=== PATIENT | female | born 1940 | race Caucasian/White ===

== ENCOUNTER 2023-03-11 12:50 | Outpatient (OUT) | payer MEDICARE, OTHER, SELFPAY ==
--- NOTE | 2023-03-11 12:54 | US_ITS ---
Patient: ERNESTINA HAYWOOD Exam Date: 03/11/2023 : 1940 Gender:F Ordering : DR SMITH ZHANG M.D. Admission #: [id number] Family : DR RAFA RAM M.D. Order #: [id number] CLICK HERE TO VIEW EXAM RADIOLOGY REPORT PROCEDURE: MM TOMOSYNTHESIS DIAGNOSTIC RT, 03/11/2023, 13:43 US BREAST RT LIMITED, 03/11/2023, 13:01 COMPARISON: [facility] MAMM DIAGNOSTIC 3D SHREE CAD, 07/29/2022. [facility] MAMM DIAGNOSTIC 3D SHREE CAD, 07/29/2021. INDICATIONS: Palpable lump in right breast Calculator Name NCI Breast Cancer Risk Assessment Tool 5 Year Breast Cancer Risk n/a% Lifetime Breast Cancer Risk n/a% Personal Breast Cancer Yes, invasive ductal carcinoma, age 78 Personal Ovarian Cancer No Treatments None Family Cancers None LOCATION: [facility] BREAST COMPOSITION: Extremely dense, which lowers the sensitivity of mammography. FINDINGS: DIAGNOSTIC CATEGORY 2--BENIGN FINDING: RIGHT BREAST: Scattered benign-appearing calcifications are present. Chronic calcified nodules/scarring within axillary tail with overlying skin surface marker and skin retraction at site of prior lumpectomy No significant change has occurred. Ultrasound evaluation demonstrates a calcified mass within the axillary tail corresponding to patient's palpable lump, 2.1 x 0.9 x 1.1 cm. No appreciable significant internal blood flow. Annual screening mammography is recommended. RECOMMENDATIONS: ROUTINE MAMMOGRAM AND CLINICAL EVALUATION IN 12 MONTHS. PLEASE NOTE: A NORMAL MAMMOGRAM DOES NOT EXCLUDE THE POSSIBILITY OF BREAST CANCER. A CLINICALLY SUSPICIOUS PALPABLE LUMP SHOULD BE BIOPSIED. Dictated by: Mac Moss M.D. on 03/11/2023 at 14:34 Approved by: Mac Moss M.D. on 03/11/2023 at 14:59
--- NOTE | 2023-03-11 13:54 | MM_ITS ---
Patient: ERNESTINA HAYWOOD Exam Date: 03/11/2023 : 1940 Gender:F Ordering : DR SMITH ZHANG M.D. Admission #: [id number] Family : DR RAFA RAM M.D. Order #: [id number] CLICK HERE TO VIEW EXAM RADIOLOGY REPORT PROCEDURE: MM TOMOSYNTHESIS DIAGNOSTIC RT, 03/11/2023, 13:43 US BREAST RT LIMITED, 03/11/2023, 13:01 COMPARISON: [facility] MAMM DIAGNOSTIC 3D SHREE CAD, 07/29/2022. MG MAMM DIAGNOSTIC 3D SHREE CAD, 07/29/2021. INDICATIONS: Palpable lump in right breast Calculator Name NCI Breast Cancer Risk Assessment Tool 5 Year Breast Cancer Risk n/a% Lifetime Breast Cancer Risk n/a% Personal Breast Cancer Yes, invasive ductal carcinoma, age 78 Personal Ovarian Cancer No Treatments None Family Cancers None LOCATION: [facility] BREAST COMPOSITION: Extremely dense, which lowers the sensitivity of mammography. FINDINGS: DIAGNOSTIC CATEGORY 2--BENIGN FINDING: RIGHT BREAST: Scattered benign-appearing calcifications are present. Chronic calcified nodules/scarring within axillary tail with overlying skin surface marker and skin retraction at site of prior lumpectomy No significant change has occurred. Ultrasound evaluation demonstrates a calcified mass within the axillary tail corresponding to patient's palpable lump, 2.1 x 0.9 x 1.1 cm. No appreciable significant internal blood flow. Annual screening mammography is recommended. RECOMMENDATIONS: ROUTINE MAMMOGRAM AND CLINICAL EVALUATION IN 12 MONTHS. PLEASE NOTE: A NORMAL MAMMOGRAM DOES NOT EXCLUDE THE POSSIBILITY OF BREAST CANCER. A CLINICALLY SUSPICIOUS PALPABLE LUMP SHOULD BE BIOPSIED. Dictated by: Mac Moss M.D. on 03/11/2023 at 14:34 Approved by: Mac Moss M.D. on 03/11/2023 at 14:59
== END 2023-03-11 12:51 ==
LOC: US 12:50
PROVIDERS: PCP Internal Medicine; Visit Provider Internal Medicine Hematology & Oncology
DX: C50.811 Malignant neoplasm of overlapping sites of right female breast (principal); Z17.0 Estrogen receptor positive status [ER+]
CPT/HCPCS: 76642; 77065; G0279

== ENCOUNTER 2023-07-30 13:55 | Outpatient (OUT) | payer MEDICARE, OTHER, SELFPAY ==
--- NOTE | 2023-07-30 14:06 | MM_ITS ---
Patient Name: ERNESTINA HAYWOOD MR#: [id number] : 1940 Exam Date: 07/30/2023 Ordering Doctor: DR SMITH ZHANG M.D. RADIOLOGY REPORT PROCEDURE: MM TOMOSYNTHESIS SCREENING BI COMPARISON: MM TOMOSYNTHESIS DIAGNOSTIC RT, 03/11/2023. MG MAMM DIAGNOSTIC 3D SHREE CAD, 07/29/2022. MG MAMM DIAGNOSTIC 3D SHREE CAD, 07/29/2021. MG MAMM SHREE DIAG W CAD DIG, 02/14/2013. INDICATIONS: Screening Calculator Name NCI Breast Cancer Risk Assessment Tool 5 Year Breast Cancer Risk n/a% Lifetime Breast Cancer Risk n/a% Personal Breast Cancer Yes, invasive ductal carcinoma, age 78 Personal Ovarian Cancer No Treatments None Family Cancers None LOCATION: [facility] BREAST COMPOSITION: Extremely dense, which lowers the sensitivity of mammography. FINDINGS: DIAGNOSTIC CATEGORY 2--BENIGN FINDING: RIGHT BREAST: No significant suspicious finding. Scattered benign-appearing calcifications are present. No significant change has occurred. LEFT BREAST: No significant suspicious finding. Scattered benign-appearing calcifications are present. No significant change has occurred. RECOMMENDATIONS: ROUTINE MAMMOGRAM AND CLINICAL EVALUATION IN 12 MONTHS. PLEASE NOTE: A NORMAL MAMMOGRAM DOES NOT EXCLUDE THE POSSIBILITY OF BREAST CANCER. A CLINICALLY SUSPICIOUS PALPABLE LUMP SHOULD BE BIOPSIED. Dictated by: Mac Moss M.D. on 07/30/2023 at 14:56 Approved by: Mac Moss M.D. on 07/30/2023 at 14:58
== END 2023-07-30 13:56 | disposition home or self-care (01) ==
LOC: MAMMO 13:55
PROVIDERS: PCP Internal Medicine; Visit Provider Internal Medicine Hematology & Oncology
DX: Z12.31 Encounter for screening mammogram for malignant neoplasm of breast (principal)
CPT/HCPCS: 77063; 77067

== ENCOUNTER 2024-04-06 08:09 | Outpatient (OUT) | payer MEDICARE, OTHER, SELFPAY ==
--- OUTSIDE RECORDS SUMMARY | 2024-04-06 08:15 | XMS_ITS | CCD ---
Author Organization [facility] Care Team Providers Care Md Urologist Name Role Phone Wilver Disla MD Unavailable Prashanth CANDY SEPARATOR ENROBING.ANUJA Hannah Unavailable Kade Huynh II Primary Care Provider JAYNE KEITH Admitting Unavailable LINO, DR CRAIG Primary Care Unavailable ELANA, DR ERASMO Singh Consulting Unavailable JAYNE KEITH Attending Unavailable JAYNE KEITH Consulting Unavailable LINO, DR CRAIG Primary Care Unavailable LEATHA, DR MTZ Attending Unavailable LEATHA, DR MTZ Consulting Unavailable LEATHA, DR MTZ Admitting Unavailable DASHAWN, DR GRACE Tovar Consulting Unavailable GURWINDER POWELL Attending Unavailable GURWINDER POWELL Admitting Unavailable LINO, DR CRAIG Primary Care Unavailable DASHAWN, DR GRACE Tovar Consulting Unavailable GURWINDER POWELL Consulting Unavailable LINO, DR CRAIG Consulting Unavailable LINO, DR CRAIG Primary Care Unavailable LINO, DR CRAIG Admitting Unavailable LINO, DR CRAIG Attending Unavailable ELANA, DR ERASMO Singh Consulting Unavailable Wilver Disla MD Unavailable [phone] Prashanth CANDY SEPARATOR ENROBING.ANUJA Hannah Unavailable Kade Huynh II Primary Care Provider Kade Huynh II Primary Care Provider [phone] Lino LOW MD, Daniel B Primary Care Provider [phone] KADE HUYNH II Primary Care Unavailable WILVER DISLA Attending Unavailable WILVER DISLA Referring Unavailable KADE HUYNH II Primary Care Unavailable KADE HUYNH II Primary Care Unavailable ROSALINA LANDRY Attending Unavailable WILVER DISLA Referring Unavailable KADE HUYNH II Primary Care Unavailable WILVER DISLA Referring Unavailable KADE HUYNH II Primary Care Unavailable WILVER DISLA Attending Unavailable WILVER DISLA Referring Unavailable KADE HUYNH II Primary Care Unavailable Medications Current Medications Medication Drug Class(es) Dates Sig (Normalized) Sig (Original) anastrozole 1 mg oral tablet (9 sources) Aromatase Inhibitor Start: 04-19-2023 End: 03-28-2024 take 1 tablet by mouth once daily anastrozole (ARIMIDEX) 1 mg tablet Take 1 tablet by mouth once daily. 90 tablet 3 03/28/2024 Active Start: 03-19-2022 take 1 tablet by krysta th once daily anastrozole (ARIMIDEX) 1 mg tablet Take 1 tablet by mouth once daily. 90 tablet 3 03/19/2022 Active Start: 08-12-2021 take 1 tablet by krysta th once daily anastrozole (ARIMIDEX) 1 mg tablet Take 1 tablet by mouth once daily. 90 tablet 3 08/12/2021 Active Comment on above: Take 1 tablet by krysta th once daily. cholecalciferol 0.05 mg oral tablet (8 sources) Vitamin D Start: 020 take 1 tablet by mouth once daily cholecalciferol (VITAMIN D3) 50 mcg (2,000 unit) tablet Take 1 tablet by mouth once daily. 0 02/05/2020 Active Comment on above: Take 1 tablet by krysta th once daily. hydrocortisone acetate 25 mg rectal suppository (8 sources) Corticosteroid Start: 020 hydrocortisone (HEMORRHOIDAL HC) 25 mg suppository INSERT 1 SUPPOSITORY RECTALLY 3 TIMES A DAY 0 06/05/2020 Active Comment on above: INSERT 1 SUPPOSITORY RECTALLY 3 TIMES A DAY Lactose (8 sources) LACTOSE ORAL Jim e by mouth. 0 Active Comment on above: Take by mouth. Loratadine (8 sources) loratadine (CLAR ITIN ORAL) Take by mouth. 0 Active Comment on above: Take by mouth. montelukast 10 mg oral tablet (8 sources) Leukotriene Receptor Antagonist Start: 020 take 1 tablet by mouth once daily montelukast (SINGULAIR) 10 mg tablet Take 10 mg by mouth once daily. 0 05/08/2020 Active Comment on above: Take 10 mg by mouth once daily. omeprazole 20 mg delayed release oral capsule (8 sources) Proton Pump Inhibitor take 1 capsule by mouth once daily omeprazole (PRILOSEC) 20 mg capsule Take 20 mg by mouth once daily. 0 Active Comment on above: Take 20 mg by mouth once daily. SUMMER'S WORT ORAL (8 sources) SUMMER'S WORT ORAL Take by mouth. 0 Active Comment on above: Take by mouth. Zinc Sulfate (8 sources) zinc sulfate (ZI NC-15 ORAL) Take by mouth. 0 Active Comment on above: Take by mouth. Problems Active Problems Problem Classification Problem Date Documented Da te Episodic/Chronic Cancer of breast (19 sources) Overlapping malignant neoplasm of female breast; Translations: [Malignant neoplasm of overlapping sites of right female breast] Onset: 09-28-2019 Chronic Other connective tissue disease (4 sources) Pain in left foot; Translations: [PAIN IN LEFT FOOT] Onset: 07-15-2022 Episodic Other screening for suspected conditions (not mental disorders or infectious disease) (2 sources) Encounter for screening for osteoporosis; Translations: [Patient encounter status] Onset: 08-03-2022 03-28-2024 Episodic Residual codes; unclassified (1 source) Asymptomatic menopausal state; Translations: [ASYMPTOMATIC MENOPAUSAL STATE] Onset: 08-03-2022 Episodic Residual codes; unclassified (1 source) Estrogen receptor positive tumor; Translations: [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+]] 04-05-2023 Episodic Unclassified (3 sources) COUGH, UNSPECIFIED; Translations: [COUGH, UNSPECIFIED] Onset: 05-18-2022 Past or Other Problems Problem Classification Problem Date Documented Da te Episodic/Chronic Residual codes; unclassified (2 sources) 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+]; Translations: [ESTROGEN RECEPTOR POSITIVE STATUS] Onset: 09-28-2019 Episodic Unclassified (1 source) COUGH, UNSPECIFIED; Translations: [COUGH, UNSPECIFIED] Onset: 05-16-2022 Results Test Name Value Interpretation Reference Range Facility CBC W Auto Differential pane l (Bld)on 03-28-2024 Basophils (Bld) [#/Vol] 0.07 10*3/uL Normal <0.11 [facility] Comment on above: Order Comment: Speci men Type: BLOOD SPECIMEN Ordering Facility: [facility] Address: [address] [place] [address] Performed By: #### 5 7021-8 #### [facility] CLIA [id number] [address] [place] [address] 55004 Basophils/100 WBC (Bld) 1.0 % Normal [facility] Comment on above: Order Comment: Speci men Type: BLOOD SPECIMEN Ordering Facility: [facility] Address: [address] [place], [place] [address] Performed By: #### 5 7021-8 #### [facility] CLIA [id number] [address] [place] [address] 79495 Differential cell count method Nom (Bld) Auto Normal [facility] Comment on above: Order Comment: Speci men Type: BLOOD SPECIMEN Ordering Facility: [facility] Address: [address] [place] [address] Performed By: #### 5 7021-8 #### [facility] CLIA [id number] [address] [place] [address] 76936 Eosinophils (Bld) [#/Vol] 0.10 10*3/uL Normal <0.46 [facility] Comment on above: Order Comment: Speci men Type: BLOOD SPECIMEN Ordering Facility: [facility] Address: [address] [place] [address] Performed By: #### 5 7021-8 #### [facility] CLIA [id number] [address] [place] [address] 88240 Eosinophils/100 WBC (Bld) 1.4 % Normal [facility] Comment on above: Order Comment: Speci men Type: BLOOD SPECIMEN Ordering Facility: [facility] Address: [address] [place] [address] Performed By: #### 5 7021-8 #### [facility] CLIA [id number] [address] [place] [address] 05337 Erythrocyte distribution width (RBC) [Ratio] 14.1 % Normal 11.5-15.0 [facility] Comment on above: Order Comment: Speci men Type: BLOOD SPECIMEN Ordering Facility: [facility] Address: [address] [place] [address] Performed By: #### 5 7021-8 #### [facility] CLIA [id number] [address] [place] [address] Hematocrit (Bld) [Volume fraction] 40.2 % Normal 36.0-46.0 [facility] Comment on above: Order Comment: Speci men Type: BLOOD SPECIMEN Ordering Facility: [facility] Address: [address] [place] [address] Performed By: #### 5 7021-8 #### [facility] CLIA [id number] [address] [place] [address] 19798 Hemoglobin (Bld) [Mass/Vol] 13.2 g/dL Normal 11.5-15.5 [facility] Comment on above: Order Comment: Speci men Type: BLOOD SPECIMEN Ordering Facility: [facility] Address: [address] [place] [address] Performed By: #### 5 7021-8 #### [facility] CLIA [id number] [address] [place] [address] 85621 Immature granulocytes (Bld) [#/Vol] 0.03 10*3/uL Normal <0.10 [facility] Comment on above: Order Comment: Speci men Type: BLOOD SPECIMEN Ordering Facility: [facility] Address: [address] [place] [address] Performed By: #### 5 7021-8 #### [facility] CLIA [id number] [address] [place] [address] 25652 Immature granulocytes/100 WBC (Bld) 0.4 % Normal [facility] Comment on above: Order Comment: Speci men Type: BLOOD SPECIMEN Ordering Facility: [facility] Address: [address] [place] [address] Performed By: #### 5 7021-8 #### [facility] CLIA [id number] [address] [place] [address] 25018 Lymphocytes (Bld) [#/Vol] 1.51 10*3/uL Normal 1.00-4.00 [facility] Comment on above: Order Comment: Speci men Type: BLOOD SPECIMEN Ordering Facility: [facility] Address: [address] [place] [address] Performed By: #### 5 7021-8 #### [facility] CLIA [id number] [address] [place] [address] 12187 Lymphocytes/100 WBC (Bld) 20.9 % Normal [facility] Comment on above: Order Comment: Speci men Type: BLOOD SPECIMEN Ordering Facility: [facility] Address: [address] [place] [address] Performed By: #### 5 7021-8 #### [facility] CLIA [id number] [address] [place] [address] 37440 MCH (RBC) [Entitic mass] 32.8 pg Normal 26.0-34.0 [facility] Comment on above: Order Comment: Speci men Type: BLOOD SPECIMEN Ordering Facility: [facility] Address: [address] [place] [address] Performed By: #### 5 7021-8 #### [facility] CLIA [id number] [address] [place] [address] 81863 MCHC (RBC) [Mass/Vol] 32.8 g/dL Normal 30.5-36.0 [facility] Comment on above: Order Comment: Speci men Type: BLOOD SPECIMEN Ordering Facility: [facility] Address: [address] [place] [address] Performed By: #### 5 7021-8 #### [facility] CLIA [id number] [address] [place] [address] 07950 MCV (RBC) [Entitic vol] 99.8 fL Normal 80.0-100.0 [facility] Comment on above: Order Comment: Speci men Type: BLOOD SPECIMEN Ordering Facility: [facility] Address: [address] [place] [address] Performed By: #### 5 7021-8 #### [facility] CLIA [id number] [address] [place] [address] 16932 Monocytes (Bld) [#/Vol] 0.47 10*3/uL Normal <0.87 [facility] Comment on above: Order Comment: Speci men Type: BLOOD SPECIMEN Ordering Facility: [facility] Address: [address] [place] [address] Performed By: #### 5 7021-8 #### [facility] CLIA [id number] [address] [place] [address] 84902 Monocytes/100 WBC (Bld) 6.5 % Normal [facility] Comment on above: Order Comment: Speci men Type: BLOOD SPECIMEN Ordering Facility: [facility] Address: [address] [place] [address] Performed By: #### 5 7021-8 #### [facility] CLIA [id number] [address] [place] [address] 51030 Neutrophils (Bld) [#/Vol] 5.04 10*3/uL Normal 1.45-7.50 [facility] Comment on above: Order Comment: Speci men Type: BLOOD SPECIMEN Ordering Facility: [facility] Address: [address] [place] [address] Performed By: #### 5 7021-8 #### [facility] CLIA [id number] [address] [place] [address] 15622 Neutrophils/100 WBC (Bld) 69.8 % Normal [facility] Comment on above: Order Comment: Speci men Type: BLOOD SPECIMEN Ordering Facility: [facility] Address: [address] [place] [address] 8[address]60 Performed By: #### 5 7021-8 #### [facility] CLIA [id number] [address] [place] [address] 88536 Nucleated RBC (Bld) [#/Vol] 10*3/uL Normal <0.01 [facility] Comment on above: Order Comment: Speci men Type: BLOOD SPECIMEN Ordering Facility: [facility] Address: [address] [place] [address] Performed By: #### 5 7021-8 #### [facility] CLIA [id number] [address] [place] [address] Nucleated RBC/100 WBC (Bld) [Ratio] 0.0 /100 WBC Normal [facility] Comment on above: Order Comment: Speci men Type: BLOOD SPECIMEN Ordering Facility: [facility] Address: [address] [place] [address] 73729 Performed By: #### 5 7021-8 #### [facility] CLIA [id number] [address] [place] [address] 79441 Platelet mean volume (Bld) [Entitic vol] 9.7 fL Normal 9.0-12.7 [facility] Comment on above: Order Comment: Speci men Type: BLOOD SPECIMEN Ordering Facility: [facility] Address: [address] [place] [address] 14849 Performed By: #### 5 7021-8 #### [facility] CLIA [id number] [address] [place] [address] 60694 Platelets (Bld) [#/Vol] 242 10*3/uL Normal 150-400 [facility] Comment on above: Order Comment: Speci men Type: BLOOD SPECIMEN Ordering Facility: [facility] Address: [address] [place] [address]97 Performed By: #### 5 7021-8 #### [facility] CLIA [id number] [address] [place] [address] 81673 RBC (Bld) [#/Vol] 4.03 10*6/uL Normal 3.90-5.20 [facility] Comment on above: Order Comment: Speci men Type: BLOOD SPECIMEN Ordering Facility: [facility] Address: [address] [place] [address] 24298 Performed By: #### 5 7021-8 #### [facility] CLIA [id number] [address] [place] [address] 41780 WBC (Bld) [#/Vol] 7.22 10*3/uL Normal 3.70-11.00 [facility] Comment on above: Order Comment: Speci men Type: BLOOD SPECIMEN Ordering Facility: [facility] Address: [address] [place] [address] Performed By: #### 5 7021-8 #### [facility] CLIA [id number] [address] [place] [address] 02236 CNOVSPon 03-28-2024 CNOVSP Visit (SP) Office ([facility]) ERNESTINA COSTA ([id number]) 1940 F Date Time Provider Department 03/28/24 2:30 PM ROSALINA LANDRY During your visit today, we recorded the following information about you: Temperature Pulse Respiration Blood pressure 98.1 degrees 82/minute 16/minute 130/84 Weight Height 89.6 kg 1.581 Rosalina Nunez PA-C 03/28/2024 4:06 PM Signed PATIENT NAME: Ernestina Costa DATE: 03/28/2024 PRIMARY CARE PHYSICIAN: Dr. Kade Huynh OTHER PHYSICIANS: Dr. Chambers, Dr. Bhakti Glaser (Med [facility]) (Elements copied from Dr. Disla's note dated August 09, 2023, have been reviewed and updated where appropriate, and all reflect current assessment and medical decision making during today's encounter, March 28, 2024) CC: This is an 83 year old female with a history of right-sided breast cancer, seen for scheduled follow-up. INTERIM HISTORY: Ernestina returns for follow up. She just got back from [place]. Remains on anastrazole without issues. She has been having gait issues and some tremors and she will be seeing her PCP for this next week. No breast changes. She still has occasional tenderness in her right breast, but that has been for a long time. She also has a nodule in her right axilla that hasn't changed. This has been imaged previously No recent hospitalizations or illness. MEDICATIONS: anastrozole (ARIMIDEX) 1 mg tablet TAKE 1 TABLET ONCE DAILY SUMMER'S WORT ORAL Take by mouth. loratadine (CLARITIN ORAL) Take by mouth. montelukast (SINGULAIR) 10 mg tablet Take 10 mg by mouth once daily. hydrocortisone (HEMORRHOIDAL HC) 25 mg suppository INSERT 1 SUPPOSITORY RECTALLY 3 TIMES A DAY cholecalciferol (VITAMIN D3) 50 mcg (2,000 unit) tablet Take 1 tablet by mouth once daily. omeprazole (PRILOSEC) 20 mg capsule Take 20 mg by mouth once daily. zinc sulfate (ZINC-15 ORAL) Take by mouth. LACTOSE ORAL Take by mouth. ALLERGIES: Patient has no known allergies. PAST MEDICAL HISTORY: PAST MEDICAL HISTORY Diagnosis Date Breast cancer (HCC) PAST SURGICAL HISTORY: PAST SURGICAL HISTORY Procedure Laterality Date BREAST BIOPSY CATARACT EXTRACTION HX PAST SURGICAL HISTORY OF Left 06/2021 Left foot TONSILLECTOMY HX REVIEW OF SYSTEMS: GENERAL: No weight loss, malaise or fevers. HEENT: Negative for frequent or significant headaches, No changes in hearing or vision, no nose bleeds or other nasal problems RESPIRATORY: Negative for cough, wheezing or shortness of breath. CARDIOVASCULAR: Negative for chest pain, leg swelling or palpitations. GI: Negative for abdominal discomfort, blood in stools or black stools Positive for chronic constipation and hemorrhoids : No history of dysuria, frequency or incontinence MUSCULOSKELETAL: Negative for: joint pain or swelling, back pain and muscle pain SKIN: Negative for lesions, rash, and itching. HEMATOLOGY/LYMPHOLOGY: Negative for prolonged bleeding, bruising easily or swollen nodes. NEURO: No history of headaches, syncope, paralysis, seizures or tremors BREAST: right breast and axilla tenderness PHYSICAL EXAM: Vitals: BP 130/84 Pulse 82 Temp 36.7 ?C (98.1 ?F) (Temporal) Resp 16 Ht 158.1 cm (5' 2.24 ) Wt 89.6 kg (197 lb 8.5 oz) SpO2 97% BMI 35.85 kg/m? ECOG 0 General: Alert and oriented, no distress, pleasant and cooperative. Heart: Regular, normal S1 and S2, no murmurs, rubs, or gallops Lungs: Clear to auscultation bilaterally Abdomen: Benign Extremities: Feet/ankles without edema, posterior tibial pulses full and symmetrical Lymph Nodes: No Submandibular, cervical, supraclavicular, axillary, or inguinal lymphadenopathy present Breast: Postop changes in the right breast with thickening consistent with scar tissue in the right outer quadrant. Left breast normal. Right axillary area demonstrates a 1 x 1 cm hardened area most consistent with scar tissue. 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 The invasive carcinoma measures 1.5 cm in greatest dimension. It focally involved the inferior margin. The remaining margins are free of neoplasm. One sentinel lymph node biopsied, with evidence of metastasis measuring 4 mm in greatest dimension. Minute focus of extranodal extension measuring approximately 0.1 mm is identified. LABORATORY DATA: Hemoglobin (g/dL) Date Value 03/28/2024 13.2 08/12/2021 13.7 Hematocrit (%) Date Value 03/28/2024 40.2 08/12/2021 42.2 WBC (k/uL) Date Value 03/28/2024 7.22 08/12/2021 6.69 Platelet Count (k/uL) Date Value 03/28/2024 242 08/12/2021 266 RADIOLOGIC DATA: 07/30/2023 Bilateral diagnostic mammogram ([facility]) Benign finding. Recommend routine mammogram in 12 months. 03/11/2023 Right diagnostic mammog (more content not included)... Normal [facility] 03-28-2024 [facility] Tele[facility] ([facility]) ERNESTINA COSTA ([id number]) 1940 F Date Time Provider Department 03/28/24 WILVER DISLA During your visit today, we recorded the following information about you: Heather Thompson 03/28/2024 3:17 PM Signed Hi Rosalina, Could you please place a new Mammogram order for her? The one in her chart was ordered by Dr. Disla and will no longer be valid for July 2024. Thank you! Rosalina Belcher PA-C 03/28/2024 4:35 PM Signed Order placed Heather Thompson 03/30/2024 8:25 AM Signed Faxed order to [facility] - they will contact patient closer to time for scheduling. Mailed order w/ patients follow up. Heather Thompson Allergies As of Date: 03/28/2024 (No Known Allergies) Date Reviewed: 03/28/2024 Reviewed by: Rosalina Landry PA-C - Fully Assessed Reason for Visit: Orders [681] Primary Visit Diagnosis:Malignant neoplasm of overlapping sites of right breast in female, estrogen receptor positive (HCC) [C50.811, Z17.0] Other Visit Diagnosis:Encounter for screening mammogram for malignant neoplasm of breast [Z12.31] Order(s):CIRO SCREENING W CHELSIE [[id number]] Order #: [id number] FUTURE Prescriptions as of 03/30/2024 - anastrozole (ARIMIDEX) 1 mg tablet Take 1 tablet by mouth once daily. - SUMMER'S WORT ORAL Take by mouth. - loratadine (CLARITIN ORAL) Take by mouth. - montelukast (SINGULAIR) 10 mg tablet Take 10 mg by mouth once daily. - hydrocortisone (HEMORRHOIDAL HC) 25 mg suppository INSERT 1 SUPPOSITORY RECTALLY 3 TIMES A DAY - cholecalciferol (VITAMIN D3) 50 mcg (2,000 unit) tablet Take 1 tablet by mouth once daily. - omeprazole (PRILOSEC) 20 mg capsule Take 20 mg by mouth once daily. - zinc sulfate (ZINC-15 ORAL) Take by mouth. - LACTOSE ORAL Take by mouth. Problem List As Of Date 03/28/2024 Noted Resolved Malignant neoplasm of overlapping sites of righ*09/28/2019 Encounter Status:Closed by HEATHER THOMPSON on 03/30/24 Normal [facility] Cancer Ag27-29 SerPl-aCncon 03-28-2024 Cancer Ag 27-29 Qn 20.6 [arb'U]/mL Normal <38.6 C [facility] Comment on above: Order Comment: Speci men Type: BLOOD SPECIMEN Ordering Facility: [facility] Address: [address] [place] [address] Result Comment: The CA27.29 test was performed using the Siemens Centaur XP chemiluminometric immunoassay method. Results obtained with different assay methods or kits cannot be used interchangeably. Performed By: #### 2 4323-8 #### [facility] CLIA [id number] [address] [place] [address] 81367 Comprehensive metabolic 2000 panelon 03-28-2024 Albumin [Mass/Vol] 3.9 g/dL Normal 3.9-4.9 [facility] Comment on above: Order Comment: Speci men Type: BLOOD SPECIMEN Ordering Facility: [facility] Address: [address] [place] [address] Performed By: #### 2 4323-8 #### [facility] CLIA [id number] [address] [place] [address] 45576 ALP [Catalytic activity/Vol] 114 U/L Normal 34-123 [facility] Comment on above: Order Comment: Speci men Type: BLOOD SPECIMEN Ordering Facility: [facility] Address: [address] [place] [address] Performed By: #### 2 4323-8 #### [facility] CLIA [id number] [address] [place] [address] 56700 ALT [Catalytic activity/Vol] 16 U/L Normal 7-38 [facility] Comment on above: Order Comment: Speci men Type: BLOOD SPECIMEN Ordering Facility: [facility] Address: [address] [place] [address] Performed By: #### 2 4323-8 #### [facility] CLIA [id number] [address] [place] [address] 52851 Anion gap [Moles/Vol] 7 mmol/L Low 8-15 [facility] Comment on above: Order Comment: Speci men Type: BLOOD SPECIMEN Ordering Facility: [facility] Address: [address] [place] [address] Performed By: #### 2 4323-8 #### [facility] CLIA [id number] [address] [place] [address] AST [Catalytic activity/Vol] 14 U/L Normal 13-35 [facility] Comment on above: Order Comment: Speci men Type: BLOOD SPECIMEN Ordering Facility: [facility] Address: [address] [place], [place] [address] Performed By: #### 2 4323-8 #### [facility] CLIA [id number] [address] [place] [address] 14812 Bilirubin [Mass/Vol] 0.5 mg/dL Normal 0.2-1.3 [facility] Comment on above: Order Comment: Speci men Type: BLOOD SPECIMEN Ordering Facility: [facility] Address: [address] [place] [address] Performed By: #### 2 4323-8 #### [facility] CLIA [id number] [address] [place] [address] 93189 Calcium [Mass/Vol] 10.1 mg/dL Normal 8.5-10.2 [facility] Comment on above: Order Comment: Speci men Type: BLOOD SPECIMEN Ordering Facility: [facility] Address: [address] [place] [address] Performed By: #### 2 4323-8 #### [facility] CLIA [id number] [address] [place] [address] 55564 Chloride [Moles/Vol] 105 mmol/L Normal 98-107 [facility] Comment on above: Order Comment: Speci men Type: BLOOD SPECIMEN Ordering Facility: [facility] Address: [address] [place] [address] Performed By: #### 2 4323-8 #### [facility] CLIA [id number] [address] [place] [address] 50600 CO2 [Moles/Vol] 26 mmol/L Normal 22-30 [facility] Comment on above: Order Comment: Speci men Type: BLOOD SPECIMEN Ordering Facility: [facility] Address: [address] [place], [place] [address] Performed By: #### 2 4323-8 #### [facility] CLIA [id number] [address] [place] [address] Creatinine [Mass/Vol] 0.93 mg/dL Normal 0.58-0.96 [facility] Comment on above: Order Comment: Kim flores Type: BLOOD SPECIMEN Ordering Facility: [facility] Address: [address] [place] [address] Performed By: #### 2 4323-8 #### [facility] CLIA [id number] [address] [place] [address] Creatinine and Glomerular filtration rate.predicted panel (S/P/Bld) 61 mL/min/1.73m??? Normal >=60 [facility] Comment on above: Order Comment: Kim flores Type: BLOOD SPECIMEN Ordering Facility: [facility] Address: [address] [place] [address] Result Comment: Isabella mated Glomerular Filtration Rate (eGFR) is calculated using the 2020 CKD-EPI creatinine equation. This equation utilizes serum creatinine, sex, and age as parameters. The creatinine assay has traceable calibration to isotope dilution-mass spectrometry. Refer to KDIGO guidelines for clinical interpretation. In patients with unstable renal function, e.g. those with acute kidney injury, the eGFR may not accurately reflect actual GFR. Performed By: #### 2 4323-8 #### [facility] CLIA [id number] [address] [place] [address] 74414 Glucose [Mass/Vol] 121 mg/dL High 74-99 [facility] Comment on above: Order Comment: Kim flores Type: BLOOD SPECIMEN Ordering Facility: [facility] Address: [address] [id number] Result Comment: The [place] [employer] (ADA) provides guidance for cutoff values for fasting glucose and random glucose. The ADA defines fasting as no caloric intake for at least 8 hours. Fasting plasma glucose results between 100 to 125 mg/dL indicate increased risk for diabetes (prediabetes). Fasting plasma glucose results greater than or equal to 126 mg/dL meet the criteria for diagnosis of diabetes. In the absence of unequivocal hyperglycemia, results should be confirmed by repeat testing. In a patient with classic symptoms of hyperglycemia or hyperglycemic crisis, random plasma glucose results greater than or equal to 200 mg/dL meet the criteria for diagnosis of diabetes. Reference: Standards of Medical Care in Diabetes 2016, [place] [employer]. Diabetes Care. 2016.39(Suppl 1). Performed By: #### 2 4323-8 #### [facility] CLIA [id number] [address] [place] [address] Potassium [Moles/Vol] 4.2 mmol/L Normal 3.7-5.1 [facility] Comment on above: Order Comment: Speci men Type: BLOOD SPECIMEN Ordering Facility: [facility] Address: [address] [place] [address] Performed By: #### 2 432-8 #### [facility] CLIA [id number] [address] [place] [address] 83343 Protein [Mass/Vol] 8.4 g/dL High 6.3-8.0 [facility] Comment on above: Order Comment: Speci men Type: BLOOD SPECIMEN Ordering Facility: [facility] Address: [address] [id number] Performed By: #### 2 432-8 #### [facility] CLIA [id number] [address] [place] [address]235 Sodium [Moles/Vol] 138 mmol/L Normal 136-144 [facility] Comment on above: Order Comment: Speci men Type: BLOOD SPECIMEN Ordering Facility: [facility] Address: [address] [place] [address] Performed By: #### 2 432-8 #### [facility] CLIA [id number] [address] [place] [address] 00197 Urea nitrogen [Mass/Vol] 19 mg/dL Normal 7-21 [facility] Comment on above: Order Comment: Speci men Type: BLOOD SPECIMEN Ordering Facility: [facility] Address: [address] [place] [address] Performed By: #### 2 4323-8 #### [facility] CLIA [id number] [address] [place] [address] 18163 Alfie 03-27-2024 CNPN Telephone (HEMASA) ERNESTINA COSTA ([id number]) 1940 F Date Time Provider Department 03/27/24 ROSALINA LANDRY HEMASA During your visit today, we recorded the following information about you: Louise Stout MA 03/27/2024 2:34 PM Signed Patient coming in Wednesday03/27/24 for follow up. Do you want labs? If so, please put in lab orders. Louise Stout MA Allergies As of Date: 03/27/2024 (No Known Allergies) Date Reviewed: 03/27/2024 Reviewed by: Rsoalina Landry PAGilsonC - Fully Assessed Reason for Visit: Lab Orders [1688] Primary Visit Diagnosis:Malignant neoplasm of overlapping sites of right breast in female, estrogen receptor positive (HCC) [C50.811, Z17.0] Order(s):CA 27.29 BLOOD [[id number]] Order #: [id number] FUTURE COMPREHENSIVE METABOLIC PANEL [SQCMP] Order #: [id number] FUTURE COMPLETE BLOOD COUNT AND DIFFERENTIAL [SQCBCDIF] Order #: [id number] FUTURE Prescriptions as of 03/27/2024 - anastrozole (ARIMIDEX) 1 mg tablet TAKE 1 TABLET ONCE DAILY - SUMMER'S WORT ORAL Take by mouth. - loratadine (CLARITIN ORAL) Take by mouth. - montelukast (SINGULAIR) 10 mg tablet Take 10 mg by mouth once daily. - hydrocortisone (HEMORRHOIDAL HC) 25 mg suppository INSERT 1 SUPPOSITORY RECTALLY 3 TIMES A DAY - cholecalciferol (VITAMIN D3) 50 mcg (2,000 unit) tablet Take 1 tablet by mouth once daily. - omeprazole (PRILOSEC) 20 mg capsule Take 20 mg by mouth once daily. - zinc sulfate (ZINC-15 ORAL) Take by mouth. - LACTOSE ORAL Take by mouth. Problem List As Of Date 03/27/2024 Noted Resolved Malignant neoplasm of overlapping sites of righ*09/28/2019 Encounter Status:Closed by WILVER DISLA on 03/27/24 Normal [facility] CBC W Auto Differential pane l (Bld)on 08-09-2023 Basophils (Bld) [#/Vol] 0.07 10*3/uL Normal <0.11 [facility] Comment on above: Order Comment: Speci men Type: BLOOD SPECIMEN Ordering Facility: [facility] Address: [address] [place] [address] Performed By: #### 2 432-8 #### [facility] CLIA [id number] [address] [place] [address]17 Basophils/100 WBC (Bld) 1.1 % Normal [facility] Comment on above: Order Comment: Speci men Type: BLOOD SPECIMEN Ordering Facility: [facility] Address: [address] [place] [address] Performed By: #### 2 432-8 #### [facility] CLIA [id number] [address] [place] [address] 21742 Differential cell count method Nom (Bld) Auto Normal [facility] Comment on above: Order Comment: Speci men Type: BLOOD SPECIMEN Ordering Facility: [facility] Address: [address] [place] [address] Performed By: #### 2 432-8 #### [facility] CLIA [id number] [address] [place] [address] 68082 Eosinophils (Bld) [#/Vol] 0.10 10*3/uL Normal <0.46 [facility] Comment on above: Order Comment: Speci men Type: BLOOD SPECIMEN Ordering Facility: [facility] Address: [address] [place] [address] Performed By: #### 2 4323-8 #### [facility] CLIA [id number] [address] [place] [address] 83560 Eosinophils/100 WBC (Bld) 1.5 % Normal [facility] Comment on above: Order Comment: Speci men Type: BLOOD SPECIMEN Ordering Facility: [facility] Address: [address] [id number] Performed By: #### 2 4323-8 #### [facility] CLIA [id number] [address] [place] [address] 75740 Erythrocyte distribution width (RBC) [Ratio] 14.4 % Normal 11.5-15.0 [facility] Comment on above: Order Comment: Speci men Type: BLOOD SPECIMEN Ordering Facility: [facility] Address: [address] [place] [address] Performed By: #### 2 4323-8 #### [facility] CLIA [id number] [address] [place] [address] 29298 Hematocrit (Bld) [Volume fraction] 40.0 % Normal 36.0-46.0 [facility] Comment on above: Order Comment: Speci men Type: BLOOD SPECIMEN Ordering Facility: [facility] Address: [address] [place] [address] Performed By: #### 2 4323-8 #### [facility] CLIA [id number] [address] [place] [address] 37369 Hemoglobin (Bld) [Mass/Vol] 13.1 g/dL Normal 11.5-15.5 [facility] Comment on above: Order Comment: Speci men Type: BLOOD SPECIMEN Ordering Facility: [facility] Address: [address] [place] [address] Performed By: #### 2 4323-8 #### [facility] CLIA [id number] [address] [place] [address] 78705 Immature granulocytes (Bld) [#/Vol] 10*3/uL Normal <0.10 [facility] Comment on above: Order Comment: Speci men Type: BLOOD SPECIMEN Ordering Facility: [facility] Address: [address] [place] [address] Performed By: #### 2 4323-8 #### [facility] CLIA [id number] [address] [place] [address] Immature granulocytes/100 WBC (Bld) 0.3 % Normal [facility] Comment on above: Order Comment: Speci men Type: BLOOD SPECIMEN Ordering Facility: [facility] Address: [address] [place] [address] Performed By: #### 2 4323-8 #### [facility] CLIA [id number] [address] [place] [address]6022 Lymphocytes (Bld) [#/Vol] 1.38 10*3/uL Normal 1.00-4.00 [facility] Comment on above: Order Comment: Speci men Type: BLOOD SPECIMEN Ordering Facility: [facility] Address: [address] [place] [address] Performed By: #### 2 4323-8 #### [facility] CLIA [id number] [address] [place] [address] 98782 Lymphocytes/100 WBC (Bld) 20.8 % Normal [facility] Comment on above: Order Comment: Speci men Type: BLOOD SPECIMEN Ordering Facility: [facility] Address: [address] [place] [address] Performed By: #### 2 4323-8 #### [facility] CLIA [id number] [address] [place] [address] 65654 MCH (RBC) [Entitic mass] 32.3 pg Normal 26.0-34.0 [facility] Comment on above: Order Comment: Speci men Type: BLOOD SPECIMEN Ordering Facility: [facility] Address: [address] [place] [address] Performed By: #### 2 4323-8 #### [facility] CLIA [id number] [address] [place] [address] 47301 MCHC (RBC) [Mass/Vol] 32.8 g/dL Normal 30.5-36.0 [facility] Comment on above: Order Comment: Speci men Type: BLOOD SPECIMEN Ordering Facility: [facility] Address: [address] [place] [address] Performed By: #### 2 4323-8 #### [facility] CLIA [id number] [address] [place] [address] 09507 MCV (RBC) [Entitic vol] 98.5 fL Normal 80.0-100.0 [facility] Comment on above: Order Comment: Speci men Type: BLOOD SPECIMEN Ordering Facility: [facility] Address: [address] [place] [address] Performed By: #### 2 4323-8 #### [facility] CLIA [id number] [address] [place] [address] 43788 Monocytes (Bld) [#/Vol] 0.48 10*3/uL Normal <0.87 [facility] Comment on above: Order Comment: Speci men Type: BLOOD SPECIMEN Ordering Facility: [facility] Address: [address] [place] [address] Performed By: #### 2 4323-8 #### [facility] CLIA [id number] [address] [place] [address] 19252 Monocytes/100 WBC (Bld) 7.2 % Normal [facility] Comment on above: Order Comment: Speci men Type: BLOOD SPECIMEN Ordering Facility: [facility] Address: [address] [place] [address] Performed By: #### 2 4323-8 #### [facility] CLIA [id number] [address] [place] [address] 20264 Neutrophils (Bld) [#/Vol] 4.58 10*3/uL Normal 1.45-7.50 [facility] Comment on above: Order Comment: Speci men Type: BLOOD SPECIMEN Ordering Facility: [facility] Address: [address] [place] [address] Performed By: #### 2 4323-8 #### [facility] CLIA [id number] [address] [place] [address] 20262 Neutrophils/100 WBC (Bld) 69.1 % Normal [facility] Comment on above: Order Comment: Speci men Type: BLOOD SPECIMEN Ordering Facility: [facility] Address: [address] [place] [address] Performed By: #### 2 4323-8 #### [facility] CLIA [id number] [address] [place] [address] 09303 Nucleated RBC (Bld) [#/Vol] 10*3/uL Normal <0.01 [facility] Comment on above: Order Comment: Speci men Type: BLOOD SPECIMEN Ordering Facility: [facility] Address: [address] [place] [address] Performed By: #### 2 4323-8 #### [facility] CLIA [id number] [address] [place] [address] 46045 Nucleated RBC/100 WBC (Bld) [Ratio] 0.0 /100 WBC Normal [facility] Comment on above: Order Comment: Speci men Type: BLOOD SPECIMEN Ordering Facility: [facility] Address: [address] [place] [address] Performed By: #### 2 4323-8 #### [facility] CLIA [id number] [address] [place] [address] 71464 Platelet mean volume (Bld) [Entitic vol] 9.5 fL Normal 9.0-12.7 [facility] Comment on above: Order Comment: Speci men Type: BLOOD SPECIMEN Ordering Facility: [facility] Address: [address] [place] [address] Performed By: #### 2 4323-8 #### [facility] CLIA [id number] [address] [place] [address] 79263 Platelets (Bld) [#/Vol] 253 10*3/uL Normal 150-400 [facility] Comment on above: Order Comment: Speci men Type: BLOOD SPECIMEN Ordering Facility: [facility] Address: [address] [place] [address] Performed By: #### 2 4323-8 #### [facility] CLIA [id number] [address] [place] [address] 62576 RBC (Bld) [#/Vol] 4.06 10*6/uL Normal 3.90-5.20 [facility] Comment on above: Order Comment: Speci men Type: BLOOD SPECIMEN Ordering Facility: [facility] Address: [address] [phone] Performed By: #### 2 4323-8 #### [facility] CLIA [id number] [address] [place] [address] 72641 WBC (Bld) [#/Vol] 6.63 10*3/uL Normal 3.70-11.00 [facility] Comment on above: Order Comment: Speci men Type: BLOOD SPECIMEN Ordering Facility: [facility] Address: [address] [place] [phone] Performed By: #### 2 4323-8 #### [facility] CLIA [id number] [address] [place] [address] CNOVSPon 08-09-2023 CNOVSP Visit (SP) Office ([place]) ERNESTINA COSTA ([id number]) 1940 F Date Time Provider Department 08/09/23 2:30 PM WILVER DISLA During your visit today, we recorded the following information about you: Temperature Pulse Respiration Blood pressure 97.8 degrees 77/minute 18/minute 144/75 Weight 93.3 kg Wilver Disla MD 08/09/2023 9:15 PM Signed PATIENT NAME: Ernestina Costa DATE: 08/09/2023 PRIMARY CARE PHYSICIAN: Dr. Kade Huynh OTHER PHYSICIANS: Dr. Chambers, Dr. Bhakti Glaser ([facility]) Portions of this encounter note have been copied from my note from 04/05/2023 and has been updated where appropriate, and reflect my current medical decision making from today. CC: This is an 82 year old female with a history of right-sided breast cancer, seen for scheduled follow-up. INTERIM HISTORY: Since the patient's last visit here she has had no significant medical changes. The fullness in her right axilla is unchanged. Otherwise no changes in her breasts. No unusual pain or other systemic symptoms. MEDICATIONS: anastrozole (ARIMIDEX) 1 mg tablet TAKE 1 TABLET ONCE DAILY SUMMER'S WORT ORAL Take by mouth. loratadine (CLARITIN ORAL) Take by mouth. montelukast (SINGULAIR) 10 mg tablet Take 10 mg by mouth once daily. hydrocortisone (HEMORRHOIDAL HC) 25 mg suppository INSERT 1 SUPPOSITORY RECTALLY 3 TIMES A DAY cholecalciferol (VITAMIN D3) 50 mcg (2,000 unit) tablet Take 1 tablet by mouth once daily. omeprazole (PRILOSEC) 20 mg capsule Take 20 mg by mouth once daily. zinc sulfate (ZINC-15 ORAL) Take by mouth. LACTOSE ORAL Take by mouth. ALLERGIES: Patient has no known allergies. PAST MEDICAL HISTORY: PAST MEDICAL HISTORY Diagnosis Date Breast cancer (HCC) PAST SURGICAL HISTORY: PAST SURGICAL HISTORY Procedure Laterality Date BREAST BIOPSY CATARACT EXTRACTION HX PAST SURGICAL HISTORY OF Left 06/2021 Left foot TONSILLECTOMY HX REVIEW OF SYSTEMS: GENERAL: No weight loss, malaise or fevers. HEENT: Negative for frequent or significant headaches, No changes in hearing or vision, no nose bleeds or other nasal problems RESPIRATORY: Negative for cough, wheezing or shortness of breath. CARDIOVASCULAR: Negative for chest pain, leg swelling or palpitations. GI: Negative for abdominal discomfort, blood in stools or black stools Positive for chronic constipation and hemorrhoids : No history of dysuria, frequency or incontinence MUSCULOSKELETAL: Negative for: joint pain or swelling, back pain and muscle pain SKIN: Negative for lesions, rash, and itching. HEMATOLOGY/LYMPHOLOGY: Negative for prolonged bleeding, bruising easily or swollen nodes. NEURO: No history of headaches, syncope, paralysis, seizures or tremors BREAST: right breast and axilla incision healing PHYSICAL EXAM: Vitals: BP 144/75 Pulse 77 Temp 36.6 ?C (97.8 ?F) (Temporal) Resp 18 Wt 93.3 kg (205 lb 9.6 oz) SpO2 98% BMI 37.31 kg/m? ECOG 0 General appearance: well appearing, alert, in no acute distress, well-hydrated, well nourished Skin: skin color, texture, turgor normal, no suspicious rashes or lesions Head: normal Eyes: Anicteric sclera. Pupils are equally round and reactive to light. Extraocular movements are intact. Ears: negative findings: external ears normal to inspection and palpation Oropharynx: negative Neck: Supple, no adenopathy; thyroid symmetric, normal size Lymph Nodes: No Submandibular, cervical, supraclavicular, axillary, or inguinal lymphadenopathy present Breast: Postop changes in the right breast with thickening consistent with scar tissue in the right outer quadrant. Left breast normal. Right axillary area demonstrates a 1 x 1 cm hardened area most consistent with scar tissue. Lymphadenopathy cannot be ruled out. Back: no tenderness to palpation Lungs: clear to auscultation, no wheezing or rhonchi Heart: Negative. RRR without murmur, gallop, or rubs. No ectopy. Abdomen: Normal abdominal exam, Abdomen soft, non-tender. Bowel sounds normal. No masses, organomegaly Rectal: Not done Extremities: Extremities normal. No deformities, edema, or skin discoloration. Good capillary refill. Musculoskeletal: No joint swelling, deformity, or tenderness. 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 The invasive carcinoma measures 1.5 cm in greatest dimension. It focally involved the inferior margin. The remaining margins are free of neoplasm. One sentinel lymph node biopsied, with evidence of metastasis measuring 4 mm in greatest dimension. Minute focus of extranodal extension measuring approximately 0.1 mm is identified. LABORATORY DATA: Hemoglobin (g/dL) Date Value 08/09/2023 13.1 08/12/2021 13.7 (more content not included)... Normal [facility] Cancer Ag27-29 SerPl-aCncon 08-09-2023 Cancer Ag 27-29 Qn 19.0 [arb'U]/mL Normal <38.6 C [facility] Comment on above: Order Comment: Speci men Type: BLOOD SPECIMEN Ordering Facility: [facility] Address: [address] [place] [address] 11659 Result Comment: The CA27.29 test was performed using the [employer] XP chemiluminometric immunoassay method. Results obtained with different assay methods or kits cannot be used interchangeably. Performed By: #### 2 4323-8 #### [facility] CLIA [id number] [address] [place] [address] 59336 Comprehensive metabolic 2000 panelon 08-09-2023 Albumin [Mass/Vol] 3.8 g/dL Low 3.9-4.9 [facility] Comment on above: Order Comment: Speci men Type: BLOOD SPECIMEN Ordering Facility: [facility] Address: [address] [place] [address] Performed By: #### 2 4323-8 #### [facility] CLIA [id number] [address] [place] [address] 99125 ALP [Catalytic activity/Vol] 107 U/L Normal 34-123 [facility] Comment on above: Order Comment: Speci men Type: BLOOD SPECIMEN Ordering Facility: [facility] Address: [address] [place] [address] Performed By: #### 2 4323-8 #### [facility] CLIA [id number] [address] [place] [address] 83251 ALT [Catalytic activity/Vol] 11 U/L Normal 7-38 [facility] Comment on above: Order Comment: Speci men Type: BLOOD SPECIMEN Ordering Facility: [facility] Address: [address] [place] [address] Performed By: #### 2 4323-8 #### [facility] CLIA [id number] [address] [place] [address] 72671 Anion gap [Moles/Vol] 9 mmol/L Normal 9-18 [facility] Comment on above: Order Comment: Speci men Type: BLOOD SPECIMEN Ordering Facility: [facility] Address: [address] [place] [address] Performed By: #### 2 4323-8 #### [facility] CLIA [id number] [address] [place] [address] 52431 AST [Catalytic activity/Vol] 11 U/L Low 13-35 [facility] Comment on above: Order Comment: Speci men Type: BLOOD SPECIMEN Ordering Facility: [facility] Address: [address] [place] [address] Performed By: #### 2 4323-8 #### [facility] CLIA [id number] [address] [place] [address] 33912 Bilirubin [Mass/Vol] 0.4 mg/dL Normal 0.2-1.3 [facility] Comment on above: Order Comment: Speci men Type: BLOOD SPECIMEN Ordering Facility: [facility] Address: [address] [place] [address] Performed By: #### 2 4323-8 #### [facility] CLIA [id number] [address] [place] [address] 54236 Calcium [Mass/Vol] 10.1 mg/dL Normal 8.5-10.2 [facility] Comment on above: Order Comment: Speci men Type: BLOOD SPECIMEN Ordering Facility: [facility] Address: [address] [place] [address] Performed By: #### 2 4323-8 #### [facility] CLIA [id number] [address] [place] [address] 42304 Chloride [Moles/Vol] 104 mmol/L Normal 97-105 [facility] Comment on above: Order Comment: Speci men Type: BLOOD SPECIMEN Ordering Facility: [facility] Address: [address] [place] [address] Performed By: #### 2 4323-8 #### [facility] CLIA [id number] [address] [place] [address] 54837 CO2 [Moles/Vol] 26 mmol/L Normal 22-30 [facility] Comment on above: Order Comment: Speci men Type: BLOOD SPECIMEN Ordering Facility: [facility] Address: [address] [place] [address] Performed By: #### 2 4323-8 #### [facility] CLIA [id number] [address] [place] [address] 48447 Creatinine [Mass/Vol] 0.84 mg/dL Normal 0.58-0.96 [facility] Comment on above: Order Comment: Kim flores Type: BLOOD SPECIMEN Ordering Facility: [facility] Address: [address] [id number] Performed By: #### 2 4323-8 #### [facility] CLIA [id number] [address] [place] [address] 65053 Creatinine and Glomerular filtration rate.predicted panel (S/P/Bld) 69 mL/min/1.73m??? Normal >=60 [facility] Comment on above: Order Comment: Kim flores Type: BLOOD SPECIMEN Ordering Facility: [facility] Address: [address] [place] [address] Result Comment: Isabella mated Glomerular Filtration Rate (eGFR) is calculated using the 2020 CKD-EPI creatinine equation. This equation utilizes serum creatinine, sex, and age as parameters. The creatinine assay has traceable calibration to isotope dilution-mass spectrometry. Refer to KDIGO guidelines for clinical interpretation. In patients with unstable renal function, e.g. those with acute kidney injury, the eGFR may not accurately reflect actual GFR. Performed By: #### 2 4323-8 #### [facility] CLIA [id number] [address] [place] [address] Glucose [Mass/Vol] 116 mg/dL High 74-99 [facility] Comment on above: Order Comment: Kim flores Type: BLOOD SPECIMEN Ordering Facility: [facility] Address: [address] [place], [place] [address] Result Comment: The [place] Diabetes Association (ADA) provides guidance for cutoff values for fasting glucose and random glucose. The ADA defines fasting as no caloric intake for at least 8 hours. Fasting plasma glucose results between 100 to 125 mg/dL indicate increased risk for diabetes (prediabetes). Fasting plasma glucose results greater than or equal to 126 mg/dL meet the criteria for diagnosis of diabetes. In the absence of unequivocal hyperglycemia, results should be confirmed by repeat testing. In a patient with classic symptoms of hyperglycemia or hyperglycemic crisis, random plasma glucose results greater than or equal to 200 mg/dL meet the criteria for diagnosis of diabetes. Reference: Standards of Medical Care in Diabetes 2016, [place] [employer] Association. Diabetes Care. 2016.39(Suppl 1). Performed By: #### 2 4323-8 #### [facility] CLIA [id number] [address] [place] [address] Potassium [Moles/Vol] 4.3 mmol/L Normal 3.7-5.1 [facility] Comment on above: Order Comment: Speci men Type: BLOOD SPECIMEN Ordering Facility: [facility] Address: [address] [place] [address] Performed By: #### 2 4323-8 #### [facility] CLIA [id number] [address] [place] [address] Protein [Mass/Vol] 8.1 g/dL High 6.3-8.0 [facility] Comment on above: Order Comment: Speci men Type: BLOOD SPECIMEN Ordering Facility: [facility] Address: [address] [place] [address] Performed By: #### 2 4323-8 #### [facility] CLIA [id number] [address] [place] [address] Sodium [Moles/Vol] 139 mmol/L Normal 136-144 [facility] Comment on above: Order Comment: Speci men Type: BLOOD SPECIMEN Ordering Facility: [facility] Address: [address] [place] [address] Performed By: #### 2 4323-8 #### [facility] CLIA [id number] [address] [place] [address] Urea nitrogen [Mass/Vol] 16 mg/dL Normal 7-21 [facility] Comment on above: Order Comment: Speci men Type: BLOOD SPECIMEN Ordering Facility: [facility] Address: [address] [place] [address] Performed By: #### 2 4323-8 #### [facility] CLIA [id number] [address] [place] [address] CNOVSPon 04-05-2023 CNOVSP Visit (SP) Office ([place]) ERNESTINA COSTA ([id number]) 1940 F Date Time Provider Department 04/05/23 1:45 PM WILVER DISLA During your visit today, we recorded the following information about you: Temperature Pulse Respiration Blood pressure 97.5 degrees 65/minute 16/minute 151/74 Weight Height 94.8 kg 1.581 m Wilver Disla MD 04/07/2023 9:10 AM Signed PATIENT NAME: Ernestina Costa DATE: 04/05/2023 PRIMARY CARE PHYSICIAN: Dr. Kade Huynh OTHER PHYSICIANS: Dr. Chambers, Dr. Bhakti Glaser (Med Onc [place]) Portions of this encounter note have been copied from my note from 03/04/2023 and has been updated where appropriate, and reflect my current medical decision making from today. CC: This is an 82 year old female with a history of right-sided breast cancer, seen for scheduled follow-up. INTERIM HISTORY: At the patient's last visit here she complained of a lump in her right axilla. She underwent a diagnostic mammogram and right axillary ultrasound, and it was felt the abnormality was a benign calcified mass (most likely scar tissue). The patient believes the lesion has decreased in size. No new problems. MEDICATIONS: anastrozole (ARIMIDEX) 1 mg tablet Take 1 tablet by mouth once daily. SUMMER'S WORT ORAL Take by mouth. loratadine (CLARITIN ORAL) Take by mouth. montelukast (SINGULAIR) 10 mg tablet Take 10 mg by mouth once daily. hydrocortisone (HEMORRHOIDAL HC) 25 mg suppository INSERT 1 SUPPOSITORY RECTALLY 3 TIMES A DAY cholecalciferol (VITAMIN D3) 50 mcg (2,000 unit) tablet Take 1 tablet by mouth once daily. omeprazole (PRILOSEC) 20 mg capsule Take 20 mg by mouth once daily. zinc sulfate (ZINC-15 ORAL) Take by mouth. LACTOSE ORAL Take by mouth. ALLERGIES: Patient has no known allergies. PAST MEDICAL HISTORY: PAST MEDICAL HISTORY Diagnosis Date Breast cancer (HCC) PAST SURGICAL HISTORY: PAST SURGICAL HISTORY Procedure Laterality Date BREAST BIOPSY CATARACT EXTRACTION HX PAST SURGICAL HISTORY OF Left 06/2021 Left foot TONSILLECTOMY HX REVIEW OF SYSTEMS: GENERAL: No weight loss, malaise or fevers. HEENT: Negative for frequent or significant headaches, No changes in hearing or vision, no nose bleeds or other nasal problems RESPIRATORY: Negative for cough, wheezing or shortness of breath. CARDIOVASCULAR: Negative for chest pain, leg swelling or palpitations. GI: Negative for abdominal discomfort, blood in stools or black stools Positive for chronic constipation and hemorrhoids : No history of dysuria, frequency or incontinence MUSCULOSKELETAL: Negative for: joint pain or swelling, back pain and muscle pain SKIN: Negative for lesions, rash, and itching. HEMATOLOGY/LYMPHOLOGY: Negative for prolonged bleeding, bruising easily or swollen nodes. NEURO: No history of headaches, syncope, paralysis, seizures or tremors BREAST: right breast and axilla incision healing PHYSICAL EXAM: Vitals: BP 151/74 Pulse 65 Temp 36.4 ?C (97.5 ?F) (Temporal) Resp 16 Ht 158.1 cm (5' 2.24 ) Wt 94.8 kg (209 lb) SpO2 99% BMI 37.93 kg/m? ECOG 0 General appearance: well appearing, alert, in no acute distress, well-hydrated, well nourished Skin: skin color, texture, turgor normal, no suspicious rashes or lesions Head: normal Eyes: Anicteric sclera. Pupils are equally round and reactive to light. Extraocular movements are intact. Ears: negative findings: external ears normal to inspection and palpation Oropharynx: negative Neck: Supple, no adenopathy; thyroid symmetric, normal size Lymph Nodes: No Submandibular, cervical, supraclavicular, axillary, or inguinal lymphadenopathy present Breast: Postop changes in the right breast with thickening consistent with scar tissue in the right outer quadrant. Left breast normal. Right axillary area demonstrates a 1 x 1 cm hardened area most consistent with scar tissue. Lymphadenopathy cannot be ruled out. Back: no tenderness to palpation Lungs: clear to auscultation, no wheezing or rhonchi Heart: Negative. RRR without murmur, gallop, or rubs. No ectopy. Abdomen: Normal abdominal exam, Abdomen soft, non-tender. Bowel sounds normal. No masses, organomegaly Rectal: Not done Extremities: Extremities normal. No deformities, edema, or skin discoloration. Good capillary refill. Musculoskeletal: No joint swelling, deformity, or tenderness. 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 The invasive carcinoma measures 1.5 cm in greatest dimension. It focally involved the inferior margin. The remaining margins are free of neoplasm. One sentinel lymph node biopsied, with evidence of metastasis measuring 4 mm in greatest dimension. Minute focus of extranodal ext (more content not included)... [facility] YOBANYERNESTINA Maggie ([id number]) 1940 F Date Time Provider Department 04/05/23 WILVER DISLA During your visit today, we recorded the following information about you: Mary Anne Parks Sec 04/05/2023 2:[address] Mammogram Hardik . Ernestina wants to schedule her appt at [facility]. Mail order and phone # to her home. Porfirio Rucker RN 04/05/2023 2:13 PM Signed ESE: Order pended, please review and sign ALDA Andrew RN 04/05/2023 3:21 PM Signed Order faxed to [facility]. VM left on pt's home phone. Encouraged to call with any questions or concerns. Porfirio Rucker RN Allergies As of Date: 04/05/2023 (No Known Allergies) Date Reviewed: 04/05/2023 Reviewed by: Maria M Leija - Fully Assessed Reason for Visit: Orders [681] Primary Visit Diagnosis:Malignant neoplasm of overlapping sites of right breast in female, estrogen receptor positive (HCC) [C50.811, Z17.0] Other Visit Diagnoses:Malignant neoplasm of overlapping sites of right female breast, unspecified estrogen receptor status (HCC) [C50.811] Estrogen receptor positive status (ER+) [Z17.0] Order(s):CIRO DIAGNOSTIC BILATERAL [[id number]] Order #: [id number] FUTURE Prescriptions as of 04/05/2023 - anastrozole (ARIMIDEX) 1 mg tablet Take 1 tablet by mouth once daily. - SUMMER'S WORT ORAL Take by mouth. - loratadine (CLARITIN ORAL) Take by mouth. - montelukast (SINGULAIR) 10 mg tablet Take 10 mg by mouth once daily. - hydrocortisone (HEMORRHOIDAL HC) 25 mg suppository INSERT 1 SUPPOSITORY RECTALLY 3 TIMES A DAY - cholecalciferol (VITAMIN D3) 50 mcg (2,000 unit) tablet Take 1 tablet by mouth once daily. - omeprazole (PRILOSEC) 20 mg capsule Take 20 mg by mouth once daily. - zinc sulfate (ZINC-15 ORAL) Take by mouth. - LACTOSE ORAL Take by mouth. Problem List As Of Date 04/05/2023 Noted Resolved Malignant neoplasm of overlapping sites of righ*09/28/2019 Encounter Status:Closed by PORFIRIO RUCKER on 04/05/23 Normal [facility] CBC W Auto Differential pane l (Bld)on 08-20-2022 Basophils (Bld) [#/Vol] 0.06 10*3/uL <0.11 k/uL [facility] Basophils/100 WBC (Bld) 0.7 % [facility] Differential cell count method Nom (Bld) Auto [facility] Eosinophils (Bld) [#/Vol] 0.15 10*3/uL <0.46 k/uL [facility] Eosinophils/100 WBC (Bld) 1.8 % [facility] Erythrocyte distribution width (RBC) [Ratio] 14.6 % 11.5 - 15.0 % [facility] Hematocrit (Bld) [Volume fraction] 40.4 % 36.0 - 46.0 % [facility] Hemoglobin (Bld) [Mass/Vol] 13.2 g/dL 11.5 - 15.5 g/dL [facility] Immature granulocytes (Bld) [#/Vol] <0.10 k/uL [facility] Immature granulocytes/100 WBC (Bld) 0.2 % [facility] Lymphocytes (Bld) [#/Vol] 1.58 10*3/uL 1.00 - 4.00 k/uL [facility] Lymphocytes/100 WBC (Bld) 18.6 % [facility] MCH (RBC) [Entitic mass] 32.8 pg 26.0 - 34.0 pg [facility] MCHC (RBC) [Mass/Vol] 32.7 g/dL 30.5 - 36.0 g/dL [facility] MCV (RBC) [Entitic vol] 100.5 fL High 80.0 - 100.0 fL [facility] Monocytes (Bld) [#/Vol] 0.65 10*3/uL <0.87 k/uL [facility] Monocytes/100 WBC (Bld) 7.7 % [facility] Neutrophils (Bld) [#/Vol] 6.03 10*3/uL 1.45 - 7.50 k/uL [facility] Neutrophils/100 WBC (Bld) 71.0 % [facility] Nucleated RBC (Bld) [#/Vol] <0.01 k/uL [facility] Nucleated RBC/100 WBC (Bld) [Ratio] 0.0 /100 WBC [facility] Platelet mean volume (Bld) [Entitic vol] 9.3 fL 9.0 - 12.7 fL [facility] Platelets (Bld) [#/Vol] 259 10*3/uL 150 - 400 k/uL [facility] RBC (Bld) [#/Vol] 4.02 10*6/uL 3.90 - 5.2 0 m/uL [facility] WBC (Bld) [#/Vol] 8.49 10*3/uL 3.70 - 11. 00 k/uL [facility] Comprehensive metabolic 2000 panelon 08-20-2022 Albumin [Mass/Vol] 3.6 g/dL Low 3.9 - 4.9 g/dL [facility] ALP [Catalytic activity/Vol] 90 U/L 34 - 123 U/L [facility] ALT [Catalytic activity/Vol] 12 U/L 7 - 38 U/L [facility] Anion gap [Moles/Vol] 7 mmol/L Low 9 - 18 mmol/L [facility] AST [Catalytic activity/Vol] 12 U/L Low 13 - 35 U/L [facility] Bilirubin [Mass/Vol] 0.3 mg/dL 0.2 - 1 .3 mg/dL [facility] Calcium [Mass/Vol] 9.5 mg/dL 8.5 - 10. 2 mg/dL [facility] Chloride [Moles/Vol] 103 mmol/L 97 - 10 5 mmol/L [facility] CO2 [Moles/Vol] 28 mmol/L 22 - 30 mmol/L [facility] Creatinine [Mass/Vol] 0.87 mg/dL 0.58 - 0.96 mg/dL [facility] Estimated Glomerular Filtration Rate 67 mL/min/1.73m >=60 mL/min/1.73m [facility] Glucose [Mass/Vol] 106 mg/dL High 74 - 99 mg/dL [facility] Potassium [Moles/Vol] 4.2 mmol/L 3.7 - 5.1 mmol/L [facility] Protein [Mass/Vol] 7.6 g/dL 6.3 - 8.0 g/dL [facility] Sodium [Moles/Vol] 138 mmol/L 136 - 144 mmol/L [facility] Urea nitrogen [Mass/Vol] 14 mg/dL 7 - 21 mg/dL [facility] MG MAMM DIAGNOSTIC 3D HARDIK CA Don 07-29-2022 MG MAMM DIAGNOSTIC 3D HARDIK CAD Patient: ERNESTINA COSTA Exam Date: 07/29/2022 : 1940 Gender:F Ordering : DR WILVER DISLA M.D. Admission #: [id number] Family : Order #: [id number] CLICK HERE TO VIEW EXAM RADIOLOGY REPORT PROCEDURE: MAMMOGRAM DIAGNOSTIC 3D BILATERAL CAD COMPARISON: MG MAMM DIAGNOSTIC 3D HARDIK CAD, 07/29/2021. INDICATIONS: Estrogen receptor positive tumor Calculator Name NCI Breast Cancer Risk Assessment Tool 5 Year Breast Cancer Risk n/a% Lifetime Breast Cancer Risk n/a% Personal Breast Cancer Yes, invasive ductal carcinoma, age 78 Personal Ovarian Cancer No Treatments None Family Cancers None LOCATION: [facility] BREAST COMPOSITION: Extremely dense, which lowers the sensitivity of mammography. FINDINGS: DIAGNOSTIC CATEGORY 2--BENIGN FINDING: RIGHT BREAST: No significant suspicious finding. Scattered benign-appearing calcifications are present. No significant change has occurred. LEFT BREAST: No significant suspicious finding. Scattered benign-appearing calcifications are present. No significant change has occurred. RECOMMENDATIONS: ROUTINE MAMMOGRAM AND CLINICAL EVALUATION IN 12 MONTHS. PLEASE NOTE: A NORMAL MAMMOGRAM DOES NOT EXCLUDE THE POSSIBILITY OF BREAST CANCER. A CLINICALLY SUSPICIOUS PALPABLE LUMP SHOULD BE BIOPSIED. Dictated by: Grace Moss M.D. on 07/29/2022 at 14:36 Approved by: Grace Moss M.D. on 07/29/2022 at 14:[address] [facility] XR CHEST 2 Von 05-18-2022 XR CHEST 2 V EXAMINATION: XR CHES T 2 V HISTORY: Cough COMPARISON: No relevant comparison available. TECHNIQUE: PA and lateral FINDINGS: LUNGS: No significant pulmonary parenchymal abnormalities. VASCULATURE: No increased pulmonary vasculature. PLEURA: No pneumothorax, effusion, or pleural thickening. CARDIAC: No cardiomegaly or cardiac silhouette abnormality. MEDIASTINUM: Calcified right hilar lymph nodes. Aortic atherosclerosis BONES: No fracture or visible bone lesion. OTHER: Negative. IMPRESSION: Clear lungs Electronically authenticated by: ERASMO HUITRON Date: 2022-05-18 07:[address] [facility] Coding Summary.on 08-09-2019 Coding Summary. CODING DATE: 08/09/2019 FINAL [facility] STATUS: Home (Routine DC) PAYOR: Medicare APC DESCRIPTION 5372 Level 2 Urology and Related Services ADMIT DX: REASON FOR VISIT DX: R31.29 Other microscopic hematuria FINAL DX: PRINCIPAL: R31.29 Other microscopic hematuria SECONDARY: N39.3 Stress incontinence (female) (male) F17.210 Nicotine dependence, cigarettes, uncomplicated PYMT PROC APC STAT DESCRIPTION DOCTOR NAME DATE NOTE: The code number assigned matches the documented diagnosis and / or procedure in the patient's chart. However, the narrative phrase printed from the coding software may appear abbreviated, or result in slightly different terminology. Coded By: Silvana Guido Date Saved: 08/09/2019 10:08 am Normal [facility] Inpatient Patient Summaryon 08-08-2019 Inpatient Patient Summary [place] [id number] Clinical Summary Person Information Name: ERNESTINA COSTA Age: 78 Years : 1940 12:00 AM Sex: Female PCP: KADE HUYNH MD Marital Status: Race: White Ethnicity: Non- or Language: Kittitian Visit Id: Visit Reason: STRESS INCONTINENCE , URGE INCONTINENCE , MICRO HEMATURIA Speciality: Acuity: Enc Type: Outpatient Med Service: Surgery Arrival: 08/08/2019 10:03 AM Discharge: Dispo Type: Address: [address] [place] [id number] Provider Notes: Diagnosis: Granuloma of liver; Microhematuria Problems Active Porcelain gallbladder Possible urinary tract infection Cigarette smoker Urge incontinence Microscopic hematuria ESPINOZA (stress urinary incontinence, female) Smoking Status: Functional Status: Sensory Deficits: History of Falls: Mobility Assistance Prior to Admission: ADLs: Current Level of Assistance for Self-Care/Mobility: Cognitive Status: Allergies No Known Medication Allergies Laboratory or Other Results This Visit (last charted value for your 08/08/2019 visit) No Laboratory or Other Results This Visit Measurements: Height: 157.48 cm Weight: Blood Pressure: Not Valued / Not Valued BMI: Procedures No Procedures Documented Immunizations No Immunizations Documented This Visit Final Med List: ciprofloxacin (Cipro 500 mg Tab) 1 Tabs By Mouth As Directed. take 1st pill the day before and the 2nd the day of the procedure after it is done. Refills: 0. lactulose Care Team Members: Attending Physician: Kade Montemayor MD Consulting Physician: Referring Physician: Kade Montemayor MD Follow up: With: Address: When: Kade Montemayor [address] [place], [place] [address]dict [place], [place] [id number], [place] [phone] Business (1) , only if needed Patient Education Information: Hematuria, Adult Normal [facility] Main OR Intraoperative Recor don 08-08-2019 Main OR Intraoperative Record IntraOp Document Type FTURO Summary Primary Physician: Kade Montemayor MD Finalized Date/Time: 08/08/19 10:44:34 Pt. Name: YOBANY ERNESTINA Melissa/Sex: 1940 Female Med Rec #: [id number] Physician: Kade Montemayor MD Financial #: [id number] Pt. Type: O Room/Bed: / Admit/Disch: 08/08/19 10:03:13 - Institution: Case Times FTURO Entry 1 Patient Times In Room 08/08/19 10:29:00 Out Room 08/08/19 10:47:00 Procedure Times Start 08/08/19 10:38:00 Stop 08/08/19 10:41:00 Anesthesia Times Last Modified By: Yeimy DIAZ, RN, Sofía 08/08/19 10:44:19 Case Attendance FTURO Entry 1 Entry 2 Entry 3 Case Attendee Albina RODRIGUEZ, aKde DIAZ, RN, Katie LANG, Emma Gore Role Performed Surgeon - Primary Ash Handler - Primary Scrub - Primary Time In 08/08/19 10:36:00 08/08/19 10:29:00 08/08/19 10:29:00 Time Out 08/08/19 10:47:00 08/08/19 10:47:00 08/08/19 10:47:00 Procedure CYSTOSCOPY LOCAL(.) CYSTOSCOPY LOCAL(.) CYSTOSCOPY LOCAL(.) Comments Last Modified By: Yeimy DIAZ, RN, Yeimy DIAZ, RN, Yeimy DIAZ, RN, Sofía 08/08/19 10:44:20 Sofía 08/08/19 10:44:20 Sofía 08/08/19 10:44:20 Surgical Procedures FTURO Entry 1 Procedure Description Procedure CYSTOSCOPY LOCAL Modifiers . Surgeon Description CYSTO Primary Procedure Yes Primary Surgeon Kade Montemayor MD Start 08/08/19 10:38:00 Stop 08/08/19 10:41:00 Anesthesia Type Local Surgical Service Urology Wound Class 2 - Clean-Contaminated Last Modified By: Yeimy DIAZ, RN, Sofía 08/08/19 10:44:22 General Case Data FTURO Pre-Care Text: Classifies surgical wound, implements aseptic technique, initiates traffic control Entry 1 Case Information OR URO 1 FT Case Level None Wound Class 2 - Clean-Contaminated Specialty Urology Preop Diagnosis STRESS INCONTINENCE , Postop Same As Preop Yes URGE INCONTINENCE , MICRO HEMATURIA Postop Diagnosis STRESS INCONTINENCE , Outcomes Met? Yes URGE INCONTINENCE , MICRO HEMATURIA Last Modified By: Yeimy DIAZ RN, Kelly 08/08/19 10:31:56 Post-Care Text: The patient is free from signs and symptoms of infection EU IntraOp - FTURO Pre-Care Text: Implements protective measures prior to operative or invasive procedure, confirms identity before the operative or invasive procedure, verifies operative procedure, surgical site, and laterality Entry 1 EU Perioperative Protocols Procedure(s) CYSTOSCOPY LOCAL(.) Patient Identity Birthday, ID Band Verified (select at Check, Patient least 2): Participation Consents / H and P HandP, Surgery/Procedure Operative Site N/A Verified Consent Marking Verified Surgical Site Yes Laterality Verified n/a Verified Procedure Verified Yes Correct Patient Yes Position Verified Availability Equipment, Medication Time Out Kade Montemayor MD, Verified (If Participants Yeimy DIAZ RN, Applicable) Katie Gore BRIDGE EXPERT, Emma Time Out Complete 08/08/19 10:36:00 Allergies Reviewed? Yes Allergies Reviewed Self/Patient With Body Position Low Lithotomy Prep Area perinium Prep Agents Betadine Solution Skin. Condition Unable to Visualize Additional None Specimens Collected Vitals - EU Blood Pressure 124/72 Pulse 62 bpm Respirations 20 br/min SPO2 94 % EBL 0 IandO - EU Total Intake 0 mL Total Output 0 mL Outcomes Met? Yes Last Modified By: Yeimy DIAZ RN, Kelly 08/08/19 10:44:11 Post-Care Text: The patient is free from signs and symptoms of injury caused by extraneous objects Case Comments Finalized By: Yeimy DIAZ RN, Kelly Document Signatures Signed By: Yeimy DIAZ RN, Kelly 08/08/19 10:44 Normal [facility] Main OR Preoperative Recordo n 08-08-2019 Main OR Preoperative Record Holding Area Document Type FTURO Summary Primary Physician: Kade Montemayor MD Finalized Date/Time: 08/08/19 10:33:38 Pt. Name: ERNESTINA COSTA D.O.B./Sex: 1940 Female Med Rec #: [id number] Physician: Kade Montemayor MD Financial #: [id number] Pt. Type: O Room/Bed: / Admit/Disch: 08/08/19 10:03:13 - Institution: Case Times Holding FTURO Pre-Care Text: Verifies consent for planned procedure, identifies individual values and wishes concerning care, includes family members in perioperative teaching Secures patient's records' belongings, and valuables, maintains patient's dignity and privacy, and maintains patient confidentiality Entry 1 In Holding 08/08/19 10:08:00 Outcomes Met? Yes Last Modified By: Tammi Bee LPN 08/08/19 10:08:58 Post-Care Text: The patient participates in decisions affecting his or her perioperative plan of care The patient's right to privacy is maintained Surgery Checklist FTURO Entry 1 Patient Birthday, ID Band Procedure History and Physical, Identification: Check, Patient Verification: Surgical Consent, With Participation Patient NPO after Midnight: n/a Personal Items: Cataract Lens Implant, Glasses, Jewelry Personal Items ring, watch Complaints of Pain: No Comment: Skin Integrity Unable to Visualize Vitals - EU Blood Pressure 121/77 Pulse 74 bpm Respirations 18 br/min SPO2 RN Reviewed Yes Last Modified By: Yeimy DIAZ RN, Kelly 08/08/19 10:15:32 Finalized By: Yeimy DIAZ RN, Kelly Document Signatures Signed By: Yeimy DIAZ RN, Kelly 08/08/19 10:15 Tammi Bee LPN 08/08/19 10:11 Yeimy DIAZ RN, Kelly 08/08/19 10:26 Yeimy DIAZ RN, Kelly 08/08/19 10:33 Normal [facility] Operative Reporton 9 Operative Report Patient: MARNI COSTA Age: 78 years Sex: Female : 1940 Associated Diagnoses: None Author: Albina RODRGIUEZ, Kade Rowe Procedure Operative Information Pre-Op Dx: Micro Hematuria - With Symptoms - R31.29. Post-Op Dx: Same. Anesthesia Type: Local. Procedure: Local Cystoscopy. Risks/Benefits/Informe d Consent: Surgical risks, benefits, details of the procedure have been explained to the patient. Intraoperative Information Prepped: Patient is brought back to the endoscopy suite, Patient is placed in modified dorso/lithotomy position, Patient prepped in the usual fashion with Betadine solution, 2% Xylocaine Jelly is placed per Urethra, After waiting several minutes the Cystoscope is introduced. The Urethra is: Normal. The Bladder is: Trabeculated Mild (1), was slightly increased in its capacity. There was a mild amount of broad based central and more so lateral cystocele better visualized cystoscopically than vaginally as the patient did not tolerate the lithotomy position and had trouble relaxing during the procedure.. The ureteral orifices: Show efflux of clear urine. Devices Implanted: None. Removal: Cystoscope is removed. 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 She denied known hx of malignancy like hodgkins' lymphoma or sarcoidosis to me. She denied prior TB. I recommended she see a GI doctor and or a general surgeral surgeon. At first she declined this and I indicated I would need to put in she refused and then she aquiesced to seeing them and since I had for gotten you have to type ambulatory referral in [facility] I gave her a Rx to be seen in [place] if she wishes for E/M of this. I explained her hematuria workup was negative and reassured her. I spent 10 minutes with [facility] patient over 50% of which was spent counseling and coordinating care. Normal [facility] Comment on above: Result Comment: Elec tronically Signed By: Kade Montemayor MD\.br\Date and Time Signed: 08/08/19 11:34 EST Vital Signs Date Time Vital Sign Value Performing Clinician John winston 03-28-2024 14:37-0400 Body height 158.1 cm Rosalina Landry PA-C Work Phone: [facility] 03-28-2024 14:37-0400 Body mass index (BMI) [Ratio] 35.85 kg/m2 Rosalina Gris PA-C Work Phone: [facility] 03-28-2024 14:37-0400 Body temperature 98.1 [degF] Rosalina Gris PA-C Work Phone: [facility] 03-28-2024 14:37-0400 Body weight 89.6 kg Rosalina Gris PA-C Work Phone: [facility] 03-28-2024 14:37-0400 Diastolic blood pressure 84 mm[Hg] Rosalina Gris PA-C Work Phone: [facility] 03-28-2024 14:37-0400 Heart rate 82 /min Rosalina Gris PA-C Work Phone: [facility] 03-28-2024 14:37-0400 Respiratory rate 16 /min Rosalina Gris PA-C Work Phone: [facility] 03-28-2024 14:37-0400 SaO2% (BldA) [Mass fraction] 97 % Rosalina Gris PA-C Work Phone: [facility] 03-28-2024 14:37-0400 Systolic blood pressure 130 mm[Hg] Rosalina Gris PA-C Work Phone: [facility] 08-20-2022 14:48-0500 Body height 158.1 cm Wilver Disla MD Work Phone: [facility] 08-20-2022 14:48-0500 Body temperature 97.2 [degF] Wilver Disla MD Work Phone: [facility] 08-20-2022 14:48-0500 Body weight 98.34 kg Wilver Disla MD Work Phone: [facility] 08-20-2022 14:48-0500 Diastolic blood pressure 97 mm[Hg] Wilver Disla MD Work Phone: [facility] 08-20-2022 14:48-0500 Heart rate 81 /min Wilver Disla MD Work Phone: [facility] 08-20-2022 14:48-0500 Respiratory rate 16 /min Wilver Disla MD Work Phone: [facility] 08-20-2022 14:48-0500 Systolic blood pressure 159 mm[Hg] Wilver Disla MD Work Phone: [facility] Encounters Encounter Date Encounter Type Care Provider Facility Start: 04-03-2024 Refill [facility] Work Phone: [facility] Comment on above: Refill Request Start: 03-28-2024 End: 03-28-2024 Office outpatient visit 15 minutes Rosalina Landry PA-C Work Phone: Hematology/Oncology Comment on above: Malignant neoplasm o f overlapping sites of right breast in female, estrogen receptor positive (HCC) (Primary Dx) Start: 03-28-2024 End: 03-28-2024 ambulatory ROSALINA LANDRY Facility:[facility] Start: 03-28-2024 Telephone encounter Wilver love MD Work Phone: [facility] Comment on above: Orders Start: 03-27-2024 Telephone encounter Rosalina paiz PA-C Work Phone: Hematology/Oncology Comment on above: Lab Orders Start: 08-09-2023 End: 08-09-2023 ambulatory KADE HUYNH II Facility:[facility] Start: 04-05-2023 Telephone encounter [facility] love MD [facility] Comment on above: Orders Start: 04-05-2023 End: 04-05-2023 ambulatory WILVER DISLA Facility:[facility] Start: 08-21-2022 Telephone encounter Teresita Tsai RN Hematology/Oncology Comment on above: Results Start: 08-20-2022 End: 08-20-2022 ambulatory Wilver Disla MD Work Phone: Hematology/Oncology Comment on above: Malignant neoplasm o f overlapping sites of right breast in female, estrogen receptor positive (HCC) (Primary Dx) Start: 08-20-2022 End: 08-20-2022 Patient encounter procedure Wilver Disla MD Work Phone: [facility] Start: 07-29-2022 End: 07-30-[address] KADE HUYNH Facility:[facility] Start: 07-15-2022 End: 07-16-2022 ambulatory GURWINDER POWELL Facility:[facility] Start: 05-16-2022 End: 05-17-[address] KADE HUYNH Facility:[facility] Start: 03-11-2022 Telephone encounter Wilver love MD Work Phone: Hematology/Oncology Comment on above: Lab Orders Start: 08-06-2021 End: 08-07-2021 ambulatory JAYNE KEITH Facility:[facility] Plan of Treatment Date Care Activity Detail Author Start: 03-28-2027 [facility] Start: 08-09-2026 [facility] Start: 03-04-2026 DIABETES SCREEN DIABETES SCREEN [facility] Start: 08-20-2025 DIABETES SCREEN DIABETES SCREEN [facility] Start: 09-28-2024 End: 12-28-2024 CBC W Auto Differential panel - Blood COMPLETE BLOOD COUNT AND DIFFERENTIAL Lab Routine Malignant neoplasm of overlapping sites of right breast in female, estrogen receptor positive (HCC) Expected: 09/28/2024 (Approximate), Expires: 12/28/2024 [facility] Comment on above: Expected: 09/28/2024 (Approximate), Expires: 12/28/2024 Start: 09-28-2024 End: 12-28-2024 Comprehensive metabolic 2000 panel - Serum or Plasma COMPREHENSIVE METABOLIC PANEL Lab Routine Malignant neoplasm of overlapping sites of right breast in female, estrogen receptor positive (HCC) Expected: 09/28/2024 (Approximate), Expires: 12/28/2024 [facility] Work Phone: Comment on above: Expected: 09/28/2024 (Approximate), Expires: 12/28/2024 Start: 08-29-2024 End: 08-29-2024 ambulatory 08/29/2024 2:15 PM EST Visit (SP) Office Hematology/Oncology [address] [place] [address] [place] [address] Wilver Disla MD [address] [place] [address] [place] [address] 5mth f/u Hematology/Oncology Comment on above: 5mth f/u Start: 08-29-2024 End: 08-29-2024 Patient encounter procedure 08/29/2024 2:00 PM EST Office Visit [facility] [address] [place] [address] 7 month follow up labsmoved out to March per [facility] Comment on above: 7 month follow up la bsmoved out to March per [facility] Start: 08-12-2024 DIABETES SCREEN DIABETES SCREEN [facility] Start: 05-21-2024 Influenza vaccination Influenza Vacc ine (#1) [facility] Start: 04-05-2024 End: 05-04-2024 CIRO DIAGNOSTIC BILATERAL CIRO DIAGNOSTIC BILATERAL Radiology Routine Malignant neoplasm of overlapping sites of right breast in female, estrogen receptor positive (HCC) Malignant neoplasm of overlapping sites of right female breast, unspecified estrogen receptor status (HCC) Estrogen receptor positive status (ER+) Expected: 04/05/2024, Expires: 05/04/2024 [facility] Work Phone: Comment on above: Expected: 04/05/2024 , Expires: 05/04/2024 Start: 03-28-2024 End: 03-28-2024 Follow-up encounter 03/28/2024 2:30 PM EDT Visit (SP) Office Hematology/Oncology [address] [place] [address] Rosalina Landry PA-C [address] [place] [address] 7 month follow up labsmoved out to March per [facility] Hematology/Oncology Comment on above: 7 month follow up la bsmoved out to March per [facility] Start: 03-28-2024 End: 03-28-2024 Patient encounter procedure 03/28/2024 2:15 PM EDT Office Visit [facility] [address] [place] [address] [place] [address] 7 month follow up labsmoved out to March per [facility] Comment on above: 7 month follow up la bsmoved out to March per [facility] Start: 03-27-2024 End: 06-26-2024 Cancer Ag 27-29 [Units/volume] in Serum or Plasma CA 27.29 BLOOD Lab Routine Malignant neoplasm of overlapping sites of right breast in female, estrogen receptor positive (HCC) Expected: 03/27/2024, Expires: 06/26/2024 [facility] Work Phone: Comment on above: Expected: 03/27/2024 , Expires: 06/26/2024 Start: 03-27-2024 End: 06-26-2024 CBC W Auto Differential panel - Blood COMPLETE BLOOD COUNT AND DIFFERENTIAL Lab Routine Malignant neoplasm of overlapping sites of right breast in female, estrogen receptor positive (HCC) Expected: 03/27/2024, Expires: 06/26/2024 [facility] Comment on above: Expected: 03/27/2024 , Expires: 06/26/2024 Start: 03-27-2024 End: 06-26-2024 Comprehensive metabolic 2000 panel - Serum or Plasma COMPREHENSIVE METABOLIC PANEL Lab Routine Malignant neoplasm of overlapping sites of right breast in female, estrogen receptor positive (HCC) Expected: 03/27/2024, Expires: 06/26/2024 [facility] Comment on above: Expected: 03/27/2024 , Expires: 06/26/2024 Start: 11-26-2023 Covid-19 Vaccine ( season) Covid-19 Vaccine ( season) [facility] Start: 09-20-2023 Advance Directive Discussion Advance Directive Discussion [facility] Start: 09-20-2023 Behavioral Health Screening Behavioral Health Screening [facility] Start: 05-21-2023 Influenza vaccination INFLUENZA (#1) [facility] Start: 11-26-2022 COVID-19 VACCINE (4 - Moderna series) COVID-19 VACCINE (4 - Moderna series) [facility] Start: 09-20-2022 ADVANCE DIRECTIVE DISCUSSION ADVANCE DIRECTIVE DISCUSSION [facility] Start: 09-20-2022 DEPRESSION ASSESSMENT DEPRESSION ASS ESSMENT [facility] Start: 08-20-2022 End: 10-20-2022 Cancer Ag 27-29 [Units/volume] in Serum or Plasma [facility] Work Phone: Comment on above: Expected: 08/20/2022 , Expires: 10/20/2022 Start: 05-21-2022 Influenza vaccination INFLUENZ A (Season Ended) [facility] Start: 03-12-2022 End: 05-12-2022 Cancer Ag 27-29 [Units/volume] in Serum or Plasma CA 27.29 BLOOD Lab Routine Malignant neoplasm of overlapping sites of right breast in female, estrogen receptor positive (HCC) Expected: 03/12/2022, Expires: 05/12/2022 [facility] Work Phone: Comment on above: Expected: 03/12/2022 , Expires: 05/12/2022 Start: 03-12-2022 End: 05-12-2022 CBC W Auto Differential panel - Blood CBC + DIFF Lab Routine Malignant neoplasm of overlapping sites of right breast in female, estrogen receptor positive (HCC) Expected: 03/12/2022, Expires: 05/12/2022 [facility] Work Phone: Comment on above: Expected: 03/12/2022 , Expires: 05/12/2022 Start: 03-12-2022 End: 05-12-2022 Comprehensive metabolic 2000 panel - Serum or Plasma COMP METABOLIC PANEL Lab Routine Malignant neoplasm of overlapping sites of right breast in female, estrogen receptor positive (HCC) Expected: 03/12/2022, Expires: 05/12/2022 [facility] Work Phone: Comment on above: Expected: 03/12/2022 , Expires: 05/12/2022 Start: 09-20-2021 ADVANCE DIRECTIVE DISCUSSION ADVANCE DIRECTIVE DISCUSSION [facility] Start: 09-20-2021 DEPRESSION ASSESSMENT DEPRESSION ASS ESSMENT [facility] Start: 02-10-2021 COVID-19 VACCINE (3 - Mixed Product risk series) COVID-19 VACCINE (3 - Mixed Product risk series) [facility] Start: 2004 BONE DENSITY BONE DENSITY [facility] Start: 2004 Screening for osteoporosis Bone Density Screening [facility] Start: 1999 RSV Vaccine (1 - 1-d ose 60+ series) RSV Vaccine (1 - 1-dose 60+ series) [facility] Start: 1958 Urine microalbumin profile [facility] End: 04-27-2025 DBT Breast - bilateral screening CIRO SCREENING W CHELSIE Radiology Routine Malignant neoplasm of overlapping sites of right breast in female, estrogen receptor positive (HCC) Encounter for screening mammogram for malignant neoplasm of breast 1 Occurrences starting 03/28/2024 until 04/27/2025 [facility] Work Phone: Comment on above: 1 Occurrences starti ng 03/28/2024 until 04/27/2025 [facility] Immunizations Immunization Date Immunization Notes Care Provider Fa [facility] 07-28-2023 influenza virus vacc ine, unspecified formulation Rosalina Landry PA-C Work Phone: [facility] 01-13-2021 COVID-19 vaccine, fu ll dose (MODERNA) Wilver Disla MD Work Phone: [facility] 12-23-2020 COVID-19 vaccine, fu ll dose (MODERNA) Wilver Disla MD Work Phone: [facility] 08-08-2020 zoster vaccine recombinant Wilver Disla MD Work Phone: [facility] 06-24-2020 influenza, high dose seasonal, preservative-free Wilver Disla MD Work Phone: [facility] 06-08-2020 influenza (aIIV4) vaccine, age 65+ yr, quadrivalent, PF (FLUAD QUADRIVALENT) Wilver Disla MD Work Phone: [facility] 06-07-2020 influenza, high dose seasonal, preservative-free Wilver Disla MD Work Phone: [facility] 06-05-2020 zoster vaccine recombinant Wilver Disla MD Work Phone: [facility] 06-26-2019 influenza, high dose seasonal, preservative-free Wilver Disla MD Work Phone: [facility] 06-26-2019 pneumococcal polysaccharide vaccine, 23 valent Wilver Disla MD Work Phone: [facility] 08-02-2018 influenza, high dose seasonal, preservative-free Wilver Disla MD Work Phone: [facility] 07-17-2016 pneumococcal conjuga te vaccine, 13 valent Wilver Disla MD Work Phone: [facility] 07-14-2016 influenza, injectabl e, quadrivalent, contains preservative Wilver Disla MD Work Phone: [facility] Payers Date Payer Category Payer Unknown MMO MMO MEDICARE SUPPLEMENT [id number] 2020-Present [phone] [address] [place] [address] Indemnity [id number] 2020 Unknown MMO MMO MEDICARE SUPPLEMENT [id number] 2020-Present [phone] [address] [place] [address] Indemnity [id number] 2004 Medicare MEDICARE RAGAROA D MEDICARE [place] ONLY [id number] 2004-Present [phone] [address] [address] [place] [address] Medicare [id number] 2004 Medicare [id number] 1959 Medicare [id number] 1960 Unknown [id number] 1940 Unknown [id number] 1940 Unknown [id number] 1940 Unknown [id number] 1940 Unknown [id number] Social History Date Type Detail Facility Start: 09-07-2019 End: 04-05-2023 Tobacco smoking status NHIS Smokes tobacco daily [facility] Start: 09-07-2019 End: 04-05-2023 Tobacco use and exposure Smokeless tobacco non-user [facility] Start: 08-12-2021 End: 08-09-2023 Alcohol intake Ex-drinker (finding) [facility] Start: 1940 Sex Assigned At Not on file [facility] Start: 08-10-2022 End: 08-20-2022 Exposure to SARS-CoV-2 (event) Not sure [facility] History of tobacco use Cigarette Smoker [facility] Start: 03-04-2023 End: 04-05-2023 Cigarettes smoked current (pack per day) - Reported 0.3 [facility] Start: 03-04-2023 End: 04-05-2023 Tobacco use panel [facility] Adult Depression Scr eening Assessment 0 [facility] Clinical Notes 08-06-2021 to 03-30-2024 Telephone Encounter - Heather Thompson - 03/30/2024 8:24 AM EDTTelephone Encounter - Heather Thompson - 03/30/2024 8:24 AM EDTTelephone Encounter - Rosalina Landry PA-C - 03/28/2024 4:35 PM EDT Note Date & Type Note Facility 03-30-2024 Telephone encounter Note Faxed order to [facility] - they will contact patient closer to time for scheduling. Mailed order w/ patients follow up. Heather Thompson [facility] 03-30-2024 Miscellaneous Notes Faxed order to [facility] - they will contact patient closer to time for scheduling. Mailed order w/ patients follow up. Heather Thompson Order placed Alexis Romano, Could you please place a new Mammogram order for her? The one in her chart was ordered by Dr. Disla and will no longer be valid for July 2024. Thank you! Heatherpenny Thompson documented in this encounter [facility] 03-28-2024 Telephone encounter Note Order placed [facility] 03-28-2024 Telephone encounter Note Alexis Romano, Could you please place a new Mammogram order for her? The one in her chart was ordered by Dr. Disla and will no longer be valid for July 2024. Thank you! Heather Thompson [facility] 03-28-2024 History of Present illness Narrative PATIENT NAME: Ernestina Costa DATE: 03/28/2024 PRIMARY CARE PHYSICIAN: Dr. Kade Huynh OTHER PHYSICIANS: Dr. Chambers, Dr. Bhakti Glaser (Med [facility]c [place]) (Elements copied from Dr. Disla's note dated August 09, 2023, have been reviewed and updated where appropriate, and all reflect current assessment and medical decision making during today's encounter, March 28, 2024) CC: This is an 83 year old female with a history of right-sided breast cancer, seen for scheduled follow-up. INTERIM HISTORY: Ernestina returns for follow up. She just got back from [place]. Remains on anastrazole without issues. She has been having gait issues and some tremors and she will be seeing her PCP for this next week. No breast changes. She still has occasional tenderness in her right breast, but that has been for a long time. She also has a nodule in her right axilla that hasn't changed. This has been imaged previously No recent hospitalizations or illness. MEDICATIONS: anastrozole (ARIMIDEX) 1 mg tablet TAKE 1 TABLET ONCE DAILY SUMMER'S WORT ORAL Take by mouth. loratadine (CLARITIN ORAL) Take by mouth. montelukast (SINGULAIR) 10 mg tablet Take 10 mg by mouth once daily. hydrocortisone (HEMORRHOIDAL HC) 25 mg suppository INSERT 1 SUPPOSITORY RECTALLY 3 TIMES A DAY cholecalciferol (VITAMIN D3) 50 mcg (2,000 unit) tablet Take 1 tablet by mouth once daily. omeprazole (PRILOSEC) 20 mg capsule Take 20 mg by mouth once daily. zinc sulfate (ZINC-15 ORAL) Take by mouth. LACTOSE ORAL Take by mouth. ALLERGIES: Patient has no known allergies. PAST MEDICAL HISTORY: PAST MEDICAL HISTORY Diagnosis Date Breast cancer (HCC) PAST SURGICAL HISTORY: PAST SURGICAL HISTORY Procedure Laterality Date BREAST BIOPSY CATARACT EXTRACTION HX PAST SURGICAL HISTORY OF Left 06/2021 Left foot TONSILLECTOMY HX REVIEW OF SYSTEMS: GENERAL: No weight loss, malaise or fevers. HEENT: Negative for frequent or significant headaches, No changes in hearing or vision, no nose bleeds or other nasal problems RESPIRATORY: Negative for cough, wheezing or shortness of breath. CARDIOVASCULAR: Negative for chest pain, leg swelling or palpitations. GI: Negative for abdominal discomfort, blood in stools or black stools Positive for chronic constipation and hemorrhoids : No history of dysuria, frequency or incontinence MUSCULOSKELETAL: Negative for: joint pain or swelling, back pain and muscle pain SKIN: Negative for lesions, rash, and itching. HEMATOLOGY/LYMPHOLOGY: Negative for prolonged bleeding, bruising easily or swollen nodes. NEURO: No history of headaches, syncope, paralysis, seizures or tremors BREAST: right breast and axilla tenderness PHYSICAL EXAM: Vitals: BP 130/84 Pulse 82 Temp 36.7 C (98.1 F) (Temporal) Resp 16 Ht 158.1 cm (5' 2.24 ) Wt 89.6 kg (197 lb 8.5 oz) SpO2 97% BMI 35.85 kg/m ECOG 0 General: Alert and oriented, no distress, pleasant and cooperative. Heart: Regular, normal S1 and S2, no murmurs, rubs, or gallops Lungs: Clear to auscultation bilaterally Abdomen: Benign Extremities: Feet/ankles without edema, posterior tibial pulses full and symmetrical Lymph Nodes: No Submandibular, cervical, supraclavicular, axillary, or inguinal lymphadenopathy present Breast: Postop changes in the right breast with thickening consistent with scar tissue in the right outer quadrant. Left breast normal. Right axillary area demonstrates a 1 x 1 cm hardened area most consistent with scar tissue. 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 The invasive carcinoma measures 1.5 cm in greatest dimension. It focally involved the inferior margin. The remaining margins are free of neoplasm. One sentinel lymph node biopsied, with evidence of metastasis measuring 4 mm in greatest dimension. Minute focus of extranodal extension measuring approximately 0.1 mm is identified. LABORATORY DATA: Hemoglobin (g/dL) Date Value 03/28/2024 13.2 08/12/2021 13.7 Hematocrit (%) Date Value 03/28/2024 40.2 08/12/2021 42.2 WBC (k/uL) Date Value 03/28/2024 7.22 08/12/2021 6.69 Platelet Count (k/uL) Date Value 03/28/2024 242 08/12/2021 266 RADIOLOGIC DATA: 07/30/2023 Bilateral diagnostic mammogram ([facility]) Benign finding. Recommend routine mammogram in 12 months. 03/11/2023 Right diagnostic mammogram and ultrasound ([facility]) Ultrasound evaluation demonstrates a calcified mass within the axillary tail corresponding to the patient's palpable lump, 2.1 x 0.9 x 1.1 cm. No appreciable significant internal blood flow. Benign finding. ASSESSMENT/PLAN: 1. Malignant neoplasm of lower-inner quadrant of right breast of female, estrogen receptor positive Stage IIA (T1c, N1a, M0) Infiltrating ductal carcinoma of the right breast, ER/AZ positive, HER2 negative diagnosed August 2019. Ultrasound guided biopsy 08/22/2019 revealed a low-grade ductal carcinoma, ER 95%, AZ 80%, HER-2 negative. Lumpectomy and SNB completed 09/19/2019 revealed 1.5 cm grade I invasive ductal carcinoma, focally involving the inferior margin. Right sentinel lymph node biopsy revealed metastatic carcinoma involving one lymph node with a minute focus of extracapsular invasion. Oncotype recurrence score 12, indicating a good prognosis and no apparent benefit from adjuvant chemotherapy. Postop the patient received adjuvant radiation therapy to the right breast completed December 2019 (given in [place]). Adjuvant hormonal therapy with Arimidex started November 2019. February 2023 the patient presented a palpable nodule in her right axilla. Mammogram/right axillary ultrasound 03/11/2023 revealed a calcified mass, most likely scar tissue. Most recent follow-up mammogram 07/30/2023 stable. Currently the patient has no evidence of disease. I would recommend she continue her Arimidex for a total of 5 years (November 2024). Her next mammogram will be in July 2025 and we will see her back at that time as well (before she leaves for [place]). Rosalina Landry PA-C CC: Dr. Chambers I spent a total of 22 minutes on the date of the service which included preparing to see the patient, [id number] patient care, completing clinical documentation, obtaining and/or reviewing separately obtained history, performing a medically appropriate examination, counseling and educating the patient/family/caregiver, ordering medications, tests, or procedures, communicating with other HCPs (not separately reported), independently interpreting results (not separately reported), communicating results to the patient/family/caregiver, and care coordination (not separately reported). documented in this encounter [facility] 03-28-2024 Note HNO ID: [id number] Author: ROSALINA LANDRY PA-C Service: ? Author Type: Physician Academic Support Coordinator Type: Progress Notes Filed: 03/28/2024 16:06 Note Text: PATIENT NAME: Ernestina Costa DATE: 03/28/2024 PRIMARY CARE PHYSICIAN: Dr. Kade Huynh OTHER PHYSICIANS: Dr. Chambers, Dr. Bhakti Glaser ([facility] [place]) (Elements copied from Dr. Disla's note dated August 09, 2023, have been reviewed and updated where appropriate, and all reflect current assessment and medical decision making during today's encounter, March 28, 2024) CC: This is an 83 year old female with a history of right-sided breast cancer, seen for scheduled follow-up. INTERIM HISTORY: Ernestina returns for follow up. She just got back from [place]. Remains on anastrazole without issues. She has been having gait issues and some tremors and she will be seeing her PCP for this next week. No breast changes. She still has occasional tenderness in her right breast, but that has been for a long time. She also has a nodule in her right axilla that hasn't changed. This has been imaged previously No recent hospitalizations or illness. MEDICATIONS: anastrozole (ARIMIDEX) 1 mg tablet TAKE 1 TABLET ONCE DAILY SUMMER'S WORT ORAL Take by mouth. loratadine (CLARITIN ORAL) Take by mouth. montelukast (SINGULAIR) 10 mg tablet Take 10 mg by mouth once daily. hydrocortisone (HEMORRHOIDAL HC) 25 mg suppository INSERT 1 SUPPOSITORY RECTALLY 3 TIMES A DAY cholecalciferol (VITAMIN D3) 50 mcg (2,000 unit) tablet Take 1 tablet by mouth once daily. omeprazole (PRILOSEC) 20 mg capsule Take 20 mg by mouth once daily. zinc sulfate (ZINC-15 ORAL) Take by mouth. LACTOSE ORAL Take by mouth. ALLERGIES: Patient has no known allergies. PAST MEDICAL HISTORY: PAST MEDICAL HISTORY Diagnosis Date Breast cancer (HCC) PAST SURGICAL HISTORY: PAST SURGICAL HISTORY Procedure Laterality Date BREAST BIOPSY CATARACT EXTRACTION HX PAST SURGICAL HISTORY OF Left 06/2021 Left foot TONSILLECTOMY HX REVIEW OF SYSTEMS: GENERAL: No weight loss, malaise or fevers. HEENT: Negative for frequent or significant headaches, No changes in hearing or vision, no nose bleeds or other nasal problems RESPIRATORY: Negative for cough, wheezing or shortness of breath. CARDIOVASCULAR: Negative for chest pain, leg swelling or palpitations. GI: Negative for abdominal discomfort, blood in stools or black stools Positive for chronic constipation and hemorrhoids : No history of dysuria, frequency or incontinence MUSCULOSKELETAL: Negative for: joint pain or swelling, back pain and muscle pain SKIN: Negative for lesions, rash, and itching. HEMATOLOGY/LYMPHOLOGY: Negative for prolonged bleeding, bruising easily or swollen nodes. NEURO: No history of headaches, syncope, paralysis, seizures or tremors BREAST: right breast and axilla tenderness PHYSICAL EXAM: Vitals: BP 130/84 Pulse 82 Temp 36.7 ?C (98.1 ?F) (Temporal) Resp 16 Ht 158.1 cm (5' 2.24 ) Wt 89.6 kg (197 lb 8.5 oz) SpO2 97% BMI 35.85 kg/m? ECOG 0 General: Alert and oriented, no distress, pleasant and cooperative. Heart: Regular, normal S1 and S2, no murmurs, rubs, or gallops Lungs: Clear to auscultation bilaterally Abdomen: Benign Extremities: Feet/ankles without edema, posterior tibial pulses full and symmetrical Lymph Nodes: No Submandibular, cervical, supraclavicular, axillary, or inguinal lymphadenopathy present Breast: Postop changes in the right breast with thickening consistent with scar tissue in the right outer quadrant. Left breast normal. Right axillary area demonstrates a 1 x 1 cm hardened area most consistent with scar tissue. 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 The invasive carcinoma measures 1.5 cm in greatest dimension. It focally involved the inferior margin. The remaining margins are free of neoplasm. One sentinel lymph node biopsied, with evidence of metastasis measuring 4 mm in greatest dimension. Minute focus of extranodal extension measuring approximately 0.1 mm is identified. LABORATORY DATA: Hemoglobin (g/dL) Date Value 03/28/2024 13.2 08/12/2021 13.7 Hematocrit (%) Date Value 03/28/2024 40.2 08/12/2021 42.2 WBC (k/uL) Date Value 03/28/2024 7.22 08/12/2021 6.69 Platelet Count (k/uL) Date Value 03/28/2024 242 08/12/2021 266 RADIOLOGIC DATA: 07/30/2023 Bilateral diagnostic mammogram ([facility]) Benign finding. Recommend routine mammogram in 12 months. 03/11/2023 Right diagnostic mammogram and ultrasound ([facility]) Ultrasound evaluation demonstrates a calcified mass within the axillary tail corresponding to the patient's palpable lump, 2.1 x 0.9 x 1.1 cm. No appreciable significant internal blood flow. Benign finding. ASSESSMENT/PLAN: 1. Malignant neoplasm of lower-inner (more content not included)... [facility] 03-27-2024 Telephone encounter Note Patient coming in Wednesday03/27/24 for follow up. Do you want labs? If so, please put in lab orders. Louise Stout MA [facility] 12-20-2023 Miscellaneous Notes Patient coming in Wednesday03/27/24 for follow up. Do you want labs? If so, please put in lab orders. Louise Stout MA documented in this encounter [facility] 08-09-2023 Note HNO ID: [id number] Author: Wilver Disla MD Service: ? Author Type: Physician Type: Progress Notes Filed: 08/09/2023 9:15 PM Note Text: PATIENT NAME: Ernetsina Costa DATE: 08/09/2023 PRIMARY CARE PHYSICIAN: Dr. Kade Huynh OTHER PHYSICIANS: Dr. Chambers, Dr. Bhakti Glaser ([facility] [place]) Portions of this encounter note have been copied from my note from 04/05/2023 and has been updated where appropriate, and reflect my current medical decision making from today. CC: This is an 82 year old female with a history of right-sided breast cancer, seen for scheduled follow-up. INTERIM HISTORY: Since the patient's last visit here she has had no significant medical changes. The fullness in her right axilla is unchanged. Otherwise no changes in her breasts. No unusual pain or other systemic symptoms. MEDICATIONS: anastrozole (ARIMIDEX) 1 mg tablet TAKE 1 TABLET ONCE DAILY SUMMER'S WORT ORAL Take by mouth. loratadine (CLARITIN ORAL) Take by mouth. montelukast (SINGULAIR) 10 mg tablet Take 10 mg by mouth once daily. hydrocortisone (HEMORRHOIDAL HC) 25 mg suppository INSERT 1 SUPPOSITORY RECTALLY 3 TIMES A DAY cholecalciferol (VITAMIN D3) 50 mcg (2,000 unit) tablet Take 1 tablet by mouth once daily. omeprazole (PRILOSEC) 20 mg capsule Take 20 mg by mouth once daily. zinc sulfate (ZINC-15 ORAL) Take by mouth. LACTOSE ORAL Take by mouth. ALLERGIES: Patient has no known allergies. PAST MEDICAL HISTORY: PAST MEDICAL HISTORY Diagnosis Date Breast cancer (HCC) PAST SURGICAL HISTORY: PAST SURGICAL HISTORY Procedure Laterality Date BREAST BIOPSY CATARACT EXTRACTION HX PAST SURGICAL HISTORY OF Left 06/2021 Left foot TONSILLECTOMY HX REVIEW OF SYSTEMS: GENERAL: No weight loss, malaise or fevers. HEENT: Negative for frequent or significant headaches, No changes in hearing or vision, no nose bleeds or other nasal problems RESPIRATORY: Negative for cough, wheezing or shortness of breath. CARDIOVASCULAR: Negative for chest pain, leg swelling or palpitations. GI: Negative for abdominal discomfort, blood in stools or black stools Positive for chronic constipation and hemorrhoids : No history of dysuria, frequency or incontinence MUSCULOSKELETAL: Negative for: joint pain or swelling, back pain and muscle pain SKIN: Negative for lesions, rash, and itching. HEMATOLOGY/LYMPHOLOGY: Negative for prolonged bleeding, bruising easily or swollen nodes. NEURO: No history of headaches, syncope, paralysis, seizures or tremors BREAST: right breast and axilla incision healing PHYSICAL EXAM: Vitals: BP 144/75 Pulse 77 Temp 36.6 ?C (97.8 ?F) (Temporal) Resp 18 Wt 93.3 kg (205 lb 9.6 oz) SpO2 98% BMI 37.31 kg/m? ECOG 0 General appearance: well appearing, alert, in no acute distress, well-hydrated, well nourished Skin: skin color, texture, turgor normal, no suspicious rashes or lesions Head: normal Eyes: Anicteric sclera. Pupils are equally round and reactive to light. Extraocular movements are intact. Ears: negative findings: external ears normal to inspection and palpation Oropharynx: negative Neck: Supple, no adenopathy; thyroid symmetric, normal size Lymph Nodes: No Submandibular, cervical, supraclavicular, axillary, or inguinal lymphadenopathy present Breast: Postop changes in the right breast with thickening consistent with scar tissue in the right outer quadrant. Left breast normal. Right axillary area demonstrates a 1 x 1 cm hardened area most consistent with scar tissue. Lymphadenopathy cannot be ruled out. Back: no tenderness to palpation Lungs: clear to auscultation, no wheezing or rhonchi Heart: Negative. RRR without murmur, gallop, or rubs. No ectopy. Abdomen: Normal abdominal exam, Abdomen soft, non-tender. Bowel sounds normal. No masses, organomegaly Rectal: Not done Extremities: Extremities normal. No deformities, edema, or skin discoloration. Good capillary refill. Musculoskeletal: No joint swelling, deformity, or tenderness. 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 The invasive carcinoma measures 1.5 cm in greatest dimension. It focally involved the inferior margin. The remaining margins are free of neoplasm. One sentinel lymph node biopsied, with evidence of metastasis measuring 4 mm in greatest dimension. Minute focus of extranodal extension measuring approximately 0.1 mm is identified. LABORATORY DATA: Hemoglobin (g/dL) Date Value 08/09/2023 13.1 08/12/2021 13.7 Hematocrit (%) Date Value 08/09/2023 40.0 08/12/2021 42.2 WBC (k/uL) Date Value 08/09/2023 6.63 08/12/2021 6.69 Platelet Count (k/uL) Date Value 08/09/2023 253 08/12/2021 266 RADIOLOGIC DATA: 07/30/2023 Bilateral diagnostic mammogram ([facility]) Benign finding. (more content not included)... [facility] 04-05-2023 Miscellaneous Notes Order faxed to [facility]. VM left on pt's home phone. Encouraged to call with any questions or concerns. Porfirio Rucker RN BRM: Order pended, please review and sign Porfirio Rucker RN Please place Mammogram Hardik . Ernestina wants to schedule her appt at [facility]. Mail order and phone # to her home. documented in this encounter [facility] 04-05-2023 Note HNO ID: [id number] Author: Wilver Disla MD Service: ? Author Type: Physician Type: Progress Notes Filed: 04/07/2023 9:10 AM Note Text: PATIENT NAME: Ernestina Costa DATE: 04/05/2023 PRIMARY CARE PHYSICIAN: Dr. Kade Huynh OTHER PHYSICIANS: Dr. Chambers, Dr. Bhakti Glaser ([facility]) Portions of this encounter note have been copied from my note from 03/04/2023 and has been updated where appropriate, and reflect my current medical decision making from today. CC: This is an 82 year old female with a history of right-sided breast cancer, seen for scheduled follow-up. INTERIM HISTORY: At the patient's last visit here she complained of a lump in her right axilla. She underwent a diagnostic mammogram and right axillary ultrasound, and it was felt the abnormality was a benign calcified mass (most likely scar tissue). The patient believes the lesion has decreased in size. No new problems. MEDICATIONS: anastrozole (ARIMIDEX) 1 mg tablet Take 1 tablet by mouth once daily. SUMMER'S WORT ORAL Take by mouth. loratadine (CLARITIN ORAL) Take by mouth. montelukast (SINGULAIR) 10 mg tablet Take 10 mg by mouth once daily. hydrocortisone (HEMORRHOIDAL HC) 25 mg suppository INSERT 1 SUPPOSITORY RECTALLY 3 TIMES A DAY cholecalciferol (VITAMIN D3) 50 mcg (2,000 unit) tablet Take 1 tablet by mouth once daily. omeprazole (PRILOSEC) 20 mg capsule Take 20 mg by mouth once daily. zinc sulfate (ZINC-15 ORAL) Take by mouth. LACTOSE ORAL Take by mouth. ALLERGIES: Patient has no known allergies. PAST MEDICAL HISTORY: PAST MEDICAL HISTORY Diagnosis Date Breast cancer (HCC) PAST SURGICAL HISTORY: PAST SURGICAL HISTORY Procedure Laterality Date BREAST BIOPSY CATARACT EXTRACTION HX PAST SURGICAL HISTORY OF Left 06/2021 Left foot TONSILLECTOMY HX REVIEW OF SYSTEMS: GENERAL: No weight loss, malaise or fevers. HEENT: Negative for frequent or significant headaches, No changes in hearing or vision, no nose bleeds or other nasal problems RESPIRATORY: Negative for cough, wheezing or shortness of breath. CARDIOVASCULAR: Negative for chest pain, leg swelling or palpitations. GI: Negative for abdominal discomfort, blood in stools or black stools Positive for chronic constipation and hemorrhoids : No history of dysuria, frequency or incontinence MUSCULOSKELETAL: Negative for: joint pain or swelling, back pain and muscle pain SKIN: Negative for lesions, rash, and itching. HEMATOLOGY/LYMPHOLOGY: Negative for prolonged bleeding, bruising easily or swollen nodes. NEURO: No history of headaches, syncope, paralysis, seizures or tremors BREAST: right breast and axilla incision healing PHYSICAL EXAM: Vitals: BP 151/74 Pulse 65 Temp 36.4 ?C (97.5 ?F) (Temporal) Resp 16 Ht 158.1 cm (5' 2.24 ) Wt 94.8 kg (209 lb) SpO2 99% BMI 37.93 kg/m? ECOG 0 General appearance: well appearing, alert, in no acute distress, well-hydrated, well nourished Skin: skin color, texture, turgor normal, no suspicious rashes or lesions Head: normal Eyes: Anicteric sclera. Pupils are equally round and reactive to light. Extraocular movements are intact. Ears: negative findings: external ears normal to inspection and palpation Oropharynx: negative Neck: Supple, no adenopathy; thyroid symmetric, normal size Lymph Nodes: No Submandibular, cervical, supraclavicular, axillary, or inguinal lymphadenopathy present Breast: Postop changes in the right breast with thickening consistent with scar tissue in the right outer quadrant. Left breast normal. Right axillary area demonstrates a 1 x 1 cm hardened area most consistent with scar tissue. Lymphadenopathy cannot be ruled out. Back: no tenderness to palpation Lungs: clear to auscultation, no wheezing or rhonchi Heart: Negative. RRR without murmur, gallop, or rubs. No ectopy. Abdomen: Normal abdominal exam, Abdomen soft, non-tender. Bowel sounds normal. No masses, organomegaly Rectal: Not done Extremities: Extremities normal. No deformities, edema, or skin discoloration. Good capillary refill. Musculoskeletal: No joint swelling, deformity, or tenderness. 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 The invasive carcinoma measures 1.5 cm in greatest dimension. It focally involved the inferior margin. The remaining margins are free of neoplasm. One sentinel lymph node biopsied, with evidence of metastasis measuring 4 mm in greatest dimension. Minute focus of extranodal extension measuring approximately 0.1 mm is identified. LABORATORY DATA: Hemoglobin (g/dL) Date Value 03/04/2023 13.6 08/12/2021 13.7 Hematocrit (%) Date Value 03/04/2023 41.1 08/12/2021 42.2 WBC (k/uL) Date Value 03/04/2023 7.96 08/12/2021 6.69 Platelet Count (k/uL) Date Value 06 (more content not included)... [facility] 08-21-2022 Miscellaneous Notes Informed pt of Dr Disla's message. Pt verbalized understanding and denies further needs at this time. Teresita Tsai RN ----- Message from Wilver Disla MD sent at 08/21/2022 3:21 PM EST ----- Please inform the patient that her labs are stable. We will continue as planned. ESE Solo documented in this encounter [facility] 08-20-2022 History of Present illness Narrative PATIENT NAME: Ernestina Costa DATE: 08/20/2022 PRIMARY CARE PHYSICIAN: Dr. Kade Huynh OTHER PHYSICIANS: Dr. Chambers, Dr. Bhakti Glaser ([facility] [place]) Portions of this encounter note have been copied from my note from 03/19/2022 and has been updated where appropriate, and reflect my current medical decision making from today. CC: This is an 81 year old female with a history of right-sided breast cancer, seen for scheduled follow-up. INTERIM HISTORY: Since the patient's last visit here she has remained on Arimidex, and appears to be tolerating it well. She has had no significant medical changes since her last visit. She denies any significant joint pain or other systemic symptoms. She has noticed no changes in her breasts. Overall the patient feels well today with no particular complaints. She plans to go to [place] next week, and will return to [place] in early February 2023. MEDICATIONS: anastrozole (ARIMIDEX) 1 mg tablet Take 1 tablet by mouth once daily. SUMMER'S WORT ORAL Take by mouth. loratadine (CLARITIN ORAL) Take by mouth. montelukast (SINGULAIR) 10 mg tablet Take 10 mg by mouth once daily. hydrocortisone (HEMORRHOIDAL HC) 25 mg suppository INSERT 1 SUPPOSITORY RECTALLY 3 TIMES A DAY cholecalciferol (VITAMIN D3) 50 mcg (2,000 unit) tablet Take 1 tablet by mouth once daily. omeprazole (PRILOSEC) 20 mg capsule Take 20 mg by mouth once daily. zinc sulfate (ZINC-15 ORAL) Take by mouth. LACTOSE ORAL Take by mouth. ALLERGIES: Patient has no known allergies. PAST MEDICAL HISTORY: PAST MEDICAL HISTORY Diagnosis Date Breast cancer (HCC) PAST SURGICAL HISTORY: PAST SURGICAL HISTORY Procedure Laterality Date BREAST BIOPSY CATARACT EXTRACTION HX PAST SURGICAL HISTORY OF Left 06/2021 Left foot TONSILLECTOMY HX REVIEW OF SYSTEMS: GENERAL: No weight loss, malaise or fevers. HEENT: Negative for frequent or significant headaches, No changes in hearing or vision, no nose bleeds or other nasal problems RESPIRATORY: Negative for cough, wheezing or shortness of breath. CARDIOVASCULAR: Negative for chest pain, leg swelling or palpitations. GI: Negative for abdominal discomfort, blood in stools or black stools Positive for chronic constipation and hemorrhoids : No history of dysuria, frequency or incontinence MUSCULOSKELETAL: Negative for: joint pain or swelling, back pain and muscle pain SKIN: Negative for lesions, rash, and itching. HEMATOLOGY/LYMPHOLOGY: Negative for prolonged bleeding, bruising easily or swollen nodes. NEURO: No history of headaches, syncope, paralysis, seizures or tremors BREAST: right breast and axilla incision healing PHYSICAL EXAM: Vitals: BP 159/97 Pulse 81 Temp 36.2 C (97.2 F) (Temporal) Resp 16 Ht 158.1 cm (5' 2.24 ) Wt 98.3 kg (216 lb 12.8 oz) BMI 39.34 kg/m ECOG 0 General appearance: well appearing, alert, in no acute distress, well-hydrated, well nourished Skin: skin color, texture, turgor normal, no suspicious rashes or lesions Head: normal Eyes: Anicteric sclera. Pupils are equally round and reactive to light. Extraocular movements are intact. Ears: negative findings: external ears normal to inspection and palpation Oropharynx: negative Neck: Supple, no adenopathy; thyroid symmetric, normal size Lymph Nodes: No Submandibular, cervical, supraclavicular, axillary, or inguinal lymphadenopathy present Breast: Breast exam deferred today. Back: no tenderness to palpation Lungs: clear to auscultation, no wheezing or rhonchi Heart: Negative. RRR without murmur, gallop, or rubs. No ectopy. Abdomen: Normal abdominal exam, Abdomen soft, non-tender. Bowel sounds normal. No masses, organomegaly Rectal: Not done Extremities: Extremities normal. No deformities, edema, or skin discoloration. Good capillary refill. Musculoskeletal: No joint swelling, deformity, or tenderness. 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 The invasive carcinoma measures 1.5 cm in greatest dimension. It focally involved the inferior margin. The remaining margins are free of neoplasm. One sentinel lymph node biopsied, with evidence of metastasis measuring 4 mm in greatest dimension. Minute focus of extranodal extension measuring approximately 0.1 mm is identified. LABORATORY DATA: Hemoglobin (g/dL) Date Value 08/20/2022 13.2 08/12/2021 13.7 Hematocrit (%) Date Value 08/20/2022 40.4 08/12/2021 42.2 WBC (k/uL) Date Value 08/20/2022 8.49 08/12/2021 6.69 Platelet Count (k/uL) Date Value 08/20/2022 259 08/12/2021 266 RADIOLOGIC DATA: 07/29/2022 Bilateral diagnostic mammogram ([facility]) Benign finding. Recommend routine mammogram in 12 months. ASSESSMENT/PLAN: 1. Malignant neoplasm of lower-inner quadrant of right breast of female, estrogen receptor positive Stage IIA (T1c, N1a, M0) Infiltrating ductal carcinoma of the right breast, ER/AZ positive, HER2 negative diagnosed August 2019. Ultrasound guided biopsy 08/22/2019 revealed a low-grade ductal carcinoma, ER 95%, AZ 80%, HER-2 negative. Lumpectomy and SNB completed 09/19/2019 revealed 1.5 cm grade I invasive ductal carcinoma, focally involving the inferior margin. Right sentinel lymph node biopsy revealed metastatic carcinoma involving one lymph node with a minute focus of extracapsular invasion. Oncotype recurrence score 12, indicating a good prognosis and no apparent benefit from adjuvant chemotherapy. Postop the patient received adjuvant radiation therapy to the right breast completed December 2019 (given in [place]). Adjuvant hormonal therapy with Arimidex started November 2019. Currently the patient has no evidence of disease. At this time the patient will continue as is with Arimidex 1 mg daily, with plans to take for 5 years total (November 2024). We will see her back in 6 months (after she returns from [place]). We will arrange for her next surveillance mammogram to be done July 2023. We will also obtain a bone density exam at that time. Wilver Disla MD CC: Dr. Chambers documented in this encounter [facility] 07-16-2022 Note PROCEDURE: XR FOOT L T MIN 3 VIEWS HISTORY: Pain in left foot ; follow-up fusion COMPARISON: XR foot left 08/06/2021 FINDINGS: BONES:Mechanical fusion of first metatarsophalangeal joint via dorsal plate and screws; no evidence of hardware fracture or loosening. No bone fracture or dislocation. Mild flattening of plantar arch. SOFT TISSUES:No visible soft tissue swelling. EFFUSION:None visible. OTHER: Negative. IMPRESSION: 1. Stable surgical changes without evidence of hardware failure or change in alignment. 2. Pes planus. Electronically authenticated by: GRACE MOSS Date: 2022-07-16 06:31 [facility] 03-11-[address] Please [address] labs if needed for appt on 03/19. Jessika Mack documented in this encounter [facility] 08-06-2021 Note PROCEDURE: XR FOOT L T MIN 3 VIEWS COMPARISON: 07/09/2021 HISTORY: Pain in left foot FINDINGS: BONES:No acute fracture or dislocation. Stable fusion first metatarsal-phalangeal joint with a plate and multiple screws. Remote resection head of the third, fourth and fifth proximal phalanges. Permeative pattern of the bones with cortical thinning consistent with osteopenia. Degenerative changes with joint space narrowing marginal osteophyte relation. Moderate enthesopathic spurring of the calcaneus. Flattening of the plantar arch. SOFT TISSUES:Negative. No visible soft tissue swelling. EFFUSION:None visible. OTHER: Negative. IMPRESSION: Stable postsurgical changes Osteopenia Electronically authenticated by: ERASMO HUITRON Date: 2021-08-06 13:38 [facility] Evaluation note Diagnosis Malignant neoplasm of overlapping sites of right breast in female, estrogen receptor positive (HCC)- Primary [facility] Diagnosis Malignant neoplasm of overlapping sites of right female breast, unspecified estrogen receptor status (HCC) Estrogen receptor positive status (ER+) 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+] documented in [facility] [place] [facility]* Diagnosis Malignant neoplasm of overlapping sites of right breast in female, estrogen receptor positive (HCC)- Primary documented in this encounter [facility] note* Diagnosis Malignant neoplasm of overlapping sites of right breast in female, estrogen receptor positive (HCC)- Primary [facility] Diagnosis Malignant neoplasm of overlapping sites of right breast in female, estrogen receptor positive (HCC)- Primary Encounter for screening mammogram for malignant neoplasm of breast Other screening mammogram documented in this encounter [facility] for referral (narrative)* Diagnostic Procedure Only (Routine) - Pending Review Specialty Diagnoses / Procedures Referred By Jose Raul parsons Referred To Contact [facility] Diagnoses Malignant neoplasm of overlapping sites of right breast in female, estrogen receptor positive (HCC) Malignant neoplasm of overlapping sites of right female breast, unspecified estrogen receptor status (HCC) Estrogen receptor positive status (ER+) Procedures CIRO DIAGNOSTIC BILATERAL DIAGNOSTIC MAMMOGRAPHY COMPUTER-AIDED DETCJ Wilver Estes MD [address] [place] [address] [place] [address] [facility] [address] [place] [address] Referral ID Status Reason Start Date Expiration Date Visits Requested Visits Authorized [id number] Pending Review Auto-Generat ed Referral 04/05/2024 05/04/2024 1 1 [facility] Diagnostic Procedure Only (Routine) - Pending Review Specialty Diagnoses / Procedures Referred By Sakshiac t Referred To Contact [facility] Diagnoses Malignant neoplasm of overlapping sites of right breast in female, estrogen receptor positive (HCC) Encounter for screening mammogram for malignant neoplasm of breast Procedures CIRO SCREENING W CHELSIE SCREENING DIGITAL BREAST TOMOSYNTHESIS BI SCREENING MAMMOGRAPHY BI 2-VIEW BREAST INC CAD Rosalina Landry PA-C [address] [place] [address] [place] [address] [facility] [address] [place] [address] Referral ID Status Reason Start Date Expiration Date Visits Requested Visits Authorized [id number] Pending Review Auto-Generat ed Referral 03/28/2024 04/27/2025 1 1 [facility] Summary Purpose Family History No Family History Records FoundNo Family History Records FoundNo Family History Records Found Advance Directives No Advanced Directives Records FoundNo Advanced Directives Records FoundNo Advanced Directives Records Found Additional Source Comments INFORMATION SOURCE (unrecogn ized section and content) DATE CREATED AUTHOR 04/11/2020 [facility] DATE CREATED AUTHOR AUTHOR'S ORGANIZ ATION 08/03/2022 [facility] DATE CREATED AUTHOR AUTHOR'S ORGANIZ ATION 04/04/2024 [facility] Source Comments (unrecognize d section and content) In the event this informatio n is protected by the Federal Confidentiality of Alcohol and Drug Abuse Patient Records regulations: The Federal rules restrict any use of the information to criminally investigate or prosecute any alcohol or drug abuse patient.[facility] the event this information is protected by the Federal Confidentiality of Alcohol and Drug Abuse Patient Records regulations: The Federal rules restrict any use of the information to criminally investigate or prosecute any alcohol or drug abuse patient.[facility] the event this information is protected by the Federal Confidentiality of Alcohol and Drug Abuse Patient Records regulations: The Federal rules restrict any use of the information to criminally investigate or prosecute any alcohol or drug abuse patient.[facility] the event this information is protected by the Federal Confidentiality of Alcohol and Drug Abuse Patient Records regulations: The Federal rules restrict any use of the information to criminally investigate or prosecute any alcohol or drug abuse patient.[facility] the event this information is protected by the Federal Confidentiality of Alcohol and Drug Abuse Patient Records regulations: The Federal rules restrict any use of the information to criminally investigate or prosecute any alcohol or drug abuse patient.[facility] the event this information is protected by the Federal Confidentiality of Alcohol and Drug Abuse Patient Records regulations: The Federal rules restrict any use of the information to criminally investigate or prosecute any alcohol or drug abuse patient.[facility] the event this information is protected by the Federal Confidentiality of Alcohol and Drug Abuse Patient Records regulations: The Federal rules restrict any use of the information to criminally investigate or prosecute any alcohol or drug abuse patient.[facility] the event this information is protected by the Federal Confidentiality of Alcohol and Drug Abuse Patient Records regulations: The Federal rules restrict any use of the information to criminally investigate or prosecute any alcohol or drug abuse patient.[facility] Reason for Visit (unrecogniz ed section and content) Reason Comments Lab Orders Reason Comments Breast Cancer 5 month follow up Reason Comments Results Reason Comments Orders Reason Onset Date Comments Refill Request 04/03/2024 Care Teams (unrecognized sec tion and content) Md Urologist Relationship Specialty Start Date End Date Lino Kaderei De La Rosa II [address] [facility] [address] [place] [address] PCP - General Internal Medicine 07/09/20 Wilver Disla MD [address] [place] [address] Physician Hematology/Oncology 10/11/19 Hannah Alford, CANDY SEPARATOR ENROBING.AIRCRAFT INSPECTOR [address] [place] [address] Nurse Practitioner Hematology/Oncology 10/11/19 Md Urologist Relationship Specialty Start Date End Date Lino Kaedrei De La Rosa II [address] [facility] [address] [place] [address] PCP - General Internal Medicine 07/09/20 Wilver Disla MD [address] [place] [address] Physician Hematology/Oncology 10/11/19 Hannah Alford, CANDY SEPARATOR ENROBING.AIRCRAFT INSPECTOR [address] [place] [address] Nurse Practitioner Hematology/Oncology 10/11/19 Md Urologist Relationship Specialty Start Date End Date Kade Huynh II [address] [facility] [address] [place] [address] PCP - General Internal Medicine 07/09/20 Wilver Disla MD [address] [place] [address] Physician Hematology/Oncology 10/11/19 Hannah Alford, CANDY SEPARATOR ENROBING.AIRCRAFT INSPECTOR [address] [place] [address] Nurse Practitioner Hematology/Oncology 10/11/19 Md Urologist Relationship Specialty Start Date End Date Kade Huynh II, MD [address] [facility] [address] [place] [address] PCP - General Internal Medicine 07/09/20 Wilver Disla MD [address] [facility] [place] [address] Physician Hematology/Oncology 10/11/19 Hannah Alford, CANDY SEPARATOR ENROBING.AIRCRAFT INSPECTOR [address] [facility] [place] [address] Nurse Practitioner Hematology/Oncology 10/11/19 Md Urologist Relationship Specialty Start Date End Date Kade Huynh II, MD [address] [facility] [address] [place] [address] PCP - General Internal Medicine 07/09/20 Wilver Disla MD [address] [facility] [place] [address] Physician Hematology/Oncology 10/11/19 Hannah Alford, CANDY SEPARATOR ENROBING.AIRCRAFT INSPECTOR [address] [facility] [place] [address] Nurse Practitioner Hematology/Oncology 10/11/19 Md Urologist Relationship Specialty Start Date End Date Kade Huynh II, MD [address] [facility] [address] [place] [address] PCP - General Internal Medicine 07/09/20 Wilver Disla MD [address] [facility] [place] [address] Physician Hematology/Oncology 10/11/19 Hannah Alford, CANDY SEPARATOR ENROBING.AIRCRAFT INSPECTOR [address] [place] [address] Nurse Practitioner Hematology/Oncology 10/11/19 Md Urologist Relationship Specialty Start Date End Date Kade Huynh II, MD [address] [facility] [address] [place] [address] PCP - General Internal Medicine 07/09/20 Wilver Disla MD [address] [place] [address] Physician Hematology/Oncology 10/11/19 Hannah Alford APRN.AIRCRAFT INSPECTOR [address] [place] [address] Nurse Practitioner Hematology/Oncology 10/11/19 FOR RECORDS PERTAINING TO PATIENTS WHO ARE OR HAVE BEEN ENROLLED IN A CHEMICAL DEPENDENCY/SUBSTANCEABUSE PROGRAM, SOME INFORMATION MAY BE OMITTED. This clinical summary was aggregated from multiple sources. Caution should be exercised in using it in the provision of clinical care. This summary normalizes information from multiple sources, and as a consequence, information in this document may materially change the coding, format and clinical context of patient data. In addition, data may be omitted in some cases. CLINICAL DECISIONS SHOULD BE BASED ON THE PRIMARY CLINICAL RECORDS. [facility] [employer] [facility]. provides no warranty or guarantee of the accuracy or completeness of information in this document.
[2024-04-06 08:25] LABS: Basophils Absolute Auto 0.1 10^3/uL (0.0-0.1); Basophils Percent Auto 0.9 % (0.2-2.0); Eosinophils Absolute Auto 0.2 10^3/uL (0.0-0.7); Eosinophils Percent Auto 2.9 % (0.9-7.0); Hematocrit 41.5 % (36.0-48.0); Hemoglobin 13.6 g/dL (12.0-16.0); Immature Granulocytes Abs Auto 0.04 10^3/uL (0.00-0.03); Immature Granulocytes Pct Auto 0.6 % (0.0-0.5); Lymphocytes Absolute Auto 1.6 10^3/uL (1.2-3.8); Lymphocytes Percent Auto 23.1 % (20.5-60.0); Mean Corpuscular HGB Conc 32.8 g/dL (29.9-35.2); Mean Corpuscular Hemoglobin 33.5 pg (26.7-34.0); Mean Corpuscular Volume 102.2 fL (81.0-99.0); Mean Platelet Volume 9.6 fL (9.5-13.5); Monocytes Absolute Auto 0.5 10^3/uL (0.3-0.8); Monocytes Percent Auto 6.7 % (1.7-12.0); Neutrophils Absolute Auto 4.6 10^3/uL (1.4-6.5); Neutrophils Percent Auto 65.8 % (43.0-75.0); Platelet Count 259 10^3/uL (150-450); Red Blood Count 4.06 10^6/uL (4.20-5.40); Red Cell Distribution Width 13.9 % (11.0-15.0)
[2024-04-06 09:42] LABS: Alanine Aminotransferase 20 U/L (14-59); Albumin Globulin Ratio 0.6; Alkaline Phosphatase 106 U/L (46-116); Anion Gap 10.6; Aspartate Amino Transferase 11 U/L (15-37); BUN Creatinine Ratio 18.1; Bilirubin Total 0.6 mg/dL (0.2-1.0); Calcium 9.1 mg/dL (8.5-10.1); Carbon Dioxide 28.8 mmol/L (21.0-32.0); Chloride 103 mmol/L (98-107); Estimated GFR (African America >60 (>=60); Estimated GFR (Non-African Ame 57 (>=60); Globulin 5.1 g/dL; Glucose 104 mg/dL (74-106); Potassium 4.4 mmol/L (3.5-5.1); Sodium 138 mmol/L (136-145); TSH W/ REFLEX FT4 2.009 uIU/mL (0.358-3.740); Total Protein 8.1 g/dL (6.4-8.2)
== END 2024-04-06 08:10 | disposition home or self-care (01) ==
LOC: LAB 08:09
PROVIDERS: PCP Internal Medicine; Visit Provider Internal Medicine
DX: I89.8 Other specified noninfective disorders of lymphatic vessels and lymph nodes (principal); G62.9 Polyneuropathy, unspecified; M54.16 Radiculopathy, lumbar region; R26.0 Ataxic gait
CPT/HCPCS: 36415; 80053; 84443; 85025

== ENCOUNTER 2024-06-05 14:21 | Outpatient (OUT) | payer MEDICARE, OTHER, SELFPAY ==
--- NOTE | 2024-06-05 | XR_ITS ---
The [place] [id number] Patient Name: ERNESTINA HAYWOOD MRN: [id number] date: 1940 Sex: F Assigned Patient Location: [facility] Current Patient Location: [facility] Accession/Order Number: [id number] Exam Date: 06/05/2024 14:40 Report Date: 06/07/2024 07:20 At the request of: CAESAR MAYS Procedure: XR lumbar spine 6V w bending EXAMINATION: XR lumbar spine 6V w bending HISTORY: Low back pain COMPARISON: No relevant comparison available. FINDINGS: BONES: Neutral projection demonstrates 3 mm anterolisthesis of L4 in relation L5. Mild to moderate spondylosis and facet osteoarthropathy. DISC SPACES: Multilevel disc space narrowing, mild PARASPINOUS: Negative. No paraspinous abnormality is seen. OTHER: No transient spondylolisthesis with flexion and extension . Right upper quadrant coarse calcification, nonspecific XR/XR lumbar spine 6V w bending IMPRESSION: [id number] degenerative changes with no dynamic instability Electronically authenticated by: ERASMO HUITRON Date: 06/07/2024 07:20
--- NOTE | 2024-06-05 14:25 | XR_ITS ---
The [address] [address] Patient Name: ERNESTINA HAYWOOD MRN: [id number] date: 1940 Sex: F Assigned Patient Location: [facility] Current Patient Location: Accession/Order Number: [id number] Exam Date: 06/05/2024 14:40 Report Date: 06/07/2024 07:16 At the request of: CAESAR MAYS Procedure: XR cervical spine 5V EXAMINATION: XR cervical spine 5V HISTORY: cervical radiculopathy COMPARISON: No relevant comparison available. FINDINGS: BONES: Neutral projection demonstrates 3 mm anterolisthesis of C4 on C5 and 5 mm anterolisthesis of C5 on C6. Mild to moderate spondylosis. Moderate to severe facet osteoarthropathy DISC SPACES: Normal. No significant disc height narrowing, subluxation, or endplate abnormality. PARASPINOUS: Negative. No paraspinous abnormality is seen. OTHER: No transient spondylolisthesis with flexion or extension XR/XR cervical spine 5V IMPRESSION: Moderate to severe degenerative changes Multilevel spondylolisthesis with no dynamic instability Electronically authenticated by: ERASMO HUITRON Date: 06/07/2024 07:16
== END 2024-06-05 14:22 | disposition home or self-care (01) ==
LOC: RAD 14:21
PROVIDERS: PCP Internal Medicine; Visit Provider Psychiatry & Neurology Neurology
DX: M54.12 Radiculopathy, cervical region (principal); R26.0 Ataxic gait; M54.16 Radiculopathy, lumbar region
CPT/HCPCS: 72050; 72114

== ENCOUNTER 2024-07-31 14:01 | Outpatient (OUT) | payer MEDICARE, OTHER, SELFPAY ==
--- NOTE | 2024-07-31 14:03 | MM_ITS ---
Patient Name: ERNESTINA HAYWOOD MR#: [id number] : 1940 Exam Date: 07/31/2024 Ordering Doctor: DR RAFA RAM M.D. RADIOLOGY REPORT PROCEDURE: MM TOMOSYNTHESIS SCREENING BI COMPARISON: MM TOMOSYNTHESIS DIAGNOSTIC RT, 03/11/2023. MM TOMOSYNTHESIS SCREENING BI, 07/30/2023. INDICATIONS: Screening Calculator Name NCI Breast Cancer Risk Assessment Tool 5 Year Breast Cancer Risk n/a% Lifetime Breast Cancer Risk n/a% Personal Breast Cancer Yes, invasive ductal carcinoma, age 78 Personal Ovarian Cancer No Treatments None Family Cancers None LOCATION: [facility] BREAST COMPOSITION: The breasts are extremely dense, which lowers the sensitivity of mammography. FINDINGS: DIAGNOSTIC CATEGORY 2--BENIGN FINDING. NO CHANGE FROM COMPARISON. Scattered benign-appearing nodules are present. Scattered benign-appearing calcifications are present. Scattered benign-appearing lymph nodes are present. RIGHT BREAST: No significant suspicious finding. LEFT BREAST: No significant suspicious finding. RECOMMENDATIONS: ROUTINE MAMMOGRAM AND CLINICAL EVALUATION IN 12 MONTHS. PLEASE NOTE: A NORMAL MAMMOGRAM DOES NOT EXCLUDE THE POSSIBILITY OF BREAST CANCER. A CLINICALLY SUSPICIOUS PALPABLE LUMP SHOULD BE BIOPSIED. Dictated by: Job Clayton MD on 07/31/2024 at 16:25 Approved by: Job Clayton MD on 07/31/2024 at 16:26
== END 2024-07-31 14:02 | disposition home or self-care (01) ==
LOC: MAMMO 14:01
PROVIDERS: PCP Internal Medicine; Visit Provider Internal Medicine
DX: Z12.31 Encounter for screening mammogram for malignant neoplasm of breast (principal); Z85.3 Personal history of malignant neoplasm of breast
CPT/HCPCS: 77063; 77067

== ENCOUNTER 2024-08-10 14:27 | Outpatient (OUT) | payer MEDICARE, OTHER, SELFPAY ==
--- NOTE | 2024-08-10 14:31 | XR_ITS ---
[address] [address] Patient Name: ERNESTINA HAYWOOD MRN: [id number] date: 1940 Sex: F Assigned Patient Location: [facility] Current Patient Location: Accession/Order Number: [id number] Exam Date: 08/10/2024 15:00 Report Date: 08/11/2024 05:51 At the request of: SMITH ZHANG Procedure: XR DEXA axial skeleton EXAMINATION: XR DEXA axial skeleton HISTORY: Osteoporosis screening, Asymptomatic Menopause COMPARISON: DEXA bone densitometry 04/08/2021 TECHNIQUE: Dual-energy X-ray absorptiometry (DXA) was performed. FINDINGS: FOREARM ANALYSIS: Average bone mineral density is 0.733 g/cm2. T-score (standard deviation relative to young adult mean): 0.3 . (Not previously evaluated) HIP ANALYSIS: Lowest bone mineral density is within the right femoral neck, 0.827 g/cm2. T-score (standard deviation relative to young adult mean): -1.5 . -4.8% change since prior study. XR/XR DEXA axial skeleton IMPRESSION: World Health Organization Classification: Osteopenia - Moderate Fracture Risk FRAX: Cannot be calculated. Pharmacologic treatment recommendations * No uniform recommendation applies to all patients. Management plans must be individualized. * Consider initiating pharmacologic treatment in postmenopausal women and men >= 50 years of age who have the following: Primary fracture prevention: * T-score <= - 2.5 at the femoral neck, total hip, lumbar spine, 33% radius (some uncertainty with existing data) by DXA. * Low bone mass (osteopenia: T-score between - 1.0 and - 2.5) at the femoral neck or total hip by DXA with a 10-year hip fracture risk >= 3% or a 10-year major osteoporosis-related fracture risk >= 20% (i.e., clinical vertebral, hip, forearm, or proximal humerus) based on the [place]-adapted FRAXregistered model. Secondary fracture prevention: * Fracture of the hip or vertebra regardless of BMD [4, 5]. * Fracture of proximal humerus, pelvis, or distal forearm in persons with low bone mass (osteopenia: T-score between - 1.0 and - 2.5). The decision to treat should be individualized in persons with a fracture of the proximal humerus, pelvis, or distal forearm who do not have osteopenia or low BMD [12, 13]. Lisa MS, Piper SL, David KL, Yeison EM, Tere KG, AJ, Lorena ES. The clinician's guide to prevention and treatment of osteoporosis. Osteoporos Int. 2021;33(10):0646-8533. doi: 10.1007/n26764-502-77143-f. Epub 2021Jan 15. Erratum in: Osteoporos Int. 2021Apr 16;: PMID: 14212170; PMCID: [id number]. Electronically authenticated by: GRACE TAMEZ Date: 08/11/2024 05:51
== END 2024-08-10 14:28 | disposition home or self-care (01) ==
LOC: RAD 14:27
PROVIDERS: PCP Internal Medicine; Visit Provider Internal Medicine Hematology & Oncology
DX: M85.88 Other specified disorders of bone density and structure, other site (principal); Z13.820 Encounter for screening for osteoporosis; Z78.0 Asymptomatic menopausal state
CPT/HCPCS: 77080

== ENCOUNTER 2025-04-13 13:00 | Outpatient (OUT) | payer MEDICARE, OTHER, SELFPAY ==
[2025-04-13 14:00] LABS: Alanine Aminotransferase 18 U/L (14-59); Albumin Globulin Ratio 0.6; Albumin Level 3.1 g/dL (3.4-5.0); Alkaline Phosphatase 95 U/L (46-116); Anion Gap 12.9; Aspartate Amino Transferase 11 U/L (15-37); Blood Urea Nitrogen 19.0 mg/dL (7.0-18.0); Calcium 8.9 mg/dL (8.5-10.1); Carbon Dioxide 26.3 mmol/L (21.0-32.0); Chloride 103 mmol/L (98-107); Estimated GFR (African America >60 (>=60 mL/min/1.73m^2); Estimated GFR (Non-African Ame >60 (>=60 mL/min/1.73m^2); Globulin 5.2 g/dL; Glucose 109 mg/dL (74-106); Potassium 4.2 mmol/L (3.5-5.1); Sodium 138 mmol/L (136-145); TSH W/ REFLEX FT4 1.320 uIU/mL (0.358-3.740); Total Protein 8.3 g/dL (6.4-8.2)
== END 2025-04-13 13:01 | disposition home or self-care (01) ==
LOC: LAB 13:02
PROVIDERS: PCP Internal Medicine; Visit Provider Internal Medicine
DX: G60.9 Hereditary and idiopathic neuropathy, unspecified (principal)
CPT/HCPCS: 36415; 80053; 84443

== ENCOUNTER 2025-08-01 12:44 | Outpatient (OUT) | payer MEDICARE, OTHER, SELFPAY ==
--- OUTSIDE RECORDS SUMMARY | 2025-07-19 13:20 | XMS_ITS | Encounter Summary ---
Author Organization [facility] Address [address] [place] [address] Care Team Providers Care Relay Assembler Name Role Phone Kade Huynh MD Primary Care Provider [phone] Reason for Visit * ReasonCommentsToenail Care Encounter Details DateTypeDepartmentCare Team (Latest Contact Info)Wnqrrfmfzhc27/30/2025 2:20 PM EDTProcedure Visit [facility] [address] [facility] [address] [place] [address] Bakari Colbert, DPMaggie [address] [facility] [address] [place] [address] Other polyneuropathy (Primary Dx); Pain due to onychomycosis of toenails of both feet Social History Tobacco UseTypesPacks/DayYears UsedDateSmoking Tobacco: Every DayCigarettes0.3 68.9Started: 1957Smokeless Tobacco: Never Tobacco Cessation:Ready to Q uit: Not Asked; Counseling Given: Yes Alcohol UseStandard Drinks/WeekCommentsDefer0 (1 standard drink = 0.6 oz pure alcohol)B1300 Health LiteracyAnswerDate RecordedHow often do you need to have someone help you when you read instructions, pamphlets, or other written material from your doctor or pharmacy?Jctbum9004/05/2024Humiliation, Afraid, Rape, and Kick questionnaireAnswerDate RecordedWithin the last year, have you been afraid of your partner or ex-partner?No04/05/2024Within the last year, have you been humiliated or emotionally abused in other ways by your partner or ex-partner?No04/05/2024Within the last year, have you been kicked, hit, slapped, or otherwise physically hurt by your partner or ex-partner?No04/05/2024Within the last year, have you been raped or forced to have any kind of sexual activity by your partner or ex-partner?No04/05/2024Social Connection and Isolation Panel AnswerDate RecordedFrequency of Communication with Friends and FamilyNot on file 04/05/2024Frequency of Social Gatherings with Friends and FamilyNot on file 04/05/2024ttends Sabianism ServicesNot on file04/05/2024ctive Member of Clubs or OrganizationsNot on file04/05/2024ttends Club or Organization MeetingsNot on file04/05/2024re you , , , , never , or living with a partner?Aabelig1804/05/2024UDIT-CAnswerDate RecordedQ1: How often do you have a drink containing alcohol?Never04/05/2024Q2: How many drinks containing alcohol do you have on a typical day when you are drinking?Patient does not drink04/05/2024Q3: How often do you have six or more drinks on one occasion?Never04/05/2024Overall Financial Resource Strain (CARDIA)AnswerDate RecordedHow hard is it for you to pay for the very basics like food, housing, medical care, and heating?Not hard at all04/05/2024HQ-2AnswerDate Recorded Patient Health Questionnaire-2 Fylig996[facility] [place] [facility] - Occupational Stress QuestionnaireAnswerDate RecordedDo you feel stress - tense, restless, nervous, or anxious, or unable to sleep at night because your mind is troubled all the time - these days?Not at all04/05/2024Exercise Vital SignAnswerDate RecordedOn average, how many days per week do you engage in moderate to strenuous exercise (like a brisk walk)?3 days04/05/2024On average, how many minutes do you engage in exercise at this level?10 min04/05/2024Hunger Vital SignAnswerDate RecordedWithin the past 12 months, you worried that your food would run out before you got the money to buymore.Never true04/05/2024 Within the past 12 months, the food you bought just didn't last and you didn't have money to get more.Never true04/05/2024RAPARE - TransportationAnswerDate RecordedIn the past 12 months, has lack of transportation kept you from medical appointments or from getting medications?No04/05/2024In the past 12 months, has lack of transportation kept you from meetings, work, or from getting things needed for daily living?No04/05/2024Housing Stability Vital SignAnswerDate RecordedIn the last 12 months, was there a time when you were not able to pay the mortgage or rent on time?No04/05/2024In the past 12 months, how many times have you moved where you were living?t any time in the past 12 months, were you homeless or living in a nursing home (including now)?No04/05/2024 CommentsUnknownSex and Gender InformationValueDate RecordedSex Assigned at BirthNot on fileLegal ImbJwxzdd33/15/2023 6:51 PM EDTGender IdentityNot on fileSexual OrientationNot on filedocumented as of this encounter Last Filed Vital Signs Vital SignReadingTime TakenCommentsBlood Pressure--Pulse--Temperature-- Respiratory Spmt1342 2:28 PM EDTOxygen Saturation--Inhaled Oxygen Concentration--Mjcurl00.7 kg (189 lb)07/19/2025 2:28 PM SMMZxmscq712.5 cm (5' 2 )07/19/2025 2:28 PM EDTBody Mass Index34.5707/19/2025 2:28 PM EDTdocumented in this encounter Progress Notes * Bakari Colbert DPM - 07/19/2025 2:20 PM EDT Patient: Jeannie Costa : 1940 PCP: Kade Huynh MD SUBJECTIVE This is a 84 y.o. female that presents today with a CC of elongated, thick nails. Pt states nails have been elongated and thick for many years and cause pain with ambulation in shoegear. Pt has tried previous treatment with minimal relief. Pt presents today for nail care and treatment. Patient also has history of numbness to her left foot that is been present for many years and states that she has been seen by Neurology as well as by pain management spinal injections in the past with minimal improvement. Allergies: No Known Allergies Past Medical History: Past Medical History: Diagnosis Date Cancer (HCC) 2019 Invasive Ductal Carcinoma right breast Cholelithiasis 2019 Medications: Current Outpatient Medications: cholecalciferol (Vitamin D-3) 25 MCG (1000 UT) capsule, Take 1,000 Units by mouth in the morning., Disp: , Rfl: docusate sodium (Colace) 50 MG capsule, Take 50 mg by mouth in the morning., Disp: , Rfl: hydrocortisone (Anusol-HC) 2.5 % rectal cream, Insert into the rectum 4 (four) times a day as needed for hemorrhoids (rectal discomfort), Disp: 30 g, Rfl: 5 omeprazole OTC (PriLOSEC OTC) 20 MG EC tablet, 20 mg 1 (one) time each day at the same time., Disp:, Rfl: polyethylene glycol, PEG, 3350 (Miralax) 17 g packet, Take 17 g by mouth in the morning., Disp: , Rfl: Social History: Social History Socioeconomic History Marital status: Spouse name: Not on file Number of children: Not on file Years of education: Not on file Highest education level: Not on file Occupational History Not on file Tobacco Use Smoking status: Every Day Current packs/day: 0.25 Average packs/day: 0.3 packs/day for 68.8 years (17.2 ttl pk-yrs) Types: Cigarettes Start date: 1957 Smokeless tobacco: Never Substance and Sexual Activity Alcohol use: Defer Drug use: Not on file Sexual activity: Defer Other Topics Concern Not on file Social History Narrative Not on file Social Drivers of Health Financial Resource Strain: Low Risk (04/05/2024) Overall Financial Resource Strain (CARDIA) Difficulty of Paying Living Expenses: Not hard at all Food Insecurity: No Food Insecurity (04/05/2024) Hunger Vital Sign Worried About Running Out of Food in the Last Year: Never true Ran Out of Food in the Last Year: Never true Transportation Needs: No Transportation Needs (04/05/2024) PRAPARE - Transportation Lack of Transportation (Medical): No Lack of Transportation (Non-Medical): No Physical Activity: Insufficiently Active (04/05/2024) Exercise Vital Sign Days of Exercise per Week: 3 days Minutes of Exercise per Session: 10 min Stress: No Stress Concern Present (04/05/2024) [place] [facility] - Occupational Stress Questionnaire Feeling of Stress : Not at all Social Connections: Unknown (04/05/2024) Social Connection and Isolation Panel Frequency of Communication with Friends and Family: Not on file Frequency of Social Gatherings with Friends and Family: Not on file Attends Sabianism Services: Not on file Active Member of Clubs or Organizations: Not on file Attends Club or Organization Meetings: Not on file Marital Status: Intimate Partner Violence: Not At Risk (04/05/2024) Humiliation, Afraid, Rape, and Kick questionnaire Fear of Current or Ex-Partner: No Emotionally Abused: No Physically Abused: No Sexually Abused: No Housing Stability: Low Risk (04/05/2024) Housing Stability Vital Sign Unable to Pay for Housing in the Last Year: No Number of Times Moved in the Last Year: 1 Homeless in the Last Year: No ROS: Gastrointestinal: denies abdominal pain, ulcers, or changes in appetite or bowel habits Musculoskeletal: positive hx of arthritis, loss of strength, with positive history of back pain Cardiovascular: denies CP, palpitations, irregular rhythms OBJECTIVE LE EXAM: DERM: Elongated thick yellow crumbly nails digits 1 through 10. diminished hair growth b/l feet. VASC: positive DP and negative PT pedal pulses NEURO: 5.07 [place] monofilament test diminished to digits and forefoot left foot and positive to right foot 125Hz tuning fork diminished to 1st MPJ bilaterally left foot and positive to right foot ORTHO: Positive pain on palpation to toenails of the left 1,2,3,4,5 toes and right 1,2,3,4,5 toes ASSESSMENT 1. Other polyneuropathy 2. Pain due to onychomycosis of toenails of both feet PLAN Discussed proper foot care with patient today. Debride nails in length and thickness digits 1 through 10 Discussed possible causative factors of her peripheral neuropathy to left foot most likely back in origin and patient has had pain management the past and would like to seek out chiropractor 1st before any referral to Neurology or back surgeon Bakari Colbert DPM documented in this encounter Plan of Treatment Not on file documented as of this encounter Visit Diagnoses Diagnosis Other polyneuropathy- Primary Pain due to onychomycosis of toenails of both feet documented in this encounter Additional Health Concerns AssessmentNoted TimePHQ-9 Depression Total Score: 2:00 PM EDT documented as of this encounter Care Teams Team MemberRelationshipSpecialtyStart DateEnd Date Kade Huynh MD [address] [facility] [address] [place] [address] PCP - GeneralInternal Medicine03/08/23documented as of this encounter
--- NOTE | 2025-08-01 | MM_ITS ---
Patient Name: ERNESTINA HAYWOOD MR#: [id number] : 1940 Exam Date: 08/01/2025 Ordering Doctor: DR SMITH ZHANG M.D. RADIOLOGY REPORT PROCEDURE: MM TOMOSYNTHESIS SCREENING BI COMPARISON: MM TOMOSYNTHESIS SCREENING BI, 07/31/2024. MM TOMOSYNTHESIS SCREENING BI, 07/30/2023. MG MAMM SHREE DIAG W CAD DIG, 02/14/2013. INDICATIONS: SCREENING Calculator Name NCI Breast Cancer Risk Assessment Tool 5 Year Breast Cancer Risk n/a% Lifetime Breast Cancer Risk n/a% Personal Breast Cancer Yes, invasive ductal carcinoma, age 78 Personal Ovarian Cancer No Treatments None Family Cancers None LOCATION: [facility] BREAST COMPOSITION: The breasts are extremely dense, which lowers the sensitivity of mammography. FINDINGS: RIGHT BREAST: No significant suspicious finding. Benign-appearing calcifications are present. Similar focal asymmetries are noted. LEFT BREAST: No significant suspicious finding. Benign-appearing calcifications are present. Similar focal asymmetries are noted. DIAGNOSTIC CATEGORY 2--BENIGN FINDING. NO CHANGE FROM COMPARISON. RECOMMENDATIONS: ROUTINE MAMMOGRAM AND CLINICAL EVALUATION IN 12 MONTHS. Dictated by: Juan Rush MD on 08/01/2025 at 16:26 Approved by: Juan Rush MD on 08/01/2025 at 16:28
--- OUTSIDE RECORDS SUMMARY | 2025-08-01 12:47 | XMS_ITS | Encounter Summary ---
Author Organization [facility] Address [address] [place] [address] Care Team Providers Care Technology Training Associate Name Role Phone Kade Huynh MD Unavailable [phone] Kade Huynh MD Primary Care Provider [phone] Naomi Jane RN Unavailable [phone] Kade Huynh MD Unavailable [phone] Shama Carter LPN Unavailable Encounter Details DateTypeDepartmentCare Team (Latest Contact Info)Poprjroxafm39/18/2024Clinisync Result Encounter [facility] External Department Unsolicited Provider, Generic External Data Social History Tobacco UseTypesPacks/DayYears UsedDateSmoking Tobacco: NeverSmokeless Tobacco: HbgszC6080 Health LiteracyAnswerDate RecordedHow often do you need to have someone help you when you read instructions, pamphlets, or other written material from your doctor or pharmacy?Kknqlc7004/05/2024Humiliation, Afraid, Rape, and Kick questionnaireAnswerDate RecordedWithin the [...] with Friends and FamilyNot on file 04/05/2024ttends Sikh ServicesNot on file04/05/2024ctive Member of Clubs or OrganizationsNot on file04/05/2024ttends Club or Organization MeetingsNot on file04/05/2024re you , , , , never , or living with a partner?Tsngnih9604/05/2024UDIT-CAnswerDate RecordedQ1: How often do you have a [...] hard at all04/05/2024HQ-2AnswerDate Recorded Patient Health Questionnaire-2 [place]043Finintermount[facility] [place] of Occupational Health - Occupational Stress QuestionnaireAnswerDate [...] were you homeless or living in a alf (including now)?No04/05/2024 CommentsUnknownSex and Gender InformationValueDate RecordedSex Assigned at BirthNot on fileLegal CouWejzov80/15/2023 6:51 PM EDTGender IdentityNot on fileSexual OrientationNot on filedocumented as of this encounter Functional Status * Over the past 2 weeks, how often have you been bothered by any of the following problems?QuestionAnswerDate of AssessmentAuthorLittle interest or pleasure in doing thingsNot at all07/09/2025 3:38 PM Noelle Johansen LPN Feeling down, depressed, or hopelessNot at all07/09/2025 3:38 PM Noelle Johansen LPNPatient Health Questionnaire-2 Ollkl594 3:38 PM Noelle Johansen LPN documented as of this encounter Plan of Treatment Not on file documented as of this encounter Procedures Procedure NamePriorityDate/TimeAssociated DiagnosisCommentsXR LUMBAR SPINE 6V W AQWLGKM1806/07/2024 7:20 AM EDT documented in this encounter Results * XR LUMBAR SPINE 6V W BENDING (06/07/2024 7:20 AM EDT)Anatomical Region LateralityModalityOtherSpecimen (Source)Anatomical Location / Laterality Collection Method / VolumeCollection TimeReceived Time06/07/2024 7:20 AM EDT Narrative 06/07/2024 7:23 AM EDT [facility] ?[address] ? [place] [address] ?XRay Report ? Signed ? Patient: COSTA,ERNESTINA M ? MR#: [id number] ?? : 1940 ?Acct:[id number] ?? Age/Sex: 83 / F ?ADM Date: 09/16/24 ?? Loc: RAD ? Attending Dr: CAESAR MAYS ? Ordering Physician: CAESAR MAYS ?? Date of Service: 06/05/24 ?? Procedure(s): XR lumbar spine 6V w bending ?? Accession Number(s): [id number] ? cc: CAESAR MAYS ; KADE HUYNH ? [facility] ? [address] ? [place] [address] ? Patient Name: ?? ERNESTINA COSTA ? MRN: [facility]:[id number] ? date: 1940 ?Sex: F ?? Assigned Patient Location: RAD ?? Current Patient Location: RAD ?? Accession/Order Number: [id number] ?? Exam Date: 06/05/2024 ??14:40 ?Report Date: 06/07/2024 ??07:20 ? At the request of: ?? CAESAR ??TABATHA ? Procedure: ??XR lumbar spine 6V w bending ? EXAMINATION: XR lumbar spine 6V w bending ? HISTORY: Low back pain ? COMPARISON: No relevant comparison available. ? FINDINGS: ?? BONES: Neutral projection demonstrates 3 mm anterolisthesis of L4 in relation ?? L5. Mild to moderate spondylosis and facet osteoarthropathy. ?? DISC SPACES: Multilevel disc space narrowing, mild ?? PARASPINOUS: Negative. No paraspinous abnormality is seen. ?? OTHER: No transient spondylolisthesis with flexion and extension . Right upper ? quadrant coarse calcification, nonspecific ? XR/XR lumbar spine 6V w bending ?? IMPRESSION: ? Qnri-dw-zzytjoha degenerative changes with no dynamic instability ? Electronically authenticated by: ERASMO ??WEST ?? Date: 06/07/2024 ??07:20 ? Dictated By: ?Erasmo Huitron M.D. ? Signed By: ?06/07/24 0723 ? DD/ 0720 ? TD/TT: ? Mixing Pan Tender: Procedure Note Radiology, Radiologist, MD - 06/07/2024 [facility] [address] [place] [address] XRay Report Signed Patient: ERNESTINA COSTA MMR#: [id number] : 1940Acct:[id number] Age/Sex: 83 / FADM Date: 06/05/24 Loc: RAD Attending Dr: CAESAR MAYS Ordering Physician: CAESAR MAYS Date of Service: 06/05/24 Procedure(s): XR lumbar spine 6V w bending Accession Number(s): [id number] cc: CAESAR MAYS ; KADE HUYNH [place] [address] [place] [address] Patient Name: ERNESTINA COSTA MRN: [id number] date: 1940 Sex: F Assigned Patient Location: RAD Current Patient Location: RAD Accession/Order Number: [id number] Exam Date: 06/05/2024 14:40 Report Date: 06/07/2024 07:20 At the request of: CAESAR MAYS Procedure: XR lumbar spine 6V w bending EXAMINATION: XR lumbar spine 6V w bending HISTORY: Low back pain COMPARISON: No relevant comparison available. FINDINGS: BONES: Neutral projection demonstrates 3 mm anterolisthesis of L4 inrelation L5. Mild to moderate spondylosis and facet osteoarthropathy. DISC SPACES: Multilevel disc space narrowing, mild PARASPINOUS: Negative. No paraspinous abnormality is seen. OTHER: No transient spondylolisthesis with flexion and extension . Rightupper quadrant coarse calcification, nonspecific XR/XR lumbar spine 6V w bending IMPRESSION: Iygy-nz-jlvtdwcq degenerative changes with no dynamic instability Electronically authenticated by: ERASMO HUITRON Date: 06/07/2024 07:20 Dictated By: Erasmo Huitron M.D. Signed By:06/07/24722 DD/ 9 TD/TT: Mixing Pan Tender: Authorizing ProviderResult TypeResult StatusGeneric External Data Provider CLINIS[facility]NC IMAGINGFinal Result documented in this encounter Visit Diagnoses Not on filedocumented in this encounter Additional Health Concerns AssessmentNoted TimePHQ-9 Depression Total Score: 2:00 PM EDT documented as of this encounter Care Teams Team MemberRelationshipSpecialtyStart DateEnd Date Kade Huynh MD [address] [facility] [address] [place] [address] PCP - ACO Reach02/11//03/14 Kade Huynh MD [address] [facility] [address] [place] [address] PCP - GeneralInternal Medicine03/08/23 Kade Huynh MD [address] [facility] [address] [place] [address] PCP - ACO Reach11/03//12/12 Naomi Jane, RN [address] [place] [address] Clinical AdvocateFamily Medicine Shama Carter LPN [address] [facility] [place] [address] documented as of this encounter
--- OUTSIDE RECORDS SUMMARY | 2025-08-01 12:47 | XMS_ITS | Encounter Summary ---
Author Organization [facility] Address [address] [place] [address] Care Team Providers Care Radiologic Technology Teacher Name Role Phone Kade Huynh MD Unavailable [phone] Kade Huynh MD Primary Care Provider [phone] Naomi Jane RN Unavailable [phone] Kade Huynh MD Unavailable [phone] Shama Carter LPN Unavailable Encounter Details DateTypeDepartmentCare Team (Latest Contact Info)Rqorsugbkmh02/18/2024Clinisync Result Encounter [facility] External Department Unsolicited Provider, Generic External Data Social History Tobacco UseTypesPacks/DayYears UsedDateSmoking Tobacco: NeverSmokeless Tobacco: KbuhiS6962 Health LiteracyAnswerDate RecordedHow often do you need to have someone help you when you read instructions, pamphlets, or other written material from your doctor or pharmacy?Vchiqv3704/05/2024Humiliation, Afraid, Rape, and Kick questionnaireAnswerDate RecordedWithin the [...] with Friends and FamilyNot on file 04/05/2024ttends Orthodoxy ServicesNot on file04/05/2024ctive Member of Clubs or OrganizationsNot on file04/05/2024ttends Club or Organization MeetingsNot on file04/05/2024re you , , , , never , or living with a partner?Gkwcpho9604/05/2024UDIT-CAnswerDate RecordedQ1: How often do you have a [...] hard at all04/05/2024HQ-2AnswerDate Recorded Patient Health Questionnaire-2 Jzyep254[facility] [place] of Occupational Health - Occupational Stress QuestionnaireAnswerDate [...] were you homeless or living in a snf (including now)?No04/05/2024 CommentsUnknownSex and Gender InformationValueDate RecordedSex Assigned at BirthNot on fileLegal BxhAvcvua99/15/2023 6:51 PM EDTGender IdentityNot on fileSexual OrientationNot on filedocumented as of this encounter Functional Status * Over the past 2 weeks, how often have you been bothered by any of the following problems?QuestionAnswerDate of AssessmentAuthorLittle interest or pleasure in doing thingsNot at all07/09/2025 3:38 PM Noelle Johansen LPN Feeling down, depressed, or hopelessNot at all07/09/2025 3:38 PM Noelle Johansen LPNPatient Health Questionnaire-2 Umgwm897 3:38 PM Noelle Johansen LPN documented as of this encounter Plan of Treatment Not on file documented as of this encounter Procedures Procedure NamePriorityDate/TimeAssociated DiagnosisCommentsXR CERVICAL SPINE 5V 06/07/2024 7:16 AM EDT documented in this encounter Results * XR CERVICAL SPINE 5V (06/07/2024 7:16 AM EDT)Anatomical RegionLaterality ModalityOtherSpecimen (Source)Anatomical Location / LateralityCollection Method / VolumeCollection TimeReceived Time06/07/2024 7:16 AM EDT Narrative 06/07/2024 7:19 AM EDT [facility] ?[address] ? [place] [address] ?XRay Report ? Signed ? Patient: COSTA,ERNESTINA M ? MR#: [id number] ?? : 1940 ?Acct:[id number] ?? Age/Sex: 83 / F ?ADM Date: 09/16/24 ?? Loc: RAD ? Attending Dr: CAESAR MAYS ? Ordering Physician: CAESAR MAYS ?? Date of Service: 06/05/24 ?? Procedure(s): XR cervical spine 5V ?? Accession Number(s): [id number] ? cc: CAESAR MAYS ; KADE HUYHN ? [facility] ? [address] ? [place] [address] ? Patient Name: ?? ERNESTINA COSTA ? MRN: [facility]:[id number] ? date: 1940 ?Sex: F ?? Assigned Patient Location: RAD ?? Current Patient Location: ? Accession/Order Number: [id number] ?? Exam Date: 06/05/2024 ??14:40 ?Report Date: 06/07/2024 ??07:16 ? At the request of: ?? CAESAR ??TABATHA ? Procedure: ??XR cervical spine 5V ? EXAMINATION: XR cervical spine 5V ? HISTORY: cervical radiculopathy ? COMPARISON: No relevant comparison available. ? FINDINGS: ?? BONES: Neutral projection demonstrates 3 mm anterolisthesis of C4 on C5 and 5 ?? mm anterolisthesis of C5 on C6. Mild to moderate spondylosis. Moderate to ?? severe facet osteoarthropathy ?? DISC SPACES: Normal. No significant disc height narrowing, subluxation, or ?? endplate abnormality. ?? PARASPINOUS: Negative. No paraspinous abnormality is seen. ?? OTHER: No transient spondylolisthesis with flexion or extension ? XR/XR cervical spine 5V ?? IMPRESSION: ? Moderate to severe degenerative changes ? Multilevel spondylolisthesis with no dynamic instability ? Electronically authenticated by: ERASMO ??WEST ?? Date: 06/07/2024 ??07:16 ? Dictated By: ?Erasmo Huitron M.D. ? Signed By: ?06/07/24 07 ? DD/ 5 ? TD/TT: ? Bowling Alley Operator: Procedure Note Radiology, Radiologist, - 06/07/[address] [address] XRay Report Signed Patient: ERNESTINA COSTA [facility]#: [id number] : 9Acct:[id number] Age/Sex: 83 / FADM Date: 06/05/24 Loc: RAD Attending Dr: CAESAR MAYS Ordering Physician: CAESAR MAYS Date of Service: 06/05/24 Procedure(s): XR cervical spine 5V Accession Number(s): [id number] cc: CAESAR MAYS ; KADE HUYNH [address] [address] Patient Name: ERNESTINA COSTA MRN: [facility]:[id number] date: 1940 Sex: F Assigned Patient Location: RAD Current Patient Location: Accession/Order Number: [id number] Exam Date: 06/05/2024 14:40 Report Date: 06/07/2024 07:16 At the request of: CAESAR MAYS Procedure: XR cervical spine 5V EXAMINATION: XR cervical spine 5V HISTORY: cervical radiculopathy COMPARISON: No relevant comparison available. FINDINGS: BONES: Neutral projection demonstrates 3 mm anterolisthesis of C4 on C5and 5 mm anterolisthesis of C5 on C6. Mild to moderate spondylosis. Moderate to severe facet osteoarthropathy DISC SPACES: Normal. No significant disc height narrowing, subluxation, or endplate abnormality. PARASPINOUS: Negative. No paraspinous abnormality is seen. OTHER: No transient spondylolisthesis with flexion or extension XR/XR cervical spine 5V IMPRESSION: Moderate to severe degenerative changes Multilevel spondylolisthesis with no dynamic instability Electronically authenticated by: ERASMO HUITRON Date: 06/07/2024 07:16 Dictated By: Erasmo Huitron M.D. Signed By:06/07/2419 DD/ 5 TD/TT: [place]ley Operator: Authorizing ProviderResult TypeResult StatusGeneric External Data Provider CLINISYNC IMAGINGFinal Result documented in this encounter Visit Diagnoses Not on filedocumented in this encounter Additional Health Concerns AssessmentNoted TimePHQ-9 Depression Total Score: 2:00 PM EDT documented as of this encounter Care Teams Team MemberRelationshipSpecialtyStart DateEnd Date Kade Huynh MD [address] [place] [address] PCP - ACO Reach02/11//03/14 Kade Huynh MD [address] [facility] [address] [place] [address] PCP - [facility] Hospitalnal Medicine03/08/23 Kade Huynh MD [address] [facility] [address] [place] [address] PCP - ACO Reach11/03//12/12 Naomi Jane, ALDA [address] [place] [address] Clinical AdvocateFamily Medicine/ Shama Carter LPN [address] [facility] [address] [place] [address] documented as of this encounter
--- OUTSIDE RECORDS SUMMARY | 2025-08-01 12:47 | XMS_ITS | Clinical Summary ---
Author Organization [facility] Address [address] [place] [address] Care Team Providers Care Foiling Machine Adjuster Name Role Phone Unavailable Primary Care Provider Unavailabl e Social History Tobacco UseTypesPacks/DayYears UsedDateSmoking Tobacco: Never Assessed CommentsUnknownSex and Gender InformationValueDate RecordedSex Assigned at Not on fileLegal AifQjedym58/29/2022 10:19 PM EDTGender IdentityNot on file Sexual OrientationNot on file Plan of Treatment Not on file
--- OUTSIDE RECORDS SUMMARY | 2025-08-01 12:47 | XMS_ITS | Clinical Summary ---
Author Organization [facility] Address [address] [place] [address] Care Team Providers Care Cyber Intel Planner Name Role Phone Kade Huynh MD Primary Care Provider [phone] Allergies No known active allergies Medications MedicationSigDispense QuantityRefillsLast FilledStart DateEnd DateStatus omeprazole OTC (PriLOSEC OTC) 20 MG EC tablet 20 mg 1 (one) time each day at the same time.Active cholecalciferol (Vitamin D-3) 25 MCG (1000 UT) capsule Take 1,000 Units by mouth in the morning.Active docusate sodium (Colace) 50 MG capsule Take 50 mg by mouth in the morning.Active polyethylene glycol, PEG, 3350 (Miralax) 17 g packet Indications:ConstipationTake 17 g by mouth in the morning.Active hydrocortisone (Anusol-HC) 2.5 % rectal cream Indications:Hemorrhoids, unspecified hemorrhoid typeInsert into the rectum 4 (four) times a day as needed for hemorrhoids (rectal discomfort) 30 g //ctive hydrocortisone (Anusol-HC) 25 MG suppository Indications:Hemorrhoids without complicationInsert 1 suppository (25 mg) into the rectum in the morning and 1 suppository (25 mg) before bedtime. Do all this for 24 doses. 12 suppository /Discontinued(Reorder) hydrocortisone (Anusol-HC) 25 MG suppository Indications:Hemorrhoids without complicationInsert 1 suppository (25 mg) into the rectum in the morning and 1 suppository (25 mg) before bedtime. Do all this for 24 doses. 12 suppository 110/28/Expired Active Problems ProblemNoted DateDiagnosed DateCystocele, xmhncpsdunr68/25/2025Urge incontinence 04/13/2025Numbness of left foot04/13/2025Trochanteric bursitis of both hips 08/24/2024Osteopenia of right hip08/11/2024ilateral carpal tunnel syndrome 06/08/2024ervical hyqaimzhmdkld32/11/2024bnormal ucatobdsl68/19/2023llergic txmatlgl55/19/7112Luzmit41/19/2023taxic gait03/08/2023enign paroxysmal positional dixgzdt1603/08/2023reast znptxc1003/08/2023Malignant neoplasm of female mnphyp8803/08/2023alcified lymph nodes03/08/2023alculus of gallbladder without cholecystitis without ymqinbackae49/19/2023ecreased estrogen level03/08/2023 Izihvwtgg95/19/2023Idiopathic peripheral /19/2023Incontinence 03/08/2023Lumbar cinqtvgokbrzj10/19/3300Ydpwkdibtc30/19/2023Unsteadiness on feet 03/08/2023Hemorrhoids without /01/2009 Encounters DateTypeDepartmentCare VrhxDlvmygfyywt96/30/2025 2:20 PM EDTProcedure Visit [facility] [address] [place] [address] [place] [address] Bakari Colbert DPM Other polyneuropathy (Primary Dx); Pain due to onychomycosis of toenails of both feet07/19/2025amboo flowsheet [facility] [address] [place] [address] Bakari Colbert DPM 07/19/20251377Qfrlcd91/28/2025[facility] [address] [place] [address] [place] [address] Naomi Trimble MA Hemorrhoids without uhtqijkrzshk10/20/2025 3:30 PM EDTOffice Visit [facility] [place] [facility] [address] [place] [address] [place] [address] Kade Huynh MD Hemorrhoids, unspecified hemorrhoid type (Primary Dx); Hemorrhoids without complication; Flu vaccine need07/09/2025amboo flowsheet [facility] [place] [facility] [address] [facility] [address] [place] [address] Kade Huynh MD 07/09/20254177Wttzgy19/18/2025 2:10 PM EDTOffice Visit [facility] [address] [facility] [address] [place] [address] Bakari Colbert DPM Onychocryptosis (Primary Dx); Toe pain, left; Toe pain, right; Other zcoxydfhimihpq34/18/2025amboo flowsheet [facility] [address] [facility] [address] [place] [address] Bakari Colbert DPM 06/07/20253722Vvfdvp05/04/2025 2:10 PM EDTOffice Visit [facility] [address] [facility] [address] [place] [address] Bakari Colbert DPM Other polyneuropathy (Primary Dx); Onychocryptosis; Toe pain, left; Toe pain, right05/24/2025bstract [facility] [address] [facility] [address] [place] [address] Bakari Colbert DPM 05/24/2025amboo flowsheet [facility] [address] [facility] [address] [place] [address] Bakari Colbert DPM 05/24/20255658Uitque67/21/2025bstract [facility] [place] [facility] [address] [facility] [address] [place] [address] Kade Huynh MD 05/03/2025 3:00 PM EDTOffice Visit [facility] [address] [facility] [address] [place] [address] Brown, Bakari A, DPM Other polyneuropathy (Primary Dx); Numbness of left foot; Pain due to onychomycosis of toenails of both feet05/03/2025amboo flowsheet [facility] [address] [facility] [address] [place] [address] Bakari Colbert, DPMaggie 05/03/2025Travelfrom Last 3 Months Immunizations ImmunizationAdministration DatesNext DueInfluenza, High Dose Seasonal, Preservative Free07/09/2025,08/18/2024,07/29/2022Influenza, High-dose Seasonal, Quadrivalent, Preservative Free08/06/2021,06/24/2020,06/26/2019,08/02/2018 Influenza, Seasonal, Quadrivalent, Kkedicsxzy59/08/2023Influenza, injectable, quadrivalent, preservative free06/08/2020,07/14/2016,07/16/2015Influenza, seasonal, /23/2014Influenza, seasonal, intradermal, preservative free08/21/2010Moderna SARS-CoV-2 Zyycqpkkoqw54/26/2021,1Pfizer Bivalent Booster 12 Years And Older2Pneumococcal Conjugate PCV 131 Pneumococcal Polysaccharide OQHY9965,09/02/2012RSV, recombinant, protein subunit RSVpreF, adjuvant reconstitu, 120mcg/0.5mL, PF (Arexvy)08/18/2024Zoster, Xmbgjquleam25/19/2020,06/05/2020 Family History Medical HistoryRelationNameCommentsParkinsonismFatherRelationNameStatusComments FatherDeceasedMotherDeceased Social History Tobacco UseTypesPacks/DayYears UsedDateSmoking Tobacco: Every DayCigarettes0.3 68.9Started: 1957Smokeless Tobacco: Never Tobacco Cessation:Ready to Q uit: Not Asked; Counseling Given: Yes Alcohol UseStandard Drinks/WeekCommentsDefer0 (1 standard drink = 0.6 oz pure alcohol)B1300 Health LiteracyAnswerDate RecordedHow often do you need to have someone help you when you read instructions, pamphlets, or other written material from your doctor or pharmacy?Bhlrnr1504/05/2024Humiliation, Afraid, Rape, and Kick questionnaireAnswerDate RecordedWithin the [...] with Friends and FamilyNot on file 04/05/2024ttends Spiritism ServicesNot on file04/05/2024ctive Member of Clubs or OrganizationsNot on file04/05/2024ttends Club or Organization MeetingsNot on file04/05/2024re you , , , , never , or living with a partner?Gqmvbop8104/05/2024UDIT-CAnswerDate RecordedQ1: How often do you have a [...] hard at all04/05/2024HQ-2AnswerDate Recorded Patient Health Questionnaire-2 Nqfsx482[facility] [place] of Occupational Health - Occupational Stress QuestionnaireAnswerDate [...] were you homeless or living in a penitentiary (including now)?No04/05/2024 CommentsUnknownSex and Gender InformationValueDate RecordedSex Assigned at BirthNot on fileLegal GgvRaoxsd86/15/2023 6:51 PM EDTGender IdentityNot on fileSexual OrientationNot on file Last Filed Vital Signs Vital SignReadingTime TakenCommentsBlood Hfekkyjv200/6810 3:36 PM EDT Hkkwy224907/09/2025 3:36 PM EDTTemperature--Respiratory Zaqi6719 2:28 PM EDTOxygen Xjaakpikjh78%07/09/2025 3:36 PM EDTInhaled Oxygen Concentration-- Sbuwfc05.7 kg (189 lb)07/19/2025 2:28 PM VDANizjnf470.5 cm (5' 2 )07/19/2025 2:28 PM EDTBody Mass Index34.5710 2:28 PM EDT Plan of Treatment Health MaintenanceDue DateLast DoneCommentsCOVID-19 Vaccine ( season) , 08/18/2024, 07/28/2023, Additional history existsMedicare Annual Wellness (AWV)6004/13/2025, 04/03/2024, 04/26/2023, Additional history existsInfluenza XfjrajhHoeplnnxg38/20/2025, 08/18/2024, 07/28/2023, Additional history existsPneumococcal Vaccine: 65+ SnptiGqznxngxv06/23/2025, 06/26/2019, 07/17/2016, Additional history exists Insurance Care Teams Team MemberRelationshipSpecialtyStart DateEnd Date Kade Huynh MD [address] [place] [address] PCP - GeneralInternal Medicine03/08/23
--- OUTSIDE RECORDS SUMMARY | 2025-08-01 12:47 | XMS_ITS | Clinical Summary ---
Author Organization [facility] Address [address] [place], [place] [address] Care Team Providers Care Race Engine Builder Name Role Phone Hannah Alford PLANT SENIOR MANAGER.MALTED MILK MIXER Unavailable [phone] Lino LOW MD, Kade De La Rosa Primary Care Provider [phone] Allergies No known active allergies Medications MedicationSigDispense QuantityRefillsLast FilledStart DateEnd DateStatus omeprazole (PRILOSEC) 20 mg capsule Take 20 mg by mouth once daily.Active zinc sulfate (ZINC-15 ORAL) Take by mouth.Active cholecalciferol (VITAMIN D3) 50 mcg (2,000 unit) tablet Take 1 tablet by mouth once daily.02/05/2020Active hydrocortisone (HEMORRHOIDAL HC) 25 mg suppository INSERT 1 SUPPOSITORY RECTALLY 3 TIMES A DAY06/05/2020Active SUMMER'S WORT ORAL Take by mouth.Active anastrozole (ARIMIDEX) 1 mg tablet Take 1 tablet by mouth once daily. 90 tablet 4Active pseudoephedrine HCl (SUDAFED ORAL) Take by mouth.Active docusate sodium (COLACE ORAL) Take by mouth.Active polyethylene glycol 3350 (MIRALAX ORAL) Take by mouth.Active raloxifene (EVISTA) 60 mg tablet TAKE 1 TABLET BY MOUTH EVERY DAY 90 tablet 5Active Active Problems ProblemNoted DateDiagnosed DateMalignant neoplasm of overlapping sites of right breast in female, estrogen receptor tizbrxet66/09/2020 Immunizations ImmunizationAdministration DatesNext DueCOVID-19 original vaccine, full dose, monovalent (MODERNA)01/13/2021,12/23/2020influenza (HD-IIV3) vaccine, age 65+ yr, high dose, trivalent, PF (FLUZONE HIGH-DOSE)08/18/2024,06/24/2020,06/07/2020 ,06/26/2019,08/02/2018influenza (HD-IIV4) vaccine, age 65+ yr, high dose, quadrivalent, PF (FLUZONE HIGH-DOSE)07/29/2022,06/24/2020,06/26/2019,08/02/2018 influenza (IIV3) vaccine, trivalent (AFLURIA, FLULAVAL, FLUVIRIN, FLUZONE) 07/12/2014influenza (IIV3) vaccine, trivalent, PF, intradermal (FLUZONE INTRADERMAL)08/21/2010influenza (IIV4) vaccine, age 6 mo - 64 yr, quadrivalent, PF (AFLURIA, FLUARIX, FLULAVAL, FLUZONE)06/08/2020,07/14/2016,07/16/2015 influenza (IIV4) vaccine, quadrivalent (AFLURIA, FLULAVAL, FLUZONE)07/14/2016 influenza (aIIV4) vaccine, age 65+ yr, quadrivalent, PF (FLUAD QUAD)07/28/2023, 08/06/2021,06/08/2020pneumococcal conjugate (PCV13) vaccine, 13 valent (PREVNAR 13)07/17/2016pneumococcal polysaccharide (PPV23) vaccine, 23 valent (PNEUMOVAX 23)06/26/2019,09/02/2012respiratory syncytial virus (RSV) vaccine, adjuvanted (AREXVY)08/18/2024zoster (RZV) vaccine, recombinant (SHINGRIX)08/08/2020, 06/05/2020 Social History Tobacco UseTypesPacks/DayYears UsedDateSmoking Tobacco: Every DayCigarettes0.360 Smokeless Tobacco: Never Tobacco Cessation:Ready to Q uit: Not Asked; Counseling Given: Not Answered Alcohol UseStandard Drinks/WeekCommentsNot Currently0 (1 standard drink = 0.6 oz pure alcohol)PHQ-2AnswerDate RecordedPHQ-2 goald3955Area Deprivation IndexAnswerDate RecordedNational Score (1-100), lower number is lower risk61 03/04/2023State Score (1-10), lower number is lower uabo4013Data from: https://www.neighborhoodatlas.medicine.[facility].edu/. Last address used for qxyxlacaziz[address]3CommentsNoSex and Gender Information ValueDate RecordedSex Assigned at BirthNot on fileLegal WtaPqsfug71/09/2019 1:37 PM ESTGender IdentityNot on fileSexual OrientationNot on file Last Filed Vital Signs Vital SignReadingTime TakenCommentsBlood Uzncqomw719/8403/01/2025 2:45 PM EDT Auiur482303/01/2025 2:45 PM FYMCrsdgdxhftu40.6 ??C (97.9 ??F)03/01/2025 2:45 PM EDTRespiratory Aktn214803/01/2025 2:45 PM EDTOxygen Bbwpwygeht948%03/01/2025 2:45 PM EDTInhaled Oxygen Concentration--Igrsok90.2 kg (190 lb 0.6 oz)03/01/2025 2:45 PM AXMMwppyy543.1 cm (5' 2.24 )03/01/2025 2:45 PM EDTBody Mass Index34.49 03/01/2025 2:45 PM EDT Plan of Treatment DateTypeDepartmentCare Team (Latest Contact Info)Woriezrujsb44/26/2025 10:45 AM ESTOffice Visit [facility] [address] [place] [address] [place] [address] 5 month follow up [facility]10/15/2024 11:00 AM ESTVisit (SP) Office Hematology/Oncology [address] [place] [address] Nelson Odonnell MD [address] [place] [address] 5 month follow up with Mammogram results from [facility] MaintenanceDue DateLast DoneCommentsAnxiety Ncycxxpdy81/30/1957Depression Uzosayckg80/30/1958 DTaP,Tdap,Td Vaccine (1 - Tdap)1958Medicare Annual Wellness Visit 08/20/2004Advance Directive Bwplcawofd63/01/2025Covid-19 Vaccine ( season), 07/28/2023, 07/29/2022, Additional history exists Influenza Vaccine (#1), 07/28/2023, 07/29/2022, Additional history existsDiabetes Rkiwouopk92/12/76588403/01/2025, 08/07/2024, 03/28/2024, Additional history existsPneumococcal Vaccine: 50+Hothuxffl21/07/2019, 07/17/2016, 09/02/2012Shingrix PjufizbHnswyfvso05/19/2020, 06/05/2020Bone Density YmvpoibclUisdwenbn76/23/2021, 03/16/2018RSV YrolndgTjkvonjnl49/29/2024 Procedures Procedure NamePriorityDate/TimeAssociated DiagnosisCommentsCOMPREHENSIVE METABOLIC VZRRBCarrsyr25/12/2025 2:44 PM EDT Malignant neoplasm of overlapping sites of right breast in female, estrogen receptor positive (HCC) from Last 3 Months or Most Recently Relevant to Health Maintenance Results * (ABNORMAL) COMPREHENSIVE METABOLIC PANEL (03/01/2025 2:44 PM EDT)Component ValueRef RangeTest MethodAnalysis TimePerformed AtPathologist Signature Protein, Total7.66.3 - 8.0 g/dL03/01/2025 3:25 PM [facility]TNOR[facility]CO[facility] LABAlbumin3.8(L)3.9 - 4.9 g/dL03/01/2025 3:25 PM EDTNORTHCOAST [facility]ILL[facility] LABCalcium, Total9.48.5 - 10.2 mg/dL03/01/2025 3:25 PM EDTNORTHCOAST [facility]ILLSD[facility] LABBilirubin, Total0.50.2 - 1.3 mg/dL 03/01/2025 3:25 PM EDTNORTMUN[facility] LABAlkaline Wcfnygqnisr99161 - 123 U/L03/01/2025 3:25 PM [facility] ZRVXWD57(L)13 - 35 U/L03/01/2025 3:25 PM [facility]ST[facility] BEUCMJ501 - 38 U/L03/01/2025 3:25 PM [facility] MDAOrovopa353(H)74 - 99 mg/dL03/01/2025 3:25 PM [facility] LABComment: The [place] Diabetes Association (ADA) provides guidance for cutoff values for fasting glucose andrandom glucose. The ADA defines fasting as no [...] Standards of Medical Care in Diabetes 2016, [place] Diabetes Association. Diabetes Care. 2016.39(Suppl 1). RZJ407 - 21 mg/dL03/01/2025 3:25 PM [facility] Creatinine0.760.58 - 0.96 mg/dL03/01/2025 3:25 PM [facility] LURTecbma574052 - 144 mmol/L03/01/2025 3:25 PM [facility] LABPotassium3.73.7 - 5.1 mmol/L03/01/2025 3:25 PM [facility] GCBZccbipjc46045 - 107 mmol/L03/01/2025 3:25 PM EDT [facility] MHLLJ40925 - 30 mmol/L03/01/2025 3:25 PM EDT [facility] LABAnion Gap98 - 15 mmol/L03/01/2025 3:25 PM [facility] LABEstimated Glomerular Filtration Rate77 >=60 mL/min/1.73m 03/01/2025 3:25 PM EDTNORTHCOAST HILLSDALE [facility] LABComment:Estimated Glomerular Filtration Rate (eGFR) is calculated using the 2020 CKD-EPI creatinine equation. This equation utilizes serum creatinine, sex, and age as parameters. The creatinine assay has traceable calibration to isotope dilution- mass spectrometry. Refer to KDIGO guidelines for clinical interpretation. In patients with unstable renal function, e.g. those with acute kidney injury, the eGFRmay not accurately reflect actual GFR.Specimen (Source)Anatomical Location / LateralityCollection Method / VolumeCollection TimeReceived TimeBloodBLOOD SPECIMEN / UnknownVenipuncture / Yjclpnu5003/01/2025 2:44 PM EDT03/01/2025 2:44 PM EDT Narrative Authorizing ProviderResult TypeResult StatusBrcruz Disla MDLABORATORY Final ResultPerforming OrganizationAddressCity/State/ZIP CodePhone Number [facility] [address] [place] [phone] from Last 3 Months or Most Recently Relevant to Health Maintenance Insurance Care Teams Team MemberRelationshipSpecialtyStart DateEnd Kade Huynh II, MD [address] [facility] [address] [place] [address] PCP - GeneralInternal Vqvrlwsd80/20/20 Hannah Alford APRN.MALTED MILK MIXER [address] [place] [address] [place] [address] Nurse PractitionerHematology/Oncology10/11/19
--- OUTSIDE RECORDS SUMMARY | 2025-08-01 12:47 | XMS_ITS ---
Author Organization [facility] Address [facility] [place] [id number] Care Team Providers Care Natural Gas Shothole Driller Name Role Phone Hannah Alford BOTTLE DEALER.ADMISSIONS REPRESENTATIVE Unavailable [phone] Lino LOW MD, Kade De La Rosa Primary Care Provider [phone] Active Problems ProblemNoted DateDiagnosed DateMalignant neoplasm of overlapping sites of right breast in female, estrogen receptor wwclkilo92/09/2020 Current Treatment and Therapy Plans No current plan information found. Past Treatment and Therapy Plans Plan NameStart DateDiscontinue DateTreatment MedicationsDiscontinue ReasonPlan ProviderCyclesTC - DOCETAXEL 75 CYCLOPHOSPHAMIDE 600 D1 - Q21D * cyclophosphamide iv piggyback (CYTOXAN) * DOCEtaxel iv piggyback (TaxoTERE) * pegfilgrastim (NEULASTA) OtherMurphy, Wilver Quintanilla MDTreatment not started
--- OUTSIDE RECORDS SUMMARY | 2025-08-01 12:48 | XMS_ITS | Encounter Summary ---
Author Organization [facility] Address [address] [place] [address] Care Team Providers Care Ergonomics Consultant Name Role Phone Kade Huynh MD Unavailable [phone] Kade Huynh MD Primary Care Provider [phone] Naomi Jane RN Unavailable [phone] Kade Huynh MD Unavailable [phone] Shama Carter LPN Unavailable Encounter Details DateTypeDepartmentCare Team (Latest Contact Info)Hqgejvmnoqv49/22/2024Clinisync Result Encounter [facility] External Department Unsolicited Provider, Generic External Data Social History Tobacco UseTypesPacks/DayYears UsedDateSmoking Tobacco: NeverSmokeless Tobacco: [id number] Health LiteracyAnswerDate RecordedHow often do you need to have someone help you when you read instructions, pamphlets, or other written material from your doctor or pharmacy?Hxuzfl1804/05/2024Humiliation, Afraid, Rape, and Kick questionnaireAnswerDate RecordedWithin the [...] with Friends and FamilyNot on file 04/05/2024ttends Mu-Ism ServicesNot on file04/05/2024ctive Member of Clubs or OrganizationsNot on file04/05/2024ttends Club or Organization MeetingsNot on file04/05/2024re you , , , , never , or living with a partner?Zhlcncr2104/05/2024UDIT-CAnswerDate RecordedQ1: How often do you have a [...] hard at all04/05/2024HQ-2AnswerDate Recorded Patient Health Questionnaire-2 [facility]a715[facility] [place] of Occupational Health - Occupational Stress QuestionnaireAnswerDate [...] were you homeless or living in a [facility] (including now)?No04/05/2024 CommentsUnknownSex and Gender InformationValueDate RecordedSex Assigned at BirthNot on fileLegal PmoEyjxcb33/15/2023 6:51 PM EDTGender IdentityNot on fileSexual OrientationNot on filedocumented as of this encounter Functional Status * Over the past 2 weeks, how often have you been bothered by any of the following problems?QuestionAnswerDate of AssessmentAuthorLittle interest or pleasure in doing thingsNot at all07/09/2025 3:38 PM Noelle Johansen LPN Feeling down, depressed, or hopelessNot at all07/09/2025 3:38 PM Noelle Johansen LPNPatient Health Questionnaire-2 Jmqwb901 3:38 PM Noelle Johansen LPN documented as of this encounter Plan of Treatment Not on file documented as of this encounter Procedures Procedure NamePriorityDate/TimeAssociated DiagnosisCommentsXR DEXA AXIAL HOMZYSIV00/22/2024 5:51 AM EST documented in this encounter Results * XR DEXA AXIAL SKELETON (08/11/2024 5:51 AM EST)Anatomical RegionLaterality ModalityOtherSpecimen (Source)Anatomical Location / LateralityCollection Method / VolumeCollection TimeReceived Time08/11/2024 5:51 AM EST Narrative 08/11/2024 5:54 AM EST [facility] ?[address] ? [place] [address] ?XRay Report ? Signed ? Patient: COSTA,ERNESTINA M ? MR#: [id number] ?? : 1940 ?Acct:[id number] ?? Age/Sex: 83 / F ?ADM Date: 11/21/24 ?? Loc: RAD ? Attending Dr: SMITH ZHANG ? Ordering Physician: SMITH ZHANG ?? Date of Service: 08/10/24 ?? Procedure(s): XR DEXA axial skeleton ?? Accession Number(s): [id number] ? cc: KADE HUYNH ; SMITH ZHANG ? [facility] ? [address] ? [place] [address] ? Patient Name: ?? ERNESTINA COSTA ? [facility]: [facility]:[id number] ? date: 1940 ?Sex: F ?? Assigned Patient Location: RAD ?? Current Patient Location: ? Accession/Order Number: [id number] ?? Exam Date: 08/10/2024 ??15:00 ?Report Date: 08/11/2024 ??05:51 ? At the request of: ?? SMITH ??LEATHA ? Procedure: ??XR DEXA axial skeleton ? EXAMINATION: XR DEXA axial skeleton ? HISTORY: Osteoporosis screening, Asymptomatic Menopause ? COMPARISON: DEXA bone densitometry 04/08/2021 ? TECHNIQUE: Dual-energy X-ray absorptiometry (DXA) was performed. ? FINDINGS: ?? FOREARM ANALYSIS: ?? Average bone mineral density is 0.733 g/cm2. ?? T-score (standard deviation relative to young adult mean): 0.3 . ?? (Not previously evaluated) ? HIP ANALYSIS: ?? Lowest bone mineral density is within the right femoral neck, 0.827 g/cm2. ?? T-score (standard deviation relative to young adult mean): -1.5 . ?? -4.8% change since prior study. ? XR/XR DEXA axial skeleton ?? IMPRESSION: ? World Health Organization Classification: Osteopenia - Moderate Fracture Risk ?? FRAX: Cannot be calculated. ? Pharmacologic treatment recommendations ?? * No uniform recommendation applies to all patients. Management plans must be ?? individualized. ?? * Consider initiating pharmacologic treatment in postmenopausal women and men ?? >= 50 years of age who have the following: Primary fracture prevention: ?? * T-score <= - 2.5 at the femoral neck, total hip, lumbar spine, 33% radius (some uncertainty with existing data) by DXA. ?? * Low bone mass (osteopenia: T-score between - 1.0 and - 2.5) at the femoral ?? neck or total hip by DXA with a 10-year hip fracture risk >= 3% or a 10-year major osteoporosis-related fracture risk >= 20% (i.e., clinical vertebral, hip, ?? forearm, or proximal humerus) based on the US-adapted FRAXregistered model. ?? Secondary fracture prevention: ?? * Fracture of the hip or vertebra regardless of BMD [4, 5]. ?? * Fracture of proximal humerus, pelvis, or distal forearm in persons with low ?? bone mass (osteopenia: T-score between - 1.0 and - 2.5). The decision to treat ? should be individualized in persons with a fracture of the proximal humerus, ?? pelvis, or distal forearm who do not have osteopenia or low BMD [12, 13]. ?? Lisa MS, Piper SL, David KL, Yeison EM, Tere KG, AJ, Lorena ?? ES. ?? The clinician's guide to prevention and treatment of osteoporosis. Osteoporos ?? Int. 2021;33(10):6617-9132. doi: 10.1007/q71332-204-49020-p. Ep2021 ? 28. Erratum in: Osteoporos Int. 2021Apr 16;: PMID: 54256634; PMCID: ?? [id number]. ? Electronically authenticated by: MAC ??DASHAWN ?? Date: 08/11/2024 ??05:51 ? Dictated By: ?Mac Moss M.D. ? Signed By: ?08/11/24 0554 ? DD/ 0551 ? TD/TT: ? Financial Reporting Specialist: Procedure Note Radiology, Radiologist, MD - 08/11/2024 [place] [address] XRay Report Signed Patient: ERNESTINA COSTA [facility]#: [id number] : 1940Acct:[id number] Age/Sex: 83 / FADM Date: 08/10/24 Loc: RAD Attending Dr: SMITH ZHANG Ordering Physician: SMITH ZHANG Date of Service: 08/10/24 Procedure(s): XR DEXA axial skeleton Accession Number(s): [id number] cc: KADE HUYNH ; SMITH ZHANG [place] [address] Patient Name: ERNESTINA COSTA MRN: [id number] date: 1940 Sex: F Assigned Patient Location: [facility] Current Patient Location: Accession/Order Number: [id number] Exam Date: 08/10/2024 15:00 Report Date: 08/11/2024 05:51 At the request of: SMITH ZHANG Procedure: XR DEXA axial skeleton EXAMINATION: XR DEXA axial skeleton HISTORY: Osteoporosis screening, Asymptomatic Menopause COMPARISON: DEXA bone densitometry 04/08/2021 TECHNIQUE: Dual-energy X-ray absorptiometry (DXA) was performed. FINDINGS: FOREARM ANALYSIS: Average bone mineral density is 0.733 g/cm2. T-score (standard deviation relative to young adult mean): 0.3 . (Not previously evaluated) HIP ANALYSIS: Lowest bone mineral density is within the right femoral neck, 0.827 g/cm2. T-score (standard deviation relative to young adult mean): -1.5 . -4.8% change since prior study. XR/XR DEXA axial skeleton IMPRESSION: World Health Organization Classification: Osteopenia - Moderate FractureRisk FRAX: Cannot be calculated. Pharmacologic treatment recommendations * No uniform recommendation applies to all patients. Management plans mustbe individualized. * Consider initiating pharmacologic treatment in postmenopausal women andmen >= 50 years of age who have the following: Primary fracture prevention: * T-score <= - 2.5 at the femoral neck, total hip, lumbar spine, 33%radius (some uncertainty with existing data) by DXA. * Low bone mass (osteopenia: T-score between - 1.0 and - 2.5) at thefemoral neck or total hip by DXA with a 10-year hip fracture risk >= 3% or b59-giwh major osteoporosis-related fracture risk >= 20% (i.e., clinical vertebral, hip, forearm, or proximal humerus) based on the US-adapted FRAXregisteredmodel. Secondary fracture prevention: * Fracture of the hip or vertebra regardless of BMD [4, 5]. * Fracture of proximal humerus, pelvis, or distal forearm in persons withlow bone mass (osteopenia: T-score between - 1.0 and - 2.5). The decision totreat should be individualized in persons with a fracture of the proximalhumerus, pelvis, or distal forearm who do not have osteopenia or low BMD [12, 13]. Lisa MS, Piper SL, David KL, Yeison EM, Tere KG, AJ,Lorena ES. The clinician's guide to prevention and treatment of osteoporosis.Osteoporos Int. 2021;33(10):2929-1951. doi: 10.1007/n33555-029-25571-e. Ep. Erratum in: Osteoporos Int. 2021Apr 16;: PMID: 76700289; PMCID: [id number]. Electronically authenticated by: MAC MOSS Date: 08/11/2024 05:51 Dictated By: Mac Moss M.D. Signed By:08/11/24 0554 DD/ 0551 TD/TT: Financial Reporting Specialist: Authorizing ProviderResult TypeResult StatusGeneric External Data Provider CLINISYNC IMAGINGFinal Result documented in this encounter Visit Diagnoses Not on filedocumented in this encounter Additional Health Concerns AssessmentNoted TimePHQ-9 Depression Total Score: 2:00 PM EDT documented as of this encounter Care Teams Team MemberRelationshipSpecialtyStart DateEnd Date Kade Huynh MD [address] [place] [address] [place] [address] PCP - ACO Reach02/11/ Kade Huynh MD [address] [facility] [address] [place] [address] PCP - GeneralInternal Medicine03/08/23 Kade Huynh MD [address] [facility] [address] [place] [address] PCP - ACO Reach/12/12 Naomi Jane, ALDA [address] [place] [address] Clinical AdvocateFamily Medicine Shama Carter LPN 112 [facility] 110 [place] [address] documented as of this encounter
--- OUTSIDE RECORDS SUMMARY | 2025-08-01 12:48 | XMS_ITS | Encounter Summary ---
Author Organization [facility] Address [address] [place] [address] Care Team Providers Care Credit Administration Specialist Name Role Phone Kade Huynh MD Primary Care Provider [phone] Encounter Details DateTypeDepartmentCare Team (Latest Contact Info)Ddxqskirdzl89/30/2025Travel Social History Tobacco UseTypesPacks/DayYears UsedDateSmoking Tobacco: Every DayCigarettes0.3 68.9Started: 1957Smokeless Tobacco: NeverAlcohol UseStandard Drinks/WeekComments Defer0 (1 standard drink = 0.6 oz pure alcohol)B1300 Health LiteracyAnswerDate RecordedHow often do you need to have someone help you when you read instructions, pamphlets, or other written material from your doctor or pharmacy? Ncsffl9304/05/2024Humiliation, Afraid, Rape, and Kick questionnaireAnswerDate RecordedWithin the last year, have you been afraid of your partner or ex-partner?No04/05/2024Within the last year, have you been humiliated or emotionally abused in other ways by your partner or ex-partner?No04/05/2024 Within the last year, have you been kicked, hit, slapped, or otherwise physically hurt by your partner or ex-partner?No04/05/2024Within the last year, have you been raped or forced to have any kind of sexual activity by your part ner or ex-partner?No04/05/2024Social Connection and Isolation PanelAnswerDate RecordedFrequency of Communication with Friends and FamilyNot on file04/05/2024 Frequency of Social Gatherings with Friends and FamilyNot on file04/05/2024 Attends Catholic ServicesNot on file04/05/2024ctive Member of Clubs or OrganizationsNot on file04/05/2024ttends Club or Organization MeetingsNot on file04/05/2024re you , , , , never , or living with a partner?Fgytrqw6104/05/2024UDIT-CAnswerDate RecordedQ1: How often do you have a [...] hard at all04/05/2024HQ-2AnswerDate Recorded Patient Health Questionnaire-2 Crhvn631Fin[facility] [place] of Occupational Health - Occupational Stress QuestionnaireAnswerDate [...] were you homeless or living in a care home (including now)?No04/05/2024 CommentsUnknownSex and Gender InformationValueDate RecordedSex Assigned at BirthNot on fileLegal PonBchfan82/15/2023 6:51 PM EDTGender IdentityNot on fileSexual OrientationNot on filedocumented as of this encounter Plan of Treatment Not on file documented as of this encounter Visit Diagnoses Not on filedocumented in this encounter Additional Health Concerns AssessmentNoted TimePHQ-9 Depression Total Score: 2:00 PM EDT documented as of this encounter Care Teams Team MemberRelationshipSpecialtyStart DateEnd Date Kade Huynh MD [address] [facility] [address] [place] [address] PCP - GeneralInternal Medicine03/08/23documented as of this encounter
--- OUTSIDE RECORDS SUMMARY | 2025-08-01 12:48 | XMS_ITS | Encounter Summary ---
Author Organization [facility] Address [address] [place] [address] Care Team Providers Care Blower Blast Furnace Name Role Phone Kade Huynh MD Primary Care Provider [phone] Encounter Details DateTypeDepartmentCare Team (Latest Contact Info)Pnkjqxugoik26/30/2025amboo flowsheet [facility] 112 [facility] 120 [place] [address] Bakari Colbert, DPMaggie 3[address] [facility] 5 [place] [address] Social History Tobacco UseTypesPacks/DayYears UsedDateSmoking Tobacco: Every DayCigarettes0.3 68.9Started: 7Smokeless Tobacco: NeverAlcohol UseStandard Drinks/WeekComments Defer0 (1 standard drink = 0.6 oz pure alcohol)B1300 Health LiteracyAnswerDate RecordedHow often do you need to have someone help you when you read instructions, pamphlets, or other written material from your doctor or pharmacy? Qlluqa0704/05/2024Humiliation, Afraid, Rape, and Kick questionnaireAnswerDate RecordedWithin the [...] of Communication with Friends and FamilyNot on 04/05/2024 Frequency of Social Gatherings with Friends and FamilyNot on 04/05/2024 Attends Anabaptism ServicesNot on 04/05/2024ctive Member of Clubs or OrganizationsNot on 04/05/2024ttends Club or Organization MeetingsNot on 04/05/2024re you , , , , never , or living with a partner?Xexxqsj0404/05/2024UDIT-CAnswerDate RecordedQ1: How often do you have a [...] hard at all04/05/2024HQ-2AnswerDate Recorded Patient Health Questionnaire-2 Krsxv232Fin[facility] [place] of Occupational Health - Occupational Stress QuestionnaireAnswerDate [...] or from getting things needed for daily living?04/05/2024Housing Stability Vital SignAnswerDate RecordedIn the last 12 months, was there a time when you were not able to pay the mortgage or rent on time?No04/05/2024In the past 12 months, how many times have you moved where you were living?t any time in the past 12 months, were you homeless or living in a intermediate (including now)?No04/05/2024 CommentsUnknownSex and Gender InformationValueDate RecordedSex Assigned at BirthNot on fileLegal RigStcwdc26/15/2023 6:51 PM EDTGender IdentityNot on fileSexual OrientationNot on filedocumented as of this encounter Plan of Treatment Not on file documented as of this encounter Visit Diagnoses Not on filedocumented in this encounter Additional Health Concerns AssessmentNoted TimePHQ-9 Depression Total Score: 2:00 PM EDT documented as of this encounter Care Teams Team MemberRelationshipSpecialtyStart DateEnd Date Kade Huynh MD 112 [facility] 110 [place] [address] PCP - GeneralInternal Medicine03/08/23documented as of this encounter
--- OUTSIDE RECORDS SUMMARY | 2025-08-01 12:48 | XMS_ITS | Encounter Summary ---
Author Organization [facility] Address [address] [place] [address] Care Team Providers Care Apartment Leasing Manager Name Role Phone Kade Huynh MD Unavailable [phone] Kade Huynh MD Primary Care Provider [phone] Naomi Jane RN Unavailable [phone] Kade Huynh MD Unavailable [phone] Shama Carter LPN Unavailable Encounter Details DateTypeDepartmentCare Team (Latest Contact Info)Psfctwuuhyw67/11/2024Clinisync Result Encounter [facility] External Department Unsolicited Kade Huynh MD [address] [address] Social History Tobacco UseTypesPacks/DayYears UsedDateSmoking Tobacco: NeverSmokeless Tobacco: [id number] Health LiteracyAnswerDate RecordedHow often do you need to have someone help you when you read instructions, pamphlets, or other written material from your doctor or pharmacy?Jtrcwz9604/05/2024Humiliation, Afraid, Rape, and Kick questionnaireAnswerDate RecordedWithin the [...] , never , or living with a partner?Wgdinvu8504/05/2024UDIT-CAnswerDate RecordedQ1: How often do you have a [...] hard at all04/05/2024HQ-2AnswerDate Recorded Patient Health Questionnaire-2 Rwngp819Fin[facility] [place] of Occupational Health - Occupational Stress QuestionnaireAnswerDate [...] were you homeless or living in a [place] (including now)?No04/05/2024 CommentsUnknownSex and Gender InformationValueDate RecordedSex Assigned at BirthNot on fileLegal NepIlmtbz59/15/2023 6:51 PM EDTGender IdentityNot on fileSexual OrientationNot on filedocumented as of this encounter Functional Status * Over the past 2 weeks, how often have you been bothered by any of the following problems?QuestionAnswerDate of AssessmentAuthorLittle interest or pleasure in doing thingsNot at all07/09/2025 3:38 PM Noelle Johansen LPN Feeling down, depressed, or hopelessNot at all07/09/2025 3:38 PM Noelle Johansen LPNPatient Health Questionnaire-2 Synfp488 3:38 PM Noelle Johansen LPN documented as of this encounter Plan of Treatment Not on file documented as of this encounter Procedures Procedure NamePriorityDate/TimeAssociated DiagnosisCommentsMM TOMOSYNTHESIS SCREENING BI07/31/2024 4:26 PM EST documented in this encounter Results * MM TOMOSYNTHESIS SCREENING BI (07/31/2024 4:26 PM EST)Anatomical Region LateralityModalityOtherSpecimen (Source)Anatomical Location / Laterality Collection Method / VolumeCollection TimeReceived Time07/31/2024 4:26 PM EST Narrative 07/31/2024 4:27 PM EST [facility] ?[address] ? [place] [address] ? Mammography Report ? Signed ? Patient: COSTA,ERNESTINA M ? MR#: [id number] ?? : 1940 ?Acct:[id number] ?? Age/Sex: 83 / F ?ADM Date: 11/11/24 ?? Loc: MAMMO ? Attending Dr: KADE HUYNH ? Ordering Physician: KADE HUYNH ? Results: ? Date of Service: 07/31/24 ?Follow Up: ? Procedure(s): MM tomosynthesis screening BI ?? Accession Number(s): [id number] ? cc: KADE HUYNH ? Patient Name: ? ERNESTINA COSTA ? MR#: [id number] ? : 1940 ? Exam Date: 07/31/2024 ?? Ordering Doctor: DR KADE HUYNH M.D. ? RADIOLOGY REPORT ? PROCEDURE: ? MM TOMOSYNTHESIS SCREENING BI ? COMPARISON: ? MM TOMOSYNTHESIS DIAGNOSTIC RT, 03/11/2023. ??MM TOMOSYNTHESIS ?? SCREENING BI, 07/30/2023. ? INDICATIONS: ? Screening ? Calculator Name ? NCI Breast Cancer Risk Assessment Tool ?? 5 Year Breast Cancer Risk ? n/a% ?? Lifetime Breast Cancer Risk ? n/a% ?? Personal Breast Cancer ?Yes, invasive ductal carcinoma, age 78 ?? Personal Ovarian Cancer ? No ?? Treatments ? None ?? Family Cancers ? None ? LOCATION: ? [facility] ? BREAST COMPOSITION: ? The breasts are extremely dense, which lowers the ?? sensitivity of mammography. ? FINDINGS: ? DIAGNOSTIC CATEGORY 2--BENIGN FINDING. NO CHANGE FROM COMPARISON. ? Scattered benign-appearing nodules are present. ??Scattered benign-appearing ?? calcifications are present. ??Scattered benign-appearing lymph nodes are ?? present. ? RIGHT BREAST: ??No significant suspicious finding. ? LEFT BREAST: ??No significant suspicious finding. ? RECOMMENDATIONS: ? ROUTINE MAMMOGRAM AND CLINICAL EVALUATION IN 12 MONTHS. ? PLEASE NOTE: ??A NORMAL MAMMOGRAM DOES NOT EXCLUDE THE POSSIBILITY OF BREAST ?? CANCER. ??A CLINICALLY SUSPICIOUS PALPABLE LUMP SHOULD BE BIOPSIED. ? Dictated by: Job Clayton MD on 07/31/2024 at 16:25 ? Approved by: Job Clayton MD on 07/31/2024 at 16:26 ? Dictated By: ?Job Clayton M.D. ? Signed By: ?07/31/241626 ? DD/ 1626 ? TD/TT: ? Laborer: Procedure Note Radiology, Radiologist, MD - 07/31/2024 [place] [address] Mammography Report Signed Patient: ERNESTINA COSTA MMR#: [id number] : 9Acct:[id number] Age/Sex: 83 / FADM Date: 07/31/24 Loc: MAMMO Attending Dr: KADE HUYNH Ordering Physician: KADE HUYNHResults: Date of Service: 07/31/24Follow Up: Procedure(s): MM tomosynthesis screening BI Accession Number(s): [id number] cc: KADE HUYNH Patient Name: ERNESTINA COSTA MR#: [id number] : 1940 Exam Date: 07/31/2024 Ordering Doctor: DR KADE HUYNH M.D. RADIOLOGY REPORT PROCEDURE: MM TOMOSYNTHESIS SCREENING BI COMPARISON: MM TOMOSYNTHESIS DIAGNOSTIC RT, 03/11/2023. MMTOMOSYNTHESIS SCREENING BI, 07/30/2023. INDICATIONS: Screening Calculator Name NCI Breast Cancer Risk Assessment Tool 5 Year Breast Cancer Risk n/a% Lifetime Breast Cancer Risk n/a% Personal Breast Cancer Yes, invasive ductal carcinoma, age 78 Personal Ovarian Cancer No Treatments None Family Cancers None LOCATION: [facility] BREAST COMPOSITION: The breasts are extremely dense, which lowers the sensitivity of mammography. FINDINGS: DIAGNOSTIC CATEGORY 2--BENIGN FINDING. NO CHANGE FROM COMPARISON. Scattered benign-appearing nodules are present. Scatteredbenign-appearing calcifications are present. Scattered benign-appearing lymph nodes are present. RIGHT BREAST: No significant suspicious finding. LEFT BREAST: No significant suspicious finding. RECOMMENDATIONS: ROUTINE MAMMOGRAM AND CLINICAL EVALUATION IN 12 MONTHS. PLEASE NOTE: A NORMAL MAMMOGRAM DOES NOT EXCLUDE THE POSSIBILITY OFBREAST CANCER. A CLINICALLY SUSPICIOUS PALPABLE LUMP SHOULD BE BIOPSIED. Dictated by: Job Clayton MD on 07/31/2024 at 16:25 Approved by: Job Clayton MD on 07/31/2024 at 16:26 Dictated By: Job Clayton M.D. Signed By:07/31/247 DD/ 25 TD/TT: Laborer: Authorizing ProviderResult TypeResult StatusDanirei Huynh MDCLINISYNC IMAGING Final Result documented in this encounter Visit Diagnoses Not on filedocumented in this encounter Additional Health Concerns AssessmentNoted TimePHQ-9 Depression Total Score: 2:00 PM EDT documented as of this encounter Care Teams Team MemberRelationshipSpecialtyStart DateEnd Date Kade Huynh MD [address] [place] [address] PCP - ACO Reach02/11//03/14 Kade Huynh MD [address] [facility] [address] [place] [address] PCP - GeneralInternal Medicine03/08/23 Kade Huynh MD [address] [place] [address] [place] [address] PCP - ACO Reach/12/12 Naomi Jane, RN [address] [place], [place] [address] Clinical AdvocateFamily Medicine Shama Carter LPN 112 [facility] 110 [place] [address] documented as of this encounter
--- OUTSIDE RECORDS SUMMARY | 2025-08-01 12:49 | XMS_ITS | CCD ---
Author Organization [facility] Care Team Providers Care Performance Instructor Name Role Phone Wilver Disla MD Unavailable Prashanth SHELTER DIRECTOR.ALUMNI SECRETARY, Hannah Unavailable Kade Huynh II Primary Care Provider [phone] JAYNE KEITH Admitting Unavailable LINO, DR CRAIG Primary Care Unavailable ELANA, DR ERASMO Singh Consulting Unavailable JAYNE KEITH Attending Unavailable JAYNE KEITH Consulting Unavailable LINO, DR CRAIG Primary Care Unavailable LEATHA, DR MTZ Attending Unavailable LEATHA, DR MTZ Consulting Unavailable LEATHA, DR MTZ Admitting Unavailable DASHAWN, DR GRACE Tovar Consulting Unavailable GURWINDER POWELL Attending Unavailable ANDRE, GURWINDER Danielson Admitting Unavailable LINO, DR CRAIG Primary Care Unavailable ZIRADHA, DR GRACE Tovar Consulting Unavailable GURWINDER POWELL Consulting Unavailable LINO, DR CRAIG Consulting Unavailable LINO, DR CRAIG Primary Care Unavailable LINO, DR CRAIG Admitting Unavailable LINO, DR CRAIG Attending Unavailable ELANA, DR ERASMO Singh Consulting Unavailable Wilver Disla MD Unavailable [phone] Prashanth SHELTER DIRECTOR.ALUMNI SECRETARY Hannah Unavailable [phone] Kade Huynh II Primary Care Provider Kade Huynh II Primary Care Provider Lino LOW MD, Daniel B Primary Care Provider Kade Huynh MD Unavailable Kade Huynh MD Primary Care Provider Raul KEY, Shama Unavailable Unavailable Wilver Disla MD Unavailable WILVER DISLA Attending Unavailable WILVER DISLA Referring Unavailable KADE HUYNH II Primary Care Unavailable WILVER DISLA Referring Unavailable KADE HUYNH II Primary Care Unavailable WILVER DISLA Attending Unavailable WILVER DISLA Referring Unavailable KADE HUYNH II Primary Care Unavailable WILVER DISLA Referring Unavailable KADE HUYNH II Primary Care Unavailable KADE HUYNH Primary Care Physician [phone] Feli Sage Attending Unavailable Kade Huynh MD Unavailable Naomi Jane RN Unavailable Kade Huynh MD Unavailable [phone] Shama Carter LPN Unavailable KADE HUYNH Attending Unavailable BAKARI CALIXTO Attending Unavailable KADE HUYNH Referring Unavailable BAKARI CALIXTO Attending Unavailable BAKARI CALIXTO Attending Unavailable KADE HUYNH Attending Unavailable BAKARI CALIXTO Attending Unavailable CAESAR CRAVEN W Attending Unavailable TABITHA ARREGUIN Attending Unavailable LESLIE CRAVENNDAN W Referring Unavailable BRTABITHA PEREZ Attending Unavailable CRAVENLESLIE MCKNIGHTNDAN W Referring Unavailable TABITHA ARREGUIN Attending Unavailable CRAVEN CAESAR W Referring Unavailable BRTABITHA PEREZ Attending Unavailable CRAVEN CAESAR W Referring Unavailable CRAVEN, CAESAR W Attending Unavailable Allergies Allergy ClassificationReported Allergen(s)Allergy TypeDate of OnsetReaction(s) Facility (1 source)No Known Medication Allergies; Translations: [No Known Medication Allergies]Propensity to adverse reactions (disorder)[facility] Repository Medications Current Medications MedicationDrug Class(es)DatesSig (Normalized)Sig (Original)anastrozole 1 mg oral tablet (20 sources)Aromatase InhibitorStart: 08-12-2021 End: 24-18-9451dmbg 1 tablet by mouth once dailyanastrozole (ARIMIDEX) 1 mg tablet Take 1 tablet by mouth once daily. 90 tablet 3 04/13/2024 ActiveComment on above:Take 1 tablet by mouth once daily.azithromycin 250 mg oral tablet (2 sources)Macrolide AntimicrobialStart: 05-24-2025 End: 31-44-1583bbrt 1 tablet by mouth once dailyazithromycin (Zithromax Z-Farhan) 250 MG tablet Indications: Onychocryptosis Take 1 tablet (250 mg) bymouth Daily for 5 days Use as directed 6 tablet 05/24/2025 05/29/2025 Activecalcium citrate 1190 mg / cholecalciferol 0.005 mg oral tablet (1 source)Vitamin DStart: 17-37-5449lmpf 1 tablet by mouth twice dailycalcium (as citrate)-vitamin D 250 mg-200 intl units oral tablet tab(s), Oral, BID, Refill(s) 0 Start Date: 05/09/25 Status: Ordered Repeat number: 1cholecalciferol 0.05 mg oral tablet (20 sources)Vitamin DStart: 65-02-9994ipkt 1 tablet by mouth once daily cholecalciferol (VITAMIN D3) 50 mcg (2,000 unit) tablet Take 1 tablet by mouth once daily. 02/05/2020 Activetake 1 capsule by mouth in the morning cholecalciferol (Vitamin D-3) 25 MCG (1000 UT) capsule Take 1,000 Units by mouth in the morning. ActiveComment on above:Take 1 tablet by mouth once daily. ciprofloxacin 500 mg oral tablet (1 source)Quinolone AntimicrobialStart: 77-36-0023hext 1 tablet by mouth once dailyCipro 500 mg Tab 500 mg = 1 tab(s), Oral, As Directed, take 1st pill the day before and the 2nd theday of the procedure after it is done, # 2 tab(s), Refills(s) 0, Pharmacy: [facility]/pharmacy #[id number] StartDate: 08/01/19 Status: Ordered Quantity: 2.0 Unit: tab(s) Repeat number: 1docusate sodium 50 mg oral capsule (20 sources)take 1 capsule by mouth in the morningdocusate sodium (Colace) 50 MG capsule Take 50 mg by mouth in the morning. Activedocusate sodium (COLACE ORAL) Take by mouth. Activehydrocortisone acetate 25 mg rectal suppository (20 sources)CorticosteroidStart: 07-17-2025 End: 64-43-7789yezhhtydakguda (Anusol-HC) 25 MG suppository Indications: Hemorrhoids without complication Insert 1suppository (25 mg) into the rectum in the morning and 1 suppository (25 mg) before bedtime. Do allthis for 24 doses. 12 suppository 1 07/17/2025 07/29/2025 ActiveStart: 07-09-2025 End: 70-59-3573yradubjnnibtxy (Anusol-HC) 2.5 % rectal cream Indications: Hemorrhoids, unspecified hemorrhoid typeInsert into the rectum 4 (four) times a day as needed for hemorrhoids (rectal discomfort) 30 g 5 07/09/2025 07/09/2026 ActiveStart: 42-28-0359racpuuihoprpzz 25 mg Supp 25 mg = 1 supp, Refills(s) 0 Start Date: 05/09/25 Status: Ordered Repeat number: 1Start: 06-05-2020 hydrocortisone (HEMORRHOIDAL HC) 25 mg suppository INSERT 1 SUPPOSITORY RECTALLY 3 TIMES A DAY 06/05/2020 Activetake 25 mg rectal route in the morning hydrocortisone (Anusol-HC) 25 MG suppository Insert 25 mg into the rectum in the morning and 25 mg before bedtime. ActiveComment on above:INSERT 1 SUPPOSITORY RECTALLY 3 TIMES A DAYLactulose (20 sources)Osmotic LaxativeStart: 62-78-9172xroptkhqg Refills(s) 0 Start Date: 07/26/19 Status: Ordered Repeat number: 1 End: 83-72-6101accg 10 g by mouth in the morning, then take 10 g by mouth in the evening, then take 10 g by mouth at bedtimelactulose (Kristalose) 10 g packet Take 10 g by mouth in the morning and 10 g in the evening and 10g before bedtime. 04/13/2025 Discontinued (Other)methylPREDNISolone (1 source)CorticosteroidStart: 08-23-2024 End: 69-63-3732fiyyrqIEHJIBWfawft (Medrol Dospak) 4 MG tablets Indications: Lumbar radiculopathy Follow schedule on package instructions 21 tablet 1 08/23/2024 08/30/2024 Activeomeprazole 20 mg delayed release oral capsule (20 sources)Proton Pump InhibitorStart: 61-49-0530duys 1 mg by mouth once daily omeprazole 20 mg Cap-DR mg cap(s), Oral, Daily, Refills(s) 0 Start Date: 05/09/25 Status: Ordered Repeat number: 1omeprazole OTC (PriLOSEC OTC) 20 MG EC tablet 20 mg 1 (one) time each day at the same time. Activetake 1 capsule by mouth once dailyomeprazole (PRILOSEC) 20 mg capsule Take 20 mg by mouth once daily. Active Comment on above:Take 20 mg by mouth once daily.polyethylene glycol 3350 70515 mg powder for oral solution (20 sources)Osmotic LaxativeStart: 36-38-5571vqbp 1 g by mouth once dailyMiralax 3350 17 gram packet gm, Oral, Daily, Refills(s) 0 Start Date: 05/09/25 Status: Ordered Repeat number: 1take 17 g by mouth in the morningpolyethylene glycol, PEG, 3350 (Miralax) 17 g packet Indications: Constipation Take 17 g by mouth in the morning. ActivePolyethylene Glycols (4 sources)polyethylene glycol 3350 (MIRALAX ORAL) Take by mouth. Merpmq26 hr pseudoephedrine hydrochloride 120 mg extended release oral tablet (5 sources)alpha-Adrenergic AgonistStart: 52-60-0761qduk 1 tablet by mouth every twelve hoursSudafed 12-Hour 120 mg oral tablet, extended release mg tab(s), Oral, q12hr, Refills(s) 0 Start Date: 05/09/25 Status: Ordered Repeat number: 1 pseudoephedrine HCl (SUDAFED ORAL) Take by mouth. Activeraloxifene hydrochloride 60 mg oral tablet (2 sources)Estrogen Agonist/AntagonistStart: 75-33-2838vdcw 1 tablet by mouth once dailyraloxifene (EVISTA) 60 mg tablet TAKE 1 TABLET BY MOUTH EVERY DAY 90 tablet 1 03/26/2025 ActiveStart: 96-45-0661vgsi 1 tablet by mouth once daily raloxifene (EVISTA) 60 mg tablet Take 1 tablet by mouth once daily. 30 tablet 2 03/01/2025 ActiveST. STEPHANIE'S WORT ORAL (13 sources)SAMUEL'S WORT ORAL Take by mouth. ActiveST. STEPHANIE'S WORT ORAL Take by mouth. 0 ActiveComment on above:Take by mouth.Samuel's wort oral capsule (1 source)Start: 69-90-7298Bg. Stephanie's wort oral capsule Refill(s) 0 Start Date: 05/09/25 Status: Ordered Repeat number: 1Zinc Acetate (1 source)Start: 09-82-2269hvsm acetate Oral, TID, Refills(s) 0 Start Date: 05/09/25 Status: Ordered Repeat number: 1Zinc Sulfate (13 sources)zinc sulfate (ZINC-15 ORAL) Take by mouth. Activezinc sulfate (ZINC- 15 ORAL) Take by mouth. 0 ActiveComment on above:Take by mouth. Completed/Discontinued Medications MedicationDrug Class(es)DatesSig (Normalized)Sig (Original)bupivacaine hydrochloride 5 mg/ml injectable solution (2 sources)Amide Local AnestheticStart: 08-24-2024 End: 33-45-0013fqflxwcfqfm (Marcaine) 0.5 % injection 5 mgStart: 08-24-2024 End: mg (1 mL), Injection, Once, On Ann-Marie 08/24/24 at 1400, For 1 dose dexamethasone phosphate 4 mg/ml injectable solution (20 sources)CorticosteroidStart: 08-24-2024 End: 39-09-6631klbGVKWNgyvmy (Decadron) injection 4 mgStart: 08-24-2024 End: 36-80-3339ylkbri 4 mg by intramuscular injection once4 mg, Intramuscular, Once, On Ann-Marie 08/24/24 at 1400, For 1 doseStart: 05-31-2024 End: 99-89-8975bbcy 1 tablet by mouth in the morningdexAMETHasone (Decadron) 2 MG tablet Indications: Cervical radiculopathy Take 1 tablet (2 mg) by mouth in the morning and 1 tablet (2 mg) in the evening. Take with meals. Do all this for 10 days. 20 tablet 07/24/2024 04/13/2025 Discontinued (Therapy completed)Lactose (10 sources) End: 99-10-1204ALRPNAL ORAL Take by mouth. 08/07/2024 Discontinued (Discontinued by Patient)LACTOSE ORAL Take by mouth. 0 ActiveComment on above:Take by mouth. Loratadine (10 sources) End: 88-45-7922adljqkszde (CLARITIN ORAL) Take by mouth. 08/07/2024 Discontinued (Discontinued by another Health Care Provider)loratadine (CLARITIN ORAL) Take by mouth. 0 ActiveComment on above:Take by mouth.montelukast 10 mg oral tablet (10 sources)Leukotriene Receptor AntagonistStart: 05-08-2020 End: 91-19-8730kmta 1 tablet by mouth once dailymontelukast (SINGULAIR) 10 mg tablet Take 10 mg by mouth once daily. 05/08/2020 08/07/2024 Discontinued (Discontinued by another Health Care Provider)Comment on above:Take 10 mg by mouth once daily. Problems Active Problems Problem ClassificationProblemDateDocumented DateEpisodic/ChronicCancer of breast (20 sources)Overlapping malignant neoplasm of female breast; Translations: [Malignant neoplasm of overlapping sites of right female breast]Onset: 13-93-7863CinsfwwYsqgedsmivvbn symptoms and ill-defined conditions (20 sources)Incontinence; Translations: [Unspecified urinary incontinence]Onset: 499126-81-4031AtisqjqCshgtebidppbq symptoms and ill-defined conditions (1 source)Microscopic riglucsiq50-58-6279EdatuqwoSlyarqunashqd and screening for infectious disease (2 sources)Requires influenza virus vaccination; Translations: [Encounter for immunization]25-53-8512PvvhrmqiMryhaagddj disorders (20 sources)Decreased estrogen level; Translations: [Other primary ovarian failure]Onset: 074908-89-1846IeppgfxSrpxmee (3 sources)Pain in toe; Translations: [Tinea unguium]02-26-4670InbjiczoRherl connective tissue disease (4 sources)Pain in left foot; Translations: [PAIN IN LEFT FOOT]Onset: 07-15-2022 EpisodicOther connective tissue disease (2 sources)Trochanteric bursitis of left hip; Translations: [Trochanteric bursitis, left hip]70-99-8462KycezlvtQajrm connective tissue disease (4 sources)Pain of toe of left foot; Translations: [Pain in left toe(s)] 75-57-8805TuqkoxcpSsrvv connective tissue disease (4 sources)Pain of toe of right foot; Translations: [Pain in right toe(s)] 97-95-4591BxiuftllJmtzg diseases of bladder and urethra (1 source)Detrusor overactivity; Translations: [Overactive bladder]Onset: 85-79-4623HwitftuHiyrk diseases of bladder and urethra (1 source)Overactive wbmsewm83-55-4085CirjrkjTrlzh diseases of kidney and ureters (1 source)Acquired renal cyst without neoplastic change; Translations: [Cyst of kidney, acquired]Onset: 26-08-3615CrzezgpxFqhis diseases of kidney and ureters (1 source)Cyst of kuyqik69-26-0224EvpdjpupPqstg diseases of veins and lymphatics (20 sources)Calcified lymph nodes; Translations: [Other specified noninfective disorders of lymphatic vessels and lymph nodes]Onset: ChronicOther nervous system disorders (20 sources)Idiopathic peripheral neuropathy; Translations: [Hereditary and idiopathic neuropathy, unspecified]Onset: 675296-00-6749KyoairnGyrcb nervous system disorders (20 sources)Neuropathy; Translations: [Polyneuropathy, unspecified]Onset: 200817-43-0063UmooyzfSgovl nervous system disorders (20 sources)Bilateral carpal tunnel syndrome; Translations: [Carpal tunnel syndrome, bilateral upper limbs]Onset: 439114-30-4817LuffshmNxwnv nervous system disorders (7 sources)Polyneuropathy; Translations: [Other specified polyneuropathies] 61-38-5550ShjwwsmHojxw skin disorders (4 sources)Ingrowing nail; Translations: [Ingrowing nail]40-00-3631VxjkfzqaFbjvm upper respiratory disease (20 sources)Allergic rhinitis; Translations: [Allergic rhinitis, unspecified] Onset: 888981-72-5027GobcrmnYgxbudhpnq and visceral atherosclerosis (2 sources)Atherosclerosis of aorta; Translations: [Atherosclerosis of aorta] 98-86-7543PqvvychWsgfaxlp of female genital organs (20 sources)Herniated urinary bladder; Translations: [Cystocele, unspecified] Onset: 282051-84-7366VzkbqjzHxwjduzv codes; unclassified (1 source)Asymptomatic menopausal state; Translations: [ASYMPTOMATIC MENOPAUSAL STATE]Onset: 78-58-5532KiztpvswLloquoql codes; unclassified (1 source)Estrogen receptor positive tumor; Translations: [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+]]86-34-1599VdidbhmxFogbybiwk-related disorders (1 source)Cigarette foqkts79-67-0377RkqsxsmEryrodxqkrgz (3 sources)COUGH, UNSPECIFIED; Translations: [COUGH, UNSPECIFIED]Onset: 83-90-3306Atcmfjiyiyte (1 source)Suspected UTI (urinary tract infection)07-26-2019 Past or Other Problems Problem ClassificationProblemDateDocumented DateEpisodic/ChronicAbdominal pain (20 sources)Indigestion; Translations: [Epigastric pain]Onset: 03-08-2023 97-33-1916FvqylmelIujuyee tract disease (20 sources)Cholelithiasis without obstruction; Translations: [Calculus of gallbladder without cholecystitis without obstruction]Onset: 03-08-2023 24-20-2268XlcbsrxyTpnrxrznhf associated with dizziness or vertigo (20 sources)Benign paroxysmal positional vertigo; Translations: [Benign paroxysmal vertigo, unspecified ear]Onset: 577797-19-9946Dwctuqzs Hemorrhoids (20 sources)Hemorrhoids without complication; Translations: [Unspecified hemorrhoids]Onset: 894892-05-7767ZzypvvymPpef disorders (20 sources)Mood disordersOnset: Other bone disease and musculoskeletal deformities (20 sources)Osteopenia; Translations: [Other specified disorders of bone density and structure, right thigh]Onset: 384357-20-0545GrxriflcEjbth connective tissue disease (20 sources)Bilateral trochanteric bursitis; Translations: [Trochanteric bursitis, right hip]Onset: 030495-54-1425PwodarigYffcc nervous system disorders (20 sources)Ataxia; Translations: [Ataxia, unspecified]Onset: 03-08-2023 53-94-1058LkrysiwoJcbff nervous system disorders (20 sources)Ataxic gait; Translations: [Ataxic gait]Onset: EpisodicOther nervous system disorders (20 sources)Unsteady when standing; Translations: [Unsteadiness on feet]Onset: 453376-28-7782YbstfqwgKtilh nervous system disorders (20 sources)Numbness of foot ; Translations: [Anesthesia of skin]Onset: 021598-00-6922HxxccnosYxitk screening for suspected conditions (not mental disorders or infectious disease) (20 sources)Encounter for screening for osteoporosis; Translations: [Patient encounter status]Onset: 032550-81-3383RyjiehofQdypedfp codes; unclassified (2 sources)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+]; Translations: [ESTROGEN RECEPTOR POSITIVE STATUS]Onset: 90-21-1891HcrdgawyPpgxpkeumos; intervertebral disc disorders; other back problems (20 sources)Lumbar radiculopathy; Translations: [Radiculopathy, lumbar region] Onset: 848603-73-8475GyhqdptdNzywctporkju (1 source)COUGH, UNSPECIFIED; Translations: [COUGH, UNSPECIFIED]Onset: 46-25-8873Buxiujsiktko (1 source)Patient encounter mzpoml50-79-4854 Results Test NameValueInterpretationReference RangeFacilityUrology Office/Clinic Noteon 55-27-0270Qmfahpy Office/Clinic NoteUrology Office/Clinic Note Chief Complaint ESPINOZA HPI Staff Referral from Dr. Huynh for urge incontinence. Previous Dr. Montemayor pt last seen 07/26/19. Previous Dx: ESPINOZA, microhematuria, urge incontinence, cigarette smoker BBSQ- 19 Pt. denies having incontinence Pt. denies having pain with urination Pt. denies having gross hematuria Pt. denies having abd pain Pt. denies having flank pain pt c/o clear jell-like discharge at times, not everyday Unable to gi\et sample due to missing hat, she stated she will trhy before she leaves. No PVR History of Present Illness Tests reviewed: reviewed external referral records: CMP, bladder scan I have reviewed the previous health record information and history for this patient from external providers and Dr. Montemayor I have reviewed and verified the staff HPI to be accurate for this encounter. Review of Systems PHQ Score Initial Depression Screen Score: 0 SCORE ROS - Provider Constitutional: denies weight loss, denies hot flashes. Eyes: denies eye problems. Gastrointestinal: denies nausea, denies vomiting. Cardiovascular: denies chest pain or angina. Integumentary: no dryness Musculoskeletal: denies musculoskeletal symptoms. ENMT: denies otolaryngeal symptoms. Respiratory: no shortness of breath. Heme/Lymph: denies easy bleeding tendency, denies easy bruising tendency. Psychiatric: no confusion, no anxiety. Genitourinary: See HPI. Physical Exam Vitals & Measurements T: 37 ???C(Tympanic) HR: 60(Peripheral) RR: 16 BP: 130/80 HT: 62 in HT: 158 cm WT: 192.463 lb WT: 87.3 kg BMI: 34.97 General Appearance: alert , no acute distress, well nourished, well developed female. Ambulates with walker Assessment/Plan Ernestina is a 84 yo F new pt referred by Dr. Kade Huynh for urinary incontinence Renal fxn 04/13/25 - BUN 19, Cr 0.83 1. ESPINOZA (stress urinary incontinence, female) (N39.3: Stress incontinence (female) (male)) S/p Cysto 08/08/19 by DDM - Mild trabeculations. Larger capacity. Lateral cystocele. BBS 19. PVR 50 mL. Standing causes leakage, even when getting off the toilet. Limits her activity and travel outside the home. Wears pads. Denies pain/pressure in pelvic area. No prior bladder procedures. Discussed tx options including Kegels/pelvic floor physical therapy vs Bulkamid vs. mid urethral sling or bladder suspension pending degree of cystocele. Educational pamphlets provided for pelvic floor therapy. Pt declines referral to PFPT. We discussed risks/benefits of urethral bulking agent Bulkamid, which is a non- particulate homogenous hydrogel consisting of 97.5% water and 2.5% cross-linked polyacrylamide. At 1 year, overall 77-83% success rate is reported. RCT comparing Bulkamid to tension-free vaginal tape at 1 year report 92%subjectively improved and 66% objectively dry in Bulkamid group vs 100% subjectively cured and 95% dry with TVT. 0% serious complications were reported with Bulkamid vs 9% serious complications with TVT including difficulty emptying bladder, chronic pain, tape protrusion or erosion. At 7 years, 67.1% of the Bulkamid patients reported feeling cured or improved, 11.1% reported no change, and 2.3% reported worsening of incontinence. A total of 19.5% of patients received a subsequent other incontinence procedure. Postoperative complications were transient. Prolonged bladder emptying time was reported in 15.3% of patients and urinary tract infection in 3.5%. Risks of requiring straight cath or temporary catheter were discussed. Advised pt a pelvic exam with full bladder will need done prior to Bulkamid to evaluate significance of ESPINOZA and degree of cystocele. Prefers to think about options. -Kegels -Consider Bulkamid, pt to call to schedule pelvic exam with full bladder if procedure desired. The risks and benefits for cystoscopy have been discussed. The risks include bleeding, infection, and irritation of the bladder and urinary channel, among others. The patient, after being informed of procedural details and after questions have been answered, wishes to proceed. Full informed will be obtained. Will order Local anesthesia. 2. OAB (overactive bladder) (N32.81: Overactive bladder) Experiences bladder spasms occasionally. Wearing pads for protection. Shares she voids frequently during the night. We discussed the pathophysiology of overactive bladder. We discussed possible treatment options including doing nothing, Kegels/physical therapy +/- biofeedback, and trial of medication. She was instructed on doing 3 Kegels when she gets the urge to void before going to the bathroom in an attempt to control her urinary urges. She should exercise her pelvic floor muscles by doing 30-60 repetitionsper day. She was counseled regarding bladder retraining, diet choices, and fluid restriction. Treatment options and plan of care discussed with the patient in detail, patient chooses: 1.Patient was informed that first line treatment is behavioral therapy. This includes (more contentnot included)...[facility] HospitalComment on above:Result Comment: Electronically Signed By: Feli Sage MD\.br\Date and Time Signed: 05/09/25 12:42EDT\.br\Electronically Co-Signed By: Jennifer Huynh\.br\Date and Time Co-Signed: 05/09/25 12:23 EDTCCF CMP (CMP) (FOR REMOTE [facility] USE)on 27-14-0994Ptagwvs [Mass/Vol]3.1 g/dLLow3.4 - 5.0 g/dLNOMS Healthcare ALBUMIN GLOBULIN RATIO0.6NOMS HealthcareALP [Catalytic activity/Vol]95 U/L46 - 116 U/LNOMS HealthcareALT [Catalytic activity/Vol]18 U/L14 - 59 U/LNOMS HealthcareAnion gap [Moles/Vol]12.9 mmol/LNOMS HealthcareAST [Catalytic activity/Vol]11 U/LLow15 - 37 U/LNOMS HealthcareBilirubin [Mass/Vol]0.4 mg/dL0.2 - 1.0 mg/dLNOMT HealthcareCalcium [Mass/Vol]8.9 mg/dL8.5 - 10.1 mg/dLNOMT HealthcareChloride [Moles/Vol]103 mmol/L98 - 107 mmol/LNOMS HealthcareCO2 [Moles/Vol]26.3 mmol/L21.0 - 32.0 mmol/LNOMS HealthcareCreatinine [Mass/Vol]0.83 mg/dL0.55 - 1.02 mg/dLNOMS HealthcareGFR/1.73 sq M.predicted CKD-EPI (S/P/Bld) [Vol rate/Area]>60>=60 mL/min/1.73m 2[facility] HealthcareGlobulin (S) [Mass/Vol]5.2 g/dLNOMT HealthcareGlucose [Mass/Vol]109 mg/bOTanc60 - 106 mg/dLNOCox [place] Interpretation and review of laboratory resultsAbnormalNOMT HealthcarePotassium [Moles/Vol]4.2 mmol/L3.5 - 5.1 mmol/LNOMS HealthcareProtein [Mass/Vol]8.3 g/dL High6.4 - 8.2 g/dLNOMT HealthcareSodium [Moles/Vol]138 mmol/L136 - 145 mmol/L [facility] EGFR-NON AF TANZANIAN>60>=60 mL/min/1.73m 2[facility] HealthcareUrea nitrogen [Mass/Vol]19 mg/dLHigh7.0 - 18.0 mg/dLNOMT HealthcareUrea nitrogen/Creatinine [Mass ratio]22.9 mg/mgNOMS [facility] HospitalNo Panel Informationon 15-70-2764CTNIAWYPORIDW HealthcareTSH W/REFLEX T4on 08-72-1131VLW Qn1.32 m[IU]/L [facility] HealthcareCNPNon 55-95-3001DADTFgmjyfljs (HEMASA) ERNESTINA COSTA ([id number]) 1940 F Date Time Provider Department 03/30/25 PORFIRIO RUCKER VALENTIN During your visit today, we recorded the following information about you: Porfirio Rucker RN 03/30/2025 2:30 PM Signed Pt calls with complaints of numbess/tingling in fingers and feet with Evista. She reports she would like to stop the medication, as it is affecting her sleep. Please advise ALDA Andrew Mindy M, PA-C 03/30/2025 2:33 PM Signed Ok to stop Evista. Per Dr. Disla's note: Will start Evista to improve bone density, with the added benefit of breast cancer risk reduction. Will need to monitor her dexa more closely. ZAINA Heart Natalie, RN 03/30/2025 2:39 PM Signed Pt update and agreeable to plan of care. Porfirio Rucker RN Allergies As of Date: 03/30/2025 (No Known Allergies) Date Reviewed: 03/30/2025 Reviewed by: Rosalina Landry PA-C - Fully Assessed Reason for Visit: effects of Evista [Other] Prescriptions as of 03/30/2025 - raloxifene (EVISTA) 60 mg tablet TAKE 1 TABLET BY MOUTH EVERY DAY - pseudoephedrine HCl (SUDAFED ORAL) Take by mouth. - docusate sodium (COLACE ORAL) Take by mouth. - polyethylene glycol 3350 (MIRALAX ORAL) Take by mouth. - anastrozole (ARIMIDEX) 1 mg tablet Take 1 tablet by mouth once daily. - SAMUEL'S WORT ORAL Take by mouth. - hydrocortisone (HEMORRHOIDAL HC) 25 mg suppository INSERT 1 SUPPOSITORY RECTALLY 3 TIMES A DAY - cholecalciferol (VITAMIN D3) 50 mcg (2,000 unit) tablet Take 1 tablet by mouth once daily. - omeprazole (PRILOSEC) 20 mg capsule Take 20 mg by mouth once daily. - zinc sulfate (ZINC-15 ORAL) Take by mouth. Problem List As Of Date 03/30/2025 Noted Resolved Malignant neoplasm of overlapping sites of righ*09/28/2019 Encounter Status:Closed by PORFIRIO RUCKER on 03/30/25NormalCleveland Clinic ClevelandCBC W Auto Differential panel (Bld)on [id number] (Bld) [#/Vol] 0.05 10*3/uLNIUC West Chester HospitalDifferential cell count method Nom (Bld)Auto [facility]S Medical CenterEosinophils (Bld) [#/Vol]0.08 10*3/uLNINFMercy Health St. Rita'S Medical Center Immature granulocytes (Bld) [#/Vol]NINFClevelAdams County Regional Medical CenterImmature granulocytes/100 WBC (Bld)0.3 %[facility] Rita'S Medical CenterLymphocytes (Bld) [#/Vol]1.51 10*3/[facility] OhioMonocytes (Bld) [#/Vol]0.36 10*3/uLNIUC West Chester HospitalNeutrophils (Bld) [#/Vol]3.95 10*3/[facility] OhioNucleated RBC (Bld) [#/Vol]NINFCleveland ClinicNucleated RBC/100 WBC (Bld) [Ratio]0 %/[address] Rita'S Medical CenterPlatelet mean volume (Bld) [Entitic vol]9.4 fL9.0 - 12.7 fLClevelatrium health pineville ClinicPlatelets (Bld) [#/Vol]247 10*3/[facility] OhioWBC (Bld) [#/Vol]5.97 10*3/[facility] OhioBasophils (Bld) [#/Vol]0.05 10*3/uLNormal<0.11CCincinnati VA Medical Center Comment on above:Order Comment: Specimen Type: BLOOD SPECIMEN Ordering Facility: [facility] Address: [address] [place], [place] [address]Performed By: #### 14493-3 #### [facility] CLIA [id number] [address] [place] [address] 97076Rmxqkhskd/100 WBC (Bld)0.8 %NormalOhiohealth Hardin Memorial Hospital Comment on above:Order Comment: Specimen Type: BLOOD SPECIMEN Ordering Facility: [facility] Address: [address] [place], [place] [address]Performed By: #### 85191-3 #### [facility] CLIA [id number] [address] [place] [address] 17731Akiiegguxfgo cell count method Nom (Bld)AutoNormalClevelLancaster Municipal Hospital on above:Order Comment: Specimen Type: BLOOD SPECIMEN Ordering Facility: [facility] Address: [address] [place], [place] [address]Performed By: #### 08247-7 #### [facility] CLIA [id number] [address] [place] [address] 68948Tygowujquln (Bld) [#/Vol]0.08 10*3/uLNormal<0.46[facility] on above:Order Comment: Specimen Type: BLOOD SPECIMEN Ordering Facility: [facility] Address: [address] [place], [place] [address]Performed By: #### 12294-4 #### [facility] CLIA [id number] [address] [place] [address] 26748Glllrpokvqg/100 WBC (Bld)1.3 %NormalOhiohealth Hardin Memorial Hospital Comment on above:Order Comment: Specimen Type: BLOOD SPECIMEN Ordering Facility: [facility] Address: [address] [place], [place] [address]Performed By: #### 70026-4 #### [facility] CLIA [id number] [address] [place] [address] 89741Wkmrwspltnp distribution width (RBC) [Ratio]14.2 %Normal 11.5-15.0[facility] on above:Order Comment: Specimen Type: BLOOD SPECIMEN Ordering Facility: [facility] Address: [address] [place], [place] [address]Performed By: #### 72759-0 #### [facility] CLIA [id number] [address] [place] [address] 93748Qgdxnimrig (Bld) [Volume fraction]40.1 %Nmmplv54.0-46.0 [facility] on above:Order Comment: Specimen Type: BLOOD SPECIMEN Ordering Facility: [facility] Address: [address] [place], [place] [address]Performed By: #### 13082-2 #### [facility] CLIA [id number] [address] [place], [place] [address]Wayvfxldbc (Bld) [Mass/Vol]13.3 g/nYLiaoui22.5-15.5CCincinnati VA Medical Center on above:Order Comment: Specimen Type: BLOOD SPECIMEN Ordering Facility: [facility] Address: [address] [place], [place] [address]Performed By: #### 29027-0 #### [facility] CLIA [id number] [address] [place] [address] 25057Yszpsyjv granulocytes (Bld) [#/Vol]10*3/uLNormal<0.10[facility] on above:Order Comment: Specimen Type: BLOOD SPECIMEN Ordering Facility: [facility] Address: [address] [place], [place] [address]Performed By: #### 10725-0 #### [facility] CLIA [id number] [address] [place] [address] 69334Kawsinze granulocytes/100 WBC (Bld)0.3 %NormalSelect Medical [facility]Health [facility] on above:Order Comment: Specimen Type: BLOOD SPECIMEN Ordering Facility: [facility] Address: [address] [place], [place] [address]Performed By: #### 74637-6 #### [facility] CLIA [id number] [address] [place] [address] 58531Kznppzywxpd (Bld) [#/Vol]1.51 10*3/uLNormal1.00-4.00[facility] on above:Order Comment: Specimen Type: BLOOD SPECIMEN Ordering Facility: [facility] Address: [address] [place], [place] [address]Performed By: #### 53578-1 #### [facility] CLIA [id number] [address] [place] [address] 12831Xqozxinpzsx/100 WBC (Bld)25.3 %NormalCleveland Clinic ClevelandComment on above:Order Comment: Specimen Type: BLOOD SPECIMEN Ordering Facility: [facility] Address: [address] [place], [place] [address]Performed By: #### 09156-8 #### [facility] CLIA [id number] [address] [place] [address] 28512PMD (RBC) [Entitic mass]33.0 pcYqchpc50.0-34.0[facility] on above:Order Comment: Specimen Type: BLOOD SPECIMEN Ordering Facility: [facility] Address: [address] [place], [place] [address]Performed By: #### 61153-8 #### [facility] CLIA [id number] [address] [place] [address] 99385YFED (RBC) [Mass/Vol]33.2 g/mQAxwtvk27.5-36.0[facility] on above:Order Comment: Specimen Type: BLOOD SPECIMEN Ordering Facility: [facility] Address: [address] [place], [place] [address]Performed By: #### 23397-4 #### [facility] CLIA [id number] [address] [place] [address] 57614NYT (RBC) [Entitic vol]99.5 oGGbxrpu38.0-100.0[facility] on above:Order Comment: Specimen Type: BLOOD SPECIMEN Ordering Facility: [facility] Address: [address] [place], [place] [address]Performed By: #### 24595-2 #### [facility] CLIA [id number] [address] [place] [address] 68297Vbbhxtpfp (Bld) [#/Vol]0.36 10*3/uLNormal<0.87[facility] on above:Order Comment: Specimen Type: BLOOD SPECIMEN Ordering Facility: [facility] Address: [address] [place], [place] [address]Performed By: #### 45596-0 #### [facility] CLIA [id number] [address] [place] [address] 21070Yntwctjfp/100 WBC (Bld)6.0 %NormalOhiohealth Hardin Memorial Hospital Comment on above:Order Comment: Specimen Type: BLOOD SPECIMEN Ordering Facility: [facility] Address: [address] [place], [place] [address]Performed By: #### 53904-4 #### [facility] CLIA [id number] [address] [place] [address] 28489Jwrjuqnfzdd (Bld) [#/Vol]3.95 10*3/uLNormal1.45-7.50[facility] on above:Order Comment: Specimen Type: BLOOD SPECIMEN Ordering Facility: [facility] Address: [address] [place], [place] [address]Performed By: #### 26360-1 #### [facility] CLIA [id number] [address] [place] [address] 84421Ffjufenvqev/100 WBC (Bld)66.3 %NormalSelect Medical [facility] on above:Order Comment: Specimen Type: BLOOD SPECIMEN Ordering Facility: [facility] Address: [address] [place], [place] [address]Performed By: #### 44644-7 #### [facility] CLIA [id number] [address] [place] [address] 43939Zpilozjjw RBC (Bld) [#/Vol]10*3/uLNormal<0.01[facility] on above:Order Comment: Specimen Type: BLOOD SPECIMEN Ordering Facility: [facility] Address: [address] [place], [place] [address]Performed By: #### 12476-8 #### [facility] CLIA [id number] [address] [place] [address] 09712Xrswnexrb RBC/100 WBC (Bld) [Ratio]0.0 /100 WBCNormalCCincinnati VA Medical Center on above:Order Comment: Specimen Type: BLOOD SPECIMEN Ordering Facility: [facility] Address: [address] [place], [place] [address]Performed By: #### 57238-2 #### [facility] CLIA [id number] [address] [place], [place] [address]Ueohfcqv mean volume (Bld) [Entitic vol]9.4 fLNormal9.0-12.7 [facility] on above:Order Comment: Specimen Type: BLOOD SPECIMEN Ordering Facility: [facility] Address: [address] [place], [place] [address]Performed By: #### 38136-9 #### [facility] CLIA [id number] [address] [place], [place] [address]Ypbdglnsm (Bld) [#/Vol]247 10*3/hVOzhadd461-232PyqiwnjidSelect Medical [facility] on above:Order Comment: Specimen Type: BLOOD SPECIMEN Ordering Facility: [facility] Address: [address] [place], [place] [address]Performed By: #### 94083-5 #### [facility] CLIA [id number] [address] [place] [address] 82016PPX (Bld) [#/Vol]4.03 10*6/uLNormal3.90-5.20[facility] on above:Order Comment: Specimen Type: BLOOD SPECIMEN Ordering Facility: [facility] Address: [address] [place], [place] [address]Performed By: #### 42123-5 #### [facility] CLIA [id number] [address] [place] [address] 76040GJM (Bld) [#/Vol]5.97 10*3/uLNormal3.70-11.00[facility] on above:Order Comment: Specimen Type: BLOOD SPECIMEN Ordering Facility: [facility] Address: [address] [place], [place] [address]Performed By: #### 73582-5 #### [facility] CLIA [id number] [address] [place] [address] 23002BPF CBC W AUTO DIFF BLDon [id number] BASOPHILS # BLD AUTO 0.05NINFNOWashington County Memorial HospitalF DIFFERENTIAL METHOD BLDAutoNOMS HealthcareF EOSINOPHIL # BLD AUTO0.08NINFNOMS HealthcareF LYMPHOCYTES # BLD AUTO1.51NOMS [facility] Medical CenterF MONOCYTES # BLD AUTO0.36NINFNOWashington County Memorial HospitalF NEUTROPHILS # BLD AUTO3.95NOWashington County Memorial HospitalF NRBC # BLD AUTO<0.01NINFNOWashington County Memorial HospitalF NRBC/100 WBC BLD-RTO0/100 WBCNOSelect Specialty Hospital PLATELET # BLD JYHI592SHOESelect Specialty Hospital PMV BLD AUTO9.4 fL9.0 - 12.7 fLNOWashington County Memorial HospitalF WBC # BLD AUTO5.97NOCox MonettIMM GRANULOCYTES # BLD AUTO<0.03NINFCitizens Memorial Healthcare GRANULOCYTES/LEUK NFR BLD AUTO0.3 %NOMS HealthcareSpecimen Type: BLOOD SPECIMEN Ordering Facility: [facility] Address: [address] [place] [address] Original Ordering Provider: WILVER Tripp [id number] Visit (SP) Office ([place]) YOBANYERNESTINA Shanta ([id number]) 1940 F Date Time Provider Department 03/01/25 2:40 PM WILVER DISLA During your visit today, we recorded the following information about you: Temperature Pulse Respiration Blood pressure 97.9 degrees 75/minute 20/minute 134/84 Weight Height 86.2 kg 1.581 Wilver Downs MD 03/06/2025 5:02 PM Signed PATIENT NAME: Ernestina Costa DATE: 03/01/2025 PRIMARY CARE PHYSICIAN: Dr. Kade Huynh OTHER PHYSICIANS: Dr. Chambers, Dr. Bhakti Glaser ([facility] [place]) Portions of this encounter note have been copied from the note from 08/07/2024 and has been updated where appropriate, and reflect my current medical decision making from today. CC: This is an 84 year old female with a history of breast cancer, seen for scheduled follow-up. INTERIM HISTORY: Since the patient's last visit here she has had no significant medical changes. She has noticed no changes in her breasts. No unexpected pain or other systemic symptoms. She remains on Arimidex which she is tolerating well. Other than the hot flashes she has had no apparent adverse effects. MEDICATIONS: pseudoephedrine HCl (SUDAFED ORAL) Take by mouth. docusate sodium (COLACE ORAL) Take by mouth. polyethylene glycol 3350 (MIRALAX ORAL) Take by mouth. anastrozole (ARIMIDEX) 1 mg tablet Take 1 tablet by mouth once daily. SAMUEL'S WORT ORAL Take by mouth. hydrocortisone (HEMORRHOIDAL HC) 25 mg suppository INSERT 1 SUPPOSITORY RECTALLY 3 TIMES A DAY cholecalciferol (VITAMIN D3) 50 mcg (2,000 unit) tablet Take 1 tablet by mouth once daily. omeprazole (PRILOSEC) 20 mg capsule Take 20 mg by mouth once daily. zinc sulfate (ZINC-15 ORAL) Take by mouth. ALLERGIES: Patient has no [...] and axilla tenderness PHYSICAL EXAM: Vitals: BP 134/84 Pulse 75 Temp 36.6 ?C (97.9 ?F) (Temporal) Resp 20 Ht 158.1 cm (5' 2.24 ) Wt 86.2 kg (190 lb 0.6 oz) SpO2 100% BMI 34.49 kg/m? ECOG 0 General: Alert and oriented, [...] the right outer quadrant. Left breast normal. 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 The invasive carcinoma measures 1.5 cm in greatest dimension. It focally involved the inferior margin. The remaining margins are free of neoplasm. One sentinel lymph node biopsied, with evidence of metastasis measuring 4 mm in greatest dimension. Minute focus of extranodal extension measuring approximately 0.1 mm is identified. LABORATORY DATA: Hemoglobin (g/dL) Date Value 03/01/2025 13.3 08/12/2021 13.7 Hematocrit (%) Date Value 03/01/2025 40.1 08/12/2021 42.2 WBC (k/uL) Date Value 03/01/2025 5.97 08/12/2021 6.69 Platelet Count (k/uL) Date Value 03/01/2025 247 08/12/2021 266 RADIOLOGIC DATA: 08/10/2024 Bone density DEXA ([facility]) Osteopenia. Max T-score -1.9 femur 07/31/2024 Bilateral screening mammogram ([facility]) Benign finding. Recommend routine mammogram in 12 months. 03/11/2023 Right diagnostic mammogram and ultrasound ([facility]) Ultrasound evaluation demonstrates a calcified mass within the axillary tail corresponding to the patient's palpable lump, 2.1 x 0.9 x 1.1 cm. No cristina (more content not included)...NormalUpper Valley Medical Centerprepresbyterian santa [facility] center metabolic 2000 panelOrdered By: Brown Floresy on 84-88-6878Kppeile [Mass/Vol]3.8 g/dLLow3.9 - 4.9 g/dLCooper ClinicALP [Catalytic activity/Vol]105 U/L34 - 123 U/LCleveland ClinicALT [Catalytic activity/Vol]12 U/L7 - 38 U/LCleveland Clinic Anion gap [Moles/Vol]9 mmol/L8 - 15 mmol/LCleveland ClinicAST [Catalytic activity/Vol]11 U/LLow13 - 35 U/LCleveland ClinicBilirubin [Mass/Vol]0.5 mg/dL 0.2 - 1.3 mg/dLCooper ClinicCalcium [Mass/Vol]9.4 mg/dL8.5 - 10.2 mg/dL Cooper ClinicChloride [Moles/Vol]104 mmol/L98 - 107 mmol/LCleveland ClinicCO2 [Moles/Vol]24 mmol/L22 - 30 mmol/LCleveland ClinicCreatinine [Mass/Vol]0.76 mg/dL0.58 - 0.96 mg/dLCooper ClinicGFR/1.73 sq M.predicted among non-blacks MDRD (S/P/Bld) [Vol rate/Area]77 mL/min/{1.73_m2}- PINleveland Red [facility] HospitalComment on above:Estimated Glomerular Filtration Rate (eGFR) is calculated using the 2020 CKD-EPI creatinine equation. This equation utilizes serum creatinine, sex, and age as parameters. The creatinine assay has traceable calibration to isotope dilution-mass spectrometry. Refer to KDIGO guidelines for clinical inte rpretation. In patients with unstable renal function, e.g. those with acute kidney injury, the eGFRmay not accurately reflect actual GFR.Glucose [Mass/Vol] 120 mg/eOExxw27 - 99 mg/dLMercy Health St. Rita'S Medical CenterComment on above:The [place] Diabetes Association (ADA) provides guidance for cutoff [...] Standards of Medical Care in Diabetes 2016, [place] [employer]. Diabetes Care. 2016.39(Suppl 1). Interpretation and review of laboratory resultsAbnormalCleveland ClinicPotassium [Moles/Vol]3.7 mmol/L3.7 - 5.1 mmol/LClevelatrium health pineville ClinicProtein [Mass/Vol]7.6 g/dL 6.3 - 8.0 g/dLCooper ClinicSodium [Moles/Vol]137 mmol/L136 - 144 mmol/L [facility] Rita'S Medical CenterUrea nitrogen [Mass/Vol]20 mg/dL7 - 21 mg/dLMercy Health St. Elizabeth Boardman Hospitalprehensive metabolic 2000 panelon 42-40-0813Lqmmnlr [Mass/Vol]3.8 g/dLLow3.9-4.9CCincinnati VA Medical Center on above:Order Comment: Specimen Type: BLOOD SPECIMEN Ordering Facility: [facility] Address: [address] [place], [place] [address]Performed By: #### 17007-0 #### [facility] CLIA [id number] [address] [place] [address] 23283UJN [Catalytic activity/Vol]105 U/HXeznqr32-256PywhzywxqSelect Medical [facility] on above:Order Comment: Specimen Type: BLOOD SPECIMEN Ordering Facility: [facility] Address: [address] [place], [place] [address]Performed By: #### 36150-9 #### [facility] CLIA [id number] [address] [place], [place] [address]CTC [Catalytic activity/Vol]12 U/LNormal7-38[facility] on above:Order Comment: Specimen Type: BLOOD SPECIMEN Ordering Facility: [facility] Address: [address] [place], [place] [address]Performed By: #### 10510-9 #### [facility] CLIA [id number] [address] [place], [place] [address]Jadgr gap [Moles/Vol]9 mmol/LNormal8-15[facility] on above:Order Comment: Specimen Type: BLOOD SPECIMEN Ordering Facility: [facility] Address: [address] [place], [place] [address]Performed By: #### 12514-7 #### [facility] CLIA [id number] [address] [place], [place] [address]SAA [Catalytic activity/Vol]11 U/ONkq73-79EiflwikvkSelect Medical [facility] on above:Order Comment: Specimen Type: BLOOD SPECIMEN Ordering Facility: [facility] Address: [address] [place], [place] [address]Performed By: #### 82232-6 #### [facility] CLIA [id number] [address] [place], [place] [address]Orzbajwsw [Mass/Vol]0.5 mg/dLNormal0.2-1.3CCincinnati VA Medical Center on above:Order Comment: Specimen Type: BLOOD SPECIMEN Ordering Facility: [facility] Address: [address] [place], [place] [address]Performed By: #### 79571-2 #### [facility] CLIA [id number] [address] [place] [address] 51492Uojtjer [Mass/Vol]9.4 mg/dLNormal8.5-10.2CCincinnati VA Medical Center on above:Order Comment: Specimen Type: BLOOD SPECIMEN Ordering Facility: [facility] Address: [address] [place], [place] [address]Performed By: #### 85448-2 #### [facility] CLIA [id number] [address] [place], [place] [address]Rkixraup [Moles/Vol]104 mmol/NCdjpyn02-915TtdxobpybSelect Medical [facility] on above:Order Comment: Specimen Type: BLOOD SPECIMEN Ordering Facility: [facility] Address: [address] [place], [place] [address]Performed By: #### 20739-3 #### [facility] CLIA [id number] [address] [place], [place] [address]UU7 [Moles/Vol]24 mmol/NJoznup65-86TgpkpgeotOhiohealth Hardin Memorial Hospital Comment on above:Order Comment: Specimen Type: BLOOD SPECIMEN Ordering Facility: [facility] Address: [address] [place], [place] [address]Performed By: #### 19844-7 #### [facility] CLIA [id number] [address] [place] [address] 85653Rydbylwmxu [Mass/Vol]0.76 mg/dLNormal0.58-0.96Ohiohealth Hardin Memorial HospitalComment on above:Order Comment: Specimen Type: BLOOD SPECIMEN Ordering Facility: [facility] Address: [address] [place], [place] [address]Performed By: #### 68123-2 #### [facility] CLIA [id number] [address] [place] [address] 71092Pmoiglrcza and Glomerular filtration rate.predicted panel (S/P/Bld)77 mL/min/1.73m???Normal>=60Ohiohealth Hardin Memorial HospitalComment on above: Order Comment: Specimen Type: BLOOD SPECIMEN Ordering Facility: [facility] Address: [address] [place], [place] [address]Result Comment: Estimated Glomerular Filtration Rate (eGFR) is calculated using the 2020 CKD-EPI cre atinine equation. This equation utilizes serum creatinine, sex, and age as parameters. The creatinine assay has traceable calibration to isotope dilution- mass spectrometry. Refer to KDIGO guidelines for clinical interpretation. In patients with unstable renal function, e.g. those with acute kidney injury, the eGFR may not accurately reflect actual GFR.Performed By: #### 15110-5 #### [facility] CLIA [id number] [address] [place] [address] 12250Ekunftj [Mass/Vol]120 mg/mAQjme91-83NuumbxzstOhiohealth Hardin Memorial Hospital Comment on above:Order Comment: Specimen Type: BLOOD SPECIMEN Ordering Facility: [facility] Address: [address] [place], [place] [address]Result Comment: The [place] Diabetes Association (ADA) provides guidance for cutoff [...] Standards of Medical Care in Diabetes 2016, [place] [employer]. Diabetes Care. 2016.39(Suppl 1).Performed By: #### 16878-1 #### [facility] CLIA [id number] [address] [place] [address] 83294Phwkcmwhp [Moles/Vol]3.7 mmol/LNormal3.7-5.1CCincinnati VA Medical Center on above:Order Comment: Specimen Type: BLOOD SPECIMEN Ordering Facility: [facility] Address: [address] [place], [place] [address]Performed By: #### 56778-2 #### [facility] CLIA [id number] [address] [place] [address] 31958Guwplrn [Mass/Vol]7.6 g/dLNormal6.3-8.0[facility] on above:Order Comment: Specimen Type: BLOOD SPECIMEN Ordering Facility: [facility] Address: [address] [place], [place] [address]Performed By: #### 54002-5 #### [facility] CLIA [id number] [address] [place] [address] 54537Rypfpa [Moles/Vol]137 mmol/ZVroabr907-153TrmsjdmcdSelect Medical [facility] on above:Order Comment: Specimen Type: BLOOD SPECIMEN Ordering Facility: [facility] Address: [address] [place], [place] [address]Performed By: #### 96269-1 #### [facility] CLIA [id number] [address] [place] [address] 11865Ahcx nitrogen [Mass/Vol]20 mg/dLNormal7-21[facility] on above:Order Comment: Specimen Type: BLOOD SPECIMEN Ordering Facility: [facility] Address: [place], [place] [address]Tgxrsxwux By: #### 05288-8 #### [facility] CLIA [id number] [address] [place] [address] 15225Bcuscgabhu - Hematology and Cell countson 03-01-2025 Basophils/100 WBC (Bld)0.8 %NOMS HealthcareEosinophils/100 WBC (Bld)1.3 %[facility] CenterErythrocyte distribution width (RBC) [Ratio]14.2 %11.5 - 15.0 %[facility] Health CenterHematocrit (Bld) [Volume fraction]40.1 %36.0 - 46.0 %[facility] Hemoglobin (Bld) [Mass/Vol]13.3 g/dL11.5 - 15.5 g/dLLafayette Regional Health Center Lymphocytes/100 WBC (Bld)25.3 %[facility] Health CenterMCH (RBC) [Entitic mass]33 pg26.0 - 34.0 pgLafayette Regional Health CenterMCHC (RBC) [Mass/Vol]33.2 g/dL30.5 - 36.0 g/dLLafayette Regional Health CenterMCV (RBC) [Entitic vol]99.5 fL80.0 - 100.0 fLLafayette Regional Health Center Monocytes/100 WBC (Bld)6 %[facility] CenterNeutrophils/100 WBC (Bld)66.3 %[facility] CenterRBC (Bld) [#/Vol]4.03 10*6/uL3.90 - 5.20 m/uLLafayette Regional Health CenterNo Panel Informationon [id number] HealthcareCNPNon 35-62-2156WHSTXxtilvkxw ([place]) ERNESTINA COSTA ([id number]) 1940 F Date Time Provider Department 09/01/24 PORFIRIO RUCKER VALENTIN During your visit today, we recorded the following information about you: Porfirio Rucker RN 09/01/2024 2:48 PM Signed Pt called to inquire if she needs to up her meds d/t her bone density diminishing. She states Dr Huynh asked me to call and discuss with Dr Disla. Pt will be traveling to home in [place] early next week and does not have a cell phone. She will call this RN when she gets to her [place] home (mobile phone is her [place]#) for Dr Disla's response. BRM: Please review and advise ALAD Andrew Brian R, MD 09/03/2024 6:16 PM Signed The patient's bone density is essentially normal/mild osteopenia. She should take standard doses of vitamin D and calcium, as well as exercise. Typically I do not recommend bisphosphonates for osteopenia (risk outweighs the benefit). However, she could discuss with her PCP whether or not they wish to be aggressive and start bone strengtheners . Porfirio Rucker RN 09/04/2024 9:58 AM Signed VM left on pt [facility] phone. Encouraged to call with any further questions, needs or concerns. Porfirio Rucker RN Allergies As of Date: 09/01/2024 (No Known Allergies) Date Reviewed: 08/07/2024 Reviewed by: Maria M Leija MA - Fully Assessed Reason for Visit: F/U on Bone Density Results [1260] Prescriptions as of 09/04/2024 - pseudoephedrine HCl (SUDAFED ORAL) Take by mouth. - docusate sodium (COLACE ORAL) Take by mouth. - polyethylene glycol 3350 (MIRALAX ORAL) Take by mouth. - anastrozole (ARIMIDEX) 1 mg tablet Take 1 tablet by mouth once daily. - SAMUEL'S WORT ORAL Take by mouth. - hydrocortisone (HEMORRHOIDAL HC) 25 mg suppository INSERT 1 SUPPOSITORY RECTALLY 3 TIMES A DAY - cholecalciferol (VITAMIN D3) 50 mcg (2,000 unit) tablet Take 1 tablet by mouth once daily. - omeprazole (PRILOSEC) 20 mg capsule Take 20 mg by mouth once daily. - zinc sulfate (ZINC-15 ORAL) Take by mouth. Problem List As Of Date 09/01/2024 Noted Resolved Malignant neoplasm of overlapping sites of righ*09/28/2019 Encounter Status:Closed by PORFIRIO RUCKER on 09/04/24[facility]XR DEXA AXIAL SKELETONon [id number] [address] XRay Report Signed Patient: ERNESTINA COSTA MR#: [id number] : 1940 Acct:[id number] Age/Sex: 83 / F ADM Date: 08/10/24 Loc: RAD Attending Dr: WILVER DISLA Ordering Physician: WILVER DISLA Date of Service: 08/10/24 Procedure(s): XR DEXA axial skeleton Accession Number(s): [id number] cc: KADE HUYNH ; WILVER DISLA [address] [address] Patient Name: ERNESTINA COSTA MRN: [id number] date: 1940 Sex: F Assigned Patient Location: [facility] Current Patient Location: Accession/Order Number: [id number] Exam Date: 08/10/2024 15:00 Report Date: 08/11/2024 05:51 At the request of: WILVER DISLA Procedure: XR DEXA axial skeleton EXAMINATION: XR [...] Organization Classification: Osteopenia - Moderate Fracture Risk FRAX: Cannot be calculated. Pharmacologic treatment recommendations * No uniform recommendation applies to all patients. Management plans must be individualized. * Consider initiating pharmacologic treatment in postmenopausal women and men >= 50 years of age who have the following: Primary fracture prevention: * T-score <= - 2.5 at the femoral neck, total hip, lumbar spine, 33% radius (some uncertainty with existing data) by DXA. * Low bone mass (osteopenia: T-score between - 1.0 and - 2.5) at the femoral neck or total hip by DXA with a 10-year hip fracture risk >= 3% or a 10-year major osteoporosis-related fracture risk >= 20% (i.e., clinical vertebral, hip, forearm, or proximal humerus) based on the US-adapted FRAXregistered model. Secondary fracture prevention: * Fracture of the hip or vertebra regardless of BMD [4, 5]. * Fracture of proximal humerus, pelvis, or distal forearm in persons with low bone mass (osteopenia: T-score between - 1.0 and - 2.5). The decision to treat should be individualized in persons with a fracture of the proximal humerus, pelvis, or distal forearm who do not have osteopenia or low BMD [12, 13]. Lisa MS, Piper SL, David KL, Yeison EM, Tere KG, AJ, Lorena ES. The clinician's guide to prevention and treatment of osteoporosis. Osteoporos Int. 2021;33(10):3501-5399. doi: 10.1007/w48269-834-44631-u. Epub 2021Jan 15. Erratum in: Osteoporos Int. 2021Apr 16;: PMID: 91654795; PMCID: [id number]. Electronically authenticated by: GRACE TAMEZ Date: 08/11/2024 05:51 Dictated By: Grace Tamez M.D. Signed By: 08/11/24 0554 DD/ 0551 TD/TT: [employer] Merchandiser:TBHRadiology, Radiologist, - 08/11/2024 [place] [address] XRay Report Signed Patient: ERNESTINA COSTA MR#: [id number] : 1940 Acct:[id number] Age/Sex: 83 / F ADM Date: 08/10/24 Loc: RAD Attending Dr: WILVER DISLA Ordering Physician: WILVER DISLA Date of Service: 08/10/24 Procedure(s): XR DEXA axial skeleton Accession Number(s): [id number] cc: KADE HUYNH ; WILVER DISLA [place] [address] Patient Name: ERNESTINA COSTA MRN: [facility]:[id number] date: 1940 Sex: F Assigned Patient Location: [facility] Current Patient Location: Accession/Order Number: [id number] Exam Date: 08/10/2024 15:00 Report Date: 08/11/2024 05:51 At the request of: WILVER DISLA Procedure: XR DEXA axial skeleton EXAMINATION: XR [...] Organization Classification: Osteopenia - Moderate Fracture Risk FRAX: Cannot be calculated. Pharmacologic treatment recommendations * No uniform recommendation applies to all patients. Management plans must be individualized. * Consider initiating pharmacologic treatment in postmenopausal women and men >= 50 years of age who have the following: Primary fracture prevention: * T-score <= - 2.5 at the femoral neck, total hip, lumbar spine, 33% radius (some uncertainty with existing data) by DXA. * Low bone mass (osteopenia: T-score between - 1.0 and - 2.5) at the femoral neck or total hip by DXA with a 10-year hip fracture risk >= 3% or a 10-year major osteoporosis-related fracture risk >= 20% (i.e., clinical vertebral, hip, forearm, or proximal humerus) based on the US-adapted FRAXregistered model. Secondary fracture prevention: * Fracture of the hip or vertebra regardless of BMD [4, 5]. * Fracture of proximal humerus, pelvis, or distal forearm in persons with low bone mass (osteopenia: T-score between - 1.0 and - 2.5). The decision to treat should be individualized in persons with a fracture of the proximal humerus, pelvis, or distal forearm who do not have osteopenia or low BMD [12, 13]. Lisa MS, Piper SL, David KL, Yeison EM, Tere KG, AJ, Lorena ES. The clinician's guide to prevention and treatment of osteoporosis. Osteoporos Int. 2021;33(10):2688-1928. doi: 10.1007/q66984-769-31645-s. Epub 2021Jan 15. Erratum in: Osteoporos Int. 2021Apr 16;: PMID: 63917873; PMCID: [id number]. Electronically authenticated by: GRACE TAMEZ Date: 08/11/2024 05:51 Dictated By: Grace Tamez M.D. Signed By: 08/11/2454 DD/ TD/TT: [employer]ate [employer] Merchandiser: TY HealthcareRadiology Study observation (narrative)[facility] CenterXR DEXA AXIAL SKELETONOrdered By: Radiologist Radiology on [id number] Healthcare Work Phone: cbc W Auto Differential panel (Bld)on 08-07-2024 Basophils (Bld) [#/Vol]0.05 10*3/uLNormal<0.11CCincinnati VA Medical CenterComment on above:Order Comment: Specimen Type: BLOOD SPECIMEN Ordering Facility: [facility] Address: [address] [place] [address] 437[address]Hnbgkegsb By: #### 00050-0 #### [facility] CLIA [id number] [address] [place] [address] 94943Muemukdkr/100 WBC (Bld)0.5 %NormalOhiohealth Hardin Memorial Hospital Comment on above:Order Comment: Specimen Type: BLOOD SPECIMEN Ordering Facility: [facility] Address: [address] [place], [place] [address]Performed By: #### 79458-3 #### [facility] CLIA [id number] [address] [place], [place] [address]Hlhccsxiyzkj cell count method Nom (Bld)AutoNormalClevelFormerly Vidant Roanoke-Chowan HospitalComment on above:Order Comment: Specimen Type: BLOOD SPECIMEN Ordering Facility: [facility] Address: [address] [place], [place] [address]Performed By: #### 66622-1 #### [facility] CLIA [id number] [address] [place] [address] 84347Xcoctgxncnk (Bld) [#/Vol]0.10 10*3/uLNormal<0.46[facility] on above:Order Comment: Specimen Type: BLOOD SPECIMEN Ordering Facility: [facility] Address: [address] [place], [place] [address]Performed By: #### 36830-3 #### [facility] CLIA [id number] [address] [place] [address] 21722Vtpiofxdoys/100 WBC (Bld)1.0 %NormalOhiohealth Hardin Memorial Hospital Comment on above:Order Comment: Specimen Type: BLOOD SPECIMEN Ordering Facility: [facility] Address: [address] [place], [place] [address]Performed By: #### 03373-9 #### [facility] CLIA [id number] [address] [place] [address] 24267Mqlunjsvhfn distribution width (RBC) [Ratio]14.5 %Normal 11.5-15.0[facility] on above:Order Comment: Specimen Type: BLOOD SPECIMEN Ordering Facility: [facility] Address: [address] [place], [place] [address]Performed By: #### 51897-8 #### [facility] CLIA [id number] [address] [place], [place] [address]Vnawmgfbam (Bld) [Volume fraction]41.4 %Qirgfx04.0-46.0 [facility] on above:Order Comment: Specimen Type: BLOOD SPECIMEN Ordering Facility: [facility] Address: [address] [place], [place] [address]Performed By: #### 03232-4 #### [facility] CLIA [id number] [address] [place] [address] 93824Obigwyhoqh (Bld) [Mass/Vol]14.0 g/hDAknycn34.5-15.5CCincinnati VA Medical Center on above:Order Comment: Specimen Type: BLOOD SPECIMEN Ordering Facility: [facility] Address: [address] [place], [place] [address]Performed By: #### 98464-5 #### [facility] CLIA [id number] [address] [place] [address] 00409Abvdkfsb granulocytes (Bld) [#/Vol]0.03 10*3/uLNormal<0.10 [facility] on above:Order Comment: Specimen Type: BLOOD SPECIMEN Ordering Facility: [facility] Address: [address] [place], [place] [address]Performed By: #### 12229-8 #### [facility] CLIA [id number] [address] [place] [address] 29580Jgitrsqa granulocytes/100 WBC (Bld)0.3 %NormalSelect Medical [facility] on above:Order Comment: Specimen Type: BLOOD SPECIMEN Ordering Facility: [facility] Address: [address] [place], [place] [address]Performed By: #### 58010-0 #### [facility] CLIA [id number] [address] [place] [address] 70041Jscuhprcspl (Bld) [#/Vol]1.53 10*3/uLNormal1.00-4.00[facility] on above:Order Comment: Specimen Type: BLOOD SPECIMEN Ordering Facility: [facility] Address: [address] [place], [place] [address]Performed By: #### 50297-8 #### [facility] CLIA [id number] [address] [place], [place] [address]Dkyqwkzeycz/100 WBC (Bld)15.8 %NormalSelect Medical [facility] on above:Order Comment: Specimen Type: BLOOD SPECIMEN Ordering Facility: [facility] Address: [address] [place], [place] [address]Performed By: #### 46899-6 #### [facility] CLIA [id number] [address] [place] [address] 86935YXG (RBC) [Entitic mass]33.5 bwVqingr82.0-34.0[facility] on above:Order Comment: Specimen Type: BLOOD SPECIMEN Ordering Facility: [facility] Address: [address] [place], [place] [address]Performed By: #### 64366-6 #### [facility] CLIA [id number] [address] [place] [address] 41687ARNU (RBC) [Mass/Vol]33.8 g/qDOxofmx81.5-36.0[facility] on above:Order Comment: Specimen Type: BLOOD SPECIMEN Ordering Facility: [facility] Address: [address] [place], [place] [address]Performed By: #### 34627-2 #### [facility] CLIA [id number] [address] [place] [address] 08352JRM (RBC) [Entitic vol]99.0 gIXwoncz21.0-100.0[facility] on above:Order Comment: Specimen Type: BLOOD SPECIMEN Ordering Facility: [facility] Address: [address] [place], [place] [address]Performed By: #### 71845-6 #### [facility] CLIA [id number] [address] [place] [address] 01799Pguocklep (Bld) [#/Vol]0.51 10*3/uLNormal<0.87[facility] on above:Order Comment: Specimen Type: BLOOD SPECIMEN Ordering Facility: [facility] Address: [address] [place], [place] [address]Performed By: #### 15996-0 #### [facility] CLIA [id number] [address] [place] [address] 43705Bpdiemnsn/100 WBC (Bld)5.3 %NormalOhiohealth Hardin Memorial Hospital Comment on above:Order Comment: Specimen Type: BLOOD SPECIMEN Ordering Facility: [facility] Address: [address] [place], [place] [address]Performed By: #### 12631-7 #### [facility] CLIA [id number] [address] [place] [address] 72331Yzhwkmirnea (Bld) [#/Vol]7.49 10*3/uLNormal1.45-7.50[facility] on above:Order Comment: Specimen Type: BLOOD SPECIMEN Ordering Facility: [facility] Address: [address] [place], [place] [address]Performed By: #### 71900-5 #### [facility] CLIA [id number] [address] [place] [address] 52168Cittibqdqph/100 WBC (Bld)77.1 %NormalSelect Medical [facility] on above:Order Comment: Specimen Type: BLOOD SPECIMEN Ordering Facility: [facility] Address: [address] [place], [place] [address]Performed By: #### 88892-3 #### [facility] CLIA [id number] [address] [place] [address] 91367Bdaaqnbsj RBC (Bld) [#/Vol]10*3/uLNormal<0.01[facility] on above:Order Comment: Specimen Type: BLOOD SPECIMEN Ordering Facility: [facility] Address: [address] [place], [place] [address]Performed By: #### 28576-0 #### [facility] CLIA [id number] [address] [place] [address] 02731Tabhyyqxg RBC/100 WBC (Bld) [Ratio]0.0 /100 WBCNormalCCincinnati VA Medical Center on above:Order Comment: Specimen Type: BLOOD SPECIMEN Ordering Facility: [facility] Address: [address] [place], [place] [address]Performed By: #### 23888-9 #### [facility] CLIA [id number] [address] [place], [place] [address]Ufwkbqfc mean volume (Bld) [Entitic vol]9.4 fLNormal9.0-12.7 [facility] on above:Order Comment: Specimen Type: BLOOD SPECIMEN Ordering Facility: [facility] Address: [address] [place], [place] [address]Performed By: #### 94560-5 #### [facility] CLIA [id number] [address] [place], [place] [address]Acjqteftv (Bld) [#/Vol]255 10*3/lSTyocam611-613RrncvywviSelect Medical [facility] on above:Order Comment: Specimen Type: BLOOD SPECIMEN Ordering Facility: [facility] Address: [address] [place], [place] [address]Performed By: #### 57063-7 #### [facility] CLIA [id number] [address] [place] [address] 00177ABY (Bld) [#/Vol]4.18 10*6/uLNormal3.90-5.20[facility] on above:Order Comment: Specimen Type: BLOOD SPECIMEN Ordering Facility: [facility] Address: [address] [place], [place] [address]Performed By: #### 11260-5 #### [facility] CLIA [id number] [address] [place] [address] 49073PCM (Bld) [#/Vol]9.71 10*3/uLNormal3.70-11.00[facility] on above:Order Comment: Specimen Type: BLOOD SPECIMEN Ordering Facility: [facility] Address: [address] [place], [place] [address]Seljsuvar By: #### 37888-5 #### [facility] CLIA [id number] [address] [place] [address] 27615GPC CBC W AUTO DIFF BLDon 37-35-2274Bfhmlereq/100 WBC (Bld)0.5 %[facility] BASOPHILS # BLD AUTO0.05NIClaiborne County Hospital DIFFERENTIAL METHOD BLDAutoNOMCooper County Memorial Hospital EOSINOPHIL # BLD AUTO0.1NINFMissouri Southern Healthcare LYMPHOCYTES # BLD AUTO1.53[facility] MONOCYTES # BLD AUTO0.51NIClaiborne County Hospital NEUTROPHILS # BLD AUTO7.49[facility] NRBC # BLD AUTO<0.01 NINTexas County Memorial Hospital NRBC/100 WBC BLD-RTO0/100 WBCMissouri Southern Healthcare PLATELET # BLD [id number] Southern Healthcare PMV BLD AUTO9.4 fL9.0 - 12.7 fLLafayette Regional Health Center CCF WBC # BLD AUTO9.71[facility] Health CenterEosinophils/100 WBC (Bld)1 %[facility] Erythrocyte distribution width (RBC) [Ratio]14.5 %11.5 - 15.0 %[facility] Hematocrit (Bld) [Volume fraction]41.4 %36.0 - 46.0 %[facility] Health CenterHemoglobin (Bld) [Mass/Vol]14 g/dL11.5 - 15.5 g/dLCitizens Memorial Healthcare GRANULOCYTES # BLD AUTO0.03NISummit Medical Center GRANULOCYTES/LEUK NFR BLD AUTO0.3 %[facility] Health CenterLymphocytes/100 WBC (Bld)15.8 %Kindred HospitalH (RBC) [Entitic mass] 33.5 pg26.0 - 34.0 pgKindred HospitalHC (RBC) [Mass/Vol]33.8 g/dL30.5 - 36.0 g/dLKindred HospitalV (RBC) [Entitic vol]99 fL80.0 - 100.0 fLLafayette Regional Health Center Monocytes/100 WBC (Bld)5.3 %[facility] Health CenterNeutrophils/100 WBC (Bld)77.1 %NOMS [facility] (Bld) [#/Vol]4.18 10*6/uL3.90 - 5.20 shanta/Suellen [facility] HospitalSpecimen Type: BLOOD SPECIMEN Ordering Facility: [facility] Address: [place] [address] Original Ordering Provider: ROSALINA DINHBarnes-Jewish HospitalOVSPon 02-15-2315CIAGQIOmiir (SP) Office ([place]) ERNESTINA COSTA ([id number]) 1940 F Date Time Provider Department 08/07/24 3:00 PM WILVER DISLA During your visit today, we recorded the following information about you: Temperature Pulse Respiration Blood pressure 97.4 degrees 78/minute 18/minute 130/82 Weight Height 88.8 kg 1.582 m Wilver Disla MD 08/08/2024 5:07 PM Signed PATIENT NAME: Ernestina Costa DATE: 08/07/2024 PRIMARY CARE PHYSICIAN: Dr. Kade Huynh OTHER PHYSICIANS: Dr. Chambers, Dr. Bhakti Glaser ([facility] [place]) Portions of this encounter note have been copied from the note from 03/28/2024 and has been updated where appropriate, and reflect my current medical decision making from today. CC: This is an 83 year old female with a history of breast cancer, seen for scheduled follow-up. INTERIM HISTORY: Since the patient's last visit here she has had no significant medical changes. She has noticed no changes in her breasts. No unexpected pain or other systemic symptoms. She remains on Arimidex which she is tolerating well. Other than the hot flashes she has had no apparent adverse effects. She plans to go to [facility] next month where she will spend the winter, and anticipates return to [place] in January 2025. MEDICATIONS: pseudoephedrine HCl (SUDAFED ORAL) Take by mouth. docusate sodium (COLACE ORAL) Take by mouth. polyethylene glycol 3350 (MIRALAX ORAL) Take by mouth. anastrozole (ARIMIDEX) 1 mg tablet Take 1 tablet by mouth once daily. SAMUEL'S WORT ORAL Take by mouth. hydrocortisone (HEMORRHOIDAL HC) 25 mg suppository INSERT 1 SUPPOSITORY RECTALLY 3 TIMES A DAY cholecalciferol (VITAMIN D3) 50 mcg (2,000 unit) tablet Take 1 tablet by mouth once daily. omeprazole (PRILOSEC) 20 mg capsule Take 20 mg by mouth once daily. zinc sulfate (ZINC-15 ORAL) Take by mouth. ALLERGIES: Patient has no [...] and axilla tenderness PHYSICAL EXAM: Vitals: BP 130/82 Pulse 78 Temp 36.3 ?C (97.4 ?F) (Temporal) Resp 18 Ht 158.2 cm (5' 2.29 ) Wt 88.8 kg (195 lb 12.3 oz) SpO2 98% BMI 35.48 kg/m? 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 The invasive carcinoma measures 1.5 cm in greatest dimension. It focally involved the inferior margin. The remaining margins are free of neoplasm. One sentinel lymph node biopsied, with evidence of metastasis measuring 4 mm in greatest dimension. Minute focus of extranodal extension measuring approximately 0.1 mm is identified. LABORATORY DATA: Hemoglobin (g/dL) Date Value 08/07/2024 14.0 08/12/2021 13.7 Hematocrit (%) Date Value 08/07/2024 41.4 08/12/2021 42.2 WBC (k/uL) Date Value 08/07/2024 9.71 08/12/2021 6.69 Platelet Count (k/uL) Date Value 08/07/2024 255 08/12/2021 266 RADIOLOGIC DATA: 07/31/2024 Bilateral screening mammogram ([facility]) Benign finding. Recommend routine mammogram in 12 months. 03/11/2023 Right diagnostic mammogram and ultrasound ([facility]) Ultrasound evaluat (more content not included)...NormalOhiohealth Hardin Memorial HospitalComprehensive metabolic 2000 panelon 10-95-4859Fmgegud [Mass/Vol]3.6 g/dLLow3.9-4.9CCincinnati VA Medical Center on above:Order Comment: Specimen Type: BLOOD SPECIMEN Ordering Facility: [facility] Address: [address], [place] 346[address]Jsodqztyi By: #### 19671-2 #### [facility] CLIA [id number] [address] [place] [address] 10215HBT [Catalytic activity/Vol]103 U/SXbpxwr18-012JqfkgeluqSelect [facility] on above:Order Comment: Specimen Type: BLOOD SPECIMEN Ordering Facility: [facility] Address: [address] [place], [place] [address]Vajxnvklm By: #### 28780-8 #### [facility] CLIA [id number] [address] [place], [place] [address]FOC [Catalytic activity/Vol]20 U/LNormal7-38[facility] on above:Order Comment: Specimen Type: BLOOD SPECIMEN Ordering Facility: [facility] Address: [address] [place], [place] [address]Performed By: #### 94976-7 #### [facility] CLIA [id number] [address] [place], [place] [address]Wszsi gap [Moles/Vol]8 mmol/LNormal8-15[facility] on above:Order Comment: Specimen Type: BLOOD SPECIMEN Ordering Facility: [facility] Address: [address] [place], [place] [address]Performed By: #### 20005-3 #### [facility] CLIA [id number] [address] [place] [address] 14548TNW [Catalytic activity/Vol]10 U/ARve05-34KieeudvxiSelect Medical [facility] on above:Order Comment: Specimen Type: BLOOD SPECIMEN Ordering Facility: [facility] Address: [address] [place], [place] [address]Performed By: #### 24603-8 #### [facility] CLIA [id number] [address] [place], [place] [address]Xoqhrfqcg [Mass/Vol]0.3 mg/dLNormal0.2-1.3CCincinnati [facility] on above:Order Comment: Specimen Type: BLOOD SPECIMEN Ordering Facility: [facility] Address: [address] [place], [place] [address]Performed By: #### 38745-4 #### [facility] CLIA [id number] [address] [place], [place] [address]Swtqdnz [Mass/Vol]9.5 mg/dLNormal8.5-10.2CCincinnati VA Medical Center on above:Order Comment: Specimen Type: BLOOD SPECIMEN Ordering Facility: [facility] Address: [address] [place] [id number] By: #### 44380-3 #### [facility] CLIA [id number] [address] [place], [place] [address]Wounocmt [Moles/Vol]102 mmol/JPuoena58-733UqxkpboheSelect Medical [facility] on above:Order Comment: Specimen Type: BLOOD SPECIMEN Ordering Facility: [facility] Address: [address] [place], [place] [address]Performed By: #### 29232-0 #### [facility] CLIA [id number] [address] [place], [place] [address]BC8 [Moles/Vol]26 mmol/GPywmjq40-03EaqfmllwvOhiohealth Hardin Memorial Hospital Comment on above:Order Comment: Specimen Type: BLOOD SPECIMEN Ordering Facility: [facility] Address: [address] [place], [place] [address]Performed By: #### 72587-8 #### [facility] CLIA [id number] [address] [place], [place] [address]Pyfuxopukp [Mass/Vol]0.86 mg/dLNormal0.58-0.96[facility] HospitalComharbor [facility] on above:Order Comment: Specimen Type: BLOOD SPECIMEN Ordering Facility: [facility] Address: [address] [place], [place] [address]Performed By: #### 22763-1 #### [facility] CLIA [id number] [address] [place], [place] [address]Ksqekftuqv and Glomerular filtration rate.predicted panel (S/P/Bld)67 mL/min/1.73m???Normal>=60[facility] HospitalComharbor beach community hospital on above: Order Comment: Specimen Type: BLOOD SPECIMEN Ordering Facility: [facility] Address: [address] [place], [place] [address]Result Comment: Estimated Glomerular Filtration Rate (eGFR) is calculated using the 2020 CKD-EPI cre atinine equation. This equation utilizes serum creatinine, sex, and age as parameters. The creatinine assay has traceable calibration to isotope dilution- mass spectrometry. Refer to KDIGO guidelines for clinical interpretation. In patients with unstable renal function, e.g. those with acute kidney injury, the eGFR may not accurately reflect actual GFR.Performed By: #### 89772-9 #### [facility] CLIA [id number] [address] [place], [place] [address]Kobeuts [Mass/Vol]130 mg/eWLbfd04-55FktsowvpzOhiohealth Hardin Memorial Hospital Comment on above:Order Comment: Specimen Type: BLOOD SPECIMEN Ordering Facility: [facility] Address: [address] [place] [address]Ycvztb Comment: The [place] [employer] (ADA) provides guidance for cutoff [...] Standards of Medical Care in Diabetes 2016, [place] [employer]. Diabetes Care. 2016.39(Suppl 1).Performed By: #### 47048-9 #### [facility] CLIA [id number] [address] [place] [address]Pbncqndsh [Moles/Vol]4.1 mmol/LNormal3.7-5.1CCincinnati VA Medical CenterComharbor beach community hospital on above:Order Comment: Specimen Type: BLOOD SPECIMEN Ordering Facility: [facility] Address: [address] [place], [place] [address]Hkexjwvmm By: #### 11402-4 #### [facility] CLIA [id number] [address] [place], [place] [address]Ffgxgwo [Mass/Vol]7.4 g/dLNormal6.3-8.0[facility] on above:Order Comment: Specimen Type: BLOOD SPECIMEN Ordering Facility: [facility] Address: [address] [place], [place] [address]Wddbhtztn By: #### 27637-8 #### [facility] CLIA [id number] [address] [place], [place] [address]Liqivh [Moles/Vol]136 mmol/AKfrfjb509-750DsiipssawSelect Medical [facility] on above:Order Comment: Specimen Type: BLOOD SPECIMEN Ordering Facility: [facility] Address: [address] [place], [place] [address]Performed By: #### 26653-1 #### [facility] CLIA [id number] [address] [place], [place] [address]Txux nitrogen [Mass/Vol]18 mg/dLNormal7-21[facility] on above:Order Comment: Specimen Type: BLOOD SPECIMEN Ordering Facility: [facility] Address: [address] [place], [place] [address]Performed By: #### 23319-6 #### [facility] CLIA [id number] [address] [place] [address]MW TOMOSYNTHESIS SCREENING BIon 76-87-2474Z[address] [address] Mammography Report Signed Patient: ERNESTINA COSTA MR#: [id number] : 1940 Acct:[id number] Age/Sex: 83 / F ADM Date: 07/31/24 Loc: MAMMO Attending Dr: KADE HUYNH Ordering Physician: KADE HUYNH Results: Date of Service: 07/31/24 Follow Up: Procedure(s): MM tomosynthesis screening BI Accession Number(s): [id number] cc: KADE HUYNH Patient Name: ERNESTINA COSTA MR#: [id number] : 1940 Exam Date: 07/31/2024 Ordering Doctor: DR KADE HUYNH M.D. RADIOLOGY REPORT PROCEDURE: MM TOMOSYNTHESIS SCREENING BI COMPARISON: MM TOMOSYNTHESIS DIAGNOSTIC RT, 03/11/2023. MM TOMOSYNTHESIS SCREENING BI, 07/30/2023. INDICATIONS: Screening Calculator Name NCI Breast Cancer Risk Assessment Tool 5 Year Breast Cancer Risk n/a% Lifetime Breast Cancer Risk n/a% Personal Breast Cancer Yes, invasive ductal carcinoma, age 78 Personal Ovarian Cancer No Treatments None Family Cancers None LOCATION: [facility] BREAST COMPOSITION: The breasts are extremely dense, which lowers the sensitivity of mammography. FINDINGS: DIAGNOSTIC CATEGORY 2--BENIGN FINDING. NO CHANGE FROM COMPARISON. Scattered benign-appearing nodules are present. Scattered benign-appearing calcifications are present. Scattered benign-appearing lymph nodes are present. RIGHT BREAST: No significant suspicious finding. LEFT BREAST: No significant suspicious finding. RECOMMENDATIONS: ROUTINE MAMMOGRAM AND CLINICAL EVALUATION IN 12 MONTHS. PLEASE NOTE: A NORMAL MAMMOGRAM DOES NOT EXCLUDE THE POSSIBILITY OF BREAST CANCER. A CLINICALLY SUSPICIOUS PALPABLE LUMP SHOULD BE BIOPSIED. Dictated by: Erasmo Clayton MD on 07/31/2024 at 16:25 Approved by: Erasmo Clayton MD on 07/31/2024 at 16:26 Dictated By: Erasmo Clayton M.D. Signed By: 07/31/247 DD/ 25 TD/TT: [employer] Merchandiser:TBHRadiology, Radiologist, - 07/31/2024 [place] [address] Mammography Report Signed Patient: ERNESTINA COSTA MR#: [id number] : 1940 Acct:[id number] Age/Sex: 83 / F ADM Date: 07/31/24 Loc: MAMMO Attending Dr: KADE HUYNH Ordering Physician: KADE HUYNH Results: Date of Service: 07/31/24 Follow Up: Procedure(s): MM tomosynthesis screening BI Accession Number(s): [id number] cc: KADE HUYNH Patient Name: ERNESTINA COSTA MR#: [id number] : 1940 Exam Date: 07/31/2024 Ordering Doctor: DR KADE HUYNH M.D. RADIOLOGY REPORT PROCEDURE: MM TOMOSYNTHESIS SCREENING BI COMPARISON: MM TOMOSYNTHESIS DIAGNOSTIC RT, 03/11/2023. MM TOMOSYNTHESIS SCREENING BI, 07/30/2023. INDICATIONS: Screening Calculator Name NCI Breast Cancer Risk Assessment Tool 5 Year Breast Cancer Risk n/a% Lifetime Breast Cancer Risk n/a% Personal Breast Cancer Yes, invasive ductal carcinoma, age 78 Personal Ovarian Cancer No Treatments None Family Cancers None LOCATION: [facility] BREAST COMPOSITION: The breasts are extremely dense, which lowers the sensitivity of mammography. FINDINGS: DIAGNOSTIC CATEGORY 2--BENIGN FINDING. NO CHANGE FROM COMPARISON. Scattered benign-appearing nodules are present. Scattered benign-appearing calcifications are present. Scattered benign-appearing lymph nodes are present. RIGHT BREAST: No significant suspicious finding. LEFT BREAST: No significant suspicious finding. RECOMMENDATIONS: ROUTINE MAMMOGRAM AND CLINICAL EVALUATION IN 12 MONTHS. PLEASE NOTE: A NORMAL MAMMOGRAM DOES NOT EXCLUDE THE POSSIBILITY OF BREAST CANCER. A CLINICALLY SUSPICIOUS PALPABLE LUMP SHOULD BE BIOPSIED. Dictated by: Erasmo Clayton MD on 07/31/2024 at 16:25 Approved by: Erasmo Clayton MD on 07/31/2024 at 16:26 Dictated By: Erasmo Clayton M.D. Signed By: 07/31/241626 DD/ 25 TD/TT: [employer] Merchandiser: [facility] CenterRadiology Study observation (narrative)[facility] TOMOSYNTHESIS SCREENING BIOrdered By: Radiologist Radiology on 87-68-5132VUXB [employer] Work Phone: XR CERVICAL SPINE 5Von 25-93-2318[address] [address] XRay Report Signed Patient: ERNESTINA COSTA MR#: [id number] : 1940 Acct:[id number] Age/Sex: 83 / F ADM Date: 06/05/24 Loc: RAD Attending Dr: CAESAR CRAVEN Ordering Physician: CAESAR CRAVEN Date of Service: 06/05/24 Procedure(s): XR cervical spine 5V Accession Number(s): [id number] cc: CAESAR CRAVEN ; KADE HUYNH [address] [address] Patient Name: ERNESTINA COSTA MRN: [id number] date: 1940 Sex: F Assigned Patient Location: RAD Current Patient Location: Accession/Order Number: [id number] Exam Date: 06/05/2024 14:40 Report Date: 06/07/2024 07:16 At the request of: CAESAR CRAVEN Procedure: XR cervical spine 5V EXAMINATION: XR cervical spine 5V HISTORY: cervical radiculopathy COMPARISON: No relevant comparison available. FINDINGS: BONES: Neutral projection demonstrates 3 mm anterolisthesis of C4 on C5 and 5 mm anterolisthesis of C5 on C6. Mild to moderate spondylosis. Moderate to severe facet osteoarthropathy DISC SPACES: Normal. No significant disc height narrowing, subluxation, or endplate abnormality. PARASPINOUS: Negative. No paraspinous abnormality is seen. OTHER: No transient spondylolisthesis with flexion or extension XR/XR cervical spine 5V IMPRESSION: Moderate to severe degenerative changes Multilevel spondylolisthesis with no dynamic instability Electronically authenticated by: ERASMO CLAYTON Date: 06/07/2024 07:16 Dictated By: Erasmo Clayton M.D. Signed By: 06/07/2419 DD/ 5 TD/TT: [employer] Merchandiser:TBHRadiology, Radiologist, MD - 06/07/2024 [place] [address] XRay Report Signed Patient: ERNESTINA COSTA MR#: [id number] : 1940 Acct:[id number] Age/Sex: 83 / F ADM Date: 06/05/24 Loc: RAD Attending Dr: CAESAR CRAVEN Ordering Physician: CAESAR CRAVEN Date of Service: 06/05/24 Procedure(s): XR cervical spine 5V Accession Number(s): [id number] cc: CAESAR CRAVEN DANIEL The [address] [address] Patient Name: ERNESTINA COSTA MRN: [id number] date: 1940 Sex: F Assigned Patient Location: [facility] Current Patient Location: Accession/Order Number: [id number] Exam Date: 06/05/2024 14:40 Report Date: 06/07/2024 07:16 At the request of: CAESAR CRAVEN Procedure: XR cervical spine 5V EXAMINATION: XR cervical spine 5V HISTORY: cervical radiculopathy COMPARISON: No relevant comparison available. FINDINGS: BONES: Neutral projection demonstrates 3 mm anterolisthesis of C4 on C5 and 5 mm anterolisthesis of C5 on C6. Mild to moderate spondylosis. Moderate to severe facet osteoarthropathy DISC SPACES: Normal. No significant disc height narrowing, subluxation, or endplate abnormality. PARASPINOUS: Negative. No paraspinous abnormality is seen. OTHER: No transient spondylolisthesis with flexion or extension XR/XR cervical spine 5V IMPRESSION: Moderate to severe degenerative changes Multilevel spondylolisthesis with no dynamic instability Electronically authenticated by: ERASMO CLAYTON Date: 06/07/2024 07:16 Dictated By: Erasmo Clayton M.D. Signed By: 06/07/2419 DD/ 5 TD/TT: [employer] Merchandiser: [facility] HealthcareRadiology Study observation (narrative)NOM HealthcareXR CERVICAL SPINE 5VOrdered By: Radiologist Radiology on 98-77-1877OIWDLafayette Regional Health Center Work Phone: XR LUMBAR SPINE 6V W BENDINGon 12-77-3929[place], [place] [address] XRay Report Signed Patient: ERNESTINA COSTA MR#: [id number] : 1940 Acct:[id number] Age/Sex: 83 / F ADM Date: 06/05/24 Loc: RAD Attending Dr: CAESAR CRAVEN Ordering Physician: CASEAR CRAVEN Date of Service: 06/05/24 Procedure(s): XR lumbar spine 6V w bending Accession Number(s): [id number] cc: CAESAR CRAVEN ; KADE HUYNH [place] [id number] Patient Name: ERNESTINA COSTA MRN: [id number] date: 1940 Sex: F Assigned Patient Location: RAD Current Patient Location: RAD Accession/Order Number: [id number] Exam Date: 06/05/2024 14:40 Report Date: 06/07/2024 07:20 At the request of: CAESAR CRAVEN Procedure: XR lumbar spine 6V w bending EXAMINATION: XR lumbar spine 6V w bending HISTORY: Low back pain COMPARISON: No relevant comparison available. FINDINGS: BONES: Neutral projection demonstrates 3 mm anterolisthesis of L4 in relation L5. Mild to moderate spondylosis and facet osteoarthropathy. DISC SPACES: Multilevel disc space narrowing, mild PARASPINOUS: Negative. No paraspinous abnormality is seen. OTHER: No transient spondylolisthesis with flexion and extension . Right upper quadrant coarse calcification, nonspecific XR/XR lumbar spine 6V w bending IMPRESSION: Sjon-ov-ktydbbko degenerative changes with no dynamic instability Electronically authenticated by: ERASMO CLAYTON Date: 06/07/2024 07:20 Dictated By: Erasmo Clayton M.D. Signed By: 06/07/24722 DD/ 9 TD/TT: [employer] Merchandiser:TBHRadiology, Radiologist, MD - 06/07/2024 [place] [address] XRay Report Signed Patient: ERNESTINA COSTA MR#: [id number] : 1940 Acct:[id number] Age/Sex: 83 / F ADM Date: 06/05/24 Loc: [facility] Attending Dr: CAESAR CRAVEN Ordering Physician: CAESAR CRAVEN Date of Service: 06/05/24 Procedure(s): XR lumbar spine 6V w bending Accession Number(s): [id number] cc: CAESAR CRAVEN DANIEL The [place] [address] Patient Name: ERNESTINA COSTA MRN: [id number] date: 1940 Sex: F Assigned Patient Location: [facility] Current Patient Location: [facility] Accession/Order Number: [id number] Exam Date: 06/05/2024 14:40 Report Date: 06/07/2024 07:20 At the request of: CAESAR CRAVEN Procedure: XR lumbar spine 6V w bending EXAMINATION: XR lumbar spine 6V w bending HISTORY: Low back pain COMPARISON: No relevant comparison available. FINDINGS: BONES: Neutral projection demonstrates 3 mm anterolisthesis of L4 in relation L5. Mild to moderate spondylosis and facet osteoarthropathy. DISC SPACES: Multilevel disc space narrowing, mild PARASPINOUS: Negative. No paraspinous abnormality is seen. OTHER: No transient spondylolisthesis with flexion and extension . Right upper quadrant coarse calcification, nonspecific XR/XR lumbar spine 6V w bending IMPRESSION: Ymmf-dz-lfuotata degenerative changes with no dynamic instability Electronically authenticated by: ERASMO CLAYTON Date: 06/07/2024 07:20 Dictated By: Erasmo Clayton M.D. Signed By: 06/07/24722 DD/ 9 TD/TT: Mandate Retail Service Merchandiser: [facility] HealthcareRadiology Study observation (narrative)[facility] HealthcareXR LUMBAR SPINE 6V W BENDINGOrdered By: Radiologist Radiology on [id number] [employer] Work Phone: cNPNon [phone] (HEMASA) ERNESTINA COSTA ([id number]) 1940 F Date Time Provider Department 04/13/24 PORFIRIO RUCKER During your visit today, we recorded the following information about you: Porfirio Rucker RN 04/13/2024 12:16 PM Signed Pt will need new RX to [facility] for Anastrozole. Mail order no longer active. BRM: Please review and sign Porfirio Rucker RN Allergies As of Date: 04/13/2024 (No Known Allergies) Date Reviewed: 03/28/2024 Reviewed by: Rosalina Landry PA-C - Fully Assessed Reason for Visit: Anastrozole [Other] Order(s):anastrozole (ARIMIDEX) 1 mg tabletTake 1 tablet by mouth once daily.Disp: 90 tabletRfl: 3 Prescriptions as of 04/13/2024 - anastrozole (ARIMIDEX) 1 mg tablet Take 1 tablet by mouth once daily. - SAMUEL'S WORT ORAL Take by mouth. - loratadine [...] by mouth. Problem List As Of Date 04/13/2024 Noted Resolved Malignant neoplasm of overlapping sites of righ*09/28/2019 Prescriptions ordered this encounter Disp Refills Start End ANASTROZOLE 1 MG TABLET 90 t* 3 04/13/2024 Route: ORAL Sig: Take 1 tablet by mouth once daily. Medications Discontinued During This Encounter Prescriptions - anastrozole (ARIMIDEX) 1 mg tablet (Discontinued) Take 1 tablet by mouth once daily. Encounter Status:Closed by PORFIRIO RUCKER on 04/13/24NormalCAkron Children's Hospital W Auto Differential panel (Bld)on 83-26-2065Avdtuzzrl (Bld) [#/Vol] 0.06 10*3/uL<0.11 k/uLMercy Health St. Rita'S Medical CenterBasophils/100 WBC (Bld)0.7 %[facility]'S Medical CenterDifferential cell count method Nom (Bld)AutoClevelatrium health pineville ClinicEosinophils (Bld) [#/Vol]0.15 10*3/uL<0.46 k/uLMercy Health St. Rita'S Medical CenterEosinophils/100 WBC (Bld)1.8 %[facility] Rita'S Medical CenterErythrocyte distribution width (RBC) [Ratio]14.6 %11.5 - 15.0 % [facility]'S Medical CenterHematocrit (Bld) [Volume fraction]40.4 %36.0 - 46.0 %[facility] Rita'S Medical CenterHemoglobin (Bld) [Mass/Vol]13.2 g/dL11.5 - 15.5 g/dLMercy Health St. Rita'S Medical Center Immature granulocytes (Bld) [#/Vol]<0.10 k/uLCleveland ClinicImmature granulocytes/100 WBC (Bld)0.2 %[facility] Rita'S Medical CenterLymphocytes (Bld) [#/Vol]1.58 10*3/uL1.00 - 4.00 k/uLMercy Health St. Rita'S Medical CenterLymphocytes/100 WBC (Bld)18.6 %[facility] GeneralH (RBC) [Entitic mass]32.8 pg26.0 - 34.0 pgClevelWadena ClinicHC (RBC) [Mass/Vol]32.7 g/dL30.5 - 36.0 g/dLCleveland Clinic Akron GeneralV (RBC) [Entitic vol]100.5 uCEiso21.0 - 100.0 fLCleveland ClinicMonocytes (Bld) [#/Vol]0.65 10*3/uL<0.87 k/uLMercy Health St. Rita'S Medical CenterMonocytes/100 WBC (Bld)7.7 %[facility] Rita'S Medical CenterNeutrophils (Bld) [#/Vol]6.03 10*3/uL1.45 - 7.50 k/uLMercy Health St. Rita'S Medical CenterNeutrophils/100 WBC (Bld)71.0 %[facility] Rita'S Medical CenterNucleated RBC (Bld) [#/Vol]<0.01 k/uLMercy Health St. Rita'S Medical Center Nucleated RBC/100 WBC (Bld) [Ratio]0.0 /[address] Rita'S Medical CenterPlatelet mean volume (Bld) [Entitic vol]9.3 fL9.0 - 12.7 fLCleveland ClinicPlatelets (Bld) [#/Vol]259 10*3/uL150 - 400 k/uLMercy Health St. Rita'S Medical CenterRBC (Bld) [#/Vol]4.02 10*6/uL 3.90 - 5.20 m/uLMercy Health St. Rita'S Medical CenterWBC (Bld) [#/Vol]8.49 10*3/uL3.70 - 11.00 k/uL [facility]'S Medical CenterComprehensive metabolic 2000 panelon 18-06-8622Ntnwoyw [Mass/Vol]3.6 g/dLLow3.9 - 4.9 g/dLCooper ClinicALP [Catalytic activity/Vol] 90 U/L34 - 123 U/LCleveland ClinicALT [Catalytic activity/Vol]12 U/L7 - 38 U/L [facility] Rita'S Medical CenterAni gap [Moles/Vol]7 mmol/LLow9 - 18 mmol/LCleveland ClinicAST [Catalytic activity/Vol]12 U/LLow13 - 35 U/LCleveland ClinicBilirubin [Mass/Vol]0.3 mg/dL0.2 - 1.3 mg/dLCooper ClinicCalcium [Mass/Vol]9.5 mg/dL8.5 - 10.2 mg/dLCooper ClinicChloride [Moles/Vol]103 mmol/L97 - 105 mmol/L Cooper ClinicCO2 [Moles/Vol]28 mmol/L22 - 30 mmol/LCleveland ClinicCreatinine [Mass/Vol]0.87 mg/dL0.58 - 0.96 mg/dLMercy Health St. Rita'S Medical CenterEstimated Glomerular Filtration Rate67 mL/min/1.73m>=60 mL/min/1.73mCleveland ClinicGlucose [Mass/Vol]106 mg/sPUqqm97 - 99 mg/dLMercy Health St. Rita'S Medical CenterPotassium [Moles/Vol]4.2 mmol/L3.7 - 5.1 mmol/LCleveland ClinicProtein [Mass/Vol]7.6 g/dL6.3 - 8.0 g/dL Cooper ClinicSodium [Moles/Vol]138 mmol/L136 - 144 mmol/LCleveland Red [facility] Services HospitalUrea nitrogen [Mass/Vol]14 mg/dL7 - 21 mg/dLMercy Health St. Rita'S Medical CenterMG MAMM DIAGNOSTIC 3D HARDIK CADon 32-07-5824NE MAMM DIAGNOSTIC 3D HARDIK CADPatient: ERNESTINA COSTA Exam Date: 07/29/2022 : 1940 Gender:F Ordering : DR WILVER DISLA M.D. Admission #: [id number] Family : Order #: [id number] CLICK HERE TO VIEW EXAM RADIOLOGY REPORT [...] Treatments None Family Cancers None LOCATION: [facility] BREAST COMPOSITION: Extremely dense, which lowers the [...] LUMP SHOULD BE BIOPSIED. Dictated by: Grace Tamez M.D. on 07/29/2022 at 14:36 Approved by: Grace Tamez M.D. on 07/29/2022 at 14:42[facility] HospitalXR CHEST 2 Von 64-74-7552YU CHEST 2 VEXAMINATION: XR CHEST 2 V HISTORY: Cough COMPARISON: No relevant comparison available. TECHNIQUE: PA and lateral FINDINGS: LUNGS: No significant pulmonary parenchymal abnormalities. VASCULATURE: No increased pulmonary vasculature. PLEURA: No pneumothorax, effusion, or pleural thickening. CARDIAC: No cardiomegaly or cardiac silhouette abnormality. MEDIASTINUM: Calcified right hilar lymph nodes. Aortic atherosclerosis BONES: No fracture or visible bone lesion. OTHER: Negative. IMPRESSION: Clear lungs Electronically authenticated by: ERASMO CLAYTON Date: 2022-05-18 07:09[facility] Vital Signs Date TimeVital SignValuePerforming EvusrflzeOmzgklyr43-51-5015 14:28-0400Body .5 cmBakari Brown DPM Work Phone: [facility] CenterUwceyaaycd25-61-7807 14:28-0400Body mass index (BMI) [Ratio]34.57 kg/v1Wbrjncim Brown DPM Work Phone: [facility] CenterJlkcprpglq63-01-3115 14:28-0400Body .73 kgBakari Brown DPM Work Phone: [facility] CenterBnuooibisj54-57-2614 14:28-0400Respiratory rate18 /minBakari Brown DPM Work Phone: noCox MonettApqnitbvun57-38-5045 15:36-0400Body .5 cmKade Huynh MD Work Phone: noCox MonettJholkfychk20-91-2436 15:36-0400Body mass index (BMI) [Ratio]34.57 kg/v9VhpbiyKade Huynh MD Work Phone: [facility] CenterXheaanveiv23-75-8005 15:36-0400Body ovuvcs93.73 kgDaeli Huynh MD Work Phone: [facility] CenterAwdjyziiya31-96-0731 15:36-0400Diastolic blood bzxvtdre01 mm[Hg]Kade Huynh MD Work Phone: [facility] CenterSkzrxszwll61-04-0981 15:36-0400Heart rate68 /min Kade Huynh MD Work Phone: [facility] CenterQtxlrmmtkm92-88-6996 15:36-3301AaQ4% (BldA) [Mass fraction]97 %Kade Huynh MD Work Phone: [facility] CenterUerdxqzjxz35-60-5261 15:36-0400Systolic blood hndvhxiw827 mm[Hg]Kade Huynh MD Work Phone: [facility] CenterKaymnhpjob17-00-0459 14:12-0400Body pgybaz784.5 cmNicholas Brown DPM Work Phone: [facility] CenterMwkqnojsiv26-67-3539 14:12-0400Body mass index (BMI) [Ratio]35.12 kg/z8Dvghvpsl Brown DPM Work Phone: [facility] CenterRddlnnpiuf36-04-7868 14:12-0400Body tmjaxq62.09 kgNicholas Brown DPM Work Phone: [facility] CenterUzeuqqmaal70-62-9911 14:12-0400Respiratory rate16 /minNicholas Brown DPM Work Phone: [facility] CenterXafnnrfzoi02-00-1901 14:12-0400Body .5 cmNicholas Brown DPM Work Phone: [facility] CenterUxzmbwmlxa64-59-8915 14:12-0400Body mass index (BMI) [Ratio]35.12 kg/w3Jbrfulhw Brown DPM Work Phone: [facility] CenterIirayedput57-70-2440 14:12-0400Body .09 kgNicholas Brown DPM Work Phone: noC[facility] MonettDmtcjhlchw40-97-0624 14:12-0400Respiratory rate18 /minBakari Calixto DPM Work Phone: noC[facility] MonettGvyaumtwvl08-22-4018 15:06-0400Body lixish895.5 cmBakari Calixto DPM Work Phone: [facility] CenterCijcqfsqkq48-14-3035 15:06-0400Body mass index (BMI) [Ratio]35.12 kg/h7IfjfrwidBakari Calixto DPM Work Phone: noC[facility] MonettNwpniryzac37-58-6362 15:06-0400Body cxyadt78.09 kgBakari Calixto DPM Work Phone: noC[facility] MonettAcwksrhsjx68-18-1778 15:06-0400Respiratory rate16 /minMariekel Calixto DPM Work Phone: [facility] CenterPfxbjazrfr86-29-2833 11:39-0400Body buimsn593.5 cmKade Huynh MD Work Phone: [facility] CenterFaqdgsdtlx81-47-7305 11:39-0400Body mass index (BMI) [Ratio]35.12 kg/h8UjphpkKade Huynh MD Work Phone: [facility] CenterHjudyhlrsh10-91-7637 11:39-0400Body .09 kgKaed Huynh MD Work Phone: [facility] CenterElefzzwklg46-13-0387 11:39-0400Diastolic blood ldeyipyr95 mm[Hg]Kade Huynh MD Work Phone: [facility] CenterTzhvtuzvmc85-29-3765 11:39-0400Heart rate68 /min Kade Huynh MD Work Phone: [facility] CenterOajgykrhfr13-76-3952 11:39-0400Respiratory rate16 /minDarron Huynh MD Work Phone: [facility] CenterEuuxiqxity67-48-4165 11:39-7024BqD1% (BldA) [Mass fraction]97 %Kade Huynh MD Work Phone: [facility] CenterKuqxjdazbb55-52-6941 11:39-0400Systolic blood maslkuql066 mm[Hg]Kade Huynh MD Work Phone: [facility] CenterYtdscifxkm44-61-7787 14:45-0400Body buncmg203.1 cmWilver Disla MD Work Phone: [facility]06-12-2025 14:45-0400Body mass index (BMI) [Ratio]34.49 kg/u7UosewWilver Disla MD Work Phone: [facility]06-12-2025 14:45-0400Body temperature 97.9 [degF]Wilver Disla MD Work Phone: [facility]06-12-2025 14:45-0400Body hxmujs36.2 kgWilver Disla MD Work Phone: [facility]06-12-2025 14:45-0400Diastolic blood wkgpyiqd42 mm[Hg]Wilver Disla MD Work Phone: [facility]06-12-2025 14:45-0400Heart rate75 /min Wilver Disla MD Work Phone: [facility]06-12-2025 14:45-0400Respiratory rate 20 /minWilver Disla MD Work Phone: [facility]06-12-2025 14:45-9378JwQ0% (BldA) [Mass fraction]100 %Wilver Disla MD Work Phone: [facility]06-12-2025 14:45-0400Systolic blood ryolbaav947 mm[Hg]Wilver Disla MD Work Phone: [facility]11-18-2024 14:50-0500Body .2 cmWilver Disla MD Work Phone: [facility]11-18-2024 14:50-0500Body mass index (BMI) [Ratio]35.48 kg/f4AhqpfWilver Disla MD Work Phone: [facility]11-18-2024 14:50-0500Body temperature 97.39 [degF]Wilver Disla MD Work Phone: [facility]11-18-2024 14:50-0500Body rvmvme23.8 kgWilver Disla MD Work Phone: [facility]11-18-2024 14:50-0500Diastolic blood soczewoo79 mm[Hg]Wilver Disla MD Work Phone: [facility]11-18-2024 14:50-0500Heart rate78 /min Wilver Disla MD Work Phone: [facility]11-18-2024 14:50-0500Respiratory rate 18 /minWilver Disla MD Work Phone: [place] [address]-18-2024 14:50-4102MyT6% (BldA) [Mass fraction]98 %Wilver Disla MD Work Phone: [facility]11-18-2024 14:50-0500Systolic blood ijdpjjuj822 mm[Hg]Wilver Dsila MD Work Phone: [facility]11-04-2024 15:09-0500Body mass index (BMI) [Ratio]33.47 kg/e3SccsihfCaesar Craven MD Work Phone: [facility] CenterLvsawqcton12-85-1076 15:09-0500Body ldiesa87.45 kgCaesar Craven MD Work Phone: [facility] CenterDhbskqqpnp56-06-0591 15:09-0500Diastolic blood biozuwsr14 mm[Hg]Caesar Craven MD Work Phone: [facility] CenterEhbnqryjqh48-07-0217 15:09-0500Systolic blood qvzweiyl477 mm[Hg]Caesar Craven MD Work Phone: [facility] CenterQbmzzeqefq79-51-1542 15:12-0400Body mass index (BMI) [Ratio]33.57 kg/c0NrqhwoKade Huynh MD Work Phone: [facility] CenterLffvslqxfd02-09-2086 15:12-0400Body .72 kgKade Huynh MD Work Phone: [facility] CenterUcjgoinago77-02-2076 15:12-0400Diastolic blood pyaxchuw71 mm[Hg]Kade Huynh MD Work Phone: [facility] CenterSkqezlgbck08-21-3816 15:12-0400Heart rate67 /min Kade Huynh MD Work Phone: [facility] CenterXeyrjadadd91-55-1136 15:12-0400Respiratory rate17 /minDarron Huynh MD Work Phone: [facility] CenterXskxaulrgh42-32-9897 15:12-3076XjH6% (BldA) [Mass fraction]99 %Kade Huynh MD Work Phone: [facility] CenterKkxdqwgpjy85-55-9420 15:12-0400Systolic blood yjyfpzae051 mm[Hg]Kade Huynh MD Work Phone: [facility] CenterXtczkpfrjq26-87-8080 15:54-0400Body juqujq261.6 cmCaesar Craven MD Work Phone: [facility] CenterRnzjrbakvj97-81-5270 15:54-0400Body mass index (BMI) [Ratio]33.99 kg/d0BhvkrxeCaesar Craven MD Work Phone: [facility] CenterSwyrzqwtfn60-53-7869 15:54-0400Body pxhotg70.81 kgCaesar Craven MD Work Phone: [facility] CenterRvchlgbkle56-05-5164 14:37-0400Body itccge909.1 cmMinsarah Ramachandraner PA-C Work Phone: [facility]07-09-2024 14:37-0400Body mass index (BMI) [Ratio]35.85 kg/o1Ghtme Gris PA-C Work Phone: [facility]07-09-2024 14:37-0400Body temperature 98.1 [degF]Rosalina Ramachandraner PA-C Work Phone: [facility]07-09-2024 14:37-0400Body xyrvqq06.6 kgMinsarah Gris PA-C Work Phone: [facility]07-09-2024 14:37-0400Diastolic blood vuwrfacy82 mm[Hg]Rosalina Ramachandraner PA-C Work Phone: [facility]07-09-2024 14:37-0400Heart rate82 /min Rosalina Ramachandraner PA-C Work Phone: [facility]07-09-2024 14:37-0400Respiratory rate 16 /minJansarah Gris PA-C Work Phone: [facility]07-09-2024 14:37-2867TkE8% (BldA) [Mass fraction]97 %Rosalina Ramachandraner PA-C Work Phone: [facility]07-09-2024 14:37-0400Systolic blood tbpzeouz031 mm[Hg]Rosalina Ramachandraner PA-C Work Phone: [facility]12-01-2022 14:48-0500Body .1 cmWilver Disla MD Work Phone: [facility]12-01-2022 14:48-0500Body temperature 97.2 [degF]Wilver Disla MD Work Phone: [facility]12-01-2022 14:48-0500Body ttgysk03.34 kgWilver Disla MD Work Phone: [facility]12-01-2022 14:48-0500Diastolic blood ulfvsces47 mm[Hg]Wilver Disla MD Work Phone: [facility]12-01-2022 14:48-0500Heart rate81 /min Wilver Disla MD Work Phone: [facility]12-01-2022 14:48-0500Respiratory rate 16 /minWilver Disla MD Work Phone: [facility]12-01-2022 14:48-0500Systolic blood oxrpnauo138 mm[Hg]Wilver Disla MD Work Phone: [facility] Encounters Encounter DateEncounter TypeCare ProviderFacilityStart: 07-19-2025 End: 94-83-9090abusngaovtGTFVIOHZ A BROWNNot AvailableStart: 07-19-2025 End: 70-93-4356Zmcgydw encounter procedureBakari Calixto DPM Work Phone: [facility] CI PODIATRYComment on above:Other polyneuropathy (Primary Dx); Pain due to onychomycosis of toenails of both feetStart: 07-19-2025 End: 86-34-0709Yrmydf flowsJustin Calixto DPM Work Phone: [facility] CI PODIATRYStart: 07-19-2025 End: 71-93-9769Ltjvws flowsJustin Calixto DPM Work Phone: [facility] CI PODIATRYStart: 07-09-2025 End: 56-68-7433lgmasehdvdNYNVWP B BERRYNot AvailableStart: 07-09-2025 End: 13-78-7949Xjfkzg outpatient visit 15 minutesKade Huynh MD Work Phone: [facility] MedinceComment on above:Hemorrhoids, unspecified hemorrhoid type (Primary Dx); Hemorrhoids without complication; Flu vaccine needStart: 07-09-2025 End: 36-91-4740Lvzdhy flowsTruman Huynh MD Work Phone: [facility] MedinceStart: 07-09-2025 End: 41-41-3665Cqdhvh flowsTruman Huynh MD Work Phone: [facility] MedinceStart: 06-07-2025 End: 22-18-2709Ysoguw outpatient visit 15 minutesBakari Calixto DPM Work Phone: [facility] CI PODIATRYComment on above:Onychocryptosis (Primary Dx); Toe pain, left; Toe pain, right; Other polyneuropathyStart: 06-07-2025 End: 46-05-9041lljfexasaoULSZKJDE A BROWNNot AvailableStart: 06-07-2025 End: 58-86-3097Spcgul flowsheetNiccindyas A Brown DPM Work Phone: [facility] CI PODIATRYStart: 06-07-2025 End: 14-64-1335Wqtoyw flowsheetNicholas A Brown DPM Work Phone: [facility] CI PODIATRYStart: 05-24-2025 End: 78-13-4491Ahheqe outpatient visit 15 minutesNicerin Hayward Brown DPM Work Phone: [facility] CI PODIATRYComment on above:Other polyneuropathy (Primary Dx); Onychocryptosis; Toe pain, left; Toe pain, rightStart: 05-24-2025 End: 57-99-7579rgxzhpvjjqWTBRYMPP A BROWNNot AvailableStart: 05-24-2025 End: 24-68-8776Bpfudq flowsheetNicholas A Brown DPM Work Phone: [facility] CI PODIATRYStart: 05-24-2025 End: 68-86-3969Keaivk flowskaryNicholas A Brown DPM Work Phone: [facility] CI PODIATRYStart: 05-09-2025 End: 26-26-8248xdenztuiajOpdub M. LueFacility:EU BellevueStart: 05-09-2025 End: 66-63-0312Lfcumgv encounter Radames [facility] start: 05-03-2025 End: 26-04-1844yxrwxucxuoUWKHEJDD A BROWNNot AvailableStart: 05-03-2025 End: 77-16-2323Lsprxq outpatient new 30 minutesBakari A Brown DPM Work Phone: [facility] CI PODIATRYComment on above:Other polyneuropathy (Primary Dx); Numbness of left foot; Pain due to onychomycosis of toenails of both feetStart: 05-03-2025 End: 13-21-5564Myzmbc flowsheetNicholas A Brown DPM Work Phone: [facility] CI PODIATRYStart: 05-03-2025 End: 15-30-9399Bbfzdb flowsheetBakari Yesy Filemon DPM Work Phone: [facility] CI PODIATRYStart: 04-13-2025 End: 91-82-1554Rgruxu flowsTruman Huynh MD Work Phone: [facility] CI FMStart: 04-13-2025 End: 18-65-4580Lwvafx flowsTruman Huynh MD Work Phone: [facility] CI FMStart: 04-13-2025 End: 71-76-4622Uwkuaowwo Result EncounterKade Huynh MD Work Phone: [facility] External Department UnsolicitedStart: 04-13-2025 End: 62-42-7288Bzgzr of hemosiderin, quantKade Huynh MD Work Phone: NOOI HealthcareStart: 04-13-2025 End: 00-10-3763Aslqmqy encounter procedureKade Huynh MD Work Phone: noms CI FMComment on above:Routine general medical examination at health care facility (Primary Dx); Idiopathic peripheral neuropathy; Atherosclerosis of aorta; Lumbar radiculopathy; Numbness of left foot; Urge incontinence; Cystocele, unspecifiedStart: 04-13-2025 End: 78-64-0340colgncbuyeXAUIMX B BERRYNot AvailableStart: 03-30-2025 End: 69-42-8143Tyjxrxubo encounterNatalitalon Rucker RNHematology/OncologyComment on above:effects of EvistaStart: 03-01-2025 End: 40-39-1468izciwpiomiWchkd R Murphy MD Work Phone: Hematology/OncologyComment on above:Malignant neoplasm of overlapping sites of right breast in female, estrogen receptor positive (HCC)(Primary Dx); Osteopenia of multiple sitesStart: 03-01-2025 End: 37-10-2162Gguzrgw encounter Ana Disla MD Work Phone: Hematology/OncologyStart: 03-01-2025 End: 62-65-4408Brqcbwfly Result EncounterGeneric External Data ProviderNOMS External Department UnsolicitedStart: 03-01-2025 End: 68-10-3409Mnqqovwuf Result EncounterGeneric External Data ProviderNOMS External Department UnsolicitedStart: 01-31-2025 End: 58-75-7619Ahgwvloch encounterKade Huynh MD Work Phone: noms CI FMStart: 09-01-2024 End: 61-29-2202Cedkcwmbm encounterValeriatalon Chaim RNHematology/OncologyComment on above:F/U on Bone Density ResultsStart: 08-23-2024 End: 03-69-9709Decjcatj SupportCaesar Craven MD Work Phone: noms SWS NEURComment on above:Trochanteric bursitis of both hips (Primary Dx); Lumbar radiculopathy; Trochanteric bursitis of left hipStart: 08-23-2024 End: 04-51-2566Xluwba Paul Craven MD Work Phone: noms BM NEUROLOGYStart: 08-23-2024 End: 51-84-0163Jynvof Paul Craven MD Work Phone: noms BM NEUROLOGYStart: 08-15-2024 End: 22-18-4674szyuefmawzKmcwcxwt Brink PTANOMS CI PTComment on above:Lumbar radiculopathy (Primary Dx)Start: 08-15-2024 End: 45-52-9681Ntmiwz flowsheetMarshall Brink PTANOMS CI PTStart: 08-15-2024 End: 98-27-8498Ugxqdt flowsheetMarshall Brink PTANOMS CI PTStart: 08-11-2024 End: 80-31-9448Vdqlaiwdg Result EncounterGeneric External Data ProviderNOMS External Department UnsolicitedStart: 08-11-2024 End: 94-60-2745Vgvszaeht Result EncounterGeneric External Data ProviderNOMS External Department UnsolicitedStart: 08-08-2024 End: 61-27-1124Utkijm flowsheetMarshall Brink PTANOMS CI PTStart: 08-08-2024 End: 38-57-7413Lyavhk flowsheetMarshall Brink PTANOMS CI PTStart: 08-08-2024 End: 64-37-7783civhkidkysGsywvxsr Brink PTANOMS CI PTComment on above:Lumbar radiculopathy (Primary Dx)Start: 08-07-2024 End: 07-86-3064Xyzmxo outpatient visit 15 minutesWilver Disla MD Work Phone: Hematology/OncologyComment on above:Malignant neoplasm of overlapping sites of right breast in female, estrogen receptor positive (HCC)(Primary Dx); Encounter for osteoporosis screening in asymptomatic postmenopausal patient Start: 08-07-2024 End: 84-03-9303infxqgtnvwFHQJG MURPHYFacility:[facility]ertart: 08-07-2024 End: 58-23-2186Fwwoxmywr Result EncounterGeneric External Data ProviderNOMS External Department UnsolicitedStart: 08-07-2024 End: 10-05-4585Hepekuaxx Result EncounterGeneric External Data ProviderNOMS External Department UnsolicitedStart: 08-02-2024 End: 34-30-8171smqjwkkhbpHcpbcuhx Brink PTANOMS CI PTComment on above:Lumbar radiculopathy (Primary Dx)Start: 08-02-2024 End: 88-66-7543Nnyeya flowsheetMarshall Brink PTANOMS CI PTStart: 08-02-2024 End: 70-00-8428Btrzue flowsheetMarshall Brink PTANOMS CI PTStart: 07-31-2024 End: 83-53-2763Iefpkqzem Result EncounterKade Huynh MD Work Phone: noms External Department UnsolicitedStart: 07-31-2024 End: 87-81-1236Azndtxops Result EncounterKade Huynh MD Work Phone: noms External Department UnsolicitedStart: 07-26-2024 End: 51-59-3814huqroysoxeYcrinkzk Brink PTANOMS CI PTComment on above:Lumbar radiculopathy (Primary Dx)Start: 07-26-2024 End: 74-50-6285Qhuhen flowsheetMarshall Brink PTANOMS CI PTStart: 07-26-2024 End: 37-51-1712Uibxvr flowsheetMarshall Brink PTANOMS CI PTStart: 07-24-2024 End: 20-77-0570fyfjixkkarBDDLFOY W BAUERNot AvailableStart: 07-24-2024 End: 02-31-0650Bqjjco outpatient visit 25 minutesCaesar Craven MD Work Phone: noms SWS NEURComment on above:Idiopathic peripheral neuropathy (Primary Dx); Cervical radiculopathyStart: 07-24-2024 End: 90-41-6726Gsdbod Paul Craven MD Work Phone: n[facility] BM NEUROLOGYStart: 07-24-2024 End: 14-42-9994Uxiduu Paul Craven MD Work Phone: noms NEUROLOGYStart: 07-20-2024 End: 25-96-6960hmmjlyqrmfKtjyoczf Brink PTANOMS CI PTComment on above:Lumbar radiculopathy (Primary Dx)Start: 07-20-2024 End: 98-02-3098Hashsl flowsheetMarshall Brink PTANOMS CI PTStart: 07-20-2024 End: 83-03-4255Vyoimg flowsheetMarshall Brink PTANOMS CI PTStart: 07-18-2024 End: 82-77-5007yquooavndlBvdeyryr Brink PTANOMS CI PTComment on above:Lumbar radiculopathy (Primary Dx)Start: 07-17-2024 End: 48-60-8328Oqoyej outpatient visit 25 minutesKade Huynh MD Work Phone: noms CI FMComment on above:Idiopathic peripheral neuropathy (Primary Dx); Benign paroxysmal positional vertigo, unspecified laterality; Lumbar radiculopathy; Malignant neoplasm of lower-inner quadrant of right breast of female, estrogen receptor positive (CMS/HCC)Start: 07-17-2024 End: 04-65-3001Mtfsqg Maco Huynh MD Work Phone: [facility] CI FMStart: 07-17-2024 End: 19-22-6416Bgqaqv Maco Huynh MD Work Phone: [facility] CI FMStart: 07-10-2024 End: 03-60-1073yogyyolzqaGhwpcn Mary Grimaldo PT Work Phone: [facility] CI PTComment on above:Lumbar radiculopathy (Primary Dx)Start: 07-10-2024 End: 96-08-1440Xvjcmo flowsheetJeremy T Re PT Work Phone: [facility] CI PTStart: 07-10-2024 End: 15-35-9160Wwsvjh flowsheetJeremy T Re PT Work Phone: noMS CI PTStart: 07-05-2024 End: 20-06-5421Ulrghu flowsheetJeremy T Re PT Work Phone: [facility] CI PTStart: 07-05-2024 End: 51-41-7563Zpxsle flowsheetJeremy T Re PT Work Phone: [facility] CI PTStart: 07-05-2024 End: 12-44-0634wpoevpqjmaPdexxg T Re PT Work Phone: [facility] CI PTComment on above:Lumbar radiculopathy (Primary Dx)Start: 07-03-2024 End: 49-38-7933Miiboh flowsheetMarshall Brink PTANOMS CI PTStart: 07-03-2024 End: 95-32-5785Awbaob flowsheetMarshall Brink PTANOMS CI PTStart: 07-03-2024 End: 03-90-0822vnnusblawpQjrcplcf Brink PTANOMS CI PTComment on above:Lumbar radiculopathy (Primary Dx)Start: 06-30-2024 End: 48-56-5315Lowueh flowsheetMarshall Brink PTANOMS CI PTStart: 06-30-2024 End: 35-10-5133Adpdao flowsheetMarshall Brink PTANOMS CI PTStart: 06-30-2024 End: 57-70-5518pxuyzmhrsaGrcrjlvr Brink PTANOMS CI PTComment on above:Lumbar radiculopathy (Primary Dx)Start: 06-26-2024 End: 40-13-6217Uqrwxa flowsheetMarshall Brink PTANOMS CI PTStart: 06-26-2024 End: 08-81-8631Vrnsxx flowsheetMarshall Brink PTANOMS CI PTStart: 06-26-2024 End: 98-01-4733xzkabybrqqJflpwmmm Brink PTANOMS CI PTComment on above:Lumbar radiculopathy (Primary Dx)Start: 06-23-2024 End: 64-71-6837Hyolbp flowsheetMarshall Brink PTANOMS CI PTStart: 06-23-2024 End: 81-62-9659Jlllsw flowsheetMarshall Brink PTANOMS CI PTStart: 06-23-2024 End: 77-05-1639qmrjovhrlhZottvbun Brink PTANOMS CI PTComment on above:Lumbar radiculopathy (Primary Dx)Start: 06-21-2024 End: 05-69-8101rlscthlgwwIwfxfe T Blackston PT Work Phone: [facility] CI PTComment on above:Lumbar radiculopathy (Primary Dx)Start: 06-21-2024 End: 94-22-8401Dyxfju Marylin Grimaldo PT Work Phone: [facility] CI PTStart: 06-21-2024 End: 87-06-9790Lcqttc Marylin Grimaldo PT Work Phone: [facility] CI PTStart: 06-12-2024 End: 08-82-5308Ekpsdkrfo encounterTerry Grimaldo PT Work Phone: noMS CI PTComment on above:PT Initial Eval (Tried to contact to schedule for PT Eval for lumbar radiculopathy; but the phone number was not accepting calls. ); Call Back (She contacted and we scheduled PT Eval 06/21.)Start: 06-07-2024 End: 44-25-6969Jekuwscwz Result EncounterGeneric External Data ProviderNOMS External Department UnsolicitedStart: 06-07-2024 End: 24-01-4637Zcxhtkvwt Result EncounterGeneric External Data ProviderNOMS External Department UnsolicitedStart: 05-31-2024 End: 58-42-0107Bejcqu outpatient new 45 minutesCaesar Craven MD Work Phone: noms SWS NEURComment on above:Cervical radiculopathy (Primary Dx); Ataxic gait; Neuropathy; Lumbar radiculopathy; Idiopathic peripheral neuropathyStart: 05-31-2024 End: 27-71-3962Qzclty Paul Craven MD Work Phone: noms BM NEUROLOGYStart: 05-31-2024 End: 30-15-7215Djnqcg Paul Craven MD Work Phone: noms BM NEUROLOGYStart: 61-85-4587Eqplgoork encounter Porfirio Rucker RNHematology/OncologyComment on above:AnastrozoleStart: 94-76-6792ZqvhomObolcnw [facility] Work Phone: H[facility] HB-3Comment on above:Refill Request Start: 03-28-2024 End: 11-60-0634Dosxce outpatient visit 15 minutesMinsarah Landry PA-C Work Phone: Hematology/OncologyComment on above:Malignant neoplasm of overlapping sites of right breast in female, estrogen receptor positive (HCC)(Primary Dx)Start: 14-62-0412Irslrywhe encounterWilver Disla MD Work Phone: Cancer Appts MCComment on above:OrdersStart: 76-38-9260Ymmbdxozc encounterRosalina Landry PA-C Work Phone: Hematology/OncologyComment on above:Lab OrdersStart: 99-62-4597Xdolmvofi encounterWilver Disla MD Work Phone: Cancer Appts MCComment on above:OrdersStart: 97-17-0486Gxvtcxwfr encounterTeresita Eulalio LIZAMAHematology/OncologyComment on above: ResultsStart: 08-20-2022 End: 49-07-3153mncwkxczgkHsuyi R Murphy MD Work Phone: Hematology/OncologyComment on above:Malignant neoplasm of overlapping sites of right breast in female, estrogen receptor positive (HCC)(Primary Dx)Start: 08-20-2022 End: 68-24-9131Zrsoupz encounter procedureWilver Disla MD Work Phone: SANDUSKYStart: 07-29-2022 End: 20-59-7800ghfrrywfihJR KADE HUYNHFacility:J7Exekc: 07-15-2022 End: 92-70-5087wnnqrmeqacSXGSD D HIGHLANDERFacility:H7Sapdm: 05-16-2022 End: 60-06-1645bubiolgnikPR KADE HUYNHFacility:P1Pdtyw: 21-34-2335Meohqgket encounterWilver Disla MD Work Phone: Hematology/OncologyComment on above:Lab OrdersStart: 08-06-2021 End: 93-15-4320fyfztfihkcBISHSRIJ CULLENFacility:H1 Procedures DateProcedureProcedure DetailPerforming ClinicianStart: 08-52-3963VUU CMP (CMP) (FOR REMOTE [facility] USE)Kade Huynh MD Work Phone: Start: 28-52-1237SUZ W/REFLEX B4Wnbyvoeli Huynh MD Work Phone: Start: 80-13-2788QEW CBC W AUTO DIFF BLDGeneric External Data ProviderStart: 76-22-2844PR DEXA AXIAL SKELETONGeneric External Data ProviderStart: 32-02-8496EUL CBC W AUTO DIFF BLDGeneric External Data ProviderStart: 91-67-6870UX TOMOSYNTHESIS SCREENING Leon Huynh MD Work Phone: Start: 95-43-3795AT LUMBAR SPINE 6V W BENDINGGeneric External Data ProviderStart: 23-24-1141XD CERVICAL SPINE 5VGeneric External Data Providernasel surgeryKathy Lue nose surgery 1Kathy Lue Comment on above:Pt reports fixing a broken nose from 30 years ago and opened sinus; 2010TonsillectomyKathy Lutalon Plan of Treatment DateCare ActivityDetailAuthorStart: 46-56-4349Pnhuysbg ScreeningDiabetes ScreeningGerman Hospitaltart: 34-15-0563Qbkpznct ScreeningDiabetes Screening [facility]art: 87-34-4656Yxtyymxu ScreeningDiabetes ScreeningGerman Hospitaltart: 15-98-2301Wmjolzef ScreeningDiabetes ScreeningMercy Health St[facility] Start: 07-25-2026Medicare Annual Wellness (AWV)Medicare Annual Wellness (AWV) NOM HealthcareStart: 55-09-7723QXNPVDOC SCREENDIABETES SCREENMercy Health St. [facility] Center Start: 99-68-9892IKORA-19 Vaccine ( season)COVID-19 Vaccine ( season)NOMS HealthcareStart: 82-05-9070BPGFGMDU SCREENDIABETES SCREEN [facility]tart: 08-15-2025 End: 34-40-9098Mrqexz-up rxnyrokpd66/26/2025 11:00 AM EST Visit (SP) Office Hematology/Oncology [address] [place], [place] [address] [address] Nelson Odonnell MD [address] [place] [address] 5 month follow up with [facility] from [facility] Hematology/OncologyComment on above:5 month [facility] 08-15-2025 End: 36-12-4385Wrcsnfi encounter zxacrrnsy62/26/2025 10:45 AM EST Office Visit [facility] [address] [place] [address] 5 month [facility]Comment [facility]:5 [facility] 07-[facility]-2025 End: [id number] encounter wshmdxnay35/30/2025 2:20 PM EDT Procedure Visit [facility] [address] [id number] Bakari Calixto, [place] [address] [address] [facility]: 06-07-2025 End: 00-95-1682Uaxmsgp encounter mrztydcof89/18/2025 2:10 PM EDT Office Visit [facility] [address] [id number] Bakari Calixto DPM [address] [address] Onychocryptosis (Primary Dx); Toe pain, left; Toe pain, right; Other polyneuropathyNOMS CI PODIATRYComment on above: Onychocryptosis (Primary Dx); Toe pain, left; Toe pain, right; Other polyneuropathyStart: 05-24-2025 End: 45-72-9929Dkrcjvg encounter /04/2025 2:10 PM EDT Office Visit [facility] [address] [phone] Bakari Calixto, DPM [address] [address] Other polyneuropathy (Primary Dx); Onychocryptosis; Toe pain, left; Toe pain, rightNOMS CI PODIATRYComment on above:Other polyneuropathy (Primary Dx); Onychocryptosis; Toe pain, left; Toe pain, rightStart: 26-66-5348KKDHW-19 Vaccine ( season)COVID-19 Vaccine ( season)[facility]Start: 94-60-4413Ynydnmphl vaccinationInfluenza Vaccine (#1)[facility] End: 00-72-1983Foqrpcuabywep metabolic 2000 panel - Serum or PlasmaComprehensive metabolic panel Lab Routine Idiopathic peripheral neuropathy Expected: 04/13/2025 (Approximate), Expires: 04/13/2026[facility] Work Phone: Comment on above:Expected: 04/13/2025 (Approximate), Expires: 04/13/2026Start: 04-13-2025 End: 35-85-6349YKI W/REFLEX TO FT4TSH W/REFLEX TO FT4 Lab Routine Idiopathic peripheral neuropathy Expected: 04/13/2025 (Approximate), Expires: 04/13/2026 [facility] HealthcareComment on above:Expected: 04/13/2025 (Approximate), Expires: 04/13/2026Start: 04-13-2025 End: 27-74-5596Kkmvevp encounter nlyhkmwmd61/25/2025 11:30 AM EDT Office Visit [facility] [address] [facility] [address] [place] [phone] Kade Huynh MD [address] [facility] [address] [place] [address] ArrivedNOMS CI FMComment on above:ArrivedStart: 04-03-2025 Medicare Annual Wellness (AWV)Medicare Annual Wellness (AWV)[facility] Start: 03-29-2025 End: 61-87-3107Lmbamqf encounter yycboattn76/10/2025 3:00 PM EDT Office Visit [facility] [address] [facility] [address] [place] [address] Clarita Gonsalves PA [address] [facility] [address] [place] [address] [facility] FMStart: 02-26-2025 End: 05-66-5012Tzpjug-up doevdvppm12/09/2025 2:40 PM EDT Visit (SP) Office Hematology/Oncology [address] [place], [place] [phone] Wilver Disla MD [address] [place] [place] [address] 6 month follow up labHematology/OncologyComment on above:6 month follow up labStart: 02-26-2025 End: 07-97-2903Mhylerq encounter lmyoaccrx21/09/2025 2:30 PM EDT Office Visit [facility] [address] [facility] [place] [address] 6 month follow up [employer] [facility] LaboratoryComment on above:6 month follow up labStart: 44-97-3659Reyfq-19 Vaccine ( season)Covid-19 Vaccine ( season)[facility]: 02-05-2025 End: 20-69-9780Utwzfa-up hezaoebqa90/19/2025 2:40 PM EDT Visit (SP) Office Hematology/Oncology [address] [place], [place] [phone] Wilver Disla MD [address] [place] [place] [address] 6 month follow up labHematology/OncologyComment on above:6 month follow up labStart: 02-05-2025 End: 80-26-8218Xgcsyft encounter ianckamju08/19/2025 2:15 PM EDT Office Visit [facility] [address] [facility] [place] [address] 6 month follow up labrtFormerly [facility] LaboratoryComment on above:6 month follow up labStart: 10-23-2024 End: 79-93-9927Iifpxof encounter ajtfctggh38/03/2025 4:00 PM EST Office Visit [facility] [address] [place] [address] Caesar Craven MD [address] [address] TY ALVARES NEURStart: 09-28-2024 End: 70-78-9096VTY W Auto Differential panel - BloodCOMPLETE BLOOD COUNT AND DIFFERENTIAL Lab Routine Malignant neoplasm of overlapping sites of right breast in female, estrogen receptor positive (HCC) Expected: 09/28/2024 (Approximate), Expires: 12/28/2024leveland ClinicComment on above:Expected: 09/28/2024 (Approximate), Expires: 12/28/2024Start: 09-28-2024 End: 98-34-3315Tapnmoymbmvus metabolic 2000 panel - Serum or PlasmaCOMPREHENSIVE METABOLIC PANEL Lab Routine Malignant neoplasm of overlapping sites of right breast in female, estrogen receptor positive (HCC) Expected: 09/28/2024 (Approximate), Expires: 12/28/2024[facility] Work Phone: Comment on above:Expected: 09/28/2024 (Approximate), Expires: 12/28/2024Start: 65-60-3722Xsjtclg Directive DiscussionAdvance Directive DiscussionCleveland ClinicStart: 08-29-2024 End: 47-47-1719sqgvrcxljo78/10/2024 2:15 PM EST Visit (SP) Office Hematology/Oncology [address] [place] [address] [address] [place], [place] [phone] Wilver Disla MD [address] [place] [place] [address] 5mth f/uHematology/OncologyComment on above:5mth f/uStart: 08-29-2024 End: 42-44-3589Caytqme encounter bdyebfhvk85/10/2024 2:00 PM EST Office Visit [facility] [address] [place] [address] [place] [address] 7 month follow up labsmoved out to March [facility] LaboratoryComment on above:7 month follow up labsmoved out to March per TSlouis stokes [facility] centerStart: 08-23-2024 End: 18-53-1856Kujbsei encounter pmqasqegq82/04/2024 3:20 PM EST Office Visit [facility] [address] [facility] [address] [place] [address] Caesar Craven MD [address] [place] [address] [phone] [facility] NEURStart: 08-15-2024 End: 41-06-8088wreneusujr51/26/2024 2:00 PM EST Treatment [facility] [address] [place] [address] Tabitha Arreguin, DENTISTRY TEACHER [facility] PTStart: 71-55-4949TVCFRGSF SCREENDIABETES SCREENCooper ClinicStart: 08-08-2024 End: 24-79-9914tpmnweggeg49/19/2024 3:30 PM EST Treatment [facility] [address] [place] [address] Tabitha Arreguin, DENTISTRY TEACHER [facility] PTStart: 07-24-2024 End: 56-74-5385Cxvtyvt encounter /04/2024 2:20 PM EST Office Visit [facility] NEUR [address] [facility] [address] [place] [address] Caesar Craven MD [address] [place] [address] [phone] [facility] NEURStart: 07-20-2024 End: 43-93-9425aipqcpycqb20/31/2024 2:30 PM EDT Treatment [facility] [address] [place] [address] Tabitha Arreguin, DENTISTRY TEACHER [facility] PTStart: 07-18-2024 End: 91-07-9149wcnahykzdt00/29/2024 1:00 PM EDT Treatment [facility] [address] [place] [address] Tabitha Arreguin, DENTISTRY TEACHER [facility] PTStart: 07-17-2024 End: 09-70-6522Vpnurpc encounter sadhgikwr33/28/2024 3:00 PM EDT Office Visit [facility] [address] [place] [address] Kade Huynh MD [address] [place] [address] [facility] FMStart: 07-13-2024 End: 75-24-7969uiirbxbgrt17/24/2024 2:00 PM EDT Treatment [facility] [address] [place] [address] Tabitha Arreguin, DENTISTRY TEACHER [facility] PTStart: 07-10-2024 End: 79-09-8948xgxadinhjo56/21/2024 2:00 PM EDT Treatment [facility] [address] [facility] [address] [place] [address] Terry Grimaldo, PT [address] [facility] [address] [place] [address] [facility] CI PTStart: 07-05-2024 End: 83-34-2167kcdwvmthms18/16/2024 1:00 PM EDT Treatment [facility] [address] [facility] [address] [place] [address] Terry Grimaldo, PT [address] [facility] [address] [place] [address] [facility] PTStart: 07-03-2024 End: 40-80-5499ebdfqmdqaqARQX CI PTComment on above:ArrivedStart: 06-30-2024 End: 07-98-9046xflubimoslPVUC CI PTComment on above:Lumbar radiculopathy (Primary Dx)Start: 06-26-2024 End: 41-75-3741bhzkpodfpp11/07/2024 1:00 PM EDT Treatment [facility] [address] [place] [address] Tabitha Arreguin, DENTISTRY TEACHER [facility] PTStart: 06-23-2024 End: 99-02-4625qebrmhztfw81/04/2024 1:00 PM EDT Treatment [facility] [address] [place] [address] Tabitha Arreguin, DENTISTRY TEACHER [facility] PTStart: 06-21-2024 End: 81-17-4123mdciuqkcjy23/02/2024 2:00 PM EDT Evaluation [facility] [address] [place] [address] Terry Grimaldo, PT [address] [place] [address] [facility] PTStart: 06-12-2024 End: 63-33-9174Ujgdlsx encounter bgfselmzx70/23/2024 11:00 AM EDT Procedure Visit [facility] NEUR [address] [place] [phone] [facility] NEURStart: 06-08-2024 End: 07-63-5542Hlzyemg encounter jxgnbckmu13/19/2024 12:00 PM EDT Procedure Visit [facility] NEUR [address] [facility] [address] [place] [phone] [facility] NEURStart: 05-31-2024 End: 22-87-8133YS Cervical spine 4 or 5 ViewsXR CERVICAL SPINE AP/LAT/FLEX/EXT Imaging Routine Cervical radiculopathy Expected: 05/31/2024, Expires: 05/31/2025 [facility] Work Phone: Comment on above:Expected: 05/31/2024, Expires: 05/31/2025Start: 05-31-2024 End: 45-80-9323NG Lumbar spine Views W flexion and W extensionXR lumbar spine 6+ views including oblique flexion extension Imaging Routine Ataxic gait Lumbar radiculopathy Expected: 05/31/2024, Expires: 05/31/2025[facility] HealthcareComment on above:Expected: 05/31/2024, Expires: 05/31/2025Start: 81-99-7815Ihoyb-19 Vaccine ( season)Covid-19 Vaccine ( season)[facility]: 16-97-8999Zgxbzzfic vaccinationInfluenza Vaccine (#1)[facility]: 04-05-2024 End: 83-98-7385VJT DIAGNOSTIC BILATERALMAM DIAGNOSTIC BILATERAL Radiology Routine Malignant neoplasm of overlapping sites of right breast in female, estrogen receptor positive (HCC) Malignant neoplasm of overlapping sites of right female breast, unspecified estrogen receptor status (HCC) Estrogen receptor positive status (ER+) Expected:04/05/2024, Expires: 05/04/2024[facility] Work Phone: Comment on above:Expected: 04/05/2024, Expires: 05/04/2024Start: 03-28-2024 End: 11-52-8199Tthrrg-up uwldotizd99/09/2024 2:30 PM EDT Visit (SP) Office Hematology/Oncology [address] [place] [address] [address] [place], [place] [phone] Rosalina Landry PA-C [address] [facility] [place] [place] [address] 7 month follow up labsmoved out to March per TSmit Hematology/OncologyComment on above:7 month follow up labsmoved out to March per TSmitStart: 03-28-2024 End: 67-49-9881Gbrzgxv encounter /09/2024 2:15 PM EDT Office Visit [facility] [address] [place] [address] [place] [address] 7 month follow up labsmoved out to March per TSmitL[facility]ie [facility] LaboratoryComment on above:7 month follow up labsmoved out to March per TSmitStart: 03-27-2024 End: 92-72-7274Lzfbwq Ag 27-29 [Units/volume] in Serum or PlasmaCA 27.29 BLOOD Lab Routine Malignant neoplasm of overlapping sites of right breast in female, estrogen receptor positive (HCC) Expected: 03/27/2024, Expires: 06/26/2024 [facility] Work Phone: Comment on above:Expected: 03/27/2024, Expires: 06/26/2024Start: 03-27-2024 End: 01-77-1865OAR W Auto Differential panel - BloodCOMPLETE BLOOD COUNT AND DIFFERENTIAL Lab Routine Malignant neoplasm of overlapping sites of right breast in female, estrogen receptor positive (HCC) Expected: 03/27/2024, Expires: 06/26/2024[facility] ClinicComment on above:Expected: 03/27/2024, Expires: 06/26/2024Start: 03-27-2024 End: 70-00-8013Cigfyzfcvxngg metabolic 2000 panel - Serum or PlasmaCOMPREHENSIVE METABOLIC PANEL Lab Routine Malignant neoplasm of overlapping sites of right breast in female, estrogen receptor positive (HCC) Expected: 03/27/2024, Expires: 06/26/2024[facility] ClinicComment on above:Expected: 03/27/2024, Expires: 06/26/2024Start: 03-90-2718Gkxqb-19 Vaccine ( season)Covid- 19 Vaccine ( season)[facility]: 15-28-4372Mswygrz Directive DiscussionAdvance Directive DiscussionGerman Hospitaltart: 04-15-8139Swevpodbbf Health ScreeningBehavioral Health ScreeningMercy Health St. [facility] Start: 36-90-8786Zgqhcmjfk vaccinationINFLUENZA (#1)[facility]: 75-59-1300WVBDJ-19 VACCINE (4 - Moderna series)COVID-19 VACCINE (4 - Moderna series)[facility]: 17-81-9102GWCQZEZ DIRECTIVE DISCUSSIONADVANCE DIRECTIVE DISCUSSIONGerman Hospitaltart: 28-03-5272SLOHUWWIHH ASSESSMENT DEPRESSION ASSESSMENTGerman Hospitaltart: 08-20-2022 End: 20-33-1032Ooqjus Ag 27-29 [Units/volume] in Serum or PlasmaK[facility] Health [facility] Work Phone: Comment on above:Expected: 08/20/2022, Expires: 10/20/2022Start: 52-12-2216Mjqgzcwos vaccinationINFLUENZA (Season Ended) [facility]: 03-12-2022 End: 86-16-1796Fftmfk Ag 27-29 [Units/volume] in Serum or PlasmaCA 27.29 BLOOD Lab Routine Malignant neoplasm of overlapping sites of right breast in female, estrogen receptor positive (HCC) Expected: 03/12/2022, Expires: 05/12/2022 [facility] Work Phone: Comment on above:Expected: 03/12/2022, Expires: 05/12/2022tart: 03-12-2022 End: 32-18-0652WEU W Auto Differential panel - BloodCBC + DIFF Lab Routine Malignant neoplasm of overlapping sites of right breast in female, estrogen r eceptor positive (HCC) Expected: 03/12/2022, Expires: 05/12/2022[facility] Work Phone: Comment on above:Expected: 03/12/2022, Expires: 05/12/2022tart: 03-12-2022 End: 06-46-0065Hhebunmmjzfiu metabolic 2000 panel - Serum or PlasmaCOMP METABOLIC PANEL Lab Routine Malignant neoplasm of overlapping sites of right breast in female,estrogen receptor positive (HCC) Expected: 03/12/2022, Expires: 05/12/2022[facility] Work Phone: Comment on above:Expected: 03/12/2022, Expires: 05/12/2022tart: 90-29-4286RPNJCKI DIRECTIVE DISCUSSIONADVANCE DIRECTIVE DISCUSSIONGerman Hospitaltart: 77-84-7655RRQELJAMPM ASSESSMENTDEPRESSION ASSESSMENTGerman Hospitaltart: 96-79-2606RXOXL-19 VACCINE (3 - Mixed Product risk series)COVID-19 VACCINE (3 - Mixed Product risk series)[facility] Start: 83-46-0827HNZ Vaccine (1 - 1-dose 75+ series)RSV Vaccine (1 - 1-dose 75+ series)[facility]: 33-33-5289HEOL DENSITYBONE DENSITYMercy Health St. [facility]'S Medical Center Start: 60-37-2331Ekvbxocit for osteoporosisBone Density ScreeningGerman Hospitaltart: 12-01-2004Medicare Annual Wellness VisitMedicare Annual Wellness VisitGerman Hospitaltart: 49-29-2656YZM Vaccine (1 - 1-dose 60+ series)RSV Vaccine (1 - 1-dose 60+ series)[facility]: 10-50-7341Ymqmt microalbumin profileGerman Hospitaltart: 94-96-3341Aliwklr ScreeningAnxiety ScreeningGerman Hospitalt[facility]: 26-53-2273Ygjgsbhycu ScreeningDepression ScreeningGerman Hospitaltart: 68-62-6857LPtP/Tdap/Td Vaccines (1 - Tdap) DTaP/Tdap/Td Vaccines (1 - Tdap)[facility] End: 30-24-3820HLP Breast - bilateral screeningMAM SCREENING W CHELSIE Radiology Routine Malignant neoplasm of overlapping sites of right breast in female, estrogen receptor positive (HCC) Encounter for screening mammogram for malignant neoplasm of breast 1 Occurrences starting 03/28/2024 until 04/27/2025[facility] Work Phone: Comment on above:1 Occurrences starting 03/28/2024 until 04/27/2025 End: 51-70-2658MBS Breast - bilateral screeningMAM SCREENING W CHELSIE Radiology Routine 1 Occurrences starting 03/01/2025 until 6C[facility] Work Phone: Comment on above:1 Occurrences starting 03/01/2025 until 03/31/2026 End: 92-04-5337XWU Skeletal system.axial Views for bone densityDXA-AXIAL SKELETON Radiology Routine Encounter for osteoporosis screening in asymptomatic postmenopausal patient 1 Occurrences starting 08/07/2024 until 09/06/2025 [facility] Work Phone: Comment on above:1 Occurrences starting 08/07/2024 until 5[facility] Immunizations Immunization DateImmunizationNotesCare OkceswddLigpzwqo00-43-7433efxsxzoze, high dose seasonal, preservative-Vickie Huynh MD Work Phone: [place] [address]Qqnrkknlvg74-31-0902lwtlsitig, high dose seasonal, preservative-freeiWlver Disla MD Work Phone: [place] [address]Rdbhyh06-01-7589swavuryhzxb syncytial virus (RSV) vaccine, adjuvanted (AREXVY)Wilver Disla MD Work Phone: [place] [address]Rkofej68-08-3551ctfmsbulz virus vaccine, unspecified formulationCaesar Craven MD Work Phone: [facility] CenterDsaqgbpfqn41-62-5394Ogmmkyzmq, Seasonal, Quadrivalent, AdjuvantedJeremy [facility] PT Work Phone: [place] [address]Olnwhzhhlv80-49-5066cekvgiakt virus vaccine, unspecified formulationRosalina Landry PA-C Work Phone: [facility] Medical CenterPtswmo41-04-1723sftmbtcbt (HD-IIV4) vaccine, age 65+ yr, high dose, quadrivalent, PF (FLUZONE HIGH-DOSE)Wilver Disla MD Work Phone: [facility] Medical CenterSftunu35-43-2097amgvkhbai, high dose seasonal, preservative-freeJeremy [facility] PT Work Phone: [place] [phone]Drinzo Bivalent Booster 12 Years And OlderJeremy [facility] PT Work Phone: [place] [address]Xrlnwbpejf26-62-1226shvzdtkgi (aIIV4) vaccine, age 65+ yr, quadrivalent, PF (FLUAD QUAD)Wilver Disla MD Work Phone: [facility] CenterPgczql92-51-4000Cfdzucsct, High-dose Seasonal, Quadrivalent, Preservative FreeJeremy [facility] PT Work Phone: [place] [phone]LYZD-58 vaccine, full dose (MODERNA)Wilver Disla MD Work Phone: [facility] Medical CenterLurahx91-18-4976EDFNP-57 vaccine, full dose (MODERNA)Wilver Disla MD Work Phone: [facility] Medical CenterRtytbu56-71-7534nmqpfa vaccine recombinant Wilver Disla MD Work Phone: [facility] Medical CenterJutost86-38-5527wqihsaohb, high dose seasonal, preservative-Jarad Disla MD Work Phone: [facility] Medical CenterGeoknb00-20-4743Fpwcusxqw, High-dose Seasonal, Quadrivalent, Preservative FreeJeremy [facility] PT Work Phone: [facility] CenterGeawuxiobo70-14-2150fezkzqxai (aIIV4) vaccine, age 65+ yr, quadrivalent, PF (FLUAD QUADRIVALENT)Wilver Disla MD Work Phone: [facility] CenterKimnbh32-78-2716lbsrpiyat, injectable, quadrivalent, preservative freeJeremy [facility] PT Work Phone: [facility] CenterOugvaclkpn75-13-6784dugssbrdg, high dose seasonal, preservative-Jarad Disla MD Work Phone: [facility] Medical CenterQwoqwp62-33-1778pmkvek vaccine recombinant Wilver Disla MD Work Phone: [facility] CenterUxcwkv69-73-1658yddgaogwh, high dose seasonal, preservative-Jarad Disla MD Work Phone: [facility] Medical CenterKspocq47-03-1501Waymvrcqb, High-dose Seasonal, Quadrivalent, Preservative FreeJeremy [facility] PT Work Phone: [facility] CenterLzlckqhduu76-32-1564wpfzwfhqfxbe polysaccharide vaccine, 23 valentWilver Disla MD Work Phone: [facility] CenterMrbjom33-02-1227rwjjbvuew, high dose seasonal, preservative-Jarad Disla MD Work Phone: [facility] Medical CenterAbwixv55-20-3361Zaqyoncfo, High-dose Seasonal, Quadrivalent, Preservative FreeJeremy [facility] PT Work Phone: [facility] CenterZcpbvogaep16-84-9478kprvspyutqrp conjugate vaccine, 13 Carolyn Disla MD Work Phone: [facility] Medical CenterPadqiv68-78-3925lrylrnhnh, injectable, quadrivalent, contains preservativeWilver Disla MD Work Phone: [facility] Medical CenterMjbfvo81-91-3817wgzzjqnny, injectable, quadrivalent, preservative freeJeremy Blacksmorristown medical center PT Work Phone: [facility] CenterQnsbsrxzun86-56-9979qmdigcesa, injectable, quadrivalent, preservative freeJeremy Blacksmorristown medical center PT Work Phone: [facility] CenterAnofzsvxbl96-26-6217bfacjjpxv, seasonal, injectableJeremy Blacksmorristown medical center PT Work Phone: [facility] CenterLlzbwxebsh66-62-1797zfmvgxstifbf polysaccharide vaccine, 23 valentJeremy [facility] PT Work Phone: [facility] CenterAvvkwqwemd87-40-6313bpdimnhu influenza, intradermal, preservative freeJeremy [facility] PT Work Phone: [facility] Payers DatePayer CategoryPayerPolicy [id number] Health Insurance [id number] MMO MEDICARE SUPPLEMENT [id number] 2020-Present [phone] [address] [place] [address] [id number] 2019Medicare [id number] 2004MedicareMEDICARE RAILROAD MEDICARE RAILROAD PB ONLY [id number] 2004-Present [phone] [address] [address] [address] [id number] 2004Medicare [id number] [id number] 1960 [id number] 2.16.840.1.439057.3.579.2.593 [id number] 2.16.840.1.370787.3.57[id number] 2.16.840.1.193916.3.57[id number] 2..840.1.367466.3.57[id number] 2.16.840.1.949846.3.579.[id number] 2.16.840.1.570441.3.57[id number] 2.16.840.1.338684.3.57[id number] 2.16.840.1.936578.3.57[id number] 2.16.840.1.203003.3.57[id number] 2.16.840.1.593846.3.57[id number] 2.16840.1.285885.3.57[id number] 2..0.1.961868.3.57[id number] 2..840.1.284360.3.579.[id number] 2..0.1.218179.3.57[id number] 2..0.1.459428.3.579.[id number] 2..0.1.586152.3.579.2.[id number] 2..0.1.998966.3.579.2.1259 Social History DateTypeDetailFacilityStart: 09[birth year]20-1956 End: 24-89-1104Plkhawk smoking status NHISSmokes tobacco dailyMercy Health St. Rita'S Medical Center Start: 09-07-2019 End: 94-11-3529Xmaldlo use and exposureSmokeless tobacco non-userGerman Hospitaltart: 08-12-2021 End: 82-63-9073Kqamwna intakeEx-drinker (finding)[facility]: 92-58-6439Qkt Assigned At BirthNot on fileGerman Hospitaltart: 08-10-2022 End: 59-60-6736Pbgouslp to SARS-CoV-2 (event)Not sureGerman Hospitaltart: 93-23-8296Avsfdog of tobacco useCigarette SmokerGerman Hospitaltart: 04-05-2023 End: 63-39-0143Mlglgucmmx smoked current (pack per day) - Reported0.3[facility] ClinicStart: 04-05-2023 End: 61-31-0002Ppcklqo use panelGerman Hospitaltart: 39-86-5464Mjmyx Depression Screening Jaytmnpizb4Wtlystpoc ClinicStart: 51-77-9317Amnlmay smoking status NHISNever smoked tobaccoNOMS HealthcareWithin the last year, have you been afraid of your partner or ex-partner?NoNOMS HealthcareAre you now , , , , never or living with a partner?WidowedNOMS HealthcareHow often to you have a drink containing alcohol?NeverN[facility]S Healthcare Do you feel stress - tense, restless, nervous, or anxious, or unable to sleep at night because yourmind is troubled all the time - these days [OSQ]Not at all [facility](I/We) worried whether (my/our) food would run out before (I/we) got money to buy more.Never trueNOMS HealthcareHow often do you need to have someone help you when you read instructions, pamphlets, or other written material from your doctor or pharmacy [SILS]RarelyNOMS HealthcareStart: 04-13-2025 End: 55-91-4983Ueoyrmeew beverage intakeDeferNOMS HealthcareStart: 05-09-2025 Tobacco smoking statusHeavy tobacco smoker (finding)[facility] Hospitalexual OrientationExec[facility] start: [phone] (finding)[facility] Functional Status Hgun[id number] Health Questionnaire 2 item (PHQ- 2) [Reported][facility] [id number] Health Questionnaire 2 item (PHQ- 2) [Reported][facility] Clinical Notes 08-06-2021 to 07-19-2025 Note Date & [id number] History of Present illness Narrative* Bakari Calixto, DALLIN - 07/19/2025 2:20 PM EDT Patient: Ernestina Costa : 1940 PCP: Kade Huynh MD [...] min Stress: No Stress Concern Present (04/05/2024) [employer] [place] [facility] - Occupational Stress Questionnaire Feeling of Stress : Not at all Social Connections: Unknown (04/05/2024) Social Connection and Isolation Panel Frequency of Communication with Friends and Family: Not on file Frequency of Social Gatherings with Friends and Family: Not on file Attends [employer]: Not on file Active Member of [...] and negative PT pedal pulses NEURO: 5.07 [place] Felix monofilament test diminished to digits and [...] referral to Neurology or back surgeon Bakari Calixto DPM documented in this encounterLafayette Regional Health [id number] History of Present illness Narrative* Kade Huynh MD - 07/09/2025 3:30 PM EDT Images from the original note were not included. HPI Med Refill Additional comments: HEMORRHOID SUPPOSITORY-- [facility] VACCINE QUESTION Additional comments: PT WONDERS IF THERE ARE ANY VACCINES SHE IS DUE FOR DISCUSS TREATMENT THAT WAS RECOMMENDED BY UROLOGY Additional comments: Urology suggested Bulkamid as a treatment option for bladder leaks and wondering if PCP agreed Results Additional comments: Lab lab work done 03/2025 and wanted to make sure it was okay Last edited by Noelle Parks LPN on 07/09/2025 3:44 PM. Subjective Patient ID: Ernestina Costa is a 84 y.o. female who presents for Med Refill (HEMORRHOID SUPPOSITORY--[facility]), VACCINE QUESTION (PT WONDERS IF THERE ARE ANY VACCINES SHE IS DUE FOR), DISCUSS TREATMENT THAT WAS RECOMMENDED BY UROLOGY (Urology suggested Bulkamid as a treatment option for bladder leaks and wondering if PCP agreed ), and Results (Lab lab work done 03/2025 and wanted to make sure it was okay). Pt has some questions about suggested treatments from urology Needs a refill [facility] med to [facility] Will need influenza vaccine today Med Refill Over the past 2 weeks, how often have you been bothered by any of the following problems? Little interest or pleasure in doing things: Not at all Feeling down, depressed, or hopeless: Not at all Patient Health Questionnaire-2 Score: 0 Current Outpatient Medications on File Prior to Visit Medication Sig Dispense Refill cholecalciferol (Vitamin D-3) 25 MCG (1000 UT) capsule Take 1,000 Units by mouth in the morning. docusate sodium (Colace) 50 MG capsule Take 50 mg by mouth in the morning. omeprazole OTC (PriLOSEC OTC) 20 MG EC tablet 20 mg 1 (one) time each day at the same time. polyethylene glycol, PEG, 3350 (Miralax) 17 g packet Take 17 g by mouth in the morning. No current facility-administered medications on file prior to visit. I have reviewed and reconciled the history and medication list with the patient today. No Known Allergies Social History Tobacco Use Smoking status: Every Day Current packs/day: 0.25 Average packs/day: 0.3 packs/day for 68.8 years (17.2 ttl pk-yrs) Types: Cigarettes Start date: 1957 Smokeless tobacco: Never Substance Use Topics Alcohol use: Defer Family History Problem Relation Name Age of Onset Parkinsonism Father Past Medical History: Diagnosis Date Cancer (HCC) 2019 Invasive Ductal Carcinoma right breast Cholelithiasis 2019 Past Surgical History: Procedure Laterality Date ARTHRODESIS 05/12/2021 Left 1st MTP fusion, 2-5 PIPJ Arthroplasty BREAST SURGERY Right 09/19/2019 Lumpectomy/[place] lymph node biopsy CATARACT EXTRACTION 1989 COLONOSCOPY 2013 COLONOSCOPY 2006 TONSILLECTOMY 1940 Visit Vitals BP 128/68 Pulse 68 Ht 5' 2 Wt 189 lb SpO2 97% BMI 34.57 kg/m Smoking Status Every Day BSA 1.94 m Review of Systems Objective Physical Exam Constitutional: General: She is not in acute distress. Appearance: Normal appearance. She is well-developed. HENT: Head: Normocephalic and atraumatic. Eyes: General: No scleral icterus. Conjunctiva/sclera: Conjunctivae normal. Cardiovascular: Rate and Rhythm: Normal rate and regular rhythm. Pulses: Dorsalis pedis pulses are 2+ on the right side and 2+ on the left side. Posterior tibial pulses are 2+ on the right side and 2+ on the left side. Heart sounds: Normal heart sounds. No murmur heard. Pulmonary: Effort: Pulmonary effort is normal. No respiratory distress. Breath sounds: Normal breath sounds. No wheezing, rhonchi or rales. Musculoskeletal: Right lower leg: No edema. Left lower leg: No edema. Skin: General: Skin is warm and dry. Neurological: General: No focal deficit present. Mental Status: She is alert and oriented to person, place, and time. Psychiatric: Mood and Affect: Mood normal. Behavior: Behavior normal. Clinisync Result Encounter on 04/13/2025 Component Date Value Ref Range Status SODIUM 04/13/2025 138 136 - 145 mmol/L Final POTASSIUM 04/13/2025 4.2 3.5 - 5.1 mmol/L Final CHLORIDE 04/13/2025 103 98 - 107 mmol/L Final CARBON DIOXIDE 04/13/2025 26.3 21.0 - 32.0 mmol/L Final ANION GAP 04/13/2025 12.9 Final GLUCOSE 04/13/2025 109 (H) 74 - 106 mg/dL Final BLOOD UREA NITROGEN 04/13/2025 19.0 (H) 7.0 - 18.0 mg/dL Final CREATININE 04/13/2025 0.83 0.55 - 1.02 mg/dL Final TBH EGFR-AF TANZANIAN 04/13/2025 >60 >=60 mL/min/1.73m 2 Final TBH EGFR-NON AF TANZANIAN 04/13/2025 >60 >=60 mL/min/1.73m 2 Final BUN CREATININE RATIO 04/13/2025 22.9 Final CALCIUM 04/13/2025 8.9 8.5 - 10.1 mg/dL Final BILIRUBIN TOTAL 04/13/2025 0.4 0.2 - 1.0 mg/dL Final ASPARTATE AMINO TRANSFERASE 04/13/2025 11 (L) 15 - 37 U/L Final ALANINE AMINOTRANSFERASE 04/13/2025 18 14 - 59 U/L Final ALKALINE PHOSPHATASE 04/13/2025 95 46 - 116 U/L Final TOTAL PROTEIN 04/13/2025 8.3 (H) 6.4 - 8.2 g/dL Final ALBUMIN LEVEL 04/13/2025 3.1 (L) 3.4 - 5.0 g/dL Final GLOBULIN 04/13/2025 5.2 g/dL Final ALBUMIN GLOBULIN RATIO 04/13/2025 0.6 Final TSH 04/13/2025 1.320 0.358 - 3.740 uIU/mL Final Clinisync Result Encounter on 03/01/2025 Component Date Value Ref Range Status [facility] WBC # BLD AUTO 03/01/2025 5.97 3.70 - 11.00 k/uL Final [facility] RBC # BLD AUTO 03/01/2025 4.03 3.90 - 5.20 m/uL Final [facility] HGB BLD-MCNC 03/01/2025 13.3 11.5 - 15.5 g/dL Final [facility] HCT VFR BLD AUTO 03/01/2025 40.1 36.0 - 46.0 % Final [facility] MCV RBC AUTO 03/01/2025 99.5 80.0 - 100.0 fL Final [facility] MCH RBC QN AUTO 03/01/2025 33.0 26.0 - 34.0 pg Final [facility] MCHC RBC AUTO-MCNC 03/01/2025 33.2 30.5 - 36.0 g/dL Final [facility] RDW RBC-RTO 03/01/2025 14.2 11.5 - 15.0 % Final [facility] PLATELET # BLD AUTO 03/01/2025 247 150 - 400 k/uL Final [facility] PMV BLD AUTO 03/01/2025 9.4 9.0 - 12.7 fL Final [facility] NEUTROPHILS/LEUK NFR BLD AUTO 03/01/2025 66.3 % Final [facility] NEUTROPHILS # BLD AUTO 03/01/2025 3.95 1.45 - 7.50 k/uL Final [facility] LYMPHOCYTES/LEUK NFR BLD AUTO 03/01/2025 25.3 % Final [facility] LYMPHOCYTES # BLD AUTO 03/01/2025 1.51 1.00 - 4.00 k/uL Final [facility] MONOCYTES/LEUK NFR D AUTO 03/01/2025 6.0 % Final [facility] MONOCYTES # BLD AUTO 03/01/2025 0.36 <0.87 k/uL Final [facility] EOSINOPHIL/LEUK NFR BLD AUTO 03/01/2025 1.3 % Final [facility] EOSINOPHIL # BLD AUTO 03/01/2025 0.08 <0.46 k/uL Final [facility] BASOPHILS/LEUK NFR D AUTO 03/01/2025 0.8 % Final [facility] BASOPHILS # D AUTO 03/01/2025 0.05 <0.11 k/uL Final IMM GRANULOCYTES/LEUK NFR D AUTO 03/01/2025 0.3 % Final IMM GRANULOCYTES # BLD AUTO 03/01/2025 <0.03 <0.10 k/uL Final [facility] NRBC/100 WBC BLD-RTO 03/01/2025 0.0 /100 WBC Final [facility] NRBC # BLD AUTO 03/01/2025 <0.01 <0.01 k/uL Final [facility] DIFFERENTIAL METHOD BLD 03/01/2025 Auto Final [facility] PROT SERPL-MCNC 03/01/2025 7.6 6.3 - 8.0 g/dL Final [facility] ALBUMIN SERPL-MCNC 03/01/2025 3.8 (L) 3.9 - 4.9 g/dL Final [facility] CALCIUM SERPL-MCNC 03/01/2025 9.4 8.5 - 10.2 mg/dL Final [facility] BILIRUB SERPL-MCNC 03/01/2025 0.5 0.2 - 1.3 mg/dL Final [facility] ALP SERPL-CCNC 03/01/2025 105 34 - 123 U/L Final [facility] AST SERPL-CCNC 03/01/2025 11 (L) 13 - 35 U/L Final [facility] ALT SERPL-CCNC 03/01/2025 12 7 - 38 U/L Final [facility] GLUCOSE SERPL-MCNC 03/01/2025 120 (H) 74 - 99 mg/dL Final Comment: The [place] [employer] (ADA) provides guidance for cutoff values for fasting glucose and random glucose. The ADA defines fasting as no caloric intake for at least 8 hours. Fastingplasma glucose results between 100 to 125 mg/dL [...] Standards of Medical Care in Diabetes 2016, [place] [employer]. Diabetes Care. 2016.39(Suppl 1). [facility] BUN SERPL-MCNC 03/01/2025 20 7 - 21 mg/dL Final [facility] CREAT SERPL-MCNC 03/01/2025 0.76 0.58 - 0.96 mg/dL Final [facility] SODIUM SERPL-SCNC 03/01/2025 137 136 - 144 mmol/L Final [facility] POTASSIUM SERPL-SCNC 03/01/2025 3.7 3.7 - 5.1 mmol/L Final [facility] CHLORIDE SERPL-SCNC 03/01/2025 104 98 - 107 mmol/L Final [facility] CO2 SERPL-SCNC 03/01/2025 24 22 - 30 mmol/L Final [facility] ANION GAP SERPL-SCNC 03/01/2025 9 8 - 15 mmol/L Final [facility] CREATININE + EGFR PNL SERPLBLD 03/01/2025 77 >=60 mL/min/1.73m??? Final Estimated Glomerular Filtration Rate (eGFR) is calculated using the 2020 CKD-EPI creatinine equation. This equation utilizes serum creatinine, sex, and age as parameters. The creatinine assay has traceable calibration to isotope dilution- mass spectrometry. Refer to KDIGO guidelines for clinical interpretation. In patients with unstable renal function, e.g. those with acute kidney injury, the eGFRmay not accurately reflect actual GFR. Assessment/Plan Diagnoses and all orders for this visit: Hemorrhoids, unspecified hemorrhoid type - hydrocortisone (Anusol-HC) 2.5 % rectal cream; Insert into the rectum 4 (four) times a day as needed for hemorrhoids (rectal discomfort) Hemorrhoids without complication Flu vaccine need - Flu vaccine, high dose seasonal, PF ([id number]) (Fluzone High Dose) No follow-ups on file. documented in this encounterLafayette Regional Health [id number] History of Present illness Narrative* Bakari Calixto, PETERM - 06/07/2025 2:10 PM EDT Patient: Ernestina Costa : 1940 PCP: Kade Huynh MD SUBJECTIVE This is a 84 y.o. female that presents today 14 d s/p permanent nail avulsion with nail avulsion tothe medial and lateral borders of b/l great digits. Pt states that they have been following all post op instructions and have been taking antibiotic asprescribed. Pt denies n/f/v/c and has negative pain at post op site. Pt states negative drainage from the postop site. Pt presents today for postoperative follow up. 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 Allergies: No Known Allergies Past Medical History: Past Medical History: Diagnosis Date Cancer (HCC) 2019 Invasive Ductal Carcinoma right breast Cholelithiasis 2019 Medications: Current Outpatient Medications: cholecalciferol (Vitamin D-3) 25 MCG (1000 UT) capsule, Take 1,000 Units by mouth in the morning., Disp: , Rfl: docusate sodium (Colace) 50 MG capsule, Take 50 mg by mouth in the morning., Disp: , Rfl: omeprazole OTC (PriLOSEC OTC) 20 MG EC tablet, 20 mg 1 (one) time each day at the same time., Disp:, Rfl: polyethylene glycol, PEG, 3350 (Miralax) 17 g packet, Take 17 g by mouth in the morning., Disp: , Rfl: ROS: General: denies fever, chills, fatigue, malaise GI: denies loose or watery stool on antibiotic OBJECTIVE LE EXAM: DERM: Negative erythema, negative drainage from the LEFT AND RIGHT HALLUX VASC: Palpable pedal pulses bilaterally NEURO: Gross sensation intact to bilateral feet ORTHO: Minimal pain on palpation to the medial and lateral borders of b/l great toes ASSESSMENT 14 d s/p permanent nail avulsion to the medial and lateral borders of b/l great digits 1. Onychocryptosis 2. Toe pain, left 3. Toe pain, right 4. Other polyneuropathy PLAN Pt to d/c abx. Patient to continue with OTC oral anti - inflammatories as needed for pain. Pt to keep DSD on area of interest while in shoegear, otherwise may expose to air in a clean environment. Bakari Calixto DPM documented in this encounterLafayette Regional Health [id number] History of Present illness Narrative* Bakari Calixto DPM - 05/24/2025 2:00 PM EDT Patient: Ernestina Costa : 1940 PCP: Kade Huynh MD SUBJECTIVE This is a 84 y.o. female that presents today with a CC of ingrowing left and right hallux toenail Pt states problem has been present for the past few weeks. Pt has noticed negative drainage to the affected area and states pain is achey in nature. Treatments have consisted of soaking and trying to remove the ingrown nail on their own with no relief. Patient has had longstanding issue with ingrowing nail and presents today for treatment Pt has hx of Peripheral neuropathy and left sided spinal dz. Patient was to go to chiropractor but still has back issues and discuss in the past possible referral Allergies: No Known Allergies Past Medical History: Past Medical History: Diagnosis Date Cancer (HCC) 2019 Invasive Ductal Carcinoma right breast Cholelithiasis 2019 Medications: Current Outpatient Medications: cholecalciferol (Vitamin D-3) 25 MCG (1000 UT) capsule, Take 1,000 Units by mouth in the morning., Disp: , Rfl: docusate sodium (Colace) 50 MG capsule, Take 50 mg by mouth in the morning., Disp: , Rfl: omeprazole OTC (PriLOSEC OTC) 20 MG EC [...] Not on file Tobacco Use Smoking status: Never Smokeless tobacco: Never Substance and Sexual Activity [...] min Stress: No Stress Concern Present (04/05/2024) [employer] [place] [employer] - Occupational Stress Questionnaire Feeling of Stress : Not at all Social Connections: Unknown (04/05/2024) Social Connection and Isolation Panel [NHANES] Frequency of Communication with Friends and Family: Not on file Frequency of Social Gatherings with Friends and Family: Not on file Attends [employer] Services: Not on file Active Member of [...] Homeless in the Last Year: No ROS: General: denies fever, chills, fatigue, malaise OBJECTIVE LE EXAM: DERM: Positive erythema and negative drainage from the medial and lateral borders of bilateral great digits with hair growth noted to b/l feet. VASC: positive DP and negative PT pedal pulses NEURO: 5.07 [place] Felix monofilament test diminished to digits and forefoot left foot and positive to right foot 125Hz tuning fork diminished to 1st MPJ bilaterally left foot and positive to right foot ORTHO: Ankle ROM less than 10 degrees b/l. Positive pain on palpation to bilateral great digits ASSESSMENT 1. Other polyneuropathy 2. Onychocryptosis 3. Toe pain, left 4. Toe pain, right PLAN Patient to continue with oral anti - inflammatories as needed for pain and recommended OTC medications such as tylenol or Ibuprofen Discussed possible treatment options including a permanent nail avulsion and patient would like partial permanent nail avulsions of the medial and lateral borders of bilateral great digits Perfomed PPN avulsion to the left toenail. Informed pt of risks/ benefits of procedure including infection,reoccurance,pain, bleeding. Pt consents. 3cc of xylocaine 2% plain injected into the affected digit and tournicut applied to affected digit for 3 minutes. The affected toe was prepped/draped in a sterile manner and the offending nail border removed and 3phenol applications of 30 seconds a peice to nail matrix. Alcohol flush applied and tournicut released with prompt hyperemic response. Patient was given a prescription for an antibiotic Perfomed PPN avulsion to the right toenail. Informed pt of risks/ benefits of procedure including infection,reoccurance,pain, bleeding. Pt consents. 3cc of xylocaine 2% plain injected into the affected digit and tournicut applied to affected digit for 3 minutes. The affected toe was prepped/draped in a sterile manner and the offending nail border removed and 3phenol applications of 30 seconds a peice to nail matrix. Alcohol flush applied and tournicut released with prompt hyperemic response. Patient encouraged to see chiropractor discuss possible referral to Neurology if condition worsens Bakari Calixto DPM documented in this encounterLafayette Regional Health [id number] Hospital Discharge instructions Patient Education 05/09/2025 11:15:59 Kegel Exercises Kegel Exercises Kegel exercises can help strengthen your pelvic floor muscles. The pelvic floor is a group of muscles that support your rectum, small intestine, and bladder. In females, pelvic floor muscles also help support the uterus. These muscles help you control the flow of urine and stool (feces). Kegel exercises are painless and simple. They do not require any equipment. Your provider may suggest Kegel exercises to: Improve bladder and bowel control. Improve sexual response. Improve weak pelvic floor muscles after surgery to remove the uterus (hysterectomy) or after , in females. Improve weak pelvic floor muscles after prostate gland removal or surgery, in males. Kegel exercises involve squeezing your pelvic floor muscles. These are the same muscles you squeezewhen you try to stop the flow of urine or keep from passing gas. The exercises can be done while sitting, standing, or lying down, but it is best to vary your position. Ask your health care provider which exercises are safe for you. Do exercises exactly as told by your health care provider and adjust them as directed. Do not begin these exercises until told by your health care provider. Exercises How to do Kegel exercises: 1.Squeeze your pelvic floor muscles tight. You should feel a tight lift in your rectal area. If youare a female, you should also feel a tightness in your vaginal area. Keep your stomach, buttocks, and legs relaxed. 2.Hold the muscles tight for up to 10 seconds. 3.Breathe normally. 4.Relax your muscles for up to 10 seconds. 5.Repeat as told by your health care provider. Repeat this exercise daily as told by your health care provider. Continue to do this exercise for at least 4 6 weeks, or for as long as told by your health care provider. You may be referred to a physical therapist who can help you learn more about how to do Kegel exercises. Depending on your condition, your health care provider may recommend: Varying how long you squeeze your muscles. Doing several sets of exercises every day. Doing exercises for several weeks. Making Kegel exercises a part of your regular exercise routine. This information is not intended to replace advice given to you by your health care provider. Make sure you discuss any questions you have with your health care provider. Document Revised: 01/15/2022 Document Reviewed: 01/15/2022 [employer] Patient Education 2023 [employer]. Follow Up Care 04/23/2025 16:04:13 With:Chu RODRIGUEZ, Feli Puckett, URL, [facility] Address: [address], [place] [phone] When: Unknown Comments:pt to call to schedule cysto/pelvic exam [facility] 08-20-2025 NotePatient Education Obstetrics and Gynecology Kegel Exercises Kegel exercises can help strengthen your pelvic floor muscles. The pelvic floor is a group of muscles that support your rectum, small intestine, and bladder. In females, pelvic floor muscles also help support the uterus. These muscles help you control the flow of urine and stool (feces). Kegel exercises are painless and simple. They do not require any equipment. Your provider may suggest Kegel exercises to: ??? Improve bladder and bowel control. ??? Improve sexual response. ??? Improve weak pelvic floor muscles after surgery to remove the uterus (hysterectomy) or after , in females. ??? Improve weak pelvic floor muscles after prostate gland removal or surgery, in males. Kegel exercises involve squeezing your pelvic floor muscles. These are the same muscles you squeezewhen you try to stop the flow of urine or keep from passing gas. The exercises can be done while sitting, standing, or lying down, but it is best to vary your position. Ask your health care provider which exercises are safe for you. Do exercises exactly as told by your health care provider and adjust them as directed. Do not begin these exercises until told by your health care provider. Exercises How to do Kegel exercises: 1. Squeeze your pelvic floor muscles tight. You should feel a tight lift in your rectal area. If you are a female, you should also feel a tightness in your vaginal area. Keep your stomach, buttocks, and legs relaxed. 2. Hold the muscles tight for up to 10 seconds. 3. Breathe normally. 4. Relax your muscles for up to 10 seconds. 5. Repeat as told by your health care provider. Repeat this exercise daily as told by your health care provider. Continue to do this exercise for at least 4?6 weeks, or for as long as told by your health care provider. You may be referred to a physical therapist who can help you learn more about how to do Kegel exercises. Depending on your condition, your health care provider may recommend: ??? Varying how long you squeeze your muscles. ??? Doing several sets of exercises every day. ??? Doing exercises for several weeks. ??? Making Kegel exercises a part of your regular exercise routine. This information is not intended to replace advice given to you by your health care provider. Make sure you discuss any questions you have with your health care provider. Document Revised: 01/15/2022 Document Reviewed: 01/15/2022 [employer] Patient Education ? 2023 [employer].[facility] 05-03-2025 History of Present illness Narrative* Bakari Calixto, DALLIN - 05/03/2025 3:00 PM EDT Patient: Ernestina Costa : 1940 PCP: Kade Huynh MD [...] mouth in the morning., Disp: , Rfl: omeprazole OTC (PriLOSEC OTC) 20 MG EC [...] Not on file Tobacco Use Smoking status: Never Smokeless tobacco: Never Substance and Sexual Activity [...] min Stress: No Stress Concern Present (04/05/2024) [employer] [place] [employer] - Occupational Stress Questionnaire Feeling of Stress : Not at all Social Connections: Unknown (04/05/2024) Social Connection and Isolation Panel [NHANES] Frequency of Communication with Friends and Family: Not on file Frequency of Social Gatherings with Friends and Family: Not on file Attends [employer] Services: Not on file Active Member of [...] and negative PT pedal pulses NEURO: 5.07 [place] Felix monofilament test diminished to digits and forefoot left foot and positive to right foot 125Hz tuning fork diminished to 1st MPJ bilaterally left foot and positive to right foot ORTHO: Positive pain on palpation to toenails of the left 1,2,3,4,5 toes and right 1,2,3,4,5 toes ASSESSMENT 1. Other polyneuropathy 2. Numbness of left foot 3. Pain due to onychomycosis of toenails of [...] any referral to Neurology or back surgeon Patient may follow up in near future for possible nail procedures Bakari Calixto DPM documented in this encounterLafayette Regional Health [id number] History of Present illness Narrative* Kade Huynh MD - 04/13/2025 11:30 AM EDT Images from the original note were not included. Subjective : Chief Complaint: Ernestina Costa is an 84 y.o. female here for an annual wellness visit. I have reviewed and reconciled the history and medication list with the patient today. Current Outpatient Medications Medication Sig Dispense Refill anastrozole (Arimidex) 1 MG chemo tablet Take 1 mg by mouth 1 (one) time each day at the same time. cholecalciferol (Vitamin D-3) 25 MCG (1000 UT) capsule Take 1,000 Units by mouth in the morning. docusate sodium (Colace) 50 MG capsule Take 50 mg by mouth in the morning. lactulose (Kristalose) 10 g packet Take 10 g by mouth in the morning and 10 g in the evening and 10g before bedtime. omeprazole OTC (PriLOSEC OTC) 20 MG EC tablet 20 mg 1 (one) time each day at the same time. polyethylene glycol, PEG, 3350 (Miralax) 17 g packet Take 17 g by mouth in the morning. No current facility-administered medications for this visit. Review of Systems List of current healthcare providers: Patient Care Team: Kade Huynh MD as PCP - General (Internal Medicine) Medicare Annual Visit Over the past 2 weeks, how often have you been bothered by any of the following problems? Little interest or pleasure in doing things: Not at all Feeling down, depressed, or hopeless: Not at all Patient Health Questionnaire-2 Score: 0 Islas Fall Risk History of Falling, Immediate or Within 3 Months: No Health Risk Assessment Form Do you need help eating, bathing, using the toilet, dressing, or getting around your home?: No Can you prepare your own meals?: Yes Can you do your own housework without help?: Yes Can you shop for groceries or clothes without help?: Yes Do you exercise for about 20 minutes 3 or more days a week?: Yes How confident are you that you can control and manage most of your health problems?: Very confident Can you mange your money, credit cards and accounts, pay bills and taxes?: Yes Cognitive Screening Three Word Registration: Banana, [place], Chair Clock Drawing: Normal Clock - 2 Three Word Recall: All 3 words correct - 3 Total Score (0-5 Points): 5 Pain Assessment Pain Score: 0 - No pain Advance Care Planning Do you have a living will?: Yes Do you have a medical power of privacy attorney?: Yes Who is your medical power of privacy attorney?: niece Objective : BP 136/78 Pulse 68 Resp 16 Ht 5' 2 Wt 192 lb SpO2 97% BMI 35.12 kg/m No results found. Physical Exam Constitutional: General: She is not in acute distress. Appearance: Normal appearance. She is well-developed. HENT: Head: Normocephalic and atraumatic. Eyes: General: No scleral icterus. Conjunctiva/sclera: Conjunctivae normal. Cardiovascular: Rate and Rhythm: Normal rate and regular rhythm. Pulses: Dorsalis pedis pulses are 2+ on the right side and 2+ on the left side. Posterior tibial pulses are 2+ on the right side and 2+ on the left side. Heart sounds: Normal heart sounds. No murmur heard. Pulmonary: Effort: Pulmonary effort is normal. No respiratory distress. Breath sounds: Normal breath sounds. No wheezing, rhonchi or rales. Musculoskeletal: Right lower leg: No edema. Left lower leg: No edema. Skin: General: Skin is warm and dry. Neurological: General: No focal deficit present. Mental Status: She is alert and oriented to person, place, and time. Psychiatric: Mood and Affect: Mood normal. Behavior: Behavior normal. Assessment/Plan : The following health maintenance schedule was reviewed with the patient and provided in printed form in the after visit summary: Health Maintenance Topic Date Due Medicare Annual Wellness (AWV) 04/03/2025 Influenza Vaccine (1) 05/21/2025 Pneumococcal Vaccine: 65+ Years Completed Advance Care Planning Assessment/Plan Diagnoses and all orders for this visit: Routine general medical examination at health care facility Idiopathic peripheral neuropathy - Handicap Placard 5 Years - Comprehensive metabolic panel; Future - TSH W/REFLEX TO FT4; Future Atherosclerosis of aorta - Handicap Placard 5 Years Lumbar radiculopathy - Handicap Placard 5 Years Numbness of left foot - Ambulatory referral to Podiatry; Future Urge incontinence - Ambulatory referral to Urology; Future Cystocele, unspecified - Ambulatory referral to Urology; Future Orders Placed This Encounter Procedures Handicap Placard 5 Years Duration: 5 Years Ambulatory referral to Podiatry Standing Status: Future Expected Date: 04/13/2025 Expiration Date: 10/14/2025 Referral Priority: Routine Referral Type: Consultation Referral Reason: Specialty Services Required Referred to Provider: Bakari Calixto DPM Requested Specialty: Podiatry Number of Visits Requested: 1 Electronically signed by Kade Huynh MD on April 13, 2025 documented in this encounterLafayette Regional Health [id number] Telephone encounter Note* Telephone Encounter - Porfirio Rucker RN - 03/30/2025 2:38 PM EDT Pt update and agreeable to plan of care. Porfirio Rucker RN [facility]07-11-2025 Miscellaneous Notes* Telephone Encounter - Porfirio Rucker RN - 03/30/2025 2:38 PM EDT Pt update and agreeable to plan of care. Porfirio Rucker RN * Telephone Encounter - Rosalina Landry PA-C - 03/30/2025 2:32 PM EDT Ok to stop Evista. Per Dr. Disla's note: Will start Evista to improve bone density, with the added benefit of breast cancer risk reduction. Will need to monitor her dexa more closely. Rosalina Landry PA-C * Telephone Encounter - Porfirio Rucker RN - 03/30/2025 2:28 PM EDT Pt calls with complaints of numbess/tingling in fingers and feet with Evista. She reports she wouldlike to stop the medication, as it is affecting her sleep. Please advise Porfirio Rucker RN documented in this encounterMer[facility]07-[facility]-2025 Telephone encounter Note * Telephone Encounter - Rosalina Landry PA-C - 03/30/2025 2:32 PM EDT Ok to stop Evista. Per Dr. Disla's note: Will start Evista to improve bone density, with the added benefit of breast cancer risk reduction. Will need to monitor her dexa more closely. Rosalina Landry PA-C [facility]07-11-2025 Telephone encounter Note* Telephone Encounter - Porfirio Rucker RN - 03/30/2025 2:28 PM EDT Pt calls with complaints of numbess/tingling in fingers and feet with Evista. She reports she wouldlike to stop the medication, as it is affecting her sleep. Please advise Porfirio Rucker RN [facility]06-11-2025 NoteHNO ID: [id number] Author: WILVER DISLA MD Service: ? Author Type: Physician Type: Progress Notes Filed: 03/06/2025 17:02 Note Text: PATIENT NAME: Ernestina Costa DATE: 03/01/2025 PRIMARY CARE PHYSICIAN: Dr. Kade Huynh OTHER PHYSICIANS: Dr. Chambers, Dr. Bhakti Glaser ([facility] [place]) Portions of this encounter note have been copied from the note from 08/07/2024 and has been updated where appropriate, and reflect my current medical decision making from today. CC: This is an 84 year old female with a history of breast cancer, seen for scheduled follow-up. INTERIM HISTORY: Since the patient's last visit here she has had no significant medical changes. She has noticed no changes in her breasts. No unexpected pain or other systemic symptoms. She remains on Arimidex which she is tolerating well. Other than the hot flashes she has had no apparent adverse effects. MEDICATIONS: pseudoephedrine HCl (SUDAFED ORAL) Take by mouth. docusate sodium (COLACE ORAL) Take by mouth. polyethylene glycol 3350 (MIRALAX ORAL) Take by mouth. anastrozole (ARIMIDEX) 1 mg tablet Take 1 tablet by mouth once daily. SAMUEL'S WORT ORAL Take by mouth. hydrocortisone (HEMORRHOIDAL HC) 25 mg suppository INSERT 1 SUPPOSITORY RECTALLY 3 TIMES A DAY cholecalciferol (VITAMIN D3) 50 mcg (2,000 unit) tablet Take 1 tablet by mouth once daily. omeprazole (PRILOSEC) 20 mg capsule Take 20 mg by mouth once daily. zinc sulfate (ZINC-15 ORAL) Take by mouth. ALLERGIES: Patient has no [...] and axilla tenderness PHYSICAL EXAM: Vitals: BP 134/84 Pulse 75 Temp 36.6 ?C (97.9 ?F) (Temporal) Resp 20 Ht 158.1 cm (5' 2.24 ) Wt 86.2 kg (190 lb 0.6 oz) SpO2 100% BMI 34.49 kg/m? ECOG 0 General: Alert and oriented, [...] the right outer quadrant. Left breast normal. 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 The invasive carcinoma measures 1.5 cm in greatest dimension. It focally involved the inferior margin. The remaining margins are free of neoplasm. One sentinel lymph node biopsied, with evidence of metastasis measuring 4 mm in greatest dimension. Minute focus of extranodal extension measuring approximately 0.1 mm is identified. LABORATORY DATA: Hemoglobin (g/dL) Date Value 03/01/2025 13.3 08/12/2021 13.7 Hematocrit (%) Date Value 03/01/2025 40.1 08/12/2021 42.2 WBC (k/uL) Date Value 03/01/2025 5.97 08/12/2021 6.69 Platelet Count (k/uL) Date Value 03/01/2025 247 08/12/2021 266 RADIOLOGIC DATA: 08/10/2024 Bone density DEXA ([facility]) Osteopenia. Max T-score -1.9 femur 07/31/2024 Bilateral screening mammogram ([facility]) Benign finding. Recommend routine mammogram in 12 months. 03/11/2023 Right diagnostic mammogram and ultrasound ([facility]) Ultrasound evaluation demonstrates a calcified mass within the axillary tail corresponding to the patient's palpable lump, 2.1 x 0.9 x 1.1 cm. No appreciable significant internal blood flow. Benign finding. ASSESSMENT/PLAN: 1. Malignant neoplasm of lower-inner quadrant of right breast of female, estrogen receptor positive Stage IIA (T1c, N1a, M0) Infiltrating ductal carcinoma of the right breast, ER/AK positive, HER2 negative diagnosed August 2019. Ultra (more content not included)...[facility]06-11-2025 History of Present illness Narrative* Wilver Disla MD - 02/28/2025 9:24 AM EDT PATIENT NAME: Ernestina Costa DATE: 03/01/2025 PRIMARY CARE PHYSICIAN: Dr. Kade Huynh OTHER PHYSICIANS: Dr. Chambers, Dr. Bhakti Glaser ([facility] [place]) Portions of this encounter note have been copied from the note from 08/07/2024 and has been updatedwhere appropriate, and reflect my current medical decision making from today. CC: This is an 84 year old female with a history of breast cancer, seen for scheduled follow-up. INTERIM HISTORY: Since the patient's last visit here she has had no significant medical changes. She has noticed no changes in her breasts. No unexpected pain or other systemic symptoms. She remains on Arimidex which she is tolerating well. Other than the hot flashes she has had no apparent adverse effects. MEDICATIONS: pseudoephedrine HCl (SUDAFED ORAL) Take by mouth. docusate sodium (COLACE ORAL) Take by mouth. polyethylene glycol 3350 (MIRALAX ORAL) Take by mouth. anastrozole (ARIMIDEX) 1 mg tablet Take 1 tablet by mouth once daily. SAMUEL'S WORT ORAL Take by mouth. hydrocortisone (HEMORRHOIDAL HC) 25 mg suppository INSERT 1 SUPPOSITORY RECTALLY 3 TIMES A DAY cholecalciferol (VITAMIN D3) 50 mcg (2,000 unit) tablet Take 1 tablet by mouth once daily. omeprazole (PRILOSEC) 20 mg capsule Take 20 mg by mouth once daily. zinc sulfate (ZINC-15 ORAL) Take by mouth. ALLERGIES: Patient has no [...] and axilla tenderness PHYSICAL EXAM: Vitals: BP 134/84 Pulse 75 Temp 36.6 C (97.9 F) (Temporal) Resp 20 Ht 158.1 cm (5' 2.24 ) Wt 86.2 kg (190 lb 0.6 oz) SpO2 100% BMI 34.49 kg/m ECOG 0 General: Alert and oriented, [...] thickening consistent with scar tissue in the rightouter quadrant. Left breast normal. 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 The invasive carcinoma measures 1.5 cm in greatest dimension. It focally involved the inferior margin. The remaining margins are free of neoplasm. One sentinel lymph node biopsied, with evidence of metastasis measuring 4 mm in greatest dimension.Minute focus of extranodal extension measuring approximately 0.1 mm is identified. LABORATORY DATA: Hemoglobin (g/dL) Date Value 03/01/2025 13.3 08/12/2021 13.7 Hematocrit (%) Date Value 03/01/2025 40.1 08/12/2021 42.2 WBC (k/uL) Date Value 03/01/2025 5.97 08/12/2021 6.69 Platelet Count (k/uL) Date Value 03/01/2025 247 08/12/2021 266 RADIOLOGIC DATA: 08/10/2024 Bone density DEXA ([facility]) Osteopenia. Max T-score -1.9 femur 07/31/2024 Bilateral screening mammogram ([facility]) Benign finding. Recommend routine mammogram in 12 months. 03/11/2023 Right diagnostic mammogram and ultrasound ([facility]) Ultrasound evaluation demonstrates a calcified mass within the axillary tail corresponding to the patient's palpable lump, 2.1 x 0.9 x 1.1 cm. No appreciable significant internal blood flow. Benign finding. ASSESSMENT/PLAN: 1. Malignant neoplasm of lower-inner quadrant of right breast of female, estrogen receptor positive Stage IIA (T1c, N1a, M0) Infiltrating ductal carcinoma of the right breast, ER/AK positive, HER2 negative diagnosed August 2019. Ultrasound guided biopsy 08/22/2019 revealed a low-grade ductal carcinoma, ER 95%, AK 80%, HER-2 negative. Lumpectomy and SNB completed 09/19/2019 revealed 1.5 cm grade I invasive ductal carcinoma, focally involving the inferior margin. Right sentinel lymph node biopsyrevealed metastatic carcinoma involving one lymph node with a minute focus of extracapsular invasion. Oncotype recurrence score 12, indicating no predicted benefit from adjuvant chemotherapy. Postop the patient received adjuvant radiation therapy to the right breast completed December 2019 (given in [place]). Adjuvant hormonal therapy with Arimidex started November 2019. Currently no evidence disease. The patient will complete her current Arimidex prescription when it runs out, to complete 5 years of therapy. After discontinuing Arimidex she will start Evista. Will schedule surveillance mammogram to be done July 2025. The patient will then return for follow-up. If doing well we will then seeher on a yearly basis. 2. Osteopenia of multiple sites - ICD9: 733.90, ICD10: M85.89 Bone density DEXA July 2024 consistent with osteopenia. Calcium and vitamin D supplementation recommended. Will start Evista to improve bone density, with the added benefit of breast cancer risk reduction. Would monitor bone density every 2 to 3 years. Would consider antiresorptive therapy if bone density worsens despite treatment with calcium, vitamin D, and Evista. Wilver Disla MD CC: Dr. Chambers documented in this encounterMer[facility] Telephone encounter Note * Telephone Encounter - Roseann Bentley - 02/22/2025 1:42 PM EDT Pt scheduled [facility] [id number] Miscellaneous Notes* Telephone Encounter - Roseann Bentley - 02/22/2025 1:42 PM EDT Pt scheduled * Telephone Encounter - Roseann Bentley - 02/07/2025 10:28 AM EDT Lvm * Telephone Encounter - Roseann Bentley - 01/31/2025 3:17 PM EDT Called and lvm with patient to schedule a mawv documented in this encounterLafayette Regional Health [id number] Telephone encounter Note* Telephone Encounter - Roseann Bentley - 02/07/2025 10:28 AM EDT Lvm [facility] [id number] Telephone encounter Note* Telephone Encounter - Roseann Mc - 01/31/2025 3:17 PM EDT Called and lvm with patient to schedule a mawv [facility] CenterVbigfklbek07-07-2945 Telephone encounter Note* Telephone Encounter - Porfirio Rucker RN - 09/04/2024 9:57 AM EST VM left on pt [facility] [place] [facility] phone. Encouraged to call with any further questions, needs or concerns. Porfirio Rucker RN [facility]12-16-2024 Miscellaneous Notes* Telephone Encounter - Porfirio Rucker RN - 09/04/2024 9:57 AM EST VM left on pt [facility] [place] [facility] phone. Encouraged to call with any further questions, needs or concerns. Porfirio Rucker RN * Telephone Encounter - Wilver Disla MD - 09/03/2024 6:14 PM EST The patient's bone density is essentially normal/mild osteopenia. She should take standard doses ofvitamin D and calcium, as well as exercise. Typically I do not recommend bisphosphonates for osteopenia (risk outweighs the benefit). However, she could discuss with her PCP whether or not they wish to be aggressive and start bone strengtheners . * Telephone Encounter - Porfirio Rucker RN - 09/01/2024 2:45 PM EST Pt called to inquire if she needs to up her meds d/t her bone density diminishing. She states Raina asked me to call and discuss with Dr Disla. Pt will be traveling to home in [place] early next week and does not have a cell phone. She will call this RN when she gets to her [place] home (mobile phone is her [place]#) for Dr Disla's response. BRM: Please review and advise Porfirio Rucker RN documented in this encounterMer[facility]. [facility]12-15-2024 Telephone encounter Note * Telephone Encounter - Wilver Disla MD - 09/03/2024 6:14 PM EST The patient's bone density is essentially normal/mild osteopenia. She should take standard doses ofvitamin D and calcium, as well as exercise. Typically I do not recommend bisphosphonates for osteopenia (risk outweighs the benefit). However, she could discuss with her PCP whether or not they wish to be aggressive and start bone strengtheners . [facility]12-13-2024 Telephone encounter Note* Telephone Encounter - Porfirio Rucker RN - 09/01/2024 2:45 PM EST Pt called to inquire if she needs to up her meds d/t her bone density diminishing. She states Raina asked me to call and discuss with Dr Disla. Pt will be traveling to home in [place] early next week and does not have a cell phone. She will call this RN when she gets to her [place] home (mobile phone is her [place]#) for Dr Disla's response. BRM: Please review and advise Porfirio Rucker RN [facility]12-04-2024 History of Present illness Narrative* Caesar Craven MD - 08/23/2024 3:20 PM EST Images from the original note were not included. CHIEF COMPLAINT REASON FOR VISIT: Injections HPI: Ernestina Costa is a 83 y.o. female who presents for a follow up. She states therapy did help. But she states as long as she walks a straight line she is okay but any time she has to make a turn is when her left leg really bothers her. She states therapy was no cure for her. She states he would massage it before and you could feel the muscle. She states that muscle will just not stay in place. She states she has not had any falls because she is triple careful in what she does. She did the dexa taper and it did not really provide her with any relief. She states she does not walk a lot at home but when she is turning to go into the kitchen or bathroom she gets a pain in the back and in the leftside of the hip and groin area. CURRENT MEDICATIONS: ALLERGIES/DISCONTINUE MEDICATIONS Current Outpatient Medications Medication Instructions anastrozole (ARIMIDEX) 1 mg, Every 24 hours cholecalciferol (VITAMIN D-3) 1,000 Units, Daily dexAMETHasone (DECADRON) 2 mg, Oral, Daily dexAMETHasone (DECADRON) 2 mg, Oral, 2 times daily with meals docusate sodium (COLACE) 50 mg, Daily hydrocortisone (ANUSOL-HC) 25 mg, 2 times daily lactulose (KRISTALOSE) 10 g, 3 times daily methylPREDNISolone (Medrol Dospak) 4 MG tablets Follow schedule on package instructions omeprazole OTC (PRILOSEC OTC) 20 mg, Every 24 hours polyethylene glycol (PEG) 3350 (MIRALAX) 17 g, Daily No Known Allergies There are no discontinued medications. PAST MEDICAL HISTORY: SURGICAL/SOCIAL/FAMILY HISTORY DEPRESSION SCREEN: Past Medical History: Diagnosis Date Cancer (CMS/HCC) 2019 Invasive Ductal Carcinoma right breast Cholelithiasis 2018 Past Surgical History: Procedure Laterality Date ARTHRODESIS 05/12/2021 Left 1st MTP fusion, 2-5 PIPJ Arthroplasty BREAST SURGERY Right 09/19/2019 Lumpectomy/[place] lymph node biopsy CATARACT EXTRACTION 1989 COLONOSCOPY 2013 COLONOSCOPY 2006 TONSILLECTOMY 1939 Social History Tobacco Use Smoking status: Never Smokeless tobacco: Never Family History Problem Relation Name Age of Onset Parkinsonism Father Depression: Not at risk (04/03/2024) PHQ-2 PHQ-2 Score: 0 REVIEW OF SYMPTOMS: Review of Systems Constitutional: Negative for chills, diaphoresis, fatigue and fever. HENT: Negative for ear pain, tinnitus and trouble swallowing. Eyes: Negative for photophobia and visual disturbance. Respiratory: Negative for cough and shortness of breath. Cardiovascular: Negative for palpitations and leg swelling. Gastrointestinal: Negative for abdominal pain and nausea. Genitourinary: Negative for difficulty urinating and urgency. Musculoskeletal: Positive for gait problem. Negative for arthralgias, back pain, myalgias, neck pain and neck stiffness. Neurological: Negative for tremors, weakness, light-headedness and numbness. Psychiatric/Behavioral: Negative for agitation, confusion and suicidal ideas. OBJECTIVE: 07/24/2024 3:09 PM 07/17/2024 3:12 PM 05/31/2024 3:54 PM Vitals BMI 33.47 kg/m2 33.57 kg/m2 33.99 kg/m2 BSA (m2) 2 m2 2 m2 2.01 m2 Systolic 132 130 Diastolic 80 85 Heart Rate 67 SpO2 99 % Resp 17 Height (in) 5' 4 Weight (lb) 195 195.6 198 Visit Report Report Report Report EXAM: Neurological Exam Mental Status Awake, alert and oriented to person, place and time. Oriented to person, place and time. Recent andremote memory are intact. Speech is normal. Language is fluent with no aphasia. Attention and concentration are normal. Cranial Nerves CN II: Visual acuity is normal. Visual romero full to confrontation. CN III, IV, : Extraocular movements intact bilaterally. Normal lids and orbits bilaterally. Pupils equal round and reactive to light bilaterally. CN V: Facial sensation is normal. CN VII: Full and symmetric facial movement. CN VIII: Hearing is normal. CN XII: Tongue midline without atrophy or fasciculations. Motor Normal muscle bulk throughout. Normal muscle tone. Right Left Wrist flexion 5 5 Wrist extension 5 5 Right Left Deltoid 5 5 Biceps 5 5 Triceps 5 5 Wrist flexor 5 5 Wrist extensor 5 5 Glutei 5 5 Iliopsoas 5 5 Quadriceps 5 5 Gastrocnemius 5 5 Anterior tibialis 5 5 Posterior tibialis 5 5 Sensory Light touch is normal in upper and lower extremities. Pinprick is normal in upper and lower extremities. Vibration is normal in upper and lower extremities. Reflexes Right Left Brachioradialis 2+ 2+ Biceps 2+ 2+ Patellar 2+ 2+ Achilles 2+ 2+ Right Plantar: downgoing Left Plantar: downgoing Right pathological reflexes: Steven's absent. Ankle clonus absent. Left pathological reflexes: Steven's absent. Ankle clonus absent. Coordination [id number], rapid alternating movements and bsxv-da-iwyo normal bilaterally without dysmetria. Gait Normal casual, toe, heel and tandem gait. Romberg is absent. PROCEDURE: Bursa Injection After explaining the risks, complications, and benefits of the procedure, the patient leaned over the exam table. Allergies were reviewed, the consent was signed. After palpating the bilateralgreater trochanter and identifying the most tender area in the bursa, using sterile technique, and surface anesthetic; a 25 gauge 1 1/2 spinal needle was advanced to make contact with the greater trochanter. The needle was then withdrawn about 1 mm. The patient received an injection of 3 cc of Bupivacaine 0.50% and 1 cc Dexamethasone 4mg in a fan-like distribution. The needle was removed. A Band-Aid dressing was applied on the injection site. ASSESSMENT AND PLAN: Diagnoses and all orders for this visit: Lumbar radiculopathy Start methylprednisolone (Medrol Dospak) 4 MG tablets; Follow schedule on package instructions for pain and inflammation. I counseled the patient on the possible side effects and interactions of medications. I will place order for physical therapy for strengthening and balance. - methylPREDNISolone (Medrol Dospak) 4 MG tablets; Follow schedule on package instructions Dispense: 21 tablet; Refill: 1 - Ambulatory referral to Physical Therapy; Future Trochanteric bursitis of both hips (Primary) I will bring her back in 4-6 weeks to see if she has received 50% or greater pain relief and at that time I will repeat the injections if needed. - bupivacaine (Marcaine) 0.5 % injection 5 mg - dexAMETHasone (Decadron) injection 4 mg documented in this encounterLafayette Regional Health [id number] NoteHNO ID: [id number] Author: WILVER DISLA MD Service: ? Author Type: Physician Type: Progress Notes Filed: 08/08/2024 17:07 Note Text: PATIENT NAME: Ernestina Costa DATE: 08/07/2024 PRIMARY CARE PHYSICIAN: Dr. Kade Huynh OTHER PHYSICIANS: Dr. Chambers, Dr. Bhakti Glaser ([facility] [place]) Portions of this encounter note have been copied from the note from 03/28/2024 and has been updated where appropriate, and reflect my current medical decision making from today. CC: This is an 83 year old female with a history of breast cancer, seen for scheduled follow-up. INTERIM HISTORY: Since the patient's last visit here she has had no significant medical changes. She has noticed no changes in her breasts. No unexpected pain or other systemic symptoms. She remains on Arimidex which she is tolerating well. Other than the hot flashes she has had no apparent adverse effects. She plans to go to [facility] next month where she will spend the winter, and anticipates return to [place] in January 2025. MEDICATIONS: pseudoephedrine HCl (SUDAFED ORAL) Take by mouth. docusate sodium (COLACE ORAL) Take by mouth. polyethylene glycol 3350 (MIRALAX ORAL) Take by mouth. anastrozole (ARIMIDEX) 1 mg tablet Take 1 tablet by mouth once daily. SAMUEL'S WORT ORAL Take by mouth. hydrocortisone (HEMORRHOIDAL HC) 25 mg suppository INSERT 1 SUPPOSITORY RECTALLY 3 TIMES A DAY cholecalciferol (VITAMIN D3) 50 mcg (2,000 unit) tablet Take 1 tablet by mouth once daily. omeprazole (PRILOSEC) 20 mg capsule Take 20 mg by mouth once daily. zinc sulfate (ZINC-15 ORAL) Take by mouth. ALLERGIES: Patient has no [...] and axilla tenderness PHYSICAL EXAM: Vitals: BP 130/82 Pulse 78 Temp 36.3 ?C (97.4 ?F) (Temporal) Resp 18 Ht 158.2 cm (5' 2.29 ) Wt 88.8 kg (195 lb 12.3 oz) SpO2 98% BMI 35.48 kg/m? 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 The invasive carcinoma measures 1.5 cm in greatest dimension. It focally involved the inferior margin. The remaining margins are free of neoplasm. One sentinel lymph node biopsied, with evidence of metastasis measuring 4 mm in greatest dimension. Minute focus of extranodal extension measuring approximately 0.1 mm is identified. LABORATORY DATA: Hemoglobin (g/dL) Date Value 08/07/2024 14.0 08/12/2021 13.7 Hematocrit (%) Date Value 08/07/2024 41.4 08/12/2021 42.2 WBC (k/uL) Date Value 08/07/2024 9.71 08/12/2021 6.69 Platelet Count (k/uL) Date Value 08/07/2024 255 08/12/2021 266 RADIOLOGIC DATA: 07/31/2024 Bilateral screening mammogram ([facility]) Benign finding. Recommend routine mammogram in 12 months. 03/11/2023 Right diagnostic mammogram and ultrasound ([facility]) Ultrasound evaluation demonstrates a calcified mass within the axillary tail corresponding to the patient's palpable lump, 2.1 x 0.9 x 1.1 cm. No appreciable significant internal blood flow. Benign finding. ASSESSMENT/PLAN: 1. Malignant neoplasm of lower-inner quadrant of right breast of female, estrogen receptor positive Stage (more content not included)...[facility]11-17-2024 History of Present illness Narrative* Wilver Disla MD - 08/06/2024 12:04 PM EST PATIENT NAME: Ernestina Costa DATE: 08/07/2024 PRIMARY CARE PHYSICIAN: Dr. Kade Huynh OTHER PHYSICIANS: Dr. Chambers, Dr. Bhakti Glaser ([facility] [place]) Portions of this encounter note have been copied from the note from 03/28/2024 and has been updated where appropriate, and reflect my current medical decision making from today. CC: This is an 83 year old female with a history of breast cancer, seen for scheduled follow-up. INTERIM HISTORY: Since the patient's last visit here she has had no significant medical changes. She has noticed no changes in her breasts. No unexpected pain or other systemic symptoms. She remains on Arimidex which she is tolerating well. Other than the hot flashes she has had no apparent adverse effects. She plans to go to [facility] next month where she will spend the winter, and anticipates return to [place] in January 2025. MEDICATIONS: pseudoephedrine HCl (SUDAFED ORAL) Take by mouth. docusate sodium (COLACE ORAL) Take by mouth. polyethylene glycol 3350 (MIRALAX ORAL) Take by mouth. anastrozole (ARIMIDEX) 1 mg tablet Take 1 tablet by mouth once daily. SAMUEL'S WORT ORAL Take by mouth. hydrocortisone (HEMORRHOIDAL HC) 25 mg suppository INSERT 1 SUPPOSITORY RECTALLY 3 TIMES A DAY cholecalciferol (VITAMIN D3) 50 mcg (2,000 unit) tablet Take 1 tablet by mouth once daily. omeprazole (PRILOSEC) 20 mg capsule Take 20 mg by mouth once daily. zinc sulfate (ZINC-15 ORAL) Take by mouth. ALLERGIES: Patient has no [...] and axilla tenderness PHYSICAL EXAM: Vitals: BP 130/82 Pulse 78 Temp 36.3 C (97.4 F) (Temporal) Resp 18 Ht 158.2 cm (5' 2.29 ) Wt 88.8 kg (195 lb 12.3 oz) SpO2 98% BMI 35.48 kg/m ECOG 0 General: Alert and oriented, [...] thickening consistent with scar tissue in the rightouter quadrant. Left breast normal. Right axillary area demonstrates a 1 x 1 cm hardened area most consistent with scar tissue. 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 The invasive carcinoma measures 1.5 cm in greatest dimension. It focally involved the inferior margin. The remaining margins are free of neoplasm. One sentinel lymph node biopsied, with evidence of metastasis measuring 4 mm in greatest dimension.Minute focus of extranodal extension measuring approximately 0.1 mm is identified. LABORATORY DATA: Hemoglobin (g/dL) Date Value 08/07/2024 14.0 08/12/2021 13.7 Hematocrit (%) Date Value 08/07/2024 41.4 08/12/2021 42.2 WBC (k/uL) Date Value 08/07/2024 9.71 08/12/2021 6.69 Platelet Count (k/uL) Date Value 08/07/2024 255 08/12/2021 266 RADIOLOGIC DATA: 07/31/2024 Bilateral screening mammogram ([facility]) Benign finding. Recommend routine mammogram in 12 months. 03/11/2023 Right diagnostic mammogram and ultrasound ([facility]) Ultrasound evaluation demonstrates a calcified mass within the axillary tail corresponding to the patient's palpable lump, 2.1 x 0.9 x 1.1 cm. No appreciable significant internal blood flow. Benign finding. ASSESSMENT/PLAN: 1. Malignant neoplasm of lower-inner quadrant of right breast of female, estrogen receptor positive Stage IIA (T1c, N1a, M0) Infiltrating ductal carcinoma of the right breast, ER/AK positive, HER2 negative diagnosed August 2019. Ultrasound guided biopsy 08/22/2019 revealed a low-grade ductal carcinoma, ER 95%, AK 80%, HER-2 negative. Lumpectomy and SNB completed 09/19/2019 revealed 1.5 cm grade I invasive ductal carcinoma, focally involving the inferior margin. Right sentinel lymph node biopsyrevealed metastatic carcinoma involving one lymph node with a minute focus of extracapsular invasion. Oncotype recurrence score 12, indicating no predicted benefit from adjuvant chemotherapy. Postop the patient received adjuvant radiation therapy to the right breast completed December 2019 (given in [place]). Adjuvant hormonal therapy with Arimidex started November 2019. February 2023 the patient presented a palpable nodule in her right axilla. Mammogram/right axillary ultrasound 03/11/2023 revealed a calcified mass, most likely scar tissue. Most recent follow-up mammogram 07/31/2024 stable. Currently no evidence of disease. At this time the patient will continue Arimidex for a total of 5 years (November 2024). I will see brenda in 6 months for follow-up. Prior to return we will arrange for a bone density DEXA. After she completes Arimidex would consider Evista if her bone density indicates osteopenia or osteoporosis. Evista would have the added benefit of breast cancer risk reduction. Wilver Disla MD CC: Dr. Chambers documented [facility] History of Present illness Narrative* Tabitha Arreguin, DENTISTRY TEACHER - 08/02/2024 3:30 PM EST Physical Therapy Treatment Visit Patient Name: Ernestina Costa Today's Date: 08/02/2024 Encounter Diagnoses Name Primary? Lumbar radiculopathy Yes Visit number: 11 Timed Code Treatment Minutes: 53 minutes Total Treatment Time: 53 minutes Time In: 1400 Time Out: 1455 History: Pt. Presents to PT with c/c of low back and left hip pain which started getting really back this year leading to PT consult. Reports of long history of low back pain. Increased left leg painwhile making turns walking. No pain while walking in straight. Pt. Reports she is not very active now due to her pain. Taking steroid but is not helping. Numbness in left foot but is due to foot surgery 3 years ago. Increase groin pain. Walks with cane on uneven ground. Precautions: universal Subjective Pt reports wearing heel lift and she notices improvement in gait and less groin pain. Ptis going to continue therapy until she leaves for [place]. Pain: 4/10, w/ getting into car and bending over. Pain Location: left groin/thigh and low back Objective: PT Evaluation (06/21/24) Lumbar ROM: grossly limited 25% due to pain Hip ROM: grossly WFL in all planes Flexibility: adductor, piriformis, hamstring tightness Strength: LLE 3-/5, RLE 5/5. Unable to perform SLR due to weakness Gait: slow due to pain, very caution due to fear of falling Treatment: Education: HEP education with demonstration, Educated on Eval Findings and POC Manual Therapy: (23 Minutes) STM/MFR to TFL and piriformis and general tight to improve tissue mobility and relaxation. Passive ROM, Joint mobilization, Soft Tissue Mobilization, Myofascial Release, Muscle Energy Technique, Neural Mobilization, Myofascial Cupping, Dry Needling, IASTM, and Scar mobilization Therapeutic Exercise: (30 minutes) Slowly increasing exercise loads staying within tolerance, reps and ROM. exercises in grid; Strength, Endurance, Flexibility, ROM, HEP, Neural Mobilization, Power, and Core Stability Therapeutic Activity: Exercises to improve dynamic activities, functional tasks, functional mobility to return to prior activity level Neuromuscular re-education: Balance Training, Muscle Facilitation, Dynamic Stability, Core Stabilization, and Blood Flow Restriction Training (BFRT) Modalities: Heat, Ice, Electrical Stimulation, Ultrasound, Cervical Mechanical Traction, Lumbar Mechanical Traction, Iontophoresis, and Fluidotherapy Assessment: Pt. Has participated in 11 PT session with start of POC on 06/21/24. Pt. Will benefit from skilled PT services. Pt requires cues to reduce momentum and control movements. Good tolerance. Improved tolerance standing therex. Slowly introducing progressions. Pt has follow up following next session. Outcome Measure: 66% back index Short Term Goal: To be met in 2 weeks Goal 1: Pt to be instructed in home exercise program. Retirement Goals: To be met in 10 weeks Goal 1: Pt to report independence and compliance with home program. Goal 2: Pt. Will report of 2/10 or less back and hip pain while walking/standing for long periods of time to help improve her quality of life. Goal 3: Pt. Will demonstrate 4/5 or greater LLE strength to allow her to walk/stand for long periods of time to help improve her quality of life. Goal 4: Pt. Will demonstrate normal left LE muscle flexibility to help improve her functional mobility with daily tasks. Goal 5: Pt. Will score 30% or less on back index to improve her functional mobility. Pt will benefit from skilled PT for 1-3x/week from 06/21/24 to 08/30/24 to address the above impairments. I hereby deem this POC medically necessary. Please sign below. Date: Cosigned by Terry Grimaldo, PT at 08/03/2024 2:57 PM EST documented in this encounterLafayette Regional Health [id number] History of Present illness Narrative* Caesar Craven MD - 07/24/2024 3:00 PM EST Images from the original note were not included. CHIEF COMPLAINT REASON FOR VISIT : Follow up HPI: Ernestina Costa is a 83 y.o. female who presents for left leg pain and CTS. She is active in Physicaltherapy and notices it helps some. She is wearing a orthotic in left shoe. She was told her left leg is shorter than her left. She noticed it is helping with only a couple hours of wearing orthotic. She denies xrays of hips or back. Pain 11/27 today. CURRENT MEDICATIONS: ALLERGIES/DISCONTINUE MEDICATIONS Current Outpatient Medications Medication Instructions anastrozole (ARIMIDEX) 1 mg, Every 24 hours cholecalciferol (VITAMIN D-3) 1,000 Units, Daily dexAMETHasone (DECADRON) 2 mg, Oral, Daily dexAMETHasone (DECADRON) 2 mg, Oral, 2 times daily with meals docusate sodium (COLACE) 50 mg, Daily hydrocortisone (ANUSOL-HC) 25 mg, 2 times daily lactulose (KRISTALOSE) 10 g, 3 times daily omeprazole OTC (PRILOSEC OTC) 20 mg, Every 24 hours polyethylene glycol (PEG) 3350 (MIRALAX) 17 g, Daily No Known Allergies There are no discontinued medications. PAST MEDICAL HISTORY: SURGICAL/SOCIAL/FAMILY HISTORY DEPRESSION SCREEN: Past Medical History: Diagnosis Date Cancer (CMS/HCC) 2019 Invasive Ductal Carcinoma right breast Cholelithiasis 2019 Past Surgical History: Procedure Laterality Date ARTHRODESIS 05/12/2021 Left 1st MTP fusion, 2-5 PIPJ Arthroplasty BREAST SURGERY Right 09/19/2019 Lumpectomy/[place] lymph node biopsy CATARACT EXTRACTION 1989 COLONOSCOPY 2013 COLONOSCOPY 2006 TONSILLECTOMY 1939 Social History Tobacco Use Smoking status: Never Smokeless tobacco: Never Family History Problem Relation Name Age of Onset Parkinsonism Father Depression: Not at risk (04/03/2024) PHQ-2 PHQ-2 Score: 0 REVIEW OF SYMPTOMS: Review of Systems Const: Denies appetite change, fever, chills. Allergy: Denies medication reaction. Ocular: Denies visual acuity change. ENT: Denies hearing change. Endoc: Denies weight loss. Resp: Denies dyspnoea, wheezing. Cardiac: Denies angina, palpitations. GI: Denies nausea, vomiting. Haem: Denies bleeding. : Denies incontinence. MSK: Denies arthralgias, joint oedema. Derm: Denies rash, hair loss. Neuro: Denies ataxia, tremor. Also see HPI for elements of ROS documented therein and for details of positive findings, which shall supersede the foregoing. OBJECTIVE: 07/17/2024 3:12 PM 05/31/2024 3:54 PM 04/03/2024 4:15 PM Vitals BMI 33.57 kg/m2 33.99 kg/m2 33.64 kg/m2 BSA (m2) 2 m2 2.01 m2 2 m2 Systolic 130 128 Diastolic 85 76 Heart Rate 67 63 SpO2 99 % 97 % Resp 17 Height (in) 5' 4 5' 4 Weight (lb) 195.6 198 196 Visit Report Report Report Report EXAM: Neurological Exam GENERAL EXAMINATION Appearance: in no acute distress, well developed, well nourished. Head: normocephalic, atraumatic. Eyes: pupils equal, round, reactive to light and accommodation. Ears: normal. Mouth: mucosa moist. Throat: clear. Neck: neck supple, full range of motion, no cervical lymphadenopathy. Skin: no suspicious lesions, warm and dry. Heart: no murmurs, regular rate and rhythm, S1, S2 normal. Lungs: clear to auscultation bilaterally. Abdomen: normal, bowel sounds present, soft, nontender, nondistended. Extremities: no clubbing, cyanosis, or edema. NEUROLOGICAL EXAMINATION Mental Status: The patient is alert and oriented to person, place, and time. Except as noted, thought content, form, and comprehension was normal. Phonation, articulation, resonance, and prosody are normal. Cranial Nerves: Pupils were 4.0 millimeters, equal, round, and reactive to light and accommodation,both directly and consensually. Visual romero were full by confrontation. There was no ptosis; extra-ocular movements were full; and there was no nystagmus. Funduscopic exam is normal. Masseters are of normal strength. Facial movement is normal. Hearing is grossly intact. There is no dysarthria. The gag reflex is equal bilaterally. Sternocleidomastoids and trapezii are of normal strength. The tongue protrudes in the midline. Motor: Muscle testing was performed in all four extremities, including at least glass science engineer, finger abductors, biceps, triceps, deltoid, toe flexors and extensors, tibialis anterior, triceps surae, quadriceps femoris, biceps femoris, and iliopsoases. Tone is normal. Muscle bulk is normal. Fasciculations are not seen . Pronator drift was not evident. Sensory: Sensation to touch, temperature, and vibration was normal in the arms, legs and face. Romberg is negative. Reflexes: Biceps, triceps, brachioradialis are 2/4 bilaterally. Patellar and Achilles reflexes are 2/4 bilaterally. Plantar responses were flexor bilaterally. Coordination: Dysmetria and dysdiadochokinesia are absent. Tremor is absent; dystonia is absent; chorea is absent. Gait And Station: Station and gait are normal. Apraxia and spasticity are not evident. Arm swing isnormal. Toe, heel, and tandem walking are performed without difficulty. Musculoskeletal: Trigger-point tenderness was absent. There is no spasm of the trapezii or paraspinals. PROCEDURE: NONE ASSESSMENT AND PLAN: Diagnoses and all orders for this visit: Idiopathic peripheral neuropathy: -I will arrange for physical therapy for gait assessment and treatment of balance difficulties to improve fall risk Cervical radiculopathy - dexAMETHasone (Decadron) 2 MG tablet; Take 1 tablet (2 mg) by mouth in the morning and 1 tablet (2 mg) in the evening. Take with meals. Do all this for 10 days. -Physical therapy will be ordered for presumed cervical radiculopathy to see if we can increase mobility, decrease pain and improve neurological function of the upper extremities. I counseled the patient on the possible side effects and interactions of medications. documented in this encounterLafayette Regional Health [id number] History of Present illness Narrative* Kade Huynh MD - 07/17/2024 3:00 PM EDT Images from the original note were not included. Subjective Patient ID: Ernestina Costa is a 83 y.o. female who presents to discuss results. Ernestina is in today to discuss her labs from 03/2024. States she has been having pain/burning at her incision area on her right chest. States this started last and was an open wound but nolonger is it just hunter. Current Outpatient Medications on File Prior to Visit Medication Sig Dispense Refill anastrozole (Arimidex) 1 MG chemo tablet Take 1 mg by mouth 1 (one) time each day at the same time. cholecalciferol (Vitamin D-3) 25 MCG (1000 UT) capsule Take 1,000 Units by mouth in the morning. docusate sodium (Colace) 50 MG capsule Take 50 mg by mouth in the morning. hydrocortisone (Anusol-HC) 25 MG suppository Insert 25 mg into the rectum in the morning and 25 mg before bedtime. lactulose (Kristalose) 10 g packet Take 10 g by mouth in the morning and 10 g in the evening and 10g before bedtime. omeprazole OTC (PriLOSEC OTC) 20 MG EC tablet 20 mg 1 (one) time each day at the same time. polyethylene glycol, PEG, 3350 (Miralax) 17 g packet Take 17 g by mouth in the morning. dexAMETHasone (Decadron) 2 MG tablet Take 1 tablet (2 mg) by mouth Daily for 7 days 7 tablet 1 dexAMETHasone (Decadron) 2 MG tablet Take 1 tablet (2 mg) by mouth in the morning and 1 tablet (2 mg) in the evening. Take with meals. Do all this for 10 days. 20 tablet 0 No current facility-administered medications on file prior to visit. I have reviewed and reconciled the history and medication list with the patient today. No Known Allergies Social History Tobacco Use Smoking status: Never Smokeless tobacco: Never Family History Problem Relation Name Age of Onset Parkinsonism Father Past Medical History: Diagnosis Date Cancer (CMS/HCC) 2019 Invasive Ductal Carcinoma right breast Cholelithiasis 2018 Past Surgical History: Procedure Laterality Date ARTHRODESIS 05/12/2021 Left 1st MTP fusion, 2-5 PIPJ Arthroplasty BREAST SURGERY Right 09/19/2019 Lumpectomy/[place] lymph node biopsy CATARACT EXTRACTION 1989 COLONOSCOPY 2013 COLONOSCOPY 2006 TONSILLECTOMY 1939 Visit Vitals BP 130/85 Pulse 67 Resp 17 Wt 195 lb 9.6 oz SpO2 99% BMI 33.57 kg/m Smoking Status Never BSA 2 m Review of Systems Constitutional: Negative for chills, fatigue and fever. Respiratory: Negative for cough, shortness of breath and wheezing. Cardiovascular: Negative for chest pain, palpitations and leg swelling. Gastrointestinal: Negative for abdominal pain, constipation, diarrhea, nausea and vomiting. Skin: Negative for rash. Objective Physical Exam Constitutional: General: She is not in acute distress. Appearance: Normal appearance. She is well-developed. HENT: Head: Normocephalic and atraumatic. Eyes: General: No scleral icterus. Conjunctiva/sclera: Conjunctivae normal. Cardiovascular: Rate and Rhythm: Normal rate and regular rhythm. Heart sounds: Normal heart sounds. No murmur heard. Pulmonary: Effort: Pulmonary effort is normal. No respiratory distress. Breath sounds: Normal breath sounds. No wheezing, rhonchi or rales. Skin: General: Skin is warm and dry. Neurological: General: No focal deficit present. Mental Status: She is alert and oriented to person, place, and time. Psychiatric: Mood and Affect: Mood normal. Behavior: Behavior normal. Clinisync Result Encounter on 04/06/2024 Component Date Value Ref Range Status [facility] WBC 04/06/2024 7.0 4.0 - 11.0 10 3/uL Final [facility] RBC 04/06/2024 4.06 (L) 4.20 - 5.40 10 6/uL Final [facility] HGB 04/06/2024 13.6 12.0 - 16.0 g/dL Final [facility] HCT 04/06/2024 41.5 36.0 - 48.0 % Final [facility] MCV 04/06/2024 102.2 (H) 81.0 - 99.0 fL Final [facility] MCH 04/06/2024 33.5 26.7 - 34.0 pg Final [facility] MCHC 04/06/2024 32.8 29.9 - 35.2 g/dL Final [facility] RDW 04/06/2024 13.9 11.0 - 15.0 % Final [facility] PLT 04/06/2024 259 150 - 450 10 3/uL Final [facility] MPV 04/06/2024 9.6 9.5 - 13.5 fL Final NEUTROPHILS PERCENT AUTO 04/06/2024 65.8 43.0 - 75.0 % Final LYMPHOCYTES PERCENT AUTO 04/06/2024 23.1 20.5 - 60.0 % Final MONOCYTES PERCENT AUTO 04/06/2024 6.7 1.7 - 12.0 % Final [facility] EO % 04/06/2024 2.9 0.9 - 7.0 % Final BASOPHILS PERCENT AUTO 04/06/2024 0.9 0.2 - 2.0 % Final IMMATURE GRANULOCYTES PCT AUTO 04/06/2024 0.6 (H) 0.0 - 0.5 % Final NEUTROPHILS ABSOLUTE AUTO 04/06/2024 4.6 1.4 - 6.5 10 3/uL Final LYMPHOCYTES ABSOLUTE AUTO 04/06/2024 1.6 1.2 - 3.8 10 3/uL Final MONOCYTES ABSOLUTE AUTO 04/06/2024 0.5 0.3 - 0.8 10 3/uL Final [facility] EO # 04/06/2024 0.2 0.0 - 0.7 10 3/uL Final BASOPHILS ABSOLUTE AUTO 04/06/2024 0.1 0.0 - 0.1 10 3/uL Final IMMATURE GRANULOCYTES ABS AUTO 04/06/2024 0.04 (H) 0.00 - 0.03 10 3/uL Final SODIUM 04/06/2024 138 136 - 145 mmol/L Final POTASSIUM 04/06/2024 4.4 3.5 - 5.1 mmol/L Final CHLORIDE 04/06/2024 103 98 - 107 mmol/L Final CARBON DIOXIDE 04/06/2024 28.8 21.0 - 32.0 mmol/L Final ANION GAP 04/06/2024 10.6 Final GLUCOSE 04/06/2024 104 74 - 106 mg/dL Final BLOOD UREA NITROGEN 04/06/2024 17.0 7.0 - 18.0 mg/dL Final CREATININE 04/06/2024 0.94 0.55 - 1.02 mg/dL Final [facility] EGFR-AF TANZANIAN 04/06/2024 >60 >=60 Final [facility] EGFR-NON AF TANZANIAN 04/06/2024 57 (L) >=60 Final BUN CREATININE RATIO 04/06/2024 18.1 Final CALCIUM 04/06/2024 9.1 8.5 - 10.1 mg/dL Final BILIRUBIN TOTAL 04/06/2024 0.6 0.2 - 1.0 mg/dL Final ASPARTATE AMINO TRANSFERASE 04/06/2024 11 (L) 15 - 37 U/L Final ALANINE AMINOTRANSFERASE 04/06/2024 20 14 - 59 U/L Final ALKALINE PHOSPHATASE 04/06/2024 106 46 - 116 U/L Final TOTAL PROTEIN 04/06/2024 8.1 6.4 - 8.2 g/dL Final ALBUMIN LEVEL 04/06/2024 3.0 (L) 3.4 - 5.0 g/dL Final GLOBULIN 04/06/2024 5.1 g/dL Final ALBUMIN GLOBULIN RATIO 04/06/2024 0.6 Final TSH 04/06/2024 2.009 0.358 - 3.740 uIU/mL Final Clinisync Result Encounter on 03/28/2024 Component Date Value Ref Range Status [facility] WBC # BLD AUTO 03/28/2024 7.22 3.70 - 11.00 k/uL Final [facility] RBC # BLD AUTO 03/28/2024 4.03 3.90 - 5.20 m/uL Final [facility] HGB BLD-MCNC 03/28/2024 13.2 11.5 - 15.5 g/dL Final [facility] HCT VFR BLD AUTO 03/28/2024 40.2 36.0 - 46.0 % Final [facility] MCV RBC AUTO 03/28/2024 99.8 80.0 - 100.0 fL Final [facility] MCH RBC QN AUTO 03/28/2024 32.8 26.0 - 34.0 pg Final [facility] MCHC RBC AUTO-MCNC 03/28/2024 32.8 30.5 - 36.0 g/dL Final [facility] RDW RBC-RTO 03/28/2024 14.1 11.5 - 15.0 % Final [facility] PLATELET # BLD AUTO 03/28/2024 242 150 - 400 k/uL Final [facility] PMV BLD AUTO 03/28/2024 9.7 9.0 - 12.7 fL Final [facility] NEUTROPHILS/LEUK NFR BLD AUTO 03/28/2024 69.8 % Final [facility] NEUTROPHILS # BLD AUTO 03/28/2024 5.04 1.45 - 7.50 k/uL Final [facility] LYMPHOCYTES/LEUK NFR BLD AUTO 03/28/2024 20.9 % Final [facility] LYMPHOCYTES # BLD AUTO 03/28/2024 1.51 1.00 - 4.00 k/uL Final [facility] MONOCYTES/LEUK NFR BLD AUTO 03/28/2024 6.5 % Final [facility] MONOCYTES # BLD AUTO 03/28/2024 0.47 <0.87 k/uL Final [facility] EOSINOPHIL/LEUK NFR BLD AUTO 03/28/2024 1.4 % Final [facility] EOSINOPHIL # BLD AUTO 03/28/2024 0.10 <0.46 k/uL Final [facility] BASOPHILS/LEUK NFR BLD AUTO 03/28/2024 1.0 % Final [facility] BASOPHILS # BLD AUTO 03/28/2024 0.07 <0.11 k/uL Final IMM GRANULOCYTES/LEUK NFR D AUTO 03/28/2024 0.4 % Final IMM GRANULOCYTES # BLD AUTO 03/28/2024 0.03 <0.10 k/uL Final [facility] NRBC/100 WBC BLD-RTO 03/28/2024 0.0 /100 WBC Final [facility] NRBC # BLD AUTO 03/28/2024 <0.01 <0.01 k/uL Final [facility] DIFFERENTIAL METHOD BLD 03/28/2024 Auto Final [facility] PROT SERPL-MCNC 03/28/2024 8.4 (H) 6.3 - 8.0 g/dL Final [facility] ALBUMIN SERPL-MCNC 03/28/2024 3.9 3.9 - 4.9 g/dL Final [facility] CALCIUM SERPL-MCNC 03/28/2024 10.1 8.5 - 10.2 mg/dL Final [facility] BILIRUB SERPL-MCNC 03/28/2024 0.5 0.2 - 1.3 mg/dL Final [facility] ALP SERPL-CCNC 03/28/2024 114 34 - 123 U/L Final [facility] AST SERPL-CCNC 03/28/2024 14 13 - 35 U/L Final [facility] ALT SERPL-CCNC 03/28/2024 16 7 - 38 U/L Final [facility] GLUCOSE SERPL-MCNC 03/28/2024 121 (H) 74 - 99 mg/dL Final Comment: The [place] [employer] (ADA) provides guidance for cutoff values for fasting glucose and random glucose. The ADA defines fasting as no caloric intake for at least 8 hours. Fastingplasma glucose results between 100 to 125 mg/dL [...] Standards of Medical Care in Diabetes 2016, [place] [employer]. Diabetes Care. 2016.39(Suppl 1). [facility] BUN SERPL-MCNC 03/28/2024 19 7 - 21 mg/dL Final [facility] CREAT SERPL-MCNC 03/28/2024 0.93 0.58 - 0.96 mg/dL Final [facility] SODIUM SERPL-SCNC 03/28/2024 138 136 - 144 mmol/L Final [facility] POTASSIUM SERPL-SCNC 03/28/2024 4.2 3.7 - 5.1 mmol/L Final [facility] CHLORIDE SERPL-SCNC 03/28/2024 105 98 - 107 mmol/L Final [facility] CO2 SERPL-SCNC 03/28/2024 26 22 - 30 mmol/L Final [facility] ANION GAP SERPL-SCNC 03/28/2024 7 (L) 8 - 15 mmol/L Final [facility] CREATININE + EGFR PNL SERPLBLD 03/28/2024 61 >=60 mL/min/1.73m??? Final Estimated Glomerular Filtration Rate (eGFR) is calculated using the 2020 CKD-EPI creatinine equation. This equation utilizes serum creatinine, sex, and age as parameters. The creatinine assay has traceable calibration to isotope dilution- mass spectrometry. Refer to KDIGO guidelines for clinical interpretation. In patients with unstable renal function, e.g. those with acute kidney injury, the eGFRmay not accurately reflect actual GFR. [facility] AG27-29 SERPL-ACNC 03/28/2024 20.6 <38.6 U/mL Final The CA27.29 test was performed using the Siemens 2threadsaur XP chemiluminometric immunoassay method. Results obtained with different assay methods or kits cannot be used interchangeably. Assessment/Plan Diagnoses and all orders for this visit: Idiopathic peripheral neuropathy - This is a chronic medical condition that is stable since last assessment. No changes in treatmentare suggested at this time. Benign paroxysmal positional vertigo, unspecified laterality Lumbar radiculopathy Malignant neoplasm of lower-inner quadrant of right breast of female, estrogen receptor positive (CMS/HCC) Follow up in about 6 months (around 01/15/2025) for Wellness. documented in this encounterLafayette Regional Health [id number] History of Present illness Narrative* Terry Grimaldo, PT - 07/10/2024 2:00 PM EDT Physical Therapy Treatment Visit Patient Name: Ernestina Costa Today's Date: 07/10/24 Encounter Diagnoses Name Primary? Lumbar radiculopathy Yes Visit number: 7 Timed Code Treatment Minutes: 53 minutes Total Treatment Time: 53 minutes Time In: 1400 Time Out: 1453 History: Pt. Presents to PT with c/c of low back and left hip pain which started getting really back this year leading to PT consult. Reports of long history of low back pain. Increased left leg painwhile making turns walking. No pain while walking in straight. Pt. Reports she is not very active now due to her pain. Taking steroid but is not helping. Numbness in left foot but is due to foot surgery 3 years ago. Increase groin pain. Walks with cane on uneven ground. Precautions: universal Subjective Pt reports her left leg felt very good for several days after last PT session until today 2 hours before PT session she started having pain again. Pt. Has not idea what she did. Pain: 12/28 Pain Location: left groin/thigh and low back Objective: PT Evaluation (06/21/24) Lumbar ROM: grossly limited 25% due to pain Hip ROM: grossly WFL in all planes Flexibility: adductor, piriformis, hamstring tightness Strength: LLE 3-/5, RLE 5/5. Unable to perform SLR due to weakness Gait: slow due to pain, very caution due to fear of falling Treatment: Education: HEP education with demonstration, Educated on Eval Findings and POC Manual Therapy: (26 Minutes) STM/MFRto distal adductor and quadiceps and PROM of hip doing circumduction. Sidelying ITB MFR, Passive ROM, Joint mobilization, Soft Tissue Mobilization, Myofascial Release, Muscle Energy Technique, Neural Mobilization, Myofascial Cupping, Dry Needling, IASTM, and Scar mobilization Therapeutic Exercise: (27 minutes) Slowly increasing exercise loads staying within tolerance, reps and ROM. exercises in grid; Strength, Endurance, Flexibility, ROM, HEP, Neural Mobilization, Power, and Core Stability Therapeutic Activity: Exercises to improve dynamic activities, functional tasks, functional mobility to return to prior activity level Neuromuscular re-education: Balance Training, Muscle Facilitation, Dynamic Stability, Core Stabilization, and Blood Flow Restriction Training (BFRT) Modalities: Heat, Ice, Electrical Stimulation, Ultrasound, Cervical Mechanical Traction, Lumbar Mechanical Traction, Iontophoresis, and Fluidotherapy Assessment: Pt. Has participated in 7 PT session with start of POC on 06/21/24. Pt. Will benefit from skilled PT services. Manual techiques from last PT session really helped to decrease pain and improve her functional mobility. Pt. Is uanble to perform SLR today due to leg weakness. Performed mostly table exercises and pt. Tolerated well. Pt has difficulty with sit to stand exercises due to dizziness. Outcome Measure: 66% back index Short Term Goal: To be met in 2 weeks Goal 1: Pt to be instructed in home exercise program. Retirement Goals: To be met in 10 weeks Goal 1: Pt to report independence and compliance with home program. Goal 2: Pt. Will report of 2/10 or less back and hip pain while walking/standing for long periods of time to help improve her quality of life. Goal 3: Pt. Will demonstrate 4/5 or greater LLE strength to allow her to walk/stand for long periods of time to help improve her quality of life. Goal 4: Pt. Will demonstrate normal left LE muscle flexibility to help improve her functional mobility with daily tasks. Goal 5: Pt. Will score 30% or less on back index to improve her functional mobility. Pt will benefit from skilled PT for 1-3x/week from 06/21/24 to 08/30/24 to address the above impairments. I hereby deem this POC medically necessary. Please sign below. Date: documented in this encounterLafayette Regional Health [id number] History of Present illness Narrative* Terry Grimaldo, PT - 07/05/2024 1:00 PM EDT Physical Therapy Treatment Visit Patient Name: Ernestina Costa Today's Date: 07/05/24 Encounter Diagnoses Name Primary? Lumbar radiculopathy Yes Visit number: 6 Timed Code Treatment Minutes: 53 minutes Total Treatment Time: 53 minutes Time In: 1300 Time Out: 1353 History: Pt. Presents to PT with c/c of low back and left hip pain which started getting really back this year leading to PT consult. Reports of long history of low back pain. Increased left leg painwhile making turns walking. No pain while walking in straight. Pt. Reports she is not very active now due to her pain. Taking steroid but is not helping. Numbness in left foot but is due to foot surgery 3 years ago. Increase groin pain. Walks with cane on uneven ground. Precautions: universal Subjective Pt reports of increase left thigh pain after last PT session and had difficulty walking.C/c is left groin/thigh pain while making turns in kitchen. Pain: 5/10, Pain Location: left groin/thigh and low back Objective: PT Evaluation (06/21/24) Lumbar ROM: grossly limited 25% due to pain Hip ROM: grossly WFL in all planes Flexibility: adductor, piriformis, hamstring tightness Strength: LLE 3-/5, RLE 5/5. Unable to perform SLR due to weakness Gait: slow due to pain, very caution due to fear of falling Treatment: Education: HEP education with demonstration, Educated on Eval Findings and POC Manual Therapy: (26 Minutes) STM/MFRto distal adductor and quadiceps and PROM of hip doing circumduction. Sidelying ITB MFR, Passive ROM, Joint mobilization, Soft Tissue Mobilization, Myofascial Release, Muscle Energy Technique, Neural Mobilization, Myofascial Cupping, Dry Needling, IASTM, and Scar mobilization Therapeutic Exercise: (27 minutes) Slowly increasing exercise loads staying within tolerance, reps and ROM. exercises in grid; Strength, Endurance, Flexibility, ROM, HEP, Neural Mobilization, Power, and Core Stability Therapeutic Activity: Exercises to improve dynamic activities, functional tasks, functional mobility to return to prior activity level Neuromuscular re-education: Balance Training, Muscle Facilitation, Dynamic Stability, Core Stabilization, and Blood Flow Restriction Training (BFRT) Modalities: Heat, Ice, Electrical Stimulation, Ultrasound, Cervical Mechanical Traction, Lumbar Mechanical Traction, Iontophoresis, and Fluidotherapy Assessment: Pt. Has participated in 6 PT session with start of POC on 06/21/24. Pt. Will benefit from skilled PT services. PT treatment to focus on improve left LE strength and balance to improve her quality of life. Performed more manual techniques to help decrease pain and soreness. Pt. [place] better after PT session and was able to walk with SPC. Having difficulty with SLR due to pain/weakness. Pt. Was educated to perform seated marches to help improve strength. Outcome Measure: 66% back index Short Term Goal: To be met in 2 weeks Goal 1: Pt to be instructed in home exercise program. Retirement Goals: To be met in 10 weeks Goal 1: Pt to report independence and compliance with home program. Goal 2: Pt. Will report of 2/10 or less back and hip pain while walking/standing for long periods of time to help improve her quality of life. Goal 3: Pt. Will demonstrate 4/5 or greater LLE strength to allow her to walk/stand for long periods of time to help improve her quality of life. Goal 4: Pt. Will demonstrate normal left LE muscle flexibility to help improve her functional mobility with daily tasks. Goal 5: Pt. Will score 30% or less on back index to improve her functional mobility. Pt will benefit from skilled PT for 1-3x/week from 06/21/24 to 08/30/24 to address the above impairments. I hereby deem this POC medically necessary. Please sign below. Date: documented in this encounterLafayette Regional Health [id number] Telephone encounter Note* Telephone Encounter - Sofía Fry - 06/12/2024 3:22 PM EDT I checker cashier her HIPAA and it is patient only . [facility] [id number] Miscellaneous Notes* Telephone Encounter - Sofía Fry - 06/12/2024 3:22 PM EDT I checker cashier her HIPAA and it is patient only . documented in this encounterLafayette Regional Health [id number] History of Present illness Narrative* Caesar Craven MD - 05/31/2024 3:40 PM EDT Images from the original note were not included. CHIEF COMPLAINT REASON FOR VISIT: ataxic gait, lumbar radiculopathy, neuropathy, concern for parkinson's (family hx) HPI: Ernestina Costa is a 83 y.o. female who presents for HPI: A new patient consultation referred over Dr. Huynh for neuropathy, lumbar radiculopathy, and ataxicgait. She states what is wrong with her is old age. She is concerned with having Parkinson's. Parkinson's does run in the family. She states her father had it and her grandmother, and a couple other family members. She states she does get some left fore arm shakiness and weakness. She states she does feel shaky when she walks. She states it has worsened with in the last few years. No falls but she is careful. She has had left bunion surgery. She states she cannot walk for long periods of time. She states if she is standing in a place for to long her back will; start hurting and she has to sitdown. She states she makes a lot of TV dinners not being able to stand long periods. Back does not bother her everyday. Some days it is worse than others. She states she feels like she is standing onrounded feet. She states that she feels like she can fall forward. She states she does have troublewith walking up the stairs. But does okay if railing. She states she does have a bicycle at home that she does 3 miles a day. She states she does have some urinary incontinence. She states her arms are weaker than her legs. She states her neck does bother her but she does neck exercises every morning. Denies any dizziness or vertigo. She has not had any recent nerve testing. She states she used to go to [facility] and had it done years ago. She states after that particular treatment she could not lift her leg up for a while. She states she can get around the house very well. She does not go out muchto go shopping. She will go to smaller local stores and go to congregational. She states she has a catch inthe left groin area. States it will go away and come back ever since grade school. She states it has started bothering her again this last month. Admits to burning and tingling in the left foot especially at night. Denies any other concerns. CURRENT MEDICATIONS: ALLERGIES/DISCONTINUE MEDICATIONS Current Outpatient Medications Medication Instructions anastrozole (ARIMIDEX) 1 mg, Oral, Every 24 hours cholecalciferol (VITAMIN D-3) 1,000 Units, Oral, Daily docusate sodium (COLACE) 50 mg, Oral, Daily hydrocortisone (ANUSOL-HC) 25 mg, Rectal, 2 times daily lactulose (KRISTALOSE) 10 g, Oral, 3 times daily omeprazole OTC (PRILOSEC OTC) 20 mg, Every 24 hours polyethylene glycol (PEG) 3350 (MIRALAX) 17 g, Oral, Daily No Known Allergies There are no discontinued medications. PAST MEDICAL HISTORY: SURGICAL/SOCIAL/FAMILY HISTORY DEPRESSION SCREEN: Past Medical History: Diagnosis Date Cancer ([facility]) 2019 Invasive Ductal Carcinoma right breast Cholelithiasis 2019 Past Surgical History: Procedure Laterality Date ARTHRODESIS 05/12/2021 Left 1st MTP fusion, 2-5 PIPJ Arthroplasty BREAST SURGERY Right 09/19/2019 Lumpectomy/[place] lymph node biopsy CATARACT EXTRACTION 1989 COLONOSCOPY 2013 COLONOSCOPY 2006 TONSILLECTOMY 1939 Social History Tobacco Use Smoking status: Never Smokeless tobacco: Never Family History Problem Relation Name Age of Onset Parkinsonism Father Depression: Not at risk (04/03/2024) PHQ-2 PHQ-2 Score: 0 REVIEW OF SYMPTOMS: Review of Systems Constitutional: Negative for chills, diaphoresis, fatigue and fever. HENT: Negative for ear pain, tinnitus and trouble swallowing. Eyes: Negative for photophobia and visual disturbance. Respiratory: Negative for cough and shortness of breath. Cardiovascular: Negative for palpitations and leg swelling. Gastrointestinal: Negative for abdominal pain and nausea. Genitourinary: Negative for difficulty urinating and urgency. Musculoskeletal: Positive for back pain, gait problem, neck pain and neck stiffness. Negative for arthralgias and myalgias. Neurological: Positive for tremors and weakness. Negative for light-headedness and numbness. Psychiatric/Behavioral: Negative for agitation, confusion and suicidal ideas. OBJECTIVE: 05/31/2024 3:54 PM 04/03/2024 4:15 PM 04/26/2023 2:22 PM Vitals BMI 33.99 kg/m2 33.64 kg/m2 35.98 kg/m2 BSA (m2) 2.01 m2 2 m2 2.07 m2 Systolic 128 102 Diastolic 76 78 Heart Rate 63 77 SpO2 97 % 99 % Resp 16 Height (in) 5' 4 5' 4 5' 4 Weight (lb) 198 196 209.6 Visit Report Report Report Report EXAM: Neurological Exam Mental Status Awake, alert and oriented to person, place and time. Oriented to person, place and time. Recent andremote memory are intact. Speech is normal. Language is fluent with no aphasia. Attention and concentration are normal. Cranial Nerves CN II: Visual acuity is normal. Visual romero full to confrontation. CN III, IV, : Extraocular movements intact bilaterally. Normal lids and orbits bilaterally. Pupils equal round and reactive to light bilaterally. CN V: Facial sensation is normal. CN VII: Full and symmetric facial movement. CN VIII: Hearing is normal. CN XII: Tongue midline without atrophy or fasciculations. Motor Normal muscle bulk throughout. Normal muscle tone. Right Left Wrist flexion 5 5 Wrist extension 5 5 Right Left Deltoid 5 5 Biceps 5 5 Triceps 5 5 Wrist flexor 5 5 Wrist extensor 5 5 Glutei 5 5 Iliopsoas 5 5 Quadriceps 5 5 Gastrocnemius 5 5 Anterior tibialis 5 5 Posterior tibialis 5 5 Sensory Light touch is normal in upper and lower extremities. Pinprick is normal in upper and lower extremities. Vibration is normal in upper and lower extremities. Reflexes Right Left Brachioradialis 2+ 2+ Biceps 2+ 2+ Patellar 2+ 2+ Achilles 2+ 2+ Right Plantar: downgoing Left Plantar: downgoing Right pathological reflexes: Steven's absent. Ankle clonus absent. Left pathological reflexes: Steven's absent. Ankle clonus absent. Coordination [id number], rapid alternating movements and [id number] normal bilaterally without dysmetria. Gait Normal casual, toe, heel and tandem gait. Romberg is absent. PROCEDURE: NONE ASSESSMENT AND PLAN: Ernestina Costa is a 83 year old female with evidence of sensory disturbance in the distal lower extremities manifested predominantly as numbness and paresthesia in left foot which has been progressive over the past 8 months, Possible etiologies would include a generalized process affecting large fibers such as peripheral neuropathy, lumbar radiculopathy, or lumbosacral plexopathy. I cannot exclude asmall fiber neuropathy contributing to predominantly sensory symptoms in the lower extremities, I cannot exclude it medical condition or metabolic process contributing to peripheral nerve dysfunctionincluding polyneuropathy. Diagnoses and all orders for this visit: Cervical radiculopathy I will order XR CERVICAL SPINE AP/LAT/FLEX/EXT; Future I will start dexAMETHasone (Decadron) 2 MG tablet; Take 1 tablet (2 mg) by mouth Daily for 7 days Ataxic gait Neuropathy Lumbar radiculopathy I will order XR lumbar spine 6+ views including oblique flexion extension; Future I will order an electromyograph evaluation of the upper extremities to assess for nerve damage suchas cervical radiculopathy, brachial plexopathy, or entrapment mononeuropathy. I will order an electromyograph evaluation of the lower extremities to assess for nerve damage suchas lumbar radiculopathy, lumbar plexopathy, or peripheral neuropathy I counseled the patient on the possible side effects and interactions of medications. Total time 30 minutes spent reviewing records, performing medically appropriate exam, counseling , education, ordering medication, tests, and/or procedures, documenting health information into the health record, communicating results to the patient, and coordinating care. Follow up 8 weeks. documented in this encounterLafayette Regional Health [id number] Telephone encounter Note* Telephone Encounter - Porfirio Rucker RN - 04/13/2024 12:13 PM EDT Pt will need new RX to [facility] [place] for Anastrozole. Mail order no longer active. BRM: Please review and sign Porfirio Rucker RN [facility]07-25-2024 Miscellaneous Notes* Telephone Encounter - Porfirio Rucker RN - 04/13/2024 12:13 PM EDT Pt will need new RX to [facility] [place] for Anastrozole. Mail order no longer active. BRM: Please review and sign Porfirio Rucker RN documented in this encounterMer[facility]07-[facility]-2024 Telephone encounter Note * Telephone Encounter - Lanny Thompson - 03/30/2024 8:24 AM EDT Faxed order to [facility] - they will contact patient closer to time for scheduling. Mailed order w/ patients follow up. Lanny Thompson [facility]07-11-2024 Miscellaneous Notes* Telephone Encounter - Lanny Thompson - 03/30/2024 8:24 AM EDT Faxed order to [facility] - they will contact patient closer to time for scheduling. Mailed order w/ patients follow up. Lanny Thompson * Telephone Encounter - Rosalina Landry PA-C - 03/28/2024 4:35 PM EDT Order placed * Telephone Encounter - Lanny Thompson - 03/28/2024 3:17 PM EDT Alexis Romano, Could you please place a new Mammogram order for her? The one in her chart was ordered by Dr. Disla and will no longer be valid for July 2024. Thank you! Lanny Jay documented in this encounterMer[facility]07-09-2024 Telephone encounter Note * Telephone Encounter - Rosalina Landry PA-C - 03/28/2024 4:35 PM EDT Order placed [facility]07-09-2024 Telephone encounter Note* Telephone Encounter - Lanny Thompson - 03/28/2024 3:17 PM EDT Alexis Romano, Could you please place a new Mammogram order for her? The one in her chart was ordered by Dr. Disla and will no longer be valid for July 2024. Thank you! Lannypenny Thompson [facility]07-09-2024 History of Present illness Narrative* Rosalina Landry PA-C - 03/28/2024 2:30 PM EDT PATIENT NAME: Ernestina Costa DATE: 03/28/2024 PRIMARY CARE PHYSICIAN: Dr. Kade Huynh OTHER PHYSICIANS: Dr. Chambers, Dr. Bhakti Glaser ([facility] [place]) (Elements copied from Dr. Disla's note dated August 09, 2023, have been reviewed and updated where appropriate, and all reflect current assessment and medical decision making during today's encounter, March 28, 2024) CC: This is an 83 year old female with a history of right-sided breast cancer, seen for scheduled follow-up. INTERIM HISTORY: Ernestina returns for follow up. She just got back from [place]. Remains on anastrazolewithout issues. She has been having gait issues and some tremors and she will be seeing her PCP for this next week. No breast changes. She still has occasional tenderness in her right breast, but that has been for along time. She also has a nodule in her right axilla that hasn't changed. This has been imaged previously No recent hospitalizations or illness. MEDICATIONS: anastrozole (ARIMIDEX) 1 mg tablet TAKE 1 TABLET ONCE DAILY [facility] W[facility] ORAL Take by mouth. loratadine (CLARITIN [...] thickening consistent with scar tissue in the rightouter quadrant. Left breast normal. Right axillary area demonstrates a 1 x 1 cm hardened area most consistent with scar tissue. 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 The invasive carcinoma measures 1.5 cm in greatest dimension. It focally involved the inferior margin. The remaining margins are free of neoplasm. One sentinel lymph node biopsied, with evidence of metastasis measuring 4 mm in greatest dimension.Minute focus of extranodal extension measuring approximately 0.1 mm is identified. LABORATORY DATA: Hemoglobin (g/dL) Date Value 03/28/2024 13.2 08/12/2021 13.7 Hematocrit (%) Date Value 03/28/2024 40.2 08/12/2021 42.2 WBC (k/uL) Date Value 03/28/2024 7.22 08/12/2021 6.69 Platelet Count (k/uL) Date Value 03/28/2024 242 08/12/2021 266 RADIOLOGIC DATA: 07/30/2023 Bilateral diagnostic mammogram ([facility]) Benign finding. Recommend routine mammogram in 12 months. 03/11/2023 Right diagnostic mammogram and ultrasound ([facility]) Ultrasound evaluation demonstrates a calcified mass within the axillary tail corresponding to the patient's palpable lump, 2.1 x 0.9 x 1.1 cm. No appreciable significant internal blood flow. Benign finding. ASSESSMENT/PLAN: 1. Malignant neoplasm of lower-inner quadrant of right breast of female, estrogen receptor positive Stage IIA (T1c, N1a, M0) Infiltrating ductal carcinoma of the right breast, ER/AK positive, HER2 negative diagnosed August 2019. Ultrasound guided biopsy 08/22/2019 revealed a low-grade ductal carcinoma, ER 95%, AK 80%, HER-2 negative. Lumpectomy and SNB completed 09/19/2019 revealed 1.5 cm grade I invasive ductal carcinoma, focally involving the inferior margin. Right sentinel lymph node biopsyrevealed metastatic carcinoma involving one lymph node with a minute focus of extracapsular invasion. Oncotype recurrence score 12, indicating a good prognosis and no apparent benefit from adjuvant chemotherapy. Postop the patient received adjuvant radiation therapy to the right breast completed December 2019 (given in [place]). Adjuvant hormonal therapy with Arimidex started November 2019. February 2023 the patient presented a palpable nodule in her right axilla. Mammogram/right axillary ultrasound 03/11/2023 revealed a calcified mass, most likely scar tissue. Most recent follow-up mammogram 07/30/2023 stable. Currently the patient has no evidence of disease. I would recommend she continue her Arimidex for a total of 5 years (November 2024). Her next mammogramwill be in July 2025 and we will see her back at that time as well (before she leaves for [place]). Rosalina Landry PA-C CC: Dr. Chambers I spent a total of 22 minutes on the date of the service which included preparing to see the patient, [id number] patient care, completing clinical documentation, obtaining and/or reviewing separately obtained history, performing a medically appropriate examination, counseling and educating the pat ient/family/caregiver, ordering medications, tests, or procedures, communicating with other HCPs (not separately reported), independently interpreting results (not separately reported), communicatingresults to the patient/family/caregiver, and care coordination (not separately reported). documented in this encounterMer[facility] Health [facility]07-08-2024 Telephone encounter Note * Telephone Encounter - Louise Stout MA - 03/27/2024 2:33 PM EDT Patient coming in Wednesday03/27/24 for follow up. Do you want labs? If so, please put in lab orders. Louise Stout MA [facility]04-01-2024 Miscellaneous Notes* Telephone Encounter - Louise Stout MA - 03/27/2024 2:33 PM EDT Patient coming in Wednesday03/27/24 for follow up. Do you want labs? If so, please put in lab orders. Louise Stout MA documented in this encounter[facility]07[facility]17-2023 Miscellaneous Notes* Telephone Encounter - Porfirio Rucker RN - 04/05/2023 3:20 PM EDT Order faxed to [facility]. VM left on pt's home phone. Encouraged to call with any questions or concerns. Porfirio Rucker RN * Telephone Encounter - Porfirio Rucker RN - 04/05/2023 2:12 PM EDT BRM: Order pended, please review and sign Porfirio Rucker RN * Telephone Encounter - Mary Anne Goodrich - 04/05/2023 2:[address] Mammogram Hardik . Ernestina wants to schedule her appt at [facility]. Mail order and phone # to her home. documented in this encounterMer[facility]12-02-2022 Miscellaneous Notes* Telephone Encounter - Teresita Tsai RN - 08/21/2022 4:30 PM EST Informed pt of Dr Disla's message. Pt verbalized understanding and denies further needs at this time. Teresita Tsai RN * Telephone Encounter - Teresita Tsai RN - 08/21/2022 4:21 PM EST ----- Message from Wilver Disla MD sent at 08/21/2022 3:21 PM EST ----- Please inform the patient that her labs are stable. We will continue as planned. Thanks, BRM documented in this encounterMer[facility]12-01-2022 History of Present illness Narrative* Wilver Disla MD - 08/20/2022 8:08 AM EST PATIENT NAME: Ernestina Costa DATE: 08/20/2022 PRIMARY [...] particular complaints. She plans to go to [place] nextweek, and will return to [place] in early February 2023. MEDICATIONS: anastrozole (ARIMIDEX) 1 mg tablet Take 1 tablet by mouth once daily. SAMUEL'S WORT ORAL Take by mouth. loratadine (CLARITIN [...] Right breast lumpectomy and sentinel node biopsy ([facility]) Invasive ductal carcinoma, grade 1. Low-grade DCIS without necrosis. The invasive carcinoma measures 1.5 cm in greatest dimension. It focally involved the inferior margin. The remaining margins are free of neoplasm. One sentinel lymph node biopsied, with evidence of metastasis measuring 4 mm in greatest dimension.Minute focus of extranodal extension measuring approximately 0.1 mm is identified. LABORATORY DATA: Hemoglobin (g/dL) Date Value 08/20/2022 13.2 08/12/2021 13.7 Hematocrit (%) Date Value 08/20/2022 40.4 08/12/2021 42.2 WBC (k/uL) Date Value 08/20/2022 8.49 08/12/2021 6.69 Platelet Count (k/uL) Date Value 08/20/2022 259 08/12/2021 266 RADIOLOGIC DATA: 07/29/2022 Bilateral diagnostic mammogram ([facility]) Benign finding. Recommend routine mammogram in 12 months. ASSESSMENT/PLAN: 1. Malignant neoplasm of lower-inner quadrant of right breast of female, estrogen receptor positive Stage IIA (T1c, N1a, M0) Infiltrating ductal carcinoma of the right breast, ER/AK positive, HER2 negative diagnosed August 2019. Ultrasound guided biopsy 08/22/2019 revealed a low-grade ductal carcinoma, ER 95%, AK 80%, HER-2 negative. Lumpectomy and SNB completed 09/19/2019 revealed 1.5 cm grade I invasive ductal carcinoma, focally involving the inferior margin. Right sentinel lymph node biopsyrevealed metastatic carcinoma involving one lymph node with a minute focus of extracapsular invasion. Oncotype recurrence score 12, indicating a good prognosis and no apparent benefit from adjuvant chemotherapy. Postop the patient received adjuvant radiation therapy to the right breast completed December 2019 (given in [place]). Adjuvant hormonal therapy with Arimidex started November 2019. Currently the patient has no evidence of disease. At this time the patient will continue as is with Arimidex 1 mg daily, with plans to take for 5 years total (November 2024). We will see her back in 6 months (after she returns from [place]). We will arrange for her next surveillance mammogram to be done July 2023. We will also obtain a bone density exam at that time. Wilver Disla MD CC: Dr. Chambers documented in this encounterMercy Health St[facility]10-27-2022 NotePROCEDURE: XR FOOT LT MIN 3 VIEWS HISTORY: Pain in left [...] 2. Pes planus. Electronically authenticated by: GRACE TAMEZ Date: 2022-07-16 06:31The [facility] [id number] Miscellaneous Notes* Telephone Encounter - Jessika Makc - 03/11/2022 3:[address] labs if needed for appt on 03/19. Jessika Mack documented in this encounterMer[facility]11-17-2021 NotePROCEDURE: XR FOOT LT MIN 3 VIEWS COMPARISON: 07/09/2021 HISTORY: Pain [...] postsurgical changes Osteopenia Electronically authenticated by: ERASMO CLAYTON Date: 2021-08-06 13:38[facility]Evaluation + Plan note No data available for this section [facility] evaluation note* Diagnosis Malignant neoplasm of overlapping sites of right breast in female, estrogen receptor positive (HCC)- Primary documented in this encounter [facility]* Diagnosis Malignant neoplasm of overlapping sites of right female breast, unspecified estrogen receptor status (HCC) Estrogen receptor positive status (ER+) 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+] [facility]* Diagnosis Malignant neoplasm of overlapping sites of right breast in female, estrogen receptor positive (HCC)- Primary [facility] this [facility]* Diagnosis Malignant neoplasm of overlapping sites of right breast in female, estrogen receptor positive (HCC)- Primary [facility] this [facility]* Diagnosis Malignant neoplasm of overlapping sites of right breast in female, estrogen receptor positive (HCC)- Primary Encounter for screening mammogram for malignant neoplasm of breast Other screening mammogram documented in this encounter [facility]* Diagnosis Lumbar radiculopathy- Primary Thoracic or lumbosacral neuritis or radiculitis, unspecified documented in this encounter [facility] HealthcareEvaluation note* Diagnosis Lumbar radiculopathy- Primary Thoracic or lumbosacral neuritis or radiculitis, unspecified documented in this encounter [facility]Evaluation note* Diagnosis Lumbar radiculopathy- Primary Thoracic or lumbosacral neuritis or radiculitis, unspecified documented in this encounter [facility]Evaluation note* Diagnosis Lumbar radiculopathy- Primary Thoracic or lumbosacral neuritis or radiculitis, unspecified documented in this encounter [facility] note* Diagnosis Lumbar radiculopathy- Primary Thoracic or lumbosacral neuritis or radiculitis, unspecified documented in this encounter [facility] HealthcareEvaluation note* Diagnosis Idiopathic peripheral neuropathy- Primary Unspecified hereditary and idiopathic peripheral neuropathy Benign paroxysmal positional vertigo, unspecified laterality Lumbar radiculopathy Thoracic or lumbosacral neuritis or radiculitis, unspecified Malignant neoplasm of lower-inner quadrant of right breast of female, estrogen receptor positive (CMS/HCC) documented in this encounter [facility] HealthcareEvaluation note* Diagnosis Lumbar radiculopathy- Primary Thoracic or lumbosacral neuritis or radiculitis, unspecified documented in this encounter [facility]Evaluation note* Diagnosis Idiopathic peripheral neuropathy- Primary Unspecified hereditary and idiopathic peripheral neuropathy Cervical radiculopathy Brachial neuritis or radiculitis nos documented in this encounter [facility] HealthcareEvaluation note* Diagnosis Malignant neoplasm of overlapping sites of right breast in female, estrogen receptor positive (HCC)- Primary Encounter for osteoporosis screening in asymptomatic postmenopausal patient documented in this encounter [facility]* Diagnosis Lumbar radiculopathy- Primary Thoracic or lumbosacral neuritis or radiculitis, unspecified documented in this encounter [facility]* Diagnosis Trochanteric bursitis of both hips- Primary Lumbar radiculopathy Thoracic or lumbosacral neuritis or radiculitis, unspecified Trochanteric bursitis of left hip documented in this encounter [facility]* Diagnosis Cervical radiculopathy- Primary Brachial neuritis or radiculitis nos Ataxic gait Abnormality of gait Neuropathy Mononeuritis of unspecified site Lumbar radiculopathy Thoracic or lumbosacral neuritis or radiculitis, unspecified Idiopathic peripheral neuropathy Unspecified hereditary and idiopathic peripheral neuropathy documented in this encounter [facility]* Diagnosis Malignant neoplasm of overlapping sites of right breast in female, estrogen receptor positive (HCC)- Primary Osteopenia of multiple sites documented in this encounter [facility]* Diagnosis Routine general medical examination at health care facility- Primary Routine general medical examination at a health care facility Idiopathic peripheral neuropathy Unspecified hereditary and idiopathic peripheral neuropathy Atherosclerosis of aorta Lumbar radiculopathy Thoracic or lumbosacral neuritis or radiculitis, unspecified Numbness of left foot Urge incontinence Cystocele, unspecified documented in this encounter [facility]* Diagnosis Other polyneuropathy- Primary Numbness of left foot Pain due to onychomycosis of toenails of both feet documented in this encounter [facility]* Diagnosis Other polyneuropathy- Primary Onychocryptosis Ingrowing nail Toe pain, left Pain in soft tissues of limb Toe pain, right Pain in soft tissues of limb documented in this encounter [facility]* Diagnosis Onychocryptosis- Primary Ingrowing nail Toe pain, left Pain in soft tissues of limb Toe pain, right Pain in soft tissues of limb Other polyneuropathy documented in this encounter [facility]* Diagnosis Hemorrhoids, unspecified hemorrhoid type- Primary Flu vaccine need documented in this encounter [facility]* Diagnosis Other polyneuropathy- Primary Pain due to onychomycosis of toenails of both feet documented in this encounter [facility] HealthcareProgress note No data available for this section [facility] for referral (narrative)* Diagnostic Procedure Only (Routine) - Pending ReviewSpecialtyDiagnoses / ProceduresReferred By ContactReferred To ContactBR IMAGING Diagnoses Malignant neoplasm of overlapping sites of right breast in female, estrogen receptor positive (HCC) Malignant neoplasm of overlapping sites of right female breast, unspecified estrogen receptor status (HCC) Estrogen receptor positive status (ER+) Procedures [facility]O DIAGNOSTIC BILATERAL DIAGNOSTIC MAMMOGRAPHY COMPUTER-AIDED DETCJ Wilver Estes MD [address] [place] [address] [place] [address] [facility] [address] [place] [address] Referral IDStatusReasonStart DateExpiration DateVisits RequestedVisits [id number] Review Auto-Generated Referral / [facility] for referral (narrative)* Diagnostic Procedure Only (Routine) - Pending ReviewSpecialtyDiagnoses / ProceduresReferred By Contact Referred To ContactBR IMAGING Diagnoses Malignant neoplasm of overlapping sites of right breast in female, estrogen receptor positive (HCC) Encounter for screening mammogram for malignant neoplasm of breast Procedures CIRO SCREENING W CHELSIE SCREENING DIGITAL BREAST TOMOSYNTHESIS BI SCREENING MAMMOGRAPHY BI 2-VIEW BREAST INC CAD Rosalina Landry PA-C [address] [place] [address] [place] [address] [facility] [address] [place] [phone] Referral IDStatusReasonStart DateExpiration DateVisits RequestedVisits [id number] Review Auto-Generated Referral / [facility] for referral (narrative)* Diagnostic Procedure Only (Routine) - New RequestSpecialtyDiagnoses / ProceduresReferred By Contact Referred To ContactXR IMAGING Diagnoses Encounter for osteoporosis screening in asymptomatic postmenopausal patient Procedures DXA-AXIAL SKELETON DXA BONE DENSITY STUDY 1/> SITES AXIAL SKEL Disla, Wilver R, MD [address] [facility] [place] [address] [place] [address] Referral IDStatusReasonStart DateExpiration DateVisits RequestedVisits [id number] Request Auto-Generated Referral / [facility] for visit Narrative* Rehabilitation - Outpatient (Routine) - AuthorizedSpecialtyDiagnoses / ProceduresReferred By Contact Referred To ContactPhysical Therapy Diagnoses Lumbar radiculopathy Procedures [place] OFF[facility] Caesar Craven MD [address] [address] Phone: tel: fax: Terry Grimaldo, PT [address] [facility] [address] [place] [address] Phone: tel: fax: Referral IDStatusReasonStart DateExpiration DateVisits RequestedVisits [id number] Specialty Services Required /[facility] Narrative* Consultation (Routine) - Closed SpecialtyDiagnoses / ProceduresReferred By ContactReferred To ContactNeurology Diagnoses Ataxic gait Neuropathy Lumbar radiculopathy Procedures [place] OFFICE/OUTPATIENT [facility] MDM 60 MINUTES Kade Huynh MD [address] [facility] [address] [place] [address] Caesar Craven MD [address] [place] [address] Referral IDStatusReasonStart DateExpiration DateVisits RequestedVisits [id number] Specialty Services Required / [facility] Healthcare Summary Purpose Family History No Family History Records FoundNo Family History Records Found No data available for this section No Family History Records FoundNo Family History Records Found Advance Directives No Advanced Directives Records FoundNo Advanced Directives Records FoundNo Advanced Directives Records FoundNo Advanced Directives Records Found Additional Source Comments Source Comments (unrecognize d section and content) In the event this informatio n is protected by the Federal Confidentiality of Alcohol and Drug Abuse Patient Records regulations: The Federal rules restrict any use of the information to criminally investigate or prosecute any alcohol or drug abuse patient.[facility] CenterIn the event this information is protected by the Federal Confidentiality of Alcohol and Drug Abuse Patient Records regulations: The Federal rules restrict any use of the information to criminally investigate or prosecute any alcohol or drug abuse patient.[facility] CenterIn the event this information is protected by the Federal Confidentiality of Alcohol and Drug Abuse Patient Records regulations: The Federal rules restrict any use of the information to criminally investigate or prosecute any alcohol or drug abuse patient.[facility] CenterIn the event this information is protected by the Federal Confidentiality of Alcohol and Drug Abuse Patient Records regulations: The Federal rules restrict any use of the information to criminally investigate or prosecute any alcohol or drug abuse patient.[facility] CenterIn the event this information is protected by the Federal Confidentiality of Alcohol and Drug Abuse Patient Records regulations: The Federal rules restrict any use of the information to criminally investigate or prosecute any alcohol or drug abuse patient.[facility] CenterIn the event this information is protected by the Federal Confidentiality of Alcohol and Drug Abuse Patient Records regulations: The Federal rules restrict any use of the information to criminally investigate or prosecute any alcohol or drug abuse patient.[facility] CenterIn the event this information is protected by the Federal Confidentiality of Alcohol and Drug Abuse Patient Records regulations: The Federal rules restrict any use of the information to criminally investigate or prosecute any alcohol or drug abuse patient.[facility] CenterIn the event this information is protected by the Federal Confidentiality of Alcohol and Drug Abuse Patient Records regulations: The Federal rules restrict any use of the information to criminally investigate or prosecute any alcohol or drug abuse patient.[facility] CenterIn the event this information is protected by the Federal Confidentiality of Alcohol and Drug Abuse Patient Records regulations: The Federal rules restrict any use of the information to criminally investigate or prosecute any alcohol or drug abuse patient.[facility] CenterIn the event this information is protected by the Federal Confidentiality of Alcohol and Drug Abuse Patient Records regulations: The Federal rules restrict any use of the information to criminally investigate or prosecute any alcohol or drug abuse patient.[facility] CenterIn the event this information is protected by the Federal Confidentiality of Alcohol and Drug Abuse Patient Records regulations: The Federal rules restrict any use of the information to criminally investigate or prosecute any alcohol or drug abuse patient.[facility] CenterIn the event this information is protected by the Federal Confidentiality of Alcohol and Drug Abuse Patient Records regulations: The Federal rules restrict any use of the information to criminally investigate or prosecute any alcohol or drug abuse patient.[facility] CenterIn the event this information is protected by the Federal Confidentiality of Alcohol and Drug Abuse Patient Records regulations: The Federal rules restrict any use of the information to criminally investigate or prosecute any alcohol or drug abuse patient.[facility] Reason for Visit (unrecogniz ed section and content) ReasonCommentsLab OrdersReasonCommentsBreast Cancer5 month follow upReason CommentsResultsReasonCommentsOrdersReasonOnset DateCommentsRefill Request 4ReasonCommentsAnastrozoleSpecialtyDiagnoses / ProceduresReferred By ContactReferred To ContactPhysical Therapy Diagnoses Lumbar radiculopathy Procedures [place] [facility] 60 MINUTES Caesar rCaven MD [address] [facility] [address] [place] [address] Terry Grimaldo, PT [address] [facility] [address] [place] [address] Referral IDStatusReasonStart DateExpiration DateVisits RequestedVisits [id number] Specialty Services Required [id number] IDStatusReasonStart DateExpiration DateVisits RequestedVisits [id number] Specialty Services Required [id number] CancerReasonCommentsF/U on Bone Density ResultsReasonOnset DateCommentsPT Initial Eval06/12/2024Tried to contact to schedule for PT Eval for lumbar radiculopathy; but the phone number was not accepting calls.Call Back06/14/2024She contacted and we scheduled PT Eval 06/21. ReasonCommentsBreast CancerFollow upReasonCommentseffects of EvistaReason CommentsToenail CareSpecialtyDiagnoses / ProceduresReferred By ContactReferred To ContactPodiatry Diagnoses Numbness of left foot Procedures [place] OFFICE/OUTPATIENT NEW HIGH MDM 60 MINUTES Kade Huynh MD [address] [facility] [address] [place] [address] Phone: tel: fax: Bakari Calixto DPM [address] [facility] [address] [place] [address] Phone: tel: fax: Referral IDStatusReasonStart DateExpiration DateVisits RequestedVisits [id number] Specialty Services Required /[id number] ToenailBl permReasonCommentsFollow-up 14d s/p avulsionReasonCommentsMed RefillHEMORRHOID SUPPOSITORY-- CVS BELLVACCINE QUESTIONPT WONDERS IF THERE ARE ANY VACCINES SHE IS DUE FORDISCUSS TREATMENT THAT WAS RECOMMENDED BY UROLOGYUrology suggested Bulkamid as a treatment option for bladder leaks and wondering if PCP agreedResultsLab lab work done 03/2025 and wanted to make sure it was okay Care Teams (unrecognized sec tion and content) Team MemberRelationshipSpecialtyStart DateEnd Date Kade Huyhn II [address] [facility] [address] [place] [address] PCP - GeneralInternal Rjytxgqf00/20/20 Wilver Disla MD [address] [place] [address] [place] [address] PhysicianHematology/Oncology10/11/19 Hannah Alford, SHELTER DIRECTOR.ALUMNI SECRETARY [address] [facility] [address] [place] [address] Nurse PractitionerHematology/Oncology10/11/19Team MemberRelationshipSpecialty Start DateEnd Date Kade Huynh II [address] [place] [address] PCP - GeneralInternal Pbztrlob62/20/20 Wilver Disla MD [address] [facility] [place] [address] PhysicianHematology/Oncology10/11/19 Hannah Alford, SHELTER DIRECTOR.ALUMNI SECRETARY [address] [facility] [address] [place] [address] Nurse PractitionerHematology/Oncology10/11/19Team MemberRelationshipSpecialty Start DateEnd Date Kade Huynh II [address] [facility] [address] [place] [address] PCP - GeneralInternal Nvytrlyg45/20/20 Wilver Disla MD [address] [facility] [place] [address] PhysicianHematology/Oncology10/11/19 Hannah Alford, SHELTER DIRECTOR.ALUMNI SECRETARY [address] [facility] [place] [address] Nurse PractitionerHematology/Oncology10/11/19Team MemberRelationshipSpecialty Start DateEnd Date Kade Huynh II, MD [address] [facility] [address] [place] [address] PCP - GeneralInternal Upgjknfd43/20/20 Wilver Disla MD [address] [place] [address] PhysicianHematology/Oncology10/11/19 Hannah Alford, SHELTER DIRECTOR.ALUMNI SECRETARY [address] [place] [address] Nurse PractitionerHematology/Oncology10/11/19Team MemberRelationshipSpecialty Start DateEnd Date Kade Huynh II, MD [address] [facility] [address] [place] [address] PCP - GeneralInternal Hmwvwyru11/20/20 Wilver Disla MD [address] [facility] [place] [address] PhysicianHematology/Oncology10/11/19 Hannah Alford, SHELTER DIRECTOR.ALUMNI SECRETARY [address] [facility] [place] [address] Nurse PractitionerHematology/Oncology10/11/19Team MemberRelationshipSpecialty Start DateEnd Date Kade Huynh II, MD [address] [facility] [address] [place] [address] PCP - GeneralInternal Fufhsddv03/20/20 Wilver Disla MD [address] [facility] [place] [address] PhysicianHematology/Oncology10/11/19 Hannah Alford, SHELTER DIRECTOR.ALUMNI SECRETARY [address] [facility] [place] [place] [address] Nurse PractitionerHematology/Oncology10/11/19Team MemberRelationshipSpecialty Start DateEnd Date Kade Huynh II, MD [address] [place] [address] PCP - GeneralInternal Ujnwwdxv51/20/20 Wilver Disla MD [address] [facility] [place] [address] PhysicianHematology/Oncology10/11/19 Hannah Alford, GIORGIO.ALUMNI SECRETARY [address] [facility] [address] [place] [address] Nurse PractitionerHematology/Oncology10/11/19Team MemberRelationshipSpecialty Start DateEnd Date Kade Huynh MD [address] [place] [address] PCP - ACO Reach02/11/23 Kade Huynh MD [address] [place] [address] PCP - GeneralInternal Medicine03/08/23Team MemberRelationshipSpecialtyStart Date End Date Kade Huynh MD [address] [place] [address] PCP - ACO Reach02/11/23 Kade Huynh MD 112 [address] [place] [address] PCP - GeneralInternal Medicine03/08/23Team MemberRelationshipSpecialtyStart Date End Date Kade Huynh MD [address] [place] [address] PCP - [facility]02/11/23 Kade Huynh MD [address] [place] [address] PCP - [place]03/08/23Te MemberRelationshipSpecialtyStart Date End Date Kade Huynh MD [address] [place] [address] PCP - [facility]02/11/23 Kade Huynh MD [address] [place] [address] PCP - [place]03/08/23Te MemberRelationshipSpecialtyStart Date End Date Kade Huynh MD [address] [place] [address] [facility] - [facility]02/11/23 Kade Huynh MD [address] [place] [address] PCP - [place]03/08/23Te MemberRelationshipSpecialtyStart Date End Date Kade Huynh MD [address] [place] [address] PCP - [facility]02/11/23 Kade Huynh MD [address] [place] [address] PCP - [place]03/08/23Te MemberRelationshipSpecialtyStart Date End Date Kade Huynh MD [address] [place] [address] PCP - [facility]02/11/23 Kade Huynh MD [address] [place] [address] PCP - [place]03/08/23Te MemberRelationshipSpecialtyStart Date End Date Kade Huynh MD [address] [place] [address] PCP - [facility]02/11/23 Kade Huynh MD [address] [place] [address] PCP - [place]03/08/23Te MemberRelationshipSpecialtyStart Date End Date Kade Huynh MD [address] [place] [address] [facility] - [facility]02/11/23 Kade Huynh MD [address] [place] [address] PCP - [place]03/08/23Te MemberRelationshipSpecialtyStart Date End Date Kade Huynh MD [address] [place] [address] PCP - [facility]02/11/23 Kade Huynh MD [address] [place] [address] PCP - [place]03/08/23Te MemberRelationshipSpecialtyStart Date End Date Kade Huynh MD [address] [place] [address] PCP - [facility]02/11/23 Kade Huynh MD [address] [place] [address] PCP - [place]03/08/23Te MemberRelationshipSpecialtyStart Date End Date Kade Huynh MD [address] [place] [address] PCP - [facility]02/11/23 Kade Huynh MD [address] [place] [address] PCP - [place]03/08/23Te MemberRelationshipSpecialtyStart Date End Date Kade Huynh MD [address] [place] [address] PCP - [facility]02/11/23 Kade Huynh MD [address] [place] [address] PCP - [place]03/08/23Te MemberRelationshipSpecialtyStart Date End Date Kade Huynh MD [address] [place] [address] PCP - [facility]02/11/23 Kade Huynh MD [address] [place] [address] PCP - [place]03/08/23Te MemberRelationshipSpecialtyStart Date End Date Kade Huynh II, MD [address] [place] [address] PCP - GeneralInternal Ftshnjmv23/20/20 Wilver Disla MD [address] [place] [address] PhysicianHematology/Oncology10/11/19 Hannah Alofrd APRN.[employer] [address] [place] [address] Nurse PractitionerHematology/Oncology10/11/19Team MemberRelationshipSpecialty Start DateEnd Date Kade Huynh MD [address] [facility] [address] [place] [address] PCP - [facility]02/11/23 Kade Huynh MD [address] [place] [address] PCP - GeneralInternal Medicine03/08/23Te MemberRelationshipSpecialtyStart Date End Date Kade Huynh MD [address] [place] [address] PCP - [facility]02/11/23 Kade Huynh MD [address] [place] [address] PCP - GeneralInternal Medicine03/08/23Te MemberRelationshipSpecialtyStart Date End Date Kade Huynh II, MD [address] [place] [address] PCP - GeneralInternal Rxspaoqb32/20/20 Wilver Disla MD [address] [place] [address] PhysicianHematology/Oncology10/11/19 Hannah Alford APRN.[employer] [address] [place] [address] [place] [address] Nurse PractitionerHematology/Oncology10/11/19Team MemberRelationshipSpecialty Start DateEnd Date Kade Huynh MD [address] [place] [address] PCP - [facility]02/11/23 Kade Huynh MD [address] [place] [address] PCP - GeneralInternal Medicine03/08/23Team MemberRelationshipSpecialtyStart Date End Date Kade Huynh MD [address] [place] [address] PCP - [facility]02/11/23 Kade Huynh MD [address] [place] [address] PCP - GeneralInternal Medicine03/08/23Team MemberRelationshipSpecialtyStart Date End Date Kade Huynh MD [address] [place] [address] PCP - GeneralInternal Medicine03/08/23 Shama Carter LPN 12/08//Team MemberRelationshipSpecialtyStart DateEnd Date Kade Huynh MD [address] [place] [address] PCP - GeneralInternal Medicine03/08/23Team MemberRelationshipSpecialtyStart Date End Date Kade Huynh II, MD [address] [place] [address] PCP - GeneralInternal Khvbxzaq02/20/20 Wilver Disla MD [address] [place] [address] PhysicianHematology/Oncology10/11/19 Hannah Alford, SHELTER DIRECTOR.[employer] [address] [place] [address] Nurse PractitionerHematology/Oncology10/11/19Team MemberRelationshipSpecialty Start DateEnd Date Kade Huynh II, MD [address] [address] PCP - GeneralInternal Ojadupmw67/20/20 Wilver Disla MD [address] [place] [address] PhysicianHematology/Oncology10/11/19 Hannah Alford, SHELTER DIRECTOR.[employer] [address] [place] [address] Nurse PractitionerHematology/Oncology10/11/19Team MemberRelationshipSpecialty Start DateEnd Date Kade Huynh MD [address] [facility] [address] [place] [address] PCP - GeneralInternal Medicine03/08/23Team MemberRelationshipSpecialtyStart Date End Date Kade Huynh MD [address] [facility] [address] [place] [address] PCP - GeneralInternal Medicine03/08/23Team MemberRelationshipSpecialtyStart Date End Date Kade Huynh MD [address] [place] [address] PCP - GeneralInternal Medicine03/08/23Team MemberRelationshipSpecialtyStart Date End Date Kade Huynh MD [address] [place] [address] PCP - GeneralInternal Medicine03/08/23Team MemberRelationshipSpecialtyStart Date End Date Kade Huynh MD [address] [place] [address] PCP - GeneralInternal Medicine03/08/23Team MemberRelationshipSpecialtyStart Date End Date Kade Huynh MD [address] [place] [address] PCP - GeneralInternal Medicine03/08/23Team MemberRelationshipSpecialtyStart Date End Date Kade Huynh MD [address] [place] [address] PCP - GeneralInternal Medicine03/08/23Team MemberRelationshipSpecialtyStart Date End Date Kade Huynh MD [address] [place] [address] PCP - GeneralInternal Medicine03/08/23Team MemberRelationshipSpecialtyStart Date End Date Kade uHynh MD [address] [place] [address] PCP - GeneralInternal Medicine03/08/23Team MemberRelationshipSpecialtyStart Date End Date Kade Huynh MD [address] [place] [address] PCP - GeneralInternal Medicine03/08/23Te MemberRelationshipSpecialtyStart Date End Date Kade Huynh MD [address] [facility] [address] [place] [address] PCP - GeneralInternal Medicine03/08/23Te MemberRelationshipSpecialtyStart Date End Date Kade Huynh MD [address] [facility] [address] [place] [address] PCP - [facility] Kade Huynh MD [address] [facility] [address] [place] [address] PCP - GeneralInternal Medicine03/08/23 Kade Huynh MD [address] [facility] [address] [place] [address] PCP - [facility] Naomi Jane, RN [address] [facility] [place] [address] Clinical AdvocateFamily Medicine Shama Carter LPN [address] [facility] [address] [place] [address] INFORMATION SOURCE (unrecogn ized section and content) DATE CREATED AUTHOR 08/03/2022 [facility] DATE CREATED AUTHOR AUTHOR'S ORGANIZ ATION 04/04/2025 [facility] DATE CREATED AUTHOR AUTHOR'S ORGANIZ ATION 05/10/2025 [facility] DATE CREATED AUTHOR AUTHOR'S ORGANIZ ATION 07/21/2025 [facility] EPIC FOR RECORDS PERTAINING TO PATIENTS WHO ARE [...] BE BASED ON THE PRIMARY CLINICAL RECORDS. [facility], [facility]. provides no warranty or guarantee of the accuracy or completeness of information in this document.
== END 2025-08-01 12:45 | disposition home or self-care (01) ==
LOC: MAMMO 12:44
PROVIDERS: PCP Internal Medicine; Visit Provider Internal Medicine Hematology & Oncology
DX: Z12.31 Encounter for screening mammogram for malignant neoplasm of breast (principal); Z80.3 Family history of malignant neoplasm of breast
CPT/HCPCS: 77063; 77067